=== PATIENT | female | born 1985 | race Two or more races ===

== ENCOUNTER 2020-09-11 11:50 | Emergency (ER) | payer OTHER, SELFPAY ==
[2020-09-11 12:16] VITALS: BP 99/69; PULSE 100; RESP 18; TEMP 36; O2SAT 100; BMI 33.6
[2020-09-11 13:15] VITALS: BP 114/71; PULSE 72; RESP 16; TEMP 36.9; O2SAT 99
--- NOTE | 2020-09-11 13:32 | ED.BACK ---
HPI - Back Pain/Injury General Chief Complaint: Back Pain/Injury Stated Complaint: back pain Time Seen by Provider: 09/11/20 13:27 Source: patient Mode of arrival: ambulatory Limitations: no limitations History of Present Illness HPI Narrative: 35 y/o female with history of sciatica presents with bilateral lower back pain that started 1 week ago after lifting a heavy mop bucket filled with water. She has been taking Tylenol and Aleve with only brief and minor improvements. It was getting better until yesterday when she got up too quickly and re-injured the area. She describes the pain as tight and clenched up. She denies urinary symptoms, incontinence, numbness or tingling. MD elicited complaint: back pain and back injury Pertinent past history: prior back pain Onset (ago): day(s) (7) Timing: constant Severity: moderate Similar Symptoms Previously: Yes Quality: sharp, aching and spasming Location: right lower back and left lower back Radiation: none Exacerbating factors: movement, walking, coughing/sneezing and lifting Relieving factors: immobilization and medication Context: while lifting Associated symptoms: denies other symptoms Treatments prior to arrival: heat therapy Work related injury: No Related Data Previous Rx's Medication Instructions Recorded cyclobenzaprine 10 mg PO TID PRN #15 tab 09/11/20 hydrocodone-acetaminophen [[place]] 1 tab PO Q6H PRN #10 tab 09/11/20 ibuprofen 600 mg PO Q8H PRN #20 tab 09/11/20 lidocaine [Lidoderm] 1 patch TOPICAL DAILY #15 ea 09/11/20 Allergies Allergy/AdvReac Type Severity Reaction Status Date / Time No Known Allergies Allergy Verified 09/11/20 12:15 Review of Systems Review of Systems: Constitutional: No Fever, No Chills Respiratory: No Cough, No Sputum, No Wheezing, No dyspnea Gastrointestinal No abdominal Pain Genitourinary: No Dysuria, No Urinary Frequency, No Hematuria Musculoskeletal: + joint pain, + Myalgias Skin: No Skin Lesions, No rash Neuro: No Weakness, No Numbness PMFSH Past Medical History Attestation statement: The following information was validated with the patient. Medical History Appendicitis Cholecystectomy planned Surgical History (Updated 09/11/20 @ 12:20 by Madelyn Chong) S/P panniculectomy Tubal ligation status Social History Social History Alcohol intake: never Smoking Status: Never smoker Use of substances other than those prescribed or required for medical reasons: No Advance Directives: No Advance Directives Information Provided: Yes Physical Exam Vital Signs: Vital Signs: Last Vital Signs Temp 98.5 F 09/11/20 13:15 Pulse 72 09/11/20 13:15 Resp 16 09/11/20 13:15 BP 114/71 09/11/20 13:15 Pulse Ox 99 09/11/20 13:15 Body Mass Index 33.6 Appearance: Alert. Oriented X3. No acute distress. HEENT: normal inspection Respiratory: No respiratory distress. Skin: Skin warm and dry. Normal skin color. Normal skin turgor. No rashes. Extremities: normal inspection, full ROM. normal patellar DTR. Back: low lumbar area tender on the left and right sides, no spinal tenderness, no CVA tenderness. Neuro: Oriented X 3. No motor deficit. No sensory deficit. Course Course Course Narrative: 35 y/o female presenting with low back pain after heavy lifting. Exam and mechanism consistent with muscular injury, doubt radiulopathy or herniation given lack of radiation. No red flag symptoms, no hx IVDA. Will give Rx for NSAID, muscle relaxer and short course of [place]. Patient counseled, agrees with plan. MDM - Back Pain/Injury Differential Diagnosis Differential diagnosis: Likely lumbar radiculopathy, sciatica, strain of lumbar region and renal colic Critical Care Time Critical Care Time Critical Care Time: No Discharge Plan Discharge Clinical Impression: Strain of lumbar region Qualifiers: Encounter type: initial encounter Qualified Code(s): S39.012A - Strain of muscle, fascia and tendon of lower back, initial encounter Patient Disposition: Home, Self-Care Instructions: Acute Low Back Pain (ED), Lower Back Exercises (ED) Additional Instructions: Use ice and/or heat several times per day as needed for pain. Take prescribed medications as needed for pain. Limit bending, lifting >5 lbs, or twisting motion. Follow up with your doctor next week. Prescriptions: New cyclobenzaprine 10 mg tablet 10 mg PO TID PRN (Reason: muscle spasm) Qty: 15 RF: 0 ibuprofen 600 mg tablet 600 mg PO Q8H PRN (Reason: pain) Qty: 20 RF: 0 lidocaine [Lidoderm] 5 % adhesive patch,medicated 1 patch topical DAILY Qty: 15 RF: 0 hydrocodone-acetaminophen [[place]] 5-325 mg tablet 1 tab PO Q6H PRN (Reason: pain) Qty: 10 RF: 0
[2020-09-11] MEDS: Ketorolac Tromethamine 30 MG/ML VIAL IM (13:40)
[2020-09-11] MEDS: HYDROcodone Bit/Acetam 5/325 TABLET 1 TAB PO (13:40)
[2020-09-11 14:05] VITALS: BP 119/65; PULSE 79; RESP 16; O2SAT 98
== END 2020-09-11 14:08 | disposition home or self-care (01) ==
PROVIDERS: Emergency Provider Emergency Medicine Emergency Medical Services; PCP Internal Medicine
DX: S39.012A Strain of muscle, fascia and tendon of lower back, initial encounter (principal); X50.0XXA Overexertion from strenuous movement or load, initial encounter; Y93.E5 Activity, floor mopping and cleaning; Y92.009 Unspecified place in unspecified non-institutional (private) residence as the place of occurrence of the external cause; Y99.9 Unspecified external cause status; Z79.899 Other long term (current) drug therapy
CPT/HCPCS: 96372; 99284; J1885

== ENCOUNTER 2020-09-14 21:39 | Emergency (ER) | payer OTHER, SELFPAY ==
[2020-09-14 21:54] VITALS: BP 119/45; PULSE 86; RESP 16; TEMP 37.3; O2SAT 99; BMI 75.2
--- NOTE | 2020-09-14 22:21 | ED.BACK ---
HPI - Back Pain/Injury General Chief Complaint: Back Pain/Injury Stated Complaint: back pain Time Seen by Provider: 09/14/20 22:20 Source: patient Mode of arrival: ambulatory Limitations: no limitations History of Present Illness HPI Narrative: This is a 35-year-old female who re-presented after being seen on 09/11 for back pain after lifting a heavy mop up that 1 week prior to her initial presentation. She currently continues to deny any urinary incontinence or retention as well as no difficulties with bowel movements. She denies any radiation of the pain into either lower extremity at this time and simply states that she continues to feel very stiff . She denies any fevers, chills, shortness of breath, abdominal pain, urinary pain/ burning / frequency. Related Data Previous Rx's Medication Instructions Recorded cyclobenzaprine 10 mg PO TID PRN #15 tab 09/11/20 hydrocodone-acetaminophen [[place]] 1 tab PO Q6H PRN #10 tab 09/11/20 ibuprofen 600 mg PO Q8H PRN #20 tab 09/11/20 lidocaine [Lidoderm] 1 patch TOPICAL DAILY #15 ea 09/11/20 ciprofloxacin HCl [Cipro] 500 mg PO Q12H #14 tab 09/14/20 ketorolac 10 mg PO Q6H PRN 5 Days #20 tab 09/14/20 Allergies Allergy/AdvReac Type Severity Reaction Status Date / Time No Known Allergies Allergy Verified 09/11/20 12:15 Review of Systems Review of Systems: Pertinent positives and negatives as stated in HPI 10 point review of systems otherwise negative. [facility] Past Medical History Source: nursing notes reviewed Medical History Appendicitis Cholecystectomy planned Surgical History S/P panniculectomy Tubal ligation status Social History Social History Alcohol intake: never Smoking Status: Never smoker Advance Directives: No Advance Directives Information Provided: Yes Physical Exam Vital Signs: Vital Signs: Last Vital Signs Temp 99.1 F 09/14/20 21:54 Pulse 86 09/14/20 21:54 Resp 16 09/14/20 21:54 BP 119/45 L 09/14/20 21:54 Pulse Ox 99 11/30/20 21:54 Body Mass Index 75.2 VITAL SIGNS: Reviewed. GENERAL: Well developed, well nourished, in no acute distress. HEAD: Normocephalic/atraumatic, EYES: PERRLA, EOMI intact without pain, no nystagmus/pallor/icterus noted EARS: Ext canals without abnormality, TMs non-bulging and non-erythematous NOSE: Nares patent bilateral OROPHARYNX: no oral lesions noted, posterior pharynx clear and non-erythematous without noted tonsillar enlargement/erythema/exudates NECK: Supple, no adenopathy LUNGS: Normal breath sounds. No adventitious sounds or accessory muscle use. SpO2<99> CARDIOVASCULAR: Regular rate and rhythm without noted murmurs, no JVD or lower extremity edema. ABDOMEN: Soft, non-tender, non-distended with bowel sounds. No rigidity. No guarding. No palpable masses or hernias noted MUSCULOSKELETAL: No tenderness, deformities, or effusions noted on gross inspection. BACK: Spasm noted, straight leg test negative, bilateral neurovascular evaluation is without acute findings EXTREMITIES: No cyanosis, clubbing or edema. SKIN: Inspection of the skin reveals no rashes, ulcerations, jaundice, pallor, or petechiae. NEUROLOGIC: Alert and oriented x 4. Strength and sensation to light touch were grossly intact x 4. Course Course Course Narrative: This is a 35-year-old female with history and clinical presentation most consistent with back strain resulting in spasm. Will treat with combination analgesics and muscle relaxants and re-evaluate. Patient is noted to have gallbladder disease and will debate obtaining an ultrasound as she states that the pain has been noted in the right upper back as well Although she denies any other gallbladder like symptoms. On re-evaluation patient has had some mild improvement of her symptoms and we discussed the fact that this was going to take time and would require multiple modalities which would include daily stretching as well as continued use of the medications. MDM - Back Pain/Injury Lab Data Labs: Lab Results 09/14/20 Range/Units 22:36 Urine Color YELLOW Urine Appearance CLEAR Urine pH 6.5 (5.0-8.0) Ur Specific [place] 1.020 (1.005-1.025) Urine Protein NEG (NEG-TRACE) MG/DL Urine Glucose (UA) NEG (NEG) MG/DL Urine Ketones NEG (NEG) MG/DL Urine Blood NEG (NEG) Urine Nitrite NEG (NEG) Ur Leukocyte Esterase 1+ H (NEG) Discharge Plan Discharge Clinical Impression: Pyelonephritis Strain of lumbar region Qualifiers: Encounter type: subsequent encounter Qualified Code(s): S39.012D - Strain of muscle, fascia and tendon of lower back, subsequent encounter Patient Disposition: Home, Self-Care Instructions: Urinary Tract Infection in Women (ED), Back Pain (ED), Lower Back Exercises (ED) Additional Instructions: 1. stop taking the ibuprofen, you will be prescribed a different anti-inflammatory for your back. 2. increase fluid hydration especially with water. The patient and/or family acknowledge understanding of results (as applicable), diagnosis, treatment plan, need for follow up, and symptoms that should prompt a return to the emergency room. Prescriptions: New ketorolac 10 mg tablet 10 mg PO Q6H PRN (Reason: pain) 5 Days Qty: 20 RF: 0 ciprofloxacin HCl [Cipro] 500 mg tablet 500 mg PO Q12H Qty: 14 RF: 0 No Action cyclobenzaprine 10 mg tablet 10 mg PO TID PRN (Reason: muscle spasm) Qty: 15 RF: 0 ibuprofen 600 mg tablet 600 mg PO Q8H PRN (Reason: pain) Qty: 20 RF: 0 lidocaine [Lidoderm] 5 % adhesive patch,medicated 1 patch topical DAILY Qty: 15 RF: 0 hydrocodone-acetaminophen [[place]] 5-325 mg tablet 1 tab PO Q6H PRN (Reason: pain) Qty: 10 RF: 0
[2020-09-14 22:45] LABS: Glucose Urine UA NEG (NEG); Leukocyte Esterase Urine 1+ (NEG); Nitrite Urine NEG (NEG); PH 6.5 (5.0-8.0); Urine Blood NEG (NEG); Urine Ketones NEG (NEG); Urine Protein NEG (NEG-TRACE)
[2020-09-14] MEDS: Acetaminophen 325 MG TABLET 975 MG PO (22:57)
[2020-09-14] MEDS: Lidocaine 4 % Patch ADH..PATCH 1 PATCH TRANSDERMA (22:58)
[2020-09-14] MEDS: Cyclobenzaprine HCl 10 MG TABLET PO (22:58)
[2020-09-14] MEDS: Ketorolac Tromethamine 15 MG/ML VIAL IM (22:59)
[2020-09-14 23:06] LABS: Appearance Urine CLEAR; Color Urine YELLOW
[2020-09-14 23:30] VITALS: BP 117/76; PULSE 82; RESP 16; TEMP 36.5; O2SAT 99
[2020-09-15 01:16] LABS: Bacteria Urine TRACE /LPF; RBC Urine 0-2 /HPF (0); Squamous Epithelial Cell Urine 2+ /LPF; UPreg QC Valid YES; Urine Pregnancy NEGATIVE (NEGATIVE)
== END 2020-09-14 23:30 | disposition home or self-care (01) ==
PROVIDERS: Emergency Provider Student in an Organized Health Care Education/Training Program; PCP Internal Medicine
DX: S39.012A Strain of muscle, fascia and tendon of lower back, initial encounter (principal); N12 Tubulo-interstitial nephritis, not specified as acute or chronic; X58.XXXA Exposure to other specified factors, initial encounter; Y93.9 Activity, unspecified; Y92.9 Unspecified place or not applicable; Y99.9 Unspecified external cause status; Z79.899 Other long term (current) drug therapy
CPT/HCPCS: 81001; 81003; 81025; 87086; 96372; 99283; 99284; J1885

== ENCOUNTER → 2020-11-05 13:37 | Outpatient (BNVA) | payer OTHER, SELFPAY | PROVIDERS: Visit Provider Urology | DX: N39.3 Stress incontinence (female) (male) (principal) | CPT/HCPCS: 51798; 81002; 99202 ==

== ENCOUNTER 2021-04-08 08:25 | Emergency (ER) | payer OTHER, SELFPAY ==
--- NOTE | ~2021-04-08 | XR_ITS ---
EXAMINATION: XR CHEST CLINICAL INFORMATION: Cough and fever COMPARISON: None TECHNIQUE: 2 views of the chest were obtained. FINDINGS: No significant abnormality is noted involving the heart, lungs, mediastinum, bony thorax or soft tissues. XR/XR chest 2V IMPRESSION: Unremarkable chest examination.
[2021-04-08 08:53] VITALS: BP 116/64; PULSE 108; RESP 16; TEMP 39.1; O2SAT 99; BMI 36.0
[2021-04-08] MEDS: Acetaminophen 325 MG TABLET 975 MG PO (09:17)
--- NOTE | 2021-04-08 09:22 | ED.FEVER ---
HPI - Fever General Chief Complaint: Upper Respiratory Symptoms Stated Complaint: covid like symptoms Time Seen by Provider: 04/08/21 08:59 Source: patient Mode of arrival: ambulatory Limitations: no limitations History of Present Illness HPI Narrative: 35 y/o female with history of mild intermittent asthma, s/p gastric sleeve who presents to the ER with 3 days of feeling unwell. She reports about 3 days ago she started having a mild dry cough along with some chills. Her symptoms evolved yesterday to include body aches, subjective fevers, sore throat, headache and some mild nausea. She was up all night with hot flashes and chills. She denies abdominal pain, vomiting or urinary symptoms. She has some acute on chronic low back soreness and body aches all over. She has no known sick contacts. No one else in the home is sick. MD elicited complaint: fever Onset (ago): day(s) (3) Exacerbating factors: nothing Relieving factors: rest Associated symptoms: chills, myalgias, headache, sore throat, cough and nausea Treatments prior to arrival fever: none Related Data Previous Rx's Medication Instructions Recorded cyclobenzaprine 10 mg PO TID PRN #15 tab 09/11/20 hydrocodone-acetaminophen [[place]] 1 tab PO Q6H PRN #10 tab 09/11/20 ibuprofen 600 mg PO Q8H PRN #20 tab 09/11/20 lidocaine [Lidoderm] 1 patch TOPICAL DAILY #15 ea 09/11/20 ciprofloxacin HCl [Cipro] 500 mg PO Q12H #14 tab 09/14/20 ketorolac 10 mg PO Q6H PRN 5 Days #20 tab 09/14/20 amoxicillin 500 mg PO Q12H #20 tab 04/08/21 Allergies Allergy/AdvReac Type Severity Reaction Status Date / Time No Known Allergies Allergy Verified 09/11/20 12:15 Review of Systems Review of Systems: Constitutional: + Fever, + Chills ENT/Mouth: + sore throat, No Rhinorrhea, No Swallowing Difficulty Cardiovascular: No Chest Pain, No SOB, No Orthopnea, No Edema Respiratory: + Cough, No Sputum, No Wheezing, No dyspnea Gastrointestinal: + Nausea, No Vomiting, No Diarrhea, No abdominal Pain Genitourinary: No Dysuria, No Urinary Frequency, No Hematuria Musculoskeletal: No joint pain, + Myalgias Skin: No Skin Lesions, No rash Neuro: + Weakness, No Numbness, No Dizziness, + Headache Psych: No Anxiety/Panic, No Depression Heme/Lymph: No Bruising, No Lymphadenopathy Endocrine: No Polyuria, No Polydipsia PMFSH Past Medical History Attestation statement: The following information was validated with the patient. Medical History (Updated 04/08/21 @ 10:22 by TREVOR Lopez) Appendicitis Cholecystectomy planned HESHAM (stress urinary incontinence, female) Surgical History (Updated 04/08/21 @ 09:29 by TREVOR Lopez) Gastric bypass status for obesity Tubal ligation status Social History Social History Alcohol intake: never Advance Directives: Yes Advance Directives Information Provided: Yes Advance Directives on File: No Patient : No Physical Exam Vital Signs: Vital Signs: Last Vital Signs Temp 100.8 F H 04/08/21 10:32 Pulse 97 04/08/21 10:32 Resp 16 04/08/21 10:32 BP 116/64 04/08/21 08:53 Pulse Ox 100 04/08/21 10:32 Body Mass Index 36.0 Course Course Course Narrative: 35 y/o female presenting with fever, chills, sore throat, body aches, headache and mild nausea x2-3 days. She is febrile on arrival with mild tachycardia which is most likely related to the fever & pain. She has not taken any antipyretics. She appears well with clear lungs. Pharynx reveals tonsillar erythema and edema concerning for Strep pharyngitis. No appreciated peritonsillar mass, handling secretions normally and normal voice. Will give Tylenol, check CXR, Viral PCR, Strep swab and UA. Reevaluation(s) Reevaluation #1: Strep + - will give 1st dose of Amoxicillin here. Reevaluation #2: Fever improved with tylenol. Other workup is unremarkable. She is stable for discharge home with PO and and supportive care. Patient agreeable with plan. MDM - Fever Lab Data Labs: Lab Results 04/08/21 04/08/21 04/08/21 Range/Units 09:08 09:13 09:21 Urine Color YELLOW Urine Appearance HAZY Urine pH 7.0 (5.0-8.0) Ur Specific [place] 1.010 (1.005-1.025) Urine Protein NEG (NEG-TRACE) MG/DL Urine Glucose (UA) NEG (NEG) MG/DL Urine Ketones NEG (NEG) MG/DL Urine Blood NEG (NEG) Urine Nitrite NEG (NEG) Ur Leukocyte Esterase TRACE H (NEG) Urine RBC 0-2 (0) /HPF Urine WBC 0-2 (0-4) /HPF Ur Squamous Epith Cells 1+ /LPF Urine Bacteria NONE /LPF Coronavirus (PCR) NEGATIVE (Negative) Influenza Type A (PCR) NEGATIVE (Negative) Influenza Type B (PCR) NEGATIVE (Negative) RSV RNA Qual (PCR) NEGATIVE (Negative) S. pyogenes GrpA JUAN JOSÉ Positive A (Negative) Critical Care Time Critical Care Time Critical Care Time: No Discharge Plan Discharge Clinical Impression: Pharyngitis Qualifiers: Pharyngitis/tonsillitis etiology: streptococcus Qualified Code(s): J02.0 - Streptococcal pharyngitis Patient Disposition: Home, Self-Care Instructions: Strep Throat (ED) Additional Instructions: You were found to be positive for Strep throat today. Your COVID, Flu and RSV test was negative. Your chest x-ray was clear. Take the prescribed antibiotic as directed, take 1st dose tonight, you were given 1st dose in the ER today. Use warm salt water gargles several times per day. Take Tylenol 975 mg every 6 hours as needed for pain, fever, and sore throat. Use Chloraseptic [place] or Cepacol lozenges as needed for sore throat. If you develop difficulty swallowing or significant worsening of pain come back to the ER for further evaluation. Prescriptions: New amoxicillin 500 mg tablet 500 mg PO Q12H Qty: 20 RF: 0 No Action cyclobenzaprine 10 mg tablet 10 mg PO TID PRN (Reason: muscle spasm) Qty: 15 RF: 0 ibuprofen 600 mg tablet 600 mg PO Q8H PRN (Reason: pain) Qty: 20 RF: 0 lidocaine [Lidoderm] 5 % adhesive patch,medicated 1 patch topical DAILY Qty: 15 RF: 0 hydrocodone-acetaminophen [[place]] 5-325 mg tablet 1 tab PO Q6H PRN (Reason: pain) Qty: 10 RF: 0 ketorolac 10 mg tablet 10 mg PO Q6H PRN (Reason: pain) 5 Days Qty: 20 RF: 0 ciprofloxacin HCl [Cipro] 500 mg tablet 500 mg PO Q12H Qty: 14 RF: 0 Interventions: ED Discharge Assessment Last Done: 04/08/21 10:32 Discharge Date/Time: 04/08/21 10:33
[2021-04-08 09:24] LABS: IDNOW Serial# 08D9AD1C; Strep A Nucleic Acid Positive (Negative)
[2021-04-08 09:33] LABS: Glucose Urine UA NEG (NEG); Leukocyte Esterase Urine TRACE (NEG); Nitrite Urine NEG (NEG); UACC Culture Trigger YES; Urine Blood NEG (NEG); Urine Ketones NEG (NEG); Urine Protein NEG (NEG-TRACE)
[2021-04-08 09:34] LABS: Appearance Urine HAZY; Color Urine YELLOW
[2021-04-08] MEDS: Amoxicillin 500 MG CAPSULE PO (09:37)
[2021-04-08 09:49] LABS: RBC Urine 0-2 /HPF (0); Squamous Epithelial Cell Urine 1+ /LPF; WBC Urine 0-2 /HPF (0-4)
[2021-04-08 10:01] LABS: Influenza A PCR NEGATIVE (Negative); Influenza B PCR NEGATIVE (Negative); Resp Syncy Virus RNA Qual PCR NEGATIVE (Negative); SARS COV2 PCR INHOUSE NEGATIVE (Negative)
[2021-04-08 10:24] VITALS: TEMP 38.2
[2021-04-08 10:32] VITALS: PULSE 97; RESP 16; TEMP 38.2; O2SAT 100
== END 2021-04-08 10:33 | disposition home or self-care (01) ==
PROVIDERS: Physician Assistant; Emergency Provider Emergency Medicine; PCP Internal Medicine
DX: J02.0 Streptococcal pharyngitis (principal); J45.20 Mild intermittent asthma, uncomplicated; Z20.822 Contact with and (suspected) exposure to COVID-19
CPT/HCPCS: 0241U; 36415; 71046; 81001; 81003; 87086; 87651; 99283; 99284

== ENCOUNTER 2021-07-01 17:10 | Outpatient (REF) | payer OTHER, SELFPAY | END 2021-07-01 17:11 | disposition home or self-care (01) | LOC: HO.LNP 17:10 | PROVIDERS: Visit Provider Internal Medicine | DX: Z13.89 Encounter for screening for other disorder (principal) ==

== ENCOUNTER 2021-07-14 18:04 | Emergency (ER) | payer OTHER, SELFPAY ==
[2021-07-14 18:53] VITALS: BP 133/96; PULSE 73; RESP 18; TEMP 36.9; O2SAT 100; BMI 33.4
--- NOTE | 2021-07-14 19:33 | ED_ITS ---
HPI - Neck Pain/Injury General Chief Complaint: Neck Pain/Injury Stated Complaint: Neck pain Time Seen by Provider: 07/14/21 19:13 Source: patient Mode of arrival: ambulatory Limitations: no limitations History of Present Illness MD complaint: neck pain Onset (ago): week(s) (TWO WEEKS) Place: home Radiation: left lateral and upper back Severity: severe and constant Severity scale (1-10): >10 Quality: aching and spasming Duration: constant and progressively worsening Relieving factors: none Exacerbating factors: movement of neck Context: unknown Associated symptoms: none Treatments prior to arrival: acetaminophen, ibuprofen, cold therapy and heat therapy Related Data Previous Rx's Medication Instructions Recorded cyclobenzaprine 10 mg tablet 10 mg PO TID PRN #15 tab 09/11/20 hydrocodone 5 mg-acetaminophen 325 1 tab PO Q6H PRN #10 tab 09/11/20 mg tablet ([place]) ibuprofen 600 mg tablet 600 mg PO Q8H PRN #20 tab 09/11/20 lidocaine 5 % topical patch 1 patch TOPICAL DAILY #15 ea 09/11/20 (Lidoderm) ciprofloxacin HCl 500 mg tablet 500 mg PO Q12H #14 tab 09/14/20 (Cipro) ketorolac 10 mg tablet 10 mg PO Q6H PRN 5 Days #20 tab 09/14/20 amoxicillin 500 mg tablet 500 mg PO Q12H #20 tab 04/08/21 diazepam 5 mg tablet (Valium) 5 mg PO TID PRN #14 tab 07/14/21 lidocaine HCl 4 % topical cream 1 appl TOPICAL BID PRN #120 g 07/14/21 (Aspercre[place] (lidocaine HCl)) naproxen 500 mg tablet 500 mg PO BID PRN #10 tab 07/14/21 oxycodone 5 mg tablet 5 mg PO Q6H PRN #14 tab 07/14/21 Allergies Allergy/AdvReac Type Severity Reaction Status Date / Time No Known Allergies Allergy Verified 07/14/21 19:22 Review of Systems Review of Systems: Constitutional : No trauma, No Weight loss, No Fever, No Chills, ENT/Mouth : No Hearing loss, No Ear Pain, No Nasal Congestion, No Sinus Pain, No Hoarseness, No sore throat, No Rhinorrhea, No Swallowing Difficulty Cardiovascular : No Chest Pain, No SOB Respiratory : No Cough, No Dyspnea Gastrointestinal : No Nausea, No Vomiting, No Diarrhea, No abdominal Pain, No Hematochezia, No Melena Genitourinary : No Dysuria, No Urinary Frequency, No Hematuria, No Urinary or Bowel Incontinence/retention Musculoskeletal : + Neck pain, No Back pain, No joint stiffness, No joint swelling Skin : No Skin Lesions, No rash or signs of infection Neuro : nO Tingling to b/l arms/legs, No Weakness, No radiation, No Numbness, No headache, no loss of bowel or bladder incontinence, no saddle anesthesia Denies history of IV drug usage. Yes all other systems are reviewed and are negative [facility] Past Medical History Attestation statement: The following information was validated with the patient. Medical History Appendicitis Cholecystectomy planned HESHAM (stress urinary incontinence, female) Surgical History Gastric bypass status for obesity Tubal ligation status Social History Social History Alcohol intake: never Advance Directives: No Advance Directives Information Provided: No Patient : No Physical Exam Vital Signs: Vital Signs: Last Vital Signs Temp 98.4 F 07/14/21 18:53 Pulse 73 07/14/21 18:53 Resp 18 07/14/21 18:53 BP 133/96 H 07/14/21 18:53 Pulse Ox 100 07/14/21 18:53 Body Mass Index 33.4 vital signs have been reviewed as normal and appeared to be correct. Blood pressure normal. Heart rate normal. Respiration rate normal. Temperature normal. Oxygen saturation normal. Appearance: Alert. Oriented X3. No acute distress. Head: Normal external exam. Normocephalic. Atraumatic. Eyes: PERRLA. EOMI. Conjunctiva and sclera normal. Eyelids normal. ENT: Pharynx normal. Uvula midline. Moist mucous membranes. No trismus noted. No drooling noted. No muffled voice noted. Neck: Normal inspection. Neck supple. No adenopathy. Thyroid Normal. Trachea midline. No meningeal signs. No neck mass noted. Tender to palpation of bilateral paracervical musculature and mid cervical tenderness. No step-offs or deformities noted. Patient neuro intact bilaterally and distally on all 4 extr emities. Reflexes intact bilaterally and distally in all 4 extremities. No rashes/lesion/induration/fluctuance or signs of infection noted. No edema noted. Patient is noted to have obvious spasms to bilateral paraspinous musculature therefore limited range of motion due to pain. CVS: Normal heart rate and rhythm. Heart sound normal. No murmurs noted. Pulses normal throughout. Respiratory: No respiratory distress. Painless inspiration. Breath sounds normal. No wheezes/rales/rhonchi noted. Chest nontender. No accessory muscle usage noted or decreased air movement noted. Back: Full range of motion noted. No obvious deformities, or edema. Full ROM in back and lower extremities. Skin: Skin warm and dry. Normal skin color. Normal skin turgor. No rashes/lesions/lacerations noted. Extremities: Extremities exhibit normal range of motion. Extremities nontender. Neuro: Oriented X 3. No motor deficit. No sensory deficit. Reflexes normal. Normal steady gait. Course Course Course Narrative: Pt c likely muscular pain, but could be herniated disc. Neuro exam shows no deficits. Not c/w vascular etiology, perivertebral / other soft tissue neck / airway infection, or spinal fx / process. Imaging not currently indicated. DC c meds and f/u patient understands agrees with this plan. MDM - Neck Pain/Injury Medical Records Attestation: I reviewed the patient's medical records. Discharge Plan Discharge Clinical Impression: Torticollis, Strain of neck muscle Patient Disposition: Home, Self-Care Instructions: Muscle Strain (ED), Neck Pain (ED) Prescriptions: New diazepam [Valium] 5 mg tablet 5 mg PO TID PRN (Reason: muscle spasm) Qty: 14 RF: 0 lidocaine HCl [[place]percre[place] (lidocaine HCl)] 4 % cream 1 appl topical BID PRN (Reason: pain) Qty: 120 RF: 0 naproxen 500 mg tablet 500 mg PO BID PRN (Reason: pain) Qty: 10 RF: 0 oxycodone 5 mg tablet 5 mg PO Q6H PRN (Reason: pain) Qty: 14 RF: 0 No Action cyclobenzaprine 10 mg tablet 10 mg PO TID PRN (Reason: muscle spasm) Qty: 15 RF: 0 ibuprofen 600 mg tablet 600 mg PO Q8H PRN (Reason: pain) Qty: 20 RF: 0 lidocaine [Lidoderm] 5 % adhesive patch,medicated 1 patch topical DAILY Qty: 15 RF: 0 hydrocodone-acetaminophen [[place]] 5-325 mg tablet 1 tab PO Q6H PRN (Reason: pain) Qty: 10 RF: 0 ketorolac 10 mg tablet 10 mg PO Q6H PRN (Reason: pain) 5 Days Qty: 20 RF: 0 ciprofloxacin HCl [Cipro] 500 mg tablet 500 mg PO Q12H Qty: 14 RF: 0 amoxicillin 500 mg tablet 500 mg PO Q12H Qty: 20 RF: 0 Referrals: Kerry Medina MD [Primary Care Provider] - 2 days Print Language: Indonesian
[2021-07-14] MEDS: diazePAM 5 MG TABLET PO (19:52)
[2021-07-14] MEDS: oxyCODONE HCl Immed Release 5 MG TABLET PO (19:53)
== END 2021-07-14 20:13 | disposition home or self-care (01) ==
PROVIDERS: Emergency Provider Internal Medicine; PCP Internal Medicine
DX: M43.6 Torticollis (principal); M54.5 Low back pain; M54.2 Cervicalgia; Z79.899 Other long term (current) drug therapy
CPT/HCPCS: 99283; 99284

== ENCOUNTER 2021-07-20 19:10 | Emergency (ER) | payer OTHER, SELFPAY ==
--- NOTE | ~2021-07-20 | CT_ITS ---
EXAMINATION: CT CERVICAL SPINE WITHOUT CONTRAST CLINICAL INFORMATION: Neck pain. Evaluate for fracture or arthritis. COMPARISON: No similar priors. TECHNIQUE: Axial, coronal and sagittal images of the cervical spine were obtained. No intravenous contrast. This CT examination was performed using dose optimization techniques as appropriate, variously including the following: *Automated exposure control *Adjustment of mA and/or kV according to patient size (this includes techniques or standardized protocols for targeted exams where dose is matched to indication/reason for exam; i.e. extremities or head) *Use of iterative reconstruction technique DLP: 516 mGy-cm FINDINGS: Straightening of the cervical lordosis with otherwise anatomic alignment of the anterior and posterior elements. The atlantoaxial and atlantooccipital articulations are preserved. No evidence of acute compression deformities. There is a well-corticated bony fragment off the anteroinferior aspect of C5. There is mild cervical spondylosis with subtle disc space narrowing. Prominent anterior osteophytes at T1 and T2. No significant uncovertebral hypertrophy, neural foraminal narrowing or central canal stenosis. Soft tissues of the neck are within normal limits. Visualized upper lungs are clear. The thyroid gland is unremarkable. Right mastoid effusion. Partially visualized mucous secretions in the right sphenoidal sinus. CT/CT cervical spine wo con IMPRESSION: No acute cervical abnormalities. Mild cervical spondylosis.
[2021-07-20 20:20] VITALS: BP 157/88; PULSE 70; RESP 18; TEMP 36.4; O2SAT 100; BMI 36.0
--- NOTE | 2021-07-20 21:34 | ED_ITS ---
HPI - General Adult General Chief complaint: Neck Pain/Injury Stated complaint: neck pain/head pain Time Seen by Provider: 07/20/21 20:49 Source: patient Mode of arrival: ambulatory Limitations: no limitations History of Present Illness HPI narrative: 35-year-old female presents to ED for posterior neck pain/upper b ack pain radiating down left and right shoulder with tingling sensation. Patient states difficulty to turn neck to either side due to posterior neck pain/upper back pain. Patient states this been going on for 3 weeks. Patient denies any recent head trauma, nausea, vomiting, photophobia, blurry vision, fever, or chills. Patient taking muscle relaxer and pain meds without much relief. patient denies any pmh of HIV or IV drug use. Radiation: back and neck Related Data Previous Rx's Medication Instructions Recorded cyclobenzaprine 10 mg tablet 10 mg PO TID PRN #15 tab 09/11/20 hydrocodone 5 mg-acetaminophen 325 1 tab PO Q6H PRN #10 tab 09/11/20 mg tablet ([place]) ibuprofen 600 mg tablet 600 mg PO Q8H PRN #20 tab 09/11/20 lidocaine 5 % topical patch 1 patch TOPICAL DAILY #15 ea 09/11/20 (Lidoderm) ciprofloxacin HCl 500 mg tablet 500 mg PO Q12H #14 tab 09/14/20 (Cipro) ketorolac 10 mg tablet 10 mg PO Q6H PRN 5 Days #20 tab 09/14/20 amoxicillin 500 mg tablet 500 mg PO Q12H #20 tab 04/08/21 diazepam 5 mg tablet (Valium) 5 mg PO TID PRN #14 tab 07/14/21 lidocaine HCl 4 % topical cream 1 appl TOPICAL BID PRN #120 g 07/14/21 (Aspercreme (lidocaine HCl)) naproxen 500 mg tablet 500 mg PO BID PRN #10 tab 07/14/21 oxycodone 5 mg tablet 5 mg PO Q6H PRN #14 tab 07/14/21 prednisone 20 mg tablet 60 mg PO DAILY 5 Days #15 tab 07/20/21 Allergies Allergy/AdvReac Type Severity Reaction Status Date / Time No Known Allergies Allergy Verified 07/14/21 19:22 Review of Systems Review of Systems: Yes all other systems are reviewed and are negative Constitutional: Constitutional: Reports as per HPI and Reports no additional constitutional complaints Eyes: Eyes: Reports as per HPI and Reports no additional eye complaints ENT: Reports system reviewed and no additional complaints, except as documented, Reports as per HPI and Reports neck pain (Posterior neck pain radiating down shoulder) Cardiovascular: Cardiovascular: Reports as per HPI and Reports no additional cardiovascular complaints Respiratory: Respiratory: Reports as per HPI and Reports no additional respiratory complaints Gastrointestinal: Gastrointestinal: Reports as per HPI and Reports no addit ional gastrointestinal complaints Genitourinary: Genitourinary: Reports no additional female genitourinary complaints and Reports as per HPI Musculoskeletal: Musculoskeletal: Reports no additional musculoskeletal complaints, Reports as per HPI and Reports neck pain (Posterior neck pain radia ting down shoulder) Neurologic: Reports system reviewed and no additional complaints, except as documented and Reports as per HPI Psychiatric: Psychiatric: Reports no additional psychiatric complaints and Reports as per HPI [facility] Past Medical History Medical History (Updated 07/20/21 @ 22:26 by TREVOR Sharp) Appendicitis Asthma Cholecystectomy planned Migraines HESHAM (stress urinary incontinence, female) Surgical History Gastric bypass status for obesity Tubal ligation status Social History Social History Alcohol intake: never Advance Directives: No Advance Directives Information Provided: No Patient : No Physical Exam Vital Signs: Vital Signs: Last Vital Signs Temp 97.6 F 07/20/21 20:20 Pulse 70 07/20/21 20:20 Resp 18 07/20/21 20:20 BP 157/88 H 07/20/21 20:20 Pulse Ox 100 07/20/21 20:20 Body Mass Index 36.0 Const: General: cooperative, healthy appearing, comfortable, no acute distress and well developed Orientation/consciousness: patient oriented x3 HENMT: Head: Yes normal to inspection, Yes No palpable skull fracture present, Yes normocephalic, Yes atraumatic and No abrasion Head images: 1. Tenderness on palpation. Pain on range of motion when turning to both sides of the head. Eyes: General: appearance normal, both eyes and all related structures Neck: Neck: Yes normal visual inspection, Yes full ROM, Yes no lymphad enopathy, Yes no meningeal signs, Yes trachea midline, Yes supple and Yes tender (Posterior) Chest: Chest palpation & inspection: normal inspection of the chest and normal palpation of entire chest wall Resp: Effort & Inspection: normal respiratory effort and able to speak in complete sentences Auscultation: clear to auscultation bilaterally Cardio: Jugular venous distension: no JVD Heart sounds: S1 normal heart sound present and S2 normal heart sound present GI: Inspection: Yes normal to inspection and No abdominal wall ecchymosis Palpation (GI): Soft to palpation, not firm, nontender, no guarding and not rigid : General: No CVA tenderness and Yes no CVA tenderness Back/Spine/Pelvis: Back: no CVA tenderness, No CVA tenderness and back tenderness (upper thoracic tenderness) Skin: General skin exam: no rashes or lesions noted and elasticity normal Neuro: General: patient oriented x3, gait normal, no meningeal signs and CN's II-XI intact bilaterally Cranial nerves: Yes CN's II-XII intact bilaterally Extrem: General: Yes normal to inspection and Yes full ROM Psych: Appearance: grossly normal, well kempt and not disheveled Course Course Course Narrative: Will send patient for cervical spine CT scan to rule out any fracture or arthritis. Not suspect epidural abscess patient denies any history of HIV or IV drug use. Patient does not have any headache patient states having posterior neck pain for 3 weeks. Do not suspect meningitis. Do not suspect brain bleed/mass/stroke. Reevaluation(s) Reevaluation #1: CT scan shows spondylosis of C5 and osteophytes of T1-T2. Once again patient states having posterior neck pain and upper back pain as worse on movement. Patient for infomred to follow-up with her primary care for MRI to see if there is worsening nerve impingement. Patient already prescribed naproxen, Valium, and narcotics. Patient will be discharged with prednisone. Time: 22:23 Medical Decision Making [facility] Narrative Medical decision making narrative: Cervical spondylosis. Thoracic osteophytes. Discharge Plan Discharge Clinical Impression: Cervical spondylosis with radiculopathy, Thoracic arthritis Patient Disposition: Home, Self-Care Instructions: Cervical Radiculopathy (ED), Degenerative Disc Disease (ED) Additional Instructions: This CT scan shows arthritis of the cervical spine and thoracic spine. Please follow-up with the primary care provider for possible MRI for to evaluate for nerve impingement. You will be discharged with steroid and continue taking with meds you were prescribed by prior ER provider. Return to the ED immediately for fever, chills, headache, nausea, vomiting, photophobia, worsening neck pain, paralysis of upper extremity, tingling upper extremities, weakness, or any other concerning symptoms. Prescriptions: New prednisone 20 mg tablet 60 mg PO DAILY 5 Days Qty: 15 RF: 0 No Action cyclobenzaprine 10 mg tablet 10 mg PO TID PRN (Reason: muscle spasm) Qty: 15 RF: 0 ibuprofen 600 mg tablet 600 mg PO Q8H PRN (Reason: pain) Qty: 20 RF: 0 lidocaine [Lidoderm] 5 % adhesive patch,medicated 1 patch topical DAILY Qty: 15 RF: 0 hydrocodone-acetaminophen [[place]] 5-325 mg tablet 1 tab PO Q6H PRN (Reason: pain) Qty: 10 RF: 0 ketorolac 10 mg tablet 10 mg PO Q6H PRN (Reason: pain) 5 Days Qty: 20 RF: 0 ciprofloxacin HCl [Cipro] 500 mg tablet 500 mg PO Q12H Qty: 14 RF: 0 amoxicillin 500 mg tablet 500 mg PO Q12H Qty: 20 RF: 0 diazepam [Valium] 5 mg tablet 5 mg PO TID PRN (Reason: muscle spasm) Qty: 14 RF: 0 lidocaine HCl [Aspercreme (lidocaine HCl)] 4 % cream 1 appl topical BID PRN (Reason: pain) Qty: 120 RF: 0 naproxen 500 mg tablet 500 mg PO BID PRN (Reason: pain) Qty: 10 RF: 0 oxycodone 5 mg tablet 5 mg PO Q6H PRN (Reason: pain) Qty: 14 RF: 0 Referrals: Kerry Medina MD [Primary Care Provider] - 2 days (Cervical radiculopathy and thoracic osteoarthritis. May need MRI for nerve impingement evaluation) Stand Alone Forms: Work/School Release Print Language: Albanian
[2021-07-20] MEDS: predniSONE 20 MG TABLET 60 MG PO (22:21)
[2021-07-20] MEDS: Ketorolac Tromethamine 15 MG/ML VIAL 30 MG IM (22:22)
== END 2021-07-20 22:58 | disposition home or self-care (01) ==
PROVIDERS: Emergency Provider Internal Medicine; PCP Internal Medicine
DX: M47.22 Other spondylosis with radiculopathy, cervical region (principal); M47.814 Spondylosis without myelopathy or radiculopathy, thoracic region; Z98.84 Bariatric surgery status; Z79.899 Other long term (current) drug therapy
CPT/HCPCS: 72125; 96372; 99284; J1885

== ENCOUNTER 2021-07-22 10:15 | Outpatient (REF) | payer OTHER, SELFPAY ==
[2021-07-22 10:38] LABS: MANUAL DIFF FLAG NO
[2021-07-22 12:17] LABS: Basophils Percent Auto 0.4 % (0-2); Eosinophils Absolute Auto 0.1 X10*3/uL (0.0-0.4); Eosinophils Percent Auto 1.2 % (0-4); Ferritin 6 ng/mL (10-122); Hematocrit 31.2 % (37-47); Hemoglobin 9.4 g/dl (12.0-16.0); Imm Gran Abs Auto 0.02 X10*3/uL (0.00-0.03); Imm Gran Pct Auto 0.4 % (0.0-0.4); Lymphocytes Absolute Auto 1.5 X10*3/uL (1.2-4.9); Lymphocytes Percent Auto 28.8 % (20-40); Mean Corpuscular HGB Conc 30.1 g/dl (31.0-35.0); Mean Corpuscular Hemoglobin 23.4 pg (27.0-33.0); Mean Corpuscular Volume 77.8 fL (80-98); Mean Platelet Volume 10.8 fL (9.4-12.3); Monocytes Absolute Auto 0.6 X10*3/uL (0.1-1.2); Monocytes Percent Auto 10.6 % (2-11); Neutrophils Percent Auto 58.6 % (45-73); Platelet Count 342 X10*3/uL (160-400); Red Blood Count 4.01 X10*6/uL (4.20-5.50); Red Cell Distribution Width 18.4 % (11.0-16.0); White Blood Count 5.2 X10*3/uL (4.8-10.8)
[2021-07-22 12:22] LABS: Alanine Aminotransferase 16 U/L (0-31); Albumin Level 4.2 g/dL (3.5-5.0); Alkaline Phosphatase 58 U/L (39-117); Anion Gap 10 (12-20); Aspartate Amino Transferase 14 U/L (5-31); Bilirubin Total 0.4 mg/dL (0.0-1.0); Blood Urea Nitrogen 17 mg/dL (9-16); Calcium 9.3 mg/dL (8.4-10.2); Carbon Dioxide 26 mmol/L (22-29); Chloride 108 mmol/L (96-108); Cholesterol 160 mg/dL; Estimated Glomerular Filt Rate > 60; Glucose Random 86 mg/dL (60-115); HDL Cholesterol 65 mg/dL; LDL Cholesterol Calculated 87 mg/dl; Potassium 4.3 mmol/L (3.3-5.1); Sodium 140 mmol/L (135-145); Total Protein 7.1 g/dL (6.5-8.0); Triglycerides 44 mg/dL
== END 2021-07-22 10:16 | disposition home or self-care (01) ==
LOC: HO.LAB 10:15
PROVIDERS: PCP Internal Medicine; Visit Provider Internal Medicine
DX: B37.3 Candidiasis of vulva and vagina (principal); D50.8 Other iron deficiency anemias; F31.9 Bipolar disorder, unspecified
CPT/HCPCS: 36415; 80053; 80061; 82728; 85025

== ENCOUNTER 2021-08-12 08:00 | Outpatient (RCR) | payer OTHER, SELFPAY ==
--- NOTE | 2021-08-05 11:13 | MHC.PT.EP ---
[facility] [place] Office [place] Office [place] Office [address] Yanet Moses [address] [phone] F: [phone] F: [phone] F: [phone] F: [phone] Physical Therapy Plan of Care Date of Evaluation: Date of Surgery: Diagnosis: cervical radiculopathy and muscle spasm Assessment: 35 y/o RHD female referred to PT with cervical radiculopathy and muscle spasm. 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 Examination shows significantly decreased cervical AROM, decreased L shoulder AROM, decreased L shoulder strength (appears limited due to pain), normal DTR's, normal sensation, increased pain, and impaired postural awareness. Recommend PT 2x/week for 5 weeks to address impairments, implement HEP, and optimize functional mobility. Frequency and Duration: The patient will be seen 2x/week for 5 weeks Short Term Goals: 3 weeks 1. I with HEP 2. Pt will improve cervical AROM by 10* each direction to facilitate driving 3. Improve L shoulder strength by one MMT grade to faciltate lifting Assisted Goals: 5 weeks 1. I with HEP and self management of sx 2. Pt will iprove cervical AROM by another 10 degrees in order to drive safely and pain < 3/10 3. Pt will be able to reach into overhead cabinets with B UE and pain < 3/10 Treatment Plan: Modalities to reduce pain, spasms and effusion. Manual therapy to restore motion and function. Therapeutic exercise to improve strength and flexibility. Neuromuscular re-education for posture and balance. Therapeutic activities to return to functional activities of daily living. Electronically signed by: Jennifer Sellers PT Please sign and return to therapist. Thank you for your referral.
--- NOTE | 2021-08-19 11:05 | MHC.PT.DC ---
[facility] [place] Office [place] Office [place] Office [address] Yanet Moses 140 [facility] [phone] F: [phone] F: [phone] F: [phone] F: [phone] Physical Therapy Discharge Report Diagnosis: cervical radiculopathy and muscle spasm Date of Surgery: Date of Evaluation: 08/05/21 Date of Discharge: 08/19/21 Treatments to Date: 2 Cancellations to Date: 0 No Shows to Date: 3 Discharge Status: Visit Non-compliance Discharge Summary: Pt d/c secondary to noncompliance with scheduling policy Electronically signed by: Jennifer Sellers PT Please sign and return to therapist. Thank you for your referral.
== END 2021-08-19 11:06 | disposition home or self-care (01) ==
LOC: HO.PT 08:00
PROVIDERS: PCP Internal Medicine; Visit Provider Internal Medicine
DX: M54.12 Radiculopathy, cervical region (principal); M62.838 Other muscle spasm
CPT/HCPCS: 97014; 97110; 97112; 97162

== ENCOUNTER 2021-09-10 10:10 | Emergency (ER) | payer OTHER, SELFPAY ==
--- NOTE | ~2021-09-10 | XR_ITS ---
EXAMINATION: XR LUMBOSACRAL SPINE CLINICAL INFORMATION: Back pain COMPARISON: Radiographs lumbar spine 07/16/2019 TECHNIQUE: Three views of the lumbosacral spine. 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 There is normal lumbar lordosis. No interval lumbar vertebral compression, spondylolisthesis, disc narrowing, or destructive process. The SI joints and remainder of the sacrum are unremarkable. There are surgical clips again seen upper and lower right abdomen. Bowel gas unremarkable. XR/XR lumbar spine 2-3V IMPRESSION: Unremarkable examination, similar to prior study 07/16/2019.
[2021-09-10 10:25] VITALS: BP 126/57; PULSE 97; RESP 15; TEMP 36.6; O2SAT 99; BMI 34.2
--- NOTE | 2021-09-10 10:45 | ED.BACK ---
HPI - Back Pain/Injury General Chief Complaint: Back Pain/Injury Stated Complaint: leg/hip pain Time Seen by Provider: 09/10/21 10:37 Source: patient Mode of arrival: ambulatory Limitations: no limitations History of Present Illness HPI Narrative: 36 yo female with history of herniated discs ( L3-L5) here with acute on chronic low back pain x 3 days with radiation down the entire left leg including the left groin. NO saddle anesthesia, no bowel or bladder incontinence, no fevers, chills. Patient is ambulatory. Related Data Previous Rx's Medication Instructions Recorded cyclobenzaprine 10 mg tablet 10 mg PO TID PRN #15 tab 09/11/20 hydrocodone 5 mg-acetaminophen 325 1 tab PO Q6H PRN #10 tab 09/11/20 mg tablet ([place]) ibuprofen 600 mg tablet 600 mg PO Q8H PRN #20 tab 09/11/20 lidocaine 5 % topical patch 1 patch TOPICAL DAILY #15 ea 09/11/20 (Lidoderm) ciprofloxacin HCl 500 mg tablet 500 mg PO Q12H #14 tab 09/14/20 (Cipro) ketorolac 10 mg tablet 10 mg PO Q6H PRN 5 Days #20 tab 09/14/20 amoxicillin 500 mg tablet 500 mg PO Q12H #20 tab 04/08/21 diazepam 5 mg tablet (Valium) 5 mg PO TID PRN #14 tab 07/14/21 lidocaine HCl 4 % topical cream 1 appl TOPICAL BID PRN #120 g 07/14/21 (Aspercreme (lidocaine HCl)) naproxen 500 mg tablet 500 mg PO BID PRN #10 tab 07/14/21 oxycodone 5 mg tablet 5 mg PO Q6H PRN #14 tab 07/14/21 prednisone 20 mg tablet 60 mg PO DAILY 5 Days #15 tab 07/20/21 cyclobenzaprine 10 mg tablet 10 mg PO TID PRN #15 tab 09/10/21 ketorolac 10 mg tablet 10 mg PO Q8H PRN #15 tab 09/10/21 lidocaine 5 % topical patch 1 patch TOPICAL DAILY #15 ea 09/10/21 (Lidoderm) Allergies Allergy/AdvReac Type Severity Reaction Status Date / Time No Known Allergies Allergy Verified 07/14/21 19:22 Review of Systems Review of Systems: Yes all other systems are reviewed and are negative Constitutional: Constitutional: Reports no additional constitutional complaints, Denies body ache(s), Denies chills, Denies fever(s), Denies headache(s) and Denies weakness Eyes: Eyes: Reports no additional eye complaints and Denies change in vision ENT: Reports system reviewed and no additional complaints, except as documented, Denies dizziness, Denies headache(s), Denies nasal congestion, Denies nasal discharge and Denies neck pain Cardiovascular: Cardiovascular: Reports no additional cardiovascular complaints, Denies chest pain, Denies leg edema and Denies dyspnea Respiratory: Respiratory: Reports no additional respiratory complaints, Denies cough and Denies dyspnea Gastrointestinal: Gastrointestinal: Reports no additional gastrointestinal complaints, Denies abdominal pain, Denies diarrhea, Denies nausea and Denies vomiting Genitourinary: Genitourinary: Reports no additional female genitourinary complaints and Denies urinary incontinence Musculoskeletal: Musculoskeletal: Reports no additional musculoskeletal complaints, Reports back pain, Denies arthralgias, Denies joint swelling, Denies neck pain, Denies numbness and Denies tingling Integumentary/Breasts: Skin/Breast: Reports system reviewed and no additional complaints, except as docu and Denies rash Neurologic: Reports system reviewed and no additional complaints, except as documented, Denies Abnormal speech present, Denies dizziness, Denies headache(s), Denies numbness, Denies tingling and Denies weakness PMFSH Past Medical History Attestation statement: The following information was validated with the patient. Source: old records reviewed and nursing notes reviewed Medical History Appendicitis Asthma Cholecystectomy planned Migraines HESHAM (stress urinary incontinence, female) Surgical History Gastric bypass status for obesity Tubal ligation status Social History Social History Alcohol intake: never Advance Directives: No Patient : No Physical Exam Vital Signs: Vital Signs: Last Vital Signs Temp 98 F 09/10/21 10:25 Pulse 97 09/10/21 10:25 Resp 15 09/10/21 10:25 BP 126/57 L 09/10/21 10:25 Pulse Ox 99 09/10/21 10:25 Body Mass Index 34.2 Const: General: cooperative, healthy appearing, comfortable and no acute distress Orientation/consciousness: patient oriented x3 Limitations: no limitations HENMT: Head: Yes normal to inspection Ears: hearing grossly normal bilaterally and TM's normal bilaterally General nose exam: Normal external nose present Face and sinus: Yes normal facial exam Mouth: Normal oral and palatal mucosa present Throat: Yes posterior oropharynx normal Eyes: General: appearance normal, both eyes and all related structures Pupils: Equal, round and reactive pupils present Neck: Neck: Yes normal visual inspection Chest: Chest palpation & inspection: normal inspection of the chest Resp: Effort & Inspection: normal respiratory effort Auscultation: clear to auscultation bilaterally Cardio: Rate: regular rate Rhythm: regular rhythm Peripheral pulses: Peripheral pulses 2+ throughout GI: Inspection: Yes normal to inspection Palpation (GI): Soft to palpation and nontender Auscultation: normal bowel sounds Back/Spine/Pelvis: Other: lumbar midline tenderness with no step-offs or deformities. Tenderness to the left buttocks and to the left anterior groin with no abdominal pain or pelvic tenderness on exam. Tenderness over the entire left leg with no abnormality. Pain is worsened with left straight leg raise. Also has pain with contralateral right leg straight leg raise Thoracic/Lumbar Spine: thoracic and lumbar spine normal to inspection Skin: General skin exam: no rashes or lesions noted Neuro: General: patient oriented x3, no focal motor deficits and normal sensation to monofilament Cranial nerves: Yes CN's II-XII intact bilaterally, Yes Equal, round and reactive pupils present, Yes Bilaterally intact EOM present, Yes Nystagmus not present, Yes Normal facial strength present and Yes Midline tongue present Cognition (Neuro): normal cognition Speech: No Abnormal speech present Gait exam (Neuro): Normal gait present Motor exam (neuro): 5/5 motor strength present throughout Sensory Exam: Normal double simultaneous stimulation for sensation Deep tendon reflexes (DTR's): Right patellar reflex intensity grade: 2+ and Left patellar reflex intensity grade: 2+ Extrem: General: Yes normal to inspection, Yes no pedal edema and Yes no calf tenderness Course Course Course Narrative: 36-year-old female here with complaints of acute on chronic low back pain with radiation down the left leg with pain in the leg and in the groin. On exam has midline tenderness. No neurological deficits or red flag symptoms. Will check lumbar film, give IM Toradol and reassessed 1300- x-ray shows no acute finding. Based on patient's physical exam this is likely lumbar radiculopathy. Patient has known herniated discs and L3-L5. Recommend she follow up outpatient with her providers. She will likely need outpatient MRI but does not needed emergent MRI today. Reviewed worrisome signs and symptoms of when to return to the emergency department. Comfortable discharge home. MDM - Back Pain/Injury MDM Narrative Medical decision making narrative: less likely epidural abscess as patient is not immunocompromised, has no fever, no h/o ivda less likely cauda equina with no saddle anesthesia or incontinence. Differential Diagnosis Differential diagnosis: Likely lumbar radiculopathy, sciatica and strain of lumbar region Medical Records Attestation: I reviewed the patient's medical records. Lab Data Attestation: I reviewed the patient's lab results. Discharge Plan Discharge Clinical Impression: Lumbar radiculopathy Patient Disposition: Home, Self-Care Instructions: Lumbar Radiculopathy (ED), Lower Back Exercises (ED) Additional Instructions: heat or ice gentle stretching no heavy lifting or bending follow-up with primary care doctor as you may need outpatient MRI return for incontinence or numbness in the groin Prescriptions: New cyclobenzaprine 10 mg tablet 10 mg PO TID PRN (Reason: muscle spasm) Qty: 15 RF: 0 lidocaine [Lidoderm] 5 % adhesive patch,medicated 1 patch topical DAILY Qty: 15 RF: 0 ketorolac 10 mg tablet 10 mg PO Q8H PRN (Reason: pain) Qty: 15 RF: 0 No Action cyclobenzaprine 10 mg tablet 10 mg PO TID PRN (Reason: muscle spasm) Qty: 15 RF: 0 ibuprofen 600 mg tablet 600 mg PO Q8H PRN (Reason: pain) Qty: 20 RF: 0 lidocaine [Lidoderm] 5 % adhesive patch,medicated 1 patch topical DAILY Qty: 15 RF: 0 hydrocodone-acetaminophen [[place]] 5-325 mg tablet 1 tab PO Q6H PRN (Reason: pain) Qty: 10 RF: 0 ketorolac 10 mg tablet 10 mg PO Q6H PRN (Reason: pain) 5 Days Qty: 20 RF: 0 ciprofloxacin HCl [Cipro] 500 mg tablet 500 mg PO Q12H Qty: 14 RF: 0 amoxicillin 500 mg tablet 500 mg PO Q12H Qty: 20 RF: 0 diazepam [Valium] 5 mg tablet 5 mg PO TID PRN (Reason: muscle spasm) Qty: 14 RF: 0 lidocaine HCl [Aspercreme (lidocaine HCl)] 4 % cream 1 appl topical BID PRN (Reason: pain) Qty: 120 RF: 0 naproxen 500 mg tablet 500 mg PO BID PRN (Reason: pain) Qty: 10 RF: 0 oxycodone 5 mg tablet 5 mg PO Q6H PRN (Reason: pain) Qty: 14 RF: 0 prednisone 20 mg tablet 60 mg PO DAILY 5 Days Qty: 15 RF: 0 Referrals: Kerry Medina MD [Primary Care Provider] - 2 days Interventions: ED Discharge Assessment Last Done: 09/10/21 12:56 Discharge Date/Time: 09/10/21 12:57
[2021-09-10] MEDS: Ketorolac Tromethamine 60 MG/2 ML VIAL IM (10:50)
== END 2021-09-10 12:57 | disposition home or self-care (01) ==
PROVIDERS: Emergency Provider Emergency Medicine; PCP Internal Medicine
DX: M54.16 Radiculopathy, lumbar region (principal); M54.42 Lumbago with sciatica, left side
CPT/HCPCS: 72100; 96372; 99284; J1885

== ENCOUNTER 2021-11-22 12:21 | Outpatient (REF) | payer OTHER, SELFPAY ==
[2021-11-22 12:47] LABS: MANUAL DIFF FLAG NO
[2021-11-22 12:59] LABS: Basophils Percent Auto 0.3 % (0-2); Eosinophils Absolute Auto 0.2 X10*3/uL (0.0-0.4); Eosinophils Percent Auto 2.4 % (0-4); Hematocrit 31.2 % (37.0-47.0); Hemoglobin 9.5 g/dl (12.0-16.0); Imm Gran Abs Auto 0.03 X10*3/uL (0.00-0.03); Imm Gran Pct Auto 0.4 % (0.0-0.4); Lymphocytes Absolute Auto 1.7 X10*3/uL (1.2-4.9); Lymphocytes Percent Auto 21.9 % (20-40); Mean Corpuscular HGB Conc 30.4 g/dl (31.0-35.0); Mean Corpuscular Volume 75.5 fL (80.0-98.0); Mean Platelet Volume 10.4 fL (9.4-12.3); Monocytes Absolute Auto 0.7 X10*3/uL (0.1-1.2); Monocytes Percent Auto 8.3 % (2-11); Neutrophils Absolute Auto 5.3 x10*3/uL (2.0-8.3); Neutrophils Percent Auto 66.7 % (45-73); Platelet Count 356 X10*3/uL (160-400); Red Blood Count 4.13 X10*6/uL (4.20-5.50); White Blood Count 7.9 X10*3/uL (4.8-10.8)
[2021-11-22 13:43] LABS: Ferritin 4 ng/mL (10-122)
[2021-11-22 14:00] LABS: Vitamin B12 310 pg/mL (200-900)
[2021-11-23 09:11] LABS: HIV AB/AG Nonreactive (Nonreactive); HIV Num 1 0.06 S/CO (0.00-0.99)
[2021-11-27 16:32] LABS: Treponema pallidum Ab FTA ABS Reactive (Nonreactive)
== END 2021-11-22 12:22 | disposition home or self-care (01) ==
LOC: HO.LAB 12:21
PROVIDERS: PCP Internal Medicine; Visit Provider Internal Medicine
DX: Z00.00 Encounter for general adult medical examination without abnormal findings (principal); Z11.4 Encounter for screening for human immunodeficiency virus [HIV]; D50.8 Other iron deficiency anemias; F31.9 Bipolar disorder, unspecified
CPT/HCPCS: 36415; 82607; 82728; 85025; 86780; 87389

== ENCOUNTER 2021-12-11 09:12 | Outpatient (REF) | payer OTHER, SELFPAY ==
[2021-12-11 09:40] LABS: MANUAL DIFF FLAG NO
[2021-12-11 10:40] LABS: Basophils Percent Auto 0.5 % (0-2); Eosinophils Absolute Auto 0.2 X10*3/uL (0.0-0.4); Eosinophils Percent Auto 2.4 % (0-4); Hematocrit 31.2 % (37.0-47.0); Hemoglobin 9.4 g/dl (12.0-16.0); Imm Gran Abs Auto 0.02 X10*3/uL (0.00-0.03); Imm Gran Pct Auto 0.3 % (0.0-0.4); Lymphocytes Absolute Auto 1.8 X10*3/uL (1.2-4.9); Lymphocytes Percent Auto 28.6 % (20-40); Mean Corpuscular HGB Conc 30.1 g/dl (31.0-35.0); Mean Corpuscular Hemoglobin 22.8 pg (27.0-33.0); Mean Corpuscular Volume 75.7 fL (80.0-98.0); Mean Platelet Volume 10.9 fL (9.4-12.3); Monocytes Absolute Auto 0.7 X10*3/uL (0.1-1.2); Monocytes Percent Auto 11.7 % (2-11); Neutrophils Absolute Auto 3.6 x10*3/uL (2.0-8.3); Neutrophils Percent Auto 56.5 % (45-73); Platelet Count 390 X10*3/uL (160-400); Red Blood Count 4.12 X10*6/uL (4.20-5.50); Red Cell Distribution Width 18.1 % (11.0-16.0); White Blood Count 6.3 X10*3/uL (4.8-10.8)
[2021-12-13 03:48] LABS: Syphilis Screen Nonreactive (Nonreactive)
== END 2021-12-11 09:13 | disposition home or self-care (01) ==
LOC: HO.LAB 09:12
PROVIDERS: PCP Internal Medicine; Visit Provider Internal Medicine
DX: A51.5 Early syphilis, latent (principal); A60.00 Herpesviral infection of urogenital system, unspecified; D50.8 Other iron deficiency anemias; M51.16 Intervertebral disc disorders with radiculopathy, lumbar region; D64.9 Anemia, unspecified
CPT/HCPCS: 36415; 85025; 86780

== ENCOUNTER 2022-02-26 17:12 | Emergency (ER) | payer OTHER, SELFPAY ==
--- NOTE | ~2022-02-26 | XR_ITS ---
EXAMINATION: XR CHEST CLINICAL INFORMATION: Asthma COMPARISON: 04/08/2021 TECHNIQUE: 2 views of the chest were obtained. FINDINGS: No significant abnormality is noted involving the heart, lungs, mediastinum, bony thorax or soft tissues. XR/XR chest 2V IMPRESSION: Unremarkable examination.
[2022-02-26 17:50] VITALS: BP 147/96; PULSE 120; RESP 19; TEMP 39.5; O2SAT 98; BMI 33.3
[2022-02-26] MEDS: Ibuprofen 600 MG TABLET PO (18:00)
[2022-02-26 18:02] LABS: COVID-19 Test Negative (Negative); IDNOW Serial# 16C4AD1C
[2022-02-26 18:14] LABS: IDNOW Serial# 55D5AD1C; Influenza A Positive (Negative); Influenza B2 Negative (Negative)
== END 2022-02-26 21:22 | disposition left against medical advice (07) ==
PROVIDERS: Emergency Provider Emergency Medicine; PCP Internal Medicine
DX: R50.9 Fever, unspecified (principal); R05.9 Cough, unspecified; Z20.822 Contact with and (suspected) exposure to COVID-19
CPT/HCPCS: 71046; 87502; 87635; 99281; 99283

== ENCOUNTER 2022-02-27 11:29 | Emergency (ER) | payer OTHER, SELFPAY ==
[2022-02-27 12:23] VITALS: BP 119/77; PULSE 100; RESP 18; TEMP 36.6; O2SAT 99; BMI 33.4
--- NOTE | 2022-02-27 15:51 | ED.URI ---
HPI - URI/Sore Throat General Chief Complaint: Upper Respiratory Symptoms Stated Complaint: BODY ACHES FEVER Time Seen by Provider: 02/27/22 15:44 Source: patient Mode of arrival: ambulatory Limitations: no limitations History of Present Illness HPI Narrative: 36-year-old female with history of asthma presents to the ER for evaluation of body aches, fever, cough, sore throat, generally not feeling well for the last 3 days. She was here yesterday but ended up leaving about treatment. Her flu swab from yesterday was positive for influenza A. She reports her 17 yo son also started feeling sick today. She is unsure if she is vaccinated for Flu or not. MD elicited complaint: fever, cough, nasal congestion and other (Body aches) Pertinent past history: asthma Onset (ago): day(s) (4) Consistency: progressively worsening Severity: moderate Description of mucous: clear Able to tolerate fluids by mouth: Yes Exacerbating factors: nothing Relieving factors: nothing Context: sick contacts Associated symptoms: fever, chills, myalgias, headache, rhinorrhea, nasal congestion, sore throat, cough and shortness of breath Treatments prior to arrival: none Related Data Previous Rx's Medication Instructions Recorded cyclobenzaprine 10 mg tablet 10 mg PO TID PRN #15 tab 09/11/20 hydrocodone 5 mg-acetaminophen 325 1 tab PO Q6H PRN #10 tab 09/11/20 mg tablet ([place]) ibuprofen 600 mg tablet 600 mg PO Q8H PRN #20 tab 09/11/20 lidocaine 5 % topical patch 1 patch TOPICAL DAILY #15 ea 09/11/20 (Lidoderm) ciprofloxacin HCl 500 mg tablet 500 mg PO Q12H #14 tab 09/14/20 (Cipro) ketorolac 10 mg tablet 10 mg PO Q6H PRN 5 Days #20 tab 09/14/20 amoxicillin 500 mg tablet 500 mg PO Q12H #20 tab 04/08/21 diazepam 5 mg tablet (Valium) 5 mg PO TID PRN #14 tab 07/14/21 lidocaine HCl 4 % topical cream 1 appl TOPICAL BID PRN #120 g 07/14/21 (Aspercreme (lidocaine HCl)) naproxen 500 mg tablet 500 mg PO BID PRN #10 tab 07/14/21 oxycodone 5 mg tablet 5 mg PO Q6H PRN #14 tab 07/14/21 prednisone 20 mg tablet 60 mg PO DAILY 5 Days #15 tab 07/20/21 cyclobenzaprine 10 mg tablet 10 mg PO TID PRN #15 tab 09/10/21 ketorolac 10 mg tablet 10 mg PO Q8H PRN #15 tab 09/10/21 lidocaine 5 % topical patch 1 patch TOPICAL DAILY #15 ea 09/10/21 (Lidoderm) Allergies Allergy/AdvReac Type Severity Reaction Status Date / Time No Known Allergies Allergy Verified 02/26/22 17:51 Review of Systems Review of Systems: Constitutional: +Fever, + Chills ENT/Mouth: No sore throat, No Rhinorrhea, No Swallowing Difficulty Cardiovascular: No Chest Pain, + SOB, No Orthopnea, No Edema Respiratory: + Cough, No Sputum, + Wheezing, No dyspnea Gastrointestinal: No Nausea, No Vomiting, No Diarrhea, No abdominal Pain Genitourinary: No Dysuria, No Urinary Frequency, No Hematuria Musculoskeletal: No joint pain, + Myalgias Skin: No Skin Lesions, No rash Neuro: + Weakness, No Numbness, No Dizziness, + Headache Heme/Lymph: No Bruising, No Lymphadenopathy PMFSH Past Medical History Medical History Appendicitis Asthma Cholecystectomy planned Migraines HESHAM (stress urinary incontinence, female) Surgical History Gastric bypass status for obesity Tubal ligation status Social History Social History Alcohol intake: never Advance Directives: No Advance Directives Information Provided: No Physical Exam Vital Signs: Vital Signs: Last Vital Signs Temp 100 F 02/27/22 17:03 Pulse 100 02/27/22 12:23 Resp 18 02/27/22 12:23 BP 119/77 02/27/22 12:23 Pulse Ox 99 02/27/22 12:23 BMI result Body Mass Index 33.4 Appearance: Alert. Oriented X3. No acute distress. Eyes: Pupils equal, round and reactive to light. ENT: Pharynx normal. Neck: Normal inspection. Neck supple. CVS: Tachycardic, regular rhythm. Pulses normal. Respiratory: No respiratory distress. Breath sounds normal. Dry cough noted. Abdomen: Soft and nontender. +BS x4 Skin: Skin very warm to touch but dry. Normal skin color. Normal skin turgor. No rashes. Extremities: No lower extremity edema. Neuro: Oriented X 3. Grossly normal, nonfocal. Course Course Course Narrative: 28-year-old female presents to the ER for evaluation of body aches and fevers. She was in the emergency room yesterday with left without treatment because she had to go home to her kids. Her test from yesterday was positive for influenza A. She reports ongoing symptoms at home. She reports little improvement with Tylenol. On arrival to the ER she is afebrile, unremarkable examination. Repeat vital signs 4 hours later revealed fever 103. She previously took Tylenol earlier this morning. Will give a dose of Motrin. She was advised of her influenza A positive status and management. She does not qualify for Tamiflu. She does not appear to be in acute asthma exacerbation. Her lungs are clear with no evidence of pneumonia. Reevaluation(s) Reevaluation #1: Fever improved to 100. She is stable for discharge home with supportive care. Encouraged to alternate Motrin and Tylenol throughout the day for fever control and body aches. Critical Care Time Critical Care Time Critical Care Time: No Discharge Plan Discharge Clinical Impression: Influenza Patient Disposition: Home, Self-Care Instructions: Influenza (DC) Additional Instructions: You were found to be Influenza A POSITIVE today. Your exam and oxygen levels were normal. Treatment is supportive care. You get better with time. Rest. Drink plenty of fluids. Do not go out in public while you are feeling unwell. Take over the counter cold/flu medications as needed for your symptoms. Take Tylenol and/or Motrin as needed for fevers and body aches. Follow up with your doctor as needed. If you develop new or worsening symptoms call 911 or come back to the ER for further evaluation. Prescriptions: No Action cyclobenzaprine 10 mg tablet 10 mg PO TID PRN (Reason: muscle spasm) Qty: 15 0RF ibuprofen 600 mg tablet 600 mg PO Q8H PRN (Reason: pain) Qty: 20 0RF lidocaine [Lidoderm] 5 % adhesive patch,medicated 1 patch topical DAILY Qty: 15 0RF Rx Instructions: leave on most painful area for up to 12 hrs hydrocodone-acetaminophen [[place]] 5-325 mg tablet 1 tab PO Q6H PRN (Reason: pain) Qty: 10 0RF Rx Instructions: for 3 days ketorolac 10 mg tablet 10 mg PO Q6H PRN (Reason: pain) 5 Days Qty: 20 0RF Rx Instructions: Patient to stop ibuprofen. Patient received IM Toradol in the emergency room. ciprofloxacin HCl [Cipro] 500 mg tablet 500 mg PO Q12H Qty: 14 0RF amoxicillin 500 mg tablet 500 mg PO Q12H Qty: 20 0RF cyclobenzaprine 10 mg tablet 10 mg PO TID PRN (Reason: muscle spasm) Qty: 15 0RF lidocaine [Lidoderm] 5 % adhesive patch,medicated 1 patch topical DAILY Qty: 15 0RF Rx Instructions: leave on most painful area for up to 12 hrs ketorolac 10 mg tablet 10 mg PO Q8H PRN (Reason: pain) Qty: 15 0RF diazepam [Valium] 5 mg tablet 5 mg PO TID PRN (Reason: muscle spasm) Qty: 14 0RF lidocaine HCl [Aspercreme (lidocaine HCl)] 4 % cream 1 appl topical BID PRN (Reason: pain) Qty: 120 0RF naproxen 500 mg tablet 500 mg PO BID PRN (Reason: pain) Qty: 10 0RF oxycodone 5 mg tablet 5 mg PO Q6H PRN (Reason: pain) Qty: 14 0RF prednisone 20 mg tablet 60 mg PO DAILY 5 Days Qty: 15 0RF Interventions: ED Discharge Assessment Last Done: 02/27/22 17:06 Discharge Date/Time: 02/27/22 17:08
[2022-02-27] MEDS: Ibuprofen 600 MG TABLET PO (16:14)
[2022-02-27 16:17] VITALS: TEMP 39.4
[2022-02-27 17:03] VITALS: TEMP 37.7
== END 2022-02-27 17:08 | disposition home or self-care (01) ==
LOC: HO.ED 15:53
PROVIDERS: Emergency Provider Emergency Medicine; PCP Internal Medicine
DX: J10.1 Influenza due to other identified influenza virus with other respiratory manifestations (principal); J45.909 Unspecified asthma, uncomplicated
CPT/HCPCS: 99283

== ENCOUNTER 2022-03-01 08:19 | Emergency (ER) | payer OTHER, SELFPAY ==
[2022-03-01 09:35] VITALS: BP 128/76; PULSE 98; RESP 16; TEMP 37.7; O2SAT 100; BMI 32.6
--- NOTE | 2022-03-01 09:51 | ED.URI ---
HPI - URI/Sore Throat General Chief Complaint: Upper Respiratory Symptoms Stated Complaint: sob chills headache Time Seen by Provider: 03/01/22 09:10 Source: patient Mode of arrival: ambulatory Limitations: no limitations History of Present Illness HPI Narrative: 36-year-old female with a past medical history of asthma, migraines, stress urinary incontinence, presents for worsening symptoms after testing flu positive 3 days ago. Patient not vaccinated for Covid Patient's symptoms started 5 days ago, patient has had cough, body aches, chills, fever. Endorses sore throat, ear pain. Patient's cough is dry, she has been using her inhaler, and used a nebulizer twice yesterday but nothing today. Patient states she is anxious, her fingers and lips are tingly, patient is hyperventilating Related Data Previous Rx's Medication Instructions Recorded cyclobenzaprine 10 mg tablet 10 mg PO TID PRN #15 tab 09/11/20 hydrocodone 5 mg-acetaminophen 325 1 tab PO Q6H PRN #10 tab 09/11/20 mg tablet ([place]) ibuprofen 600 mg tablet 600 mg PO Q8H PRN #20 tab 09/11/20 lidocaine 5 % topical patch 1 patch TOPICAL DAILY #15 ea 09/11/20 (Lidoderm) ciprofloxacin HCl 500 mg tablet 500 mg PO Q12H #14 tab 09/14/20 (Cipro) ketorolac 10 mg tablet 10 mg PO Q6H PRN 5 Days #20 tab 09/14/20 amoxicillin 500 mg tablet 500 mg PO Q12H #20 tab 04/08/21 diazepam 5 mg tablet (Valium) 5 mg PO TID PRN #14 tab 07/14/21 lidocaine HCl 4 % topical cream 1 appl TOPICAL BID PRN #120 g 07/14/21 (Aspercreme (lidocaine HCl)) naproxen 500 mg tablet 500 mg PO BID PRN #10 tab 07/14/21 oxycodone 5 mg tablet 5 mg PO Q6H PRN #14 tab 07/14/21 prednisone 20 mg tablet 60 mg PO DAILY 5 Days #15 tab 07/20/21 cyclobenzaprine 10 mg tablet 10 mg PO TID PRN #15 tab 09/10/21 ketorolac 10 mg tablet 10 mg PO Q8H PRN #15 tab 09/10/21 lidocaine 5 % topical patch 1 patch TOPICAL DAILY #15 ea 09/10/21 (Lidoderm) albuterol sulfate 1.25 mg/3 mL 1.25 mg (3 mL) INHALATION Q4-6H 03/01/22 solution for nebulization PRN #90 ml benzonatate 200 mg capsule 200 mg PO TID 5 Days #15 cap 03/01/22 codeine 10 mg-guaifenesin 100 mg/5 5 ml PO Q6H PRN #120 ml 03/01/22 mL oral liquid hydroxyzine HCl 25 mg tablet 25 mg PO TID PRN #9 tab 03/01/22 Allergies Allergy/AdvReac Type Severity Reaction Status Date / Time No Known Allergies Allergy Verified 02/26/22 17:51 Review of Systems Constitutional: Constitutional: Reports body ache(s), Reports chills, Reports fatigue, Reports fever(s), Reports headache(s), Reports malaise and Denies weakness Eyes: Eyes: Denies diplopia ENT: Denies vertigo, Denies dizziness, Denies otalgia, Reports headache(s), Denies mouth pain, Reports nasal congestion, Reports post nasal drip, Denies sinus pain, Denies sinus pressure, Reports sore throat and Denies throat swelling Cardiovascular: Cardiovascular: Denies chest pain, Denies syncope, Denies leg edema, Denies lightheadedness, Denies Loss of Consciousness, Denies palpitations and Denies dyspnea Respiratory: Respiratory: Denies chest congestion, Reports cough and Denies dyspnea Gastrointestinal: Gastrointestinal: Denies abdominal pain, Denies hematochezia, Denies constipation, Denies diarrhea, Denies nausea and Denies vomiting Genitourinary: Genitourinary: Reports urinary incontinence (Stress urinary incontinence with coughing) Musculoskeletal: Musculoskeletal: Reports myalgias Integumentary/Breasts: Skin/Breast: Denies rash Neurologic: Denies confusion, Denies vertigo, Denies dizziness, Denies syncope, Reports headache(s) and Denies weakness Psychiatric: Psychiatric: Reports anxiety, Denies confusion and Denies depression Endocrine: Endocrine: Reports fatigue and Denies palpitations Allergic/Immunologic: Allergic/Immunologic: Denies throat swelling PMFSH Past Medical History Medical History Appendicitis Asthma Cholecystectomy planned Migraines HESHAM (stress urinary incontinence, female) Surgical History Gastric bypass status for obesity Tubal ligation status Social History Social History Alcohol intake: never Advance Directives: No Advance Directives Information Provided: No Physical Exam Vital Signs: Vital Signs: Last Vital Signs Temp 99.8 F 03/01/22 09:35 Pulse 88 03/01/22 10:00 Resp 16 03/01/22 09:35 BP 128/76 03/01/22 09:35 Pulse Ox 100 03/01/22 09:35 BMI result Body Mass Index 32.6 Const: General: no acute distress, alert and awake; No confusion Nutritional Appearance: well nourished Orientation/consciousness: patient oriented x3 and No confusion Limitations: no limitations HEENT: Head: Yes normal to inspection, Yes normocephalic and Yes atraumatic Ears: hearing grossly normal bilaterally, external ears normal, TM's normal bilaterally and EAC's normal General nose exam: Normal external nose present Face and sinus: Yes normal facial exam and Yes sinuses nontender Mouth: Normal oral and palatal mucosa present Throat: Yes postnasal drainage Eyes: Conjunctivae: conjunctivae normal Pupils: Equal, round and reactive pupils present EOM: EOMs intact bilaterally Neck: Neck: Yes full ROM, Yes no lymphadenopathy and Yes supple Resp: Effort & Inspection: normal respiratory effort and able to speak in complete sentences Auscultation: clear to auscultation bilaterally, no crackles, no rales, no rhonchi, no wheezes and diminished lung sounds Cardio: Rate: regular rate Rhythm: regular rhythm Heart sounds: S1 normal heart sound present and S2 normal heart sound present GI: Inspection: Yes normal to inspection Palpation (GI): Soft to palpation, nontender, no guarding and not rigid Percussion: Yes normal to percussion Auscultation: normal bowel sounds Skin: General skin exam: no rashes or lesions noted Neuro: General: patient oriented x3 and No confusion Cranial nerves: Yes Equal, round and reactive pupils present Extrem: General: Yes normal to inspection and Yes full ROM Psych: Appearance: grossly normal Affect: normal affect Attitude: cooperative Thought process: Normal thought process present Course Course Course Narrative: 36-year-old female with a history of asthma presents for 5 days of flu-like symptoms. Patient has the temperature of 99.8 degrees F, is satting 100% on room air. Patient's heart rate was initially 98, is now 88. Patient in endorses anxiety, and is hyperventilating. States her fingers and lips are tingly. I counseled her to slow down and take deep breaths. On exam, patient is anxious appearing, mildly ill appearing, lungs are mildly diminished. Will give patient nebulizer, patient most likely is at the peak of her flu symptoms, will give Motrin and Tylenol. Patient out of the window for Tamiflu Patient is anxious, states that when her asthma kicks up, she has panic attacks. States she has had 4 panic attacks in the last 2 days Gave hydroxyzine here, will prescribe a short course, have patient follow-up with PCP for anxiety Patient is flu positive. Ordered more bullets for nebulizer machine, hydroxyzine for anxiety, will physis and with codeine, Tessalon Perles. Gave return precautions, counseled to follow-up with PCP, patient is stable for discharge home with supportive care MDM - URI/Sore Throat Lab Data Labs: Lab Results 03/01/22 03/01/22 Range/Units 09:58 09:58 COVID-19 ([facility]) Negative (Negative) COVID-19 Clin Com See Note Influenza Type A ([facility]) Positive A (Negative) Influenza Type B ([facility]) Negative (Negative) Influenza A & B Note See Note Discharge Plan Discharge Clinical Impression: Anxiety, Influenza A Patient Disposition: Home, Self-Care Instructions: Influenza (ED), Anxiety (ED) Additional Instructions: Please call your primary care provider for follow-up appointment from today's emergency room visit. I have prescribed hydroxyzine for anxiety, but your primary care will want to discuss this with you further. You tested influenza positive again today. Please use the nebulizer, 1 nebulizer treatment every 4 hours for the next 3-4 days. I have also prescribed cough syrup and Tessalon Perles for your cough. If you have chest pain, shortness of breath, or worsening symptoms, please return to the emergency room Prescriptions: New hydroxyzine HCl 25 mg tablet 25 mg PO TID PRN (Reason: nausea and vomiting) Qty: 9 0RF albuterol sulfate 1.25 mg/3 mL solution for nebulization 1.25 mg inhalation Q4-6H PRN (Reason: shortness of breath or wheezing) Qty: 90 0RF codeine-guaifenesin 10-100 mg/5 mL liquid 5 ml PO Q6H PRN (Reason: cold symptoms) Qty: 120 0RF benzonatate 200 mg capsule 200 mg PO TID 5 Days Qty: 15 0RF No Action cyclobenzaprine 10 mg tablet 10 mg PO TID PRN (Reason: muscle spasm) Qty: 15 0RF ibuprofen 600 mg tablet 600 mg PO Q8H PRN (Reason: pain) Qty: 20 0RF lidocaine [Lidoderm] 5 % adhesive patch,medicated 1 patch topical DAILY Qty: 15 0RF Rx Instructions: leave on most painful area for up to 12 hrs hydrocodone-acetaminophen [[place]] 5-325 mg tablet 1 tab PO Q6H PRN (Reason: pain) Qty: 10 0RF Rx Instructions: for 3 days ketorolac 10 mg tablet 10 mg PO Q6H PRN (Reason: pain) 5 Days Qty: 20 0RF Rx Instructions: Patient to stop ibuprofen. Patient received IM Toradol in the emergency room. ciprofloxacin HCl [Cipro] 500 mg tablet 500 mg PO Q12H Qty: 14 0RF amoxicillin 500 mg tablet 500 mg PO Q12H Qty: 20 0RF cyclobenzaprine 10 mg tablet 10 mg PO TID PRN (Reason: muscle spasm) Qty: 15 0RF lidocaine [Lidoderm] 5 % adhesive patch,medicated 1 patch topical DAILY Qty: 15 0RF Rx Instructions: leave on most painful area for up to 12 hrs ketorolac 10 mg tablet 10 mg PO Q8H PRN (Reason: pain) Qty: 15 0RF diazepam [Valium] 5 mg tablet 5 mg PO TID PRN (Reason: muscle spasm) Qty: 14 0RF lidocaine HCl [Aspercreme (lidocaine HCl)] 4 % cream 1 appl topical BID PRN (Reason: pain) Qty: 120 0RF naproxen 500 mg tablet 500 mg PO BID PRN (Reason: pain) Qty: 10 0RF oxycodone 5 mg tablet 5 mg PO Q6H PRN (Reason: pain) Qty: 14 0RF prednisone 20 mg tablet 60 mg PO DAILY 5 Days Qty: 15 0RF
[2022-03-01 10:00] VITALS: PULSE 88; O2SAT 100
[2022-03-01] MEDS: Albuterol/Iprat 2.5/0.5MG 3 ML AMPUL.NEB INHALE (10:00)
[2022-03-01] MEDS: Ibuprofen 800 MG TABLET PO (10:03)
[2022-03-01] MEDS: Acetaminophen 325 MG TABLET 975 MG PO (10:05)
[2022-03-01 10:36] LABS: COVID-19 Test Negative (Negative)
[2022-03-01 10:37] LABS: IDNOW Serial# 9DB6401D; Influenza A Positive (Negative); Influenza B2 Negative (Negative)
[2022-03-01] MEDS: guaiFENesin DM 100/10/5 ML 5 ML SYRUP PO (11:32)
== END 2022-03-01 11:36 | disposition home or self-care (01) ==
PROVIDERS: Physician Assistant; Emergency Provider Emergency Medicine; PCP Internal Medicine
DX: J10.1 Influenza due to other identified influenza virus with other respiratory manifestations (principal); R06.02 Shortness of breath; R51.9 Headache, unspecified; F41.1 Generalized anxiety disorder; F43.0 Acute stress reaction; Z20.822 Contact with and (suspected) exposure to COVID-19; Z79.899 Other long term (current) drug therapy
CPT/HCPCS: 87502; 87635; 94640; 99283; 99284

== ENCOUNTER 2022-03-04 01:04 | Emergency (ER) | payer OTHER, SELFPAY ==
--- NOTE | ~2022-03-04 | CT_ITS ---
EXAMINATION: CT ABDOMEN AND PELVIS WITHOUT CONTRAST CLINICAL INFORMATION: Abdominal pain. Rule out left incarcerated hernia. COMPARISON: None TECHNIQUE: Multidetector volumetric imaging was performed from the superior aspect of the liver through the pubic symphysis. Sagittal and coronal reformatted images were obtained on the technologist's workstation. This CT examination was performed using dose optimization techniques as appropriate, variously including the following: *Automated exposure control *Adjustment of mA and/or kV according to patient size (this includes techniques or standardized protocols for targeted exams where dose is matched to indication/reason for exam; i.e. extremities or head) *Use of iterative reconstruction technique DLP: 751 mGy-cm FINDINGS: LUNG BASES: The visualized lung bases are unremarkable. LIVER, GALLBLADDER, AND BILIARY TREE: The liver is normal in size, shape, and attenuation. No focal hepatic lesion or biliary ductal dilatation is present. Cholecystectomy. PANCREAS: Unremarkable. SPLEEN: Unremarkable. ADRENAL GLANDS: Unremarkable. KIDNEYS AND URETERS: The kidneys are normal in size, shape, and attenuation. No hydronephrosis, hydroureter, or calculi seen. No perinephric stranding. BLADDER: Unremarkable. GASTROINTESTINAL TRACT: Gastric sleeve. Normal caliber small bowel. No obstruction. The appendix is likely absent. No colonic wall thickening or inflammatory change. Mild colonic stool burden. No free air or free fluid. ABDOMINAL WALL: No significant hernia is appreciated. LYMPH NODES: Normal. VASCULAR: Unremarkable. PELVIC VISCERA: The uterus and adnexa are unremarkable. OSSEOUS STRUCTURES: Unremarkable. CT/CT abdomen pelvis wo con IMPRESSION: No acute findings in the abdomen or pelvis. No inflammatory change. No abdominal wall hernia. Fleischner guidelines were followed.
[2022-03-04 01:46] VITALS: BP 142/86; PULSE 83; RESP 18; TEMP 36.9; O2SAT 99; BMI 32.6
[2022-03-04 01:59] LABS: Basophils Percent Auto 0.4 % (0-2); Eosinophils Absolute Auto 0.3 X10*3/uL (0.0-0.4); Eosinophils Percent Auto 5.3 % (0-4); Hematocrit 29.2 % (37.0-47.0); Imm Gran Abs Auto 0.01 X10*3/uL (0.00-0.03); Imm Gran Pct Auto 0.2 % (0.0-0.4); Lymphocytes Absolute Auto 2.1 X10*3/uL (1.2-4.9); Lymphocytes Percent Auto 38.8 % (20-40); Mean Corpuscular HGB Conc 30.8 g/dl (31.0-35.0); Mean Corpuscular Hemoglobin 22.6 pg (27.0-33.0); Mean Corpuscular Volume 73.2 fL (80.0-98.0); Mean Platelet Volume 10.2 fL (9.4-12.3); Monocytes Absolute Auto 0.5 X10*3/uL (0.1-1.2); Monocytes Percent Auto 9.6 % (2-11); Neutrophils Absolute Auto 2.5 x10*3/uL (2.0-8.3); Neutrophils Percent Auto 45.7 % (45-73); Platelet Count 268 X10*3/uL (160-400); Red Blood Count 3.99 X10*6/uL (4.20-5.50); Red Cell Distribution Width 18.6 % (11.0-16.0); White Blood Count 5.5 X10*3/uL (4.8-10.8)
[2022-03-04 02:00] LABS: MANUAL DIFF FLAG NO
[2022-03-04 02:23] LABS: Alanine Aminotransferase 41 U/L (0-31); Albumin Level 3.9 g/dL (3.5-5.0); Alkaline Phosphatase 62 U/L (39-117); Anion Gap 10 (12-20); Aspartate Amino Transferase 27 U/L (5-31); Bilirubin Total < 0.2 mg/dL (0.0-1.0); Blood Urea Nitrogen 12 mg/dL (9-16); Calcium 8.7 mg/dL (8.4-10.2); Carbon Dioxide 27 mmol/L (22-29); Chloride 105 mmol/L (96-108); Creatinine Clr Calc Pharmacy 136.9; Estimated Glomerular Filt Rate > 60; Glucose Random 99 mg/dL (60-115); Sodium 138 mmol/L (135-145); Total Protein 6.8 g/dL (6.5-8.0)
[2022-03-04 04:13] VITALS: BP 134/85; PULSE 74; RESP 16; TEMP 36.8; O2SAT 98
--- NOTE | 2022-03-04 04:35 | ED.ABDPAIN ---
HPI - Abdominal Pain General Chief Complaint: Abdominal Pain Stated Complaint: sharp lower L side pain Time Seen by Provider: 03/04/22 04:33 Source: patient Mode of arrival: ambulatory Limitations: no limitations History of Present Illness HPI narrative: 36-year-old female came in for evaluation of left lower abdominal pain. Patient has been sick for the last week due to influenza disease and patient has been coughing, now she is feeling strain in her left lower abdomen which is painful with movement, described the pain as severe 10/10 with no radiation, pain is dull aching, worsening with movement and walking, no relieving factors. No associated nausea or vomiting or frequency urination or dysuria also declined fever and chills. Abdominal surgeries significant for appendectomy and cholecystectomy and sleeve gastrectomy. Related Data Previous Rx's Medication Instructions Recorded cyclobenzaprine 10 mg tablet 10 mg PO TID PRN #15 tab 09/11/20 hydrocodone 5 mg-acetaminophen 325 1 tab PO Q6H PRN #10 tab 09/11/20 mg tablet ([place]) ibuprofen 600 mg tablet 600 mg PO Q8H PRN #20 tab 09/11/20 lidocaine 5 % topical patch 1 patch TOPICAL DAILY #15 ea 09/11/20 (Lidoderm) ciprofloxacin HCl 500 mg tablet 500 mg PO Q12H #14 tab 09/14/20 (Cipro) ketorolac 10 mg tablet 10 mg PO Q6H PRN 5 Days #20 tab 09/14/20 amoxicillin 500 mg tablet 500 mg PO Q12H #20 tab 04/08/21 diazepam 5 mg tablet (Valium) 5 mg PO TID PRN #14 tab 07/14/21 lidocaine HCl 4 % topical cream 1 appl TOPICAL BID PRN #120 g 07/14/21 (Aspercreme (lidocaine HCl)) naproxen 500 mg tablet 500 mg PO BID PRN #10 tab 07/14/21 oxycodone 5 mg tablet 5 mg PO Q6H PRN #14 tab 07/14/21 prednisone 20 mg tablet 60 mg PO DAILY 5 Days #15 tab 07/20/21 cyclobenzaprine 10 mg tablet 10 mg PO TID PRN #15 tab 09/10/21 ketorolac 10 mg tablet 10 mg PO Q8H PRN #15 tab 09/10/21 lidocaine 5 % topical patch 1 patch TOPICAL DAILY #15 ea 09/10/21 (Lidoderm) albuterol sulfate 1.25 mg/3 mL 1.25 mg (3 mL) INHALATION Q4-6H 03/01/22 solution for nebulization PRN #90 ml benzonatate 200 mg capsule 200 mg PO TID 5 Days #15 cap 03/01/22 codeine 10 mg-guaifenesin 100 mg/5 5 ml PO Q6H PRN #120 ml 03/01/22 mL oral liquid hydroxyzine HCl 25 mg tablet 25 mg PO TID PRN #9 tab 03/01/22 Allergies Allergy/AdvReac Type Severity Reaction Status Date / Time No Known Allergies Allergy Verified 02/26/22 17:51 Review of Systems Review of Systems All other systems are reviewed and are negative Constitutional: Reports as per HPI and Reports no additional constitutional complaints Eyes: Reports as per HPI and Reports no additional eye complaints Reports system reviewed and no additional complaints, except as documented Cardiovascular: Reports as per HPI and Reports no additional cardiovascular complaints Respiratory: Reports as per HPI and Reports no additional respiratory complaints Gastrointestinal: Reports as per HPI and Reports no additional gastrointestinal complaints Genitourinary: Reports no additional female genitourinary complaints Musculoskeletal: Reports no additional musculoskeletal complaints Skin/Breast: Reports system reviewed and no additional complaints, except as docu Psychiatric: Reports no additional psychiatric complaints Endocrine: Reports no additional endocrine complaints Hematologic/Lymphatic: Reports no additional hematologic/lymphatic complaints Allergic/Immunologic: Reports no additional allergic/immunologic complaints Reports system reviewed and no additional complaints, except as documented and Reports Abnormal speech present PMFSH Past Medical History Medical History Appendicitis Asthma Cholecystectomy planned Migraines HESHAM (stress urinary incontinence, female) Surgical History Gastric bypass status for obesity Tubal ligation status Social History Social History Alcohol intake: never Advance Directives: No Advance Directives Information Provided: No Physical Exam ED Vital Signs: Vital Signs - 24 hr 03/04/22 01:46 03/04/22 04:13 Temperature 98.5 F 98.2 F Pulse Rate 83 74 Respiratory Rate 18 16 Blood Pressure 142/86 H 134/85 Pulse Oximetry 99 98 BMI result Body Mass Index 32.6 Vital signs have been reviewed as appeared to be correct. Blood pressure normal. Heart rate normal. Respiration rate normal. Temperature normal. Oxygen saturation normal. Appearance: Alert. Oriented X3. No acute distress. Head: Normal external exam. Normocephalic. Atraumatic. No Contreras signs noted. No raccoon eyes noted Eyes: PERRLA. EOMI. Conjunctiva and sclera normal. Eyelids normal. ENT: TM's Normal. Pharynx normal. Uvula midline. Moist mucous membranes. No trismus noted. No drooling noted. No muffled voice noted. Neck: Normal inspection. Neck supple. FROM. No adenopathy. Thyroid Normal. No meningeal signs. No neck mass noted. CVS: Normal heart rate and rhythm. Heart sound normal. No murmurs noted. Pulses normal throughout. Respiratory: No respiratory distress. Painless inspiration. Breath sounds normal. No wheezes/rales/rhonchi noted. Chest nontender. No accessory muscle usage noted or decreased air movement noted. Abdomen: Soft, obese, left lower abdominal tenderness, no guarding, no rebound tenderness. Bowel sounds normal in all 4 quadrants. No distention noted. No organomegaly noted. No visible injury noted. Back: No CVA tenderness. Full range of motion noted. Skin: Skin warm and dry. Normal skin color. Normal skin turgor. No rashes/lesions/lacerations noted. Extremities: No lower extremity edema. Extremities exhibit normal range of motion. Extremities nontender. Neuro: Oriented X 3. Cranial nerve exam: II-XII are grossly intact No motor deficit. No sensory deficit. Reflexes normal. MDM - Abdominal Pain Lab Data Attestation: I reviewed the patient's lab results. Result diagrams: 03/04/22 01:53 03/04/22 01:53 Labs: Lab Results 03/04/22 03/04/22 03/04/22 Range/Units 01:53 01:53 04:38 WBC 5.5 (4.8-10.8) X10*3/uL RBC 3.99 L (4.20-5.50) X10*6/uL Hgb 9.0 L (12.0-16.0) g/dl Hct 29.2 L (37.0-47.0) % MCV 73.2 L (80.0-98.0) fL MCH 22.6 L (27.0-33.0) pg MCHC 30.8 L (31.0-35.0) g/dl RDW 18.6 H (11.0-16.0) % Plt Count 268 D (160-400) X10*3/uL MPV 10.2 (9.4-12.3) fL Immature Gran % (Auto) 0.2 (0.0-0.4) % Neut % (Auto) 45.7 (45-73) % Lymph % (Auto) 38.8 (20-40) % [place] % (Auto) 9.6 (2-11) % Eos % (Auto) 5.3 H (0-4) % Baso % (Auto) 0.4 (0-2) % Lymph # (Auto) 2.1 (1.2-4.9) X10*3/uL [place] # (Auto) 0.5 (0.1-1.2) X10*3/uL Eos # (Auto) 0.3 (0.0-0.4) X10*3/uL Baso # (Auto) 0.0 (0.0-0.2) X10*3/uL Abs Immat Gran (auto) 0.01 (0.00-0.03) X10*3/uL Absolute Neuts (auto) 2.5 (2.0-8.3) x10*3/uL Absolute Nucleated RBC 0.000 (0.0-0.012) X10*3/uL Nucleated RBC % (auto) 0.0 (0.0-0.2) /100WBC Sodium 138 (135-145) mmol/L Potassium 4.0 (3.3-5.1) mmol/L Chloride 105 (96-108) mmol/L Carbon Dioxide 27 (22-29) mmol/L Anion Gap 10 L (12-20) BUN 12 (9-16) mg/dL Creatinine 0.68 (0.5-1.4) mg/dL Estim Creat Clear Calc 136.9 Estimated GFR > 60 Random Glucose 99 (60-115) mg/dL Calcium 8.7 D (8.4-10.2) mg/dL Total Bilirubin < 0.2 (0.0-1.0) mg/dL AST 27 D (5-31) U/L ALT 41 H (0-31) U/L Alkaline Phosphatase 62 (39-117) U/L Total Protein 6.8 (6.5-8.0) g/dL Albumin 3.9 (3.5-5.0) g/dL Beta HCG, Quant < 2 mIU/mL Urine Color YELLOW Urine Appearance CLEAR Urine pH 6.0 (5.0-8.0) Ur Specific [place] 1.015 (1.005-1.025) Urine Protein NEG (NEG-TRACE) MG/DL Urine Glucose (UA) NEG (NEG) MG/DL Urine Ketones NEG (NEG) MG/DL Urine Blood NEG (NEG) Urine Nitrite NEG (NEG) Ur Leukocyte Esterase NEG (NEG) Urine Test 03/04/22 Range/Units 04:38 WBC (4.8-10.8) X10*3/uL RBC (4.20-5.50) X10*6/uL Hgb (12.0-16.0) g/dl Hct (37.0-47.0) % MCV (80.0-98.0) fL MCH (27.0-33.0) pg MCHC (31.0-35.0) g/dl RDW (11.0-16.0) % Plt Count (160-400) X10*3/uL MPV (9.4-12.3) fL Immature Gran % (Auto) (0.0-0.4) % Neut % (Auto) (45-73) % Lymph % (Auto) (20-40) % [place] % (Auto) (2-11) % Eos % (Auto) (0-4) % Baso % (Auto) (0-2) % Lymph # (Auto) (1.2-4.9) X10*3/uL [place] # (Auto) (0.1-1.2) X10*3/uL Eos # (Auto) (0.0-0.4) X10*3/uL Baso # (Auto) (0.0-0.2) X10*3/uL Abs Immat Gran (auto) (0.00-0.03) X10*3/uL Absolute Neuts (auto) (2.0-8.3) x10*3/uL Absolute Nucleated RBC (0.0-0.012) X10*3/uL Nucleated RBC % (auto) (0.0-0.2) /100WBC Sodium (135-145) mmol/L Potassium (3.3-5.1) mmol/L Chloride (96-108) mmol/L Carbon Dioxide (22-29) mmol/L Anion Gap (12-20) BUN (9-16) mg/dL Creatinine (0.5-1.4) mg/dL Estim Creat Clear Calc Estimated GFR Random Glucose (60-115) mg/dL Calcium (8.4-10.2) mg/dL Total Bilirubin (0.0-1.0) mg/dL AST (5-31) U/L ALT (0-31) U/L Alkaline Phosphatase (39-117) U/L Total Protein (6.5-8.0) g/dL Albumin (3.5-5.0) g/dL Beta HCG, Quant mIU/mL Urine Color Urine Appearance Urine pH (5.0-8.0) Ur Specific [place] (1.005-1.025) Urine Protein (NEG-TRACE) MG/DL Urine Glucose (UA) (NEG) MG/DL Urine Ketones (NEG) MG/DL Urine Blood (NEG) Urine Nitrite (NEG) Ur Leukocyte Esterase (NEG) Urine Test Cancelled Imaging Data CT scan - abdomen: Attestation: I personally reviewed and interpreted this imaging study as follows: Radiologist's impression: No acute findings in the abdomen or pelvis. No inflammatory change. No abdominal wall hernia.? ? Discharge Plan Discharge Clinical Impression: Muscle strain Patient Disposition: Home, Self-Care Instructions: Muscle Strain (ED) Prescriptions: No Action cyclobenzaprine 10 mg tablet 10 mg PO TID PRN (Reason: muscle spasm) Qty: 15 0RF ibuprofen 600 mg tablet 600 mg PO Q8H PRN (Reason: pain) Qty: 20 0RF lidocaine [Lidoderm] 5 % adhesive patch,medicated 1 patch topical DAILY Qty: 15 0RF Rx Instructions: leave on most painful area for up to 12 hrs hydrocodone-acetaminophen [[place]] 5-325 mg tablet 1 tab PO Q6H PRN (Reason: pain) Qty: 10 0RF Rx Instructions: for 3 days ketorolac 10 mg tablet 10 mg PO Q6H PRN (Reason: pain) 5 Days Qty: 20 0RF Rx Instructions: Patient to stop ibuprofen. Patient received IM Toradol in the emergency room. ciprofloxacin HCl [Cipro] 500 mg tablet 500 mg PO Q12H Qty: 14 0RF amoxicillin 500 mg tablet 500 mg PO Q12H Qty: 20 0RF cyclobenzaprine 10 mg tablet 10 mg PO TID PRN (Reason: muscle spasm) Qty: 15 0RF lidocaine [Lidoderm] 5 % adhesive patch,medicated 1 patch topical DAILY Qty: 15 0RF Rx Instructions: leave on most painful area for up to 12 hrs ketorolac 10 mg tablet 10 mg PO Q8H PRN (Reason: pain) Qty: 15 0RF diazepam [Valium] 5 mg tablet 5 mg PO TID PRN (Reason: muscle spasm) Qty: 14 0RF lidocaine HCl [Aspercreme (lidocaine HCl)] 4 % cream 1 appl topical BID PRN (Reason: pain) Qty: 120 0RF naproxen 500 mg tablet 500 mg PO BID PRN (Reason: pain) Qty: 10 0RF oxycodone 5 mg tablet 5 mg PO Q6H PRN (Reason: pain) Qty: 14 0RF prednisone 20 mg tablet 60 mg PO DAILY 5 Days Qty: 15 0RF hydroxyzine HCl 25 mg tablet 25 mg PO TID PRN (Reason: nausea and vomiting) Qty: 9 0RF albuterol sulfate 1.25 mg/3 mL solution for nebulization 1.25 mg inhalation Q4-6H PRN (Reason: shortness of breath or wheezing) Qty: 90 0RF codeine-guaifenesin 10-100 mg/5 mL liquid 5 ml PO Q6H PRN (Reason: cold symptoms) Qty: 120 0RF benzonatate 200 mg capsule 200 mg PO TID 5 Days Qty: 15 0RF Referrals: Kerry Medina MD [Primary Care Provider] -
[2022-03-04] MEDS: Morphine Sulfate 2 MG/ML CARTRIDGE 1 MG IVPUSH (04:47)
[2022-03-04 04:54] LABS: HCG Quantitative < 2 mIU/mL
[2022-03-04 05:02] LABS: Appearance Urine CLEAR; Color Urine YELLOW; Glucose Urine UA NEG (NEG); Leukocyte Esterase Urine NEG (NEG); Nitrite Urine NEG (NEG); Specific Gravity - Urine 1.015 (1.005-1.025); Urine Blood NEG (NEG); Urine Ketones NEG (NEG); Urine Protein NEG (NEG-TRACE)
== END 2022-03-04 06:59 | disposition home or self-care (01) ==
PROVIDERS: Emergency Provider Emergency Medicine; PCP Internal Medicine
DX: S39.011A Strain of muscle, fascia and tendon of abdomen, initial encounter (principal); J45.909 Unspecified asthma, uncomplicated; Z90.49 Acquired absence of other specified parts of digestive tract; Z98.84 Bariatric surgery status; X58.XXXA Exposure to other specified factors, initial encounter; Y93.9 Activity, unspecified; Y92.9 Unspecified place or not applicable; Y99.9 Unspecified external cause status
CPT/HCPCS: 36415; 74176; 80053; 81003; 84702; 85025; 96374; 99283; 99284; J2270

== ENCOUNTER 2022-04-08 11:41 | Emergency (ER) | payer OTHER, SELFPAY ==
[2022-04-08 11:46] VITALS: BP 128/59; PULSE 92; RESP 16; TEMP 37; O2SAT 98; BMI 32.3
--- NOTE | 2022-04-08 11:50 | ED_ITS ---
HPI - General Adult General Chief complaint: Upper Respiratory Symptoms Stated complaint: flu like symptoms Time Seen by Provider: 04/08/22 11:45 Source: patient Mode of arrival: ambulatory Limitations: no limitations History of Present Illness HPI narrative: Patient is a 36 year old female presenting to the emergency department today with congestion and a headache. Patient states that for the last few days she has felt generally unwell with nasal congestion and a headache. Patient denies any dizziness, lightheadedness, abdominal pain, nausea, vomiting, fever, blurry vision, double vision, loss of vision, chest pain, difficulty breathing, shortness of breath, back pain, night sweats, pain with urination, increased urinary frequency, increased urinary urgency, blood in her urine or stool, synco pe or a near syncopal episode, recent trauma or falls, bowel incontinence, bladder incontinence, bowel retention, bladder retention, or any other complaints at this time. Onset (ago): day(s) Severity: mild Severity scale (1-10): 1 Relieving factors: none Exacerbating factors: none Associated symptoms: denies other symptoms Treatments prior to arrival: none Related Data Previous Rx's Medication Instructions Recorded cyclobenzaprine 10 mg tablet 10 mg PO TID PRN muscle spasm #15 09/11/20 tabs ibuprofen 600 mg tablet 600 mg PO Q8H PRN pain #20 tabs 09/11/20 albuterol sulfate 1.25 mg/3 mL 1.25 mg (3 mL) inhalation Q4-6H 03/01/22 solution for nebulization PRN shortness of breath or wheezing #90 mL benzonatate 200 mg capsule 200 mg PO TID 5 days #15 caps 03/01/22 codeine 10 mg-guaifenesin 100 mg/5 5 ml PO Q6H PRN cold symptoms #120 03/01/22 mL oral liquid mL hydroxyzine HCl 25 mg tablet 25 mg PO TID PRN nausea and 03/01/22 vomiting #9 tabs amoxicillin 875 mg-potassium 1 tab PO BID 7 days #14 tabs 04/08/22 clavulanate 125 mg tablet Allergies Allergy/AdvReac Type Severity Reaction Status Date / Time No Known Allergies Allergy Verified 02/26/22 17:51 Review of Systems Constitutional: Constitutional: Reports no additional constitutional complaints, Denies chills, Denies fever(s), Reports headache(s) and Denies night sweats Eyes: Eyes: Reports no additional eye complaints, Denies blurry vision, Denies change in vision, Denies diplopia, Denies eye discharge, Denies loss of vision and Denies eye pain ENT: Denies dizziness, Reports headache(s) and Reports nasal congestion Cardiovascular: Cardiovascular: Reports no additional cardiovascular complain ts, Denies chest pain, Denies lightheadedness, Denies Loss of Consciousness and Denies dyspnea Respiratory: Respiratory: Reports no additional respiratory complaints and Denies dyspnea Gastrointestinal: Gastrointestinal: Reports no additional gastrointestinal complaints, Denies abdominal pain, Denies melena, Denies hematochezia, Denies change in bowel habits and Denies change in stool character Genitourinary: Genitourinary: Denies hematuria, Denies urinary frequency, Denies dysuria, Denies urinary incontinence, Denies urinary hesitancy and Denies urinary urgency Musculoskeletal: Musculoskeletal: Reports no additional musculoskeletal complaints, Denies numbness and Denies tingling Neurologic: Denies dizziness, Reports headache(s), Denies loss of vision, Denies numbness and Denies tingling Psychiatric: Psychiatric: Reports no additional psychiatric complaints Endocrine: Endocrine: Reports no additional endocrine complaints Hematologic/Lymphatic: Hematologic/Lymphatic: Reports no additional hematologic/lymphatic complaints Allergic/Immunologic: Allergic/Immunologic: Reports no additional allergic/immunologic complaints PMFSH Past Medical History Attestation statement: The following information was validated with the patient. Source: old records reviewed Medical History Appendicitis Asthma Cholecystectomy planned Migraines Surgical History Gastric bypass status for obesity Tubal ligation status Social History Social History Alcohol intake: never Advance Directives: No Advance Directives Information Provided: No Physical Exam ED Vital Signs: Vital Signs - 24 hr 04/08/22 11:46 Temperature 98.6 F Pulse Rate 92 Respiratory Rate 16 Blood Pressure 128/59 L Pulse Oximetry 98 Oxygen Delivery Method Room Air BMI result Body Mass Index 32.3 Const General: cooperative, no acute distress, alert and awake Nutritional Appearance: well nourished Orientation/consciousness: patient oriented x3 Limitations: no limitations HENMT Head: Yes normal to inspection and Yes atraumatic Ears: hearing grossly normal bilaterally and external ears normal General nose exam: Normal external nose present, no nasal discharge noted and no epistaxis Face and sinus: Yes normal facial exam, No abrasion and No laceration Mouth: Normal oral and palatal mucosa present, no drooling and no muffled voice Eyes General: appearance normal, both eyes and all related structures Periorbital: periorbital findings normal Eyelids: Yes eyelids normal Conjunctivae: conjunctivae normal Pupils: Equal, round and reactive pupils present EOM: EOMs intact bilaterally Neck Neck: Yes normal visual inspection, Yes full ROM and Yes no lymphadenopathy Chest Chest palpation & inspection: normal inspection of the chest Resp Effort & Inspection: normal respiratory effort and able to speak in complete sentences Auscultation: clear to auscultation bilaterally Cardio Rate: regular rate Rhythm: regular rhythm GI Inspection: Yes normal to inspection Neuro General: patient oriented x3 and moves all extremities Cranial nerves: Yes Equal, round and reactive pupils present Cognition (Neuro): normal cognition Motor exam (neuro): 5/5 motor strength present throughout Sensory Exam: Normal double simultaneous stimulation for sensation Coordination: [id number] test normal Extrem General: Yes normal to inspection, Yes full ROM and Yes capillary refill normal Psych Appearance: grossly normal Mental Status: mental status grossly normal Affect: normal affect Attitude: cooperative Thought process: Normal thought process present Thought content: Normal thought content present Insight: Good insight present (Psych) Medical Decision Making MDM Narrative Medical decision making narrative: Patient is a 36 year old female presenting to the emergency department today with nasal congestion and a headache. Patient's physical exam was unremarkable. Patient's rapid COVID-19 and influenza tests were negative. I explained my physical exam findings as well as all test results to the patient. I answered all questions asked by the patient. I stressed the importance of the patient taking her medication as prescribed. I stressed the importance of the patient following up with her primary care provider. I stressed the importance of the patient returning to the emergency department immediately if her symptoms were to worsen or if she were to develop any dizziness, shortness of breath, difficulty breathing, chest pain, blurry vision, loss of vision, nausea, vomiting, abdominal pain, fever, chills, back pain, or any other complaints. Patient verbalized agreement and understanding with this treatment plan and discharge. Differential Diagnosis Differential Diagnosis: sinusitis, nasal congestion Medical Records Medical records reviewed: Yes I reviewed the patient's medical records. Lab Data Lab results reviewed: Yes I reviewed the patient's lab results. Labs: Lab Results 04/08/22 04/08/22 Range/Units 11:25 11:25 COVID-19 (BERNIE) Negative (Negative) COVID-19 Clin Com See Note Influenza Type A (JUAN JOSÉ) Negative (Negative) Influenza Type B (JUAN JOSÉ) Negative (Negative) Influenza A & B Note See Note Discharge Plan Discharge Clinical Impression: Sinusitis Patient Disposition: Home, Self-Care Instructions: Sinusitis (ED) Additional Instructions: Follow up with your primary care provider. Return to the emergency department immediately if your symptoms worsen or if you develop any dizziness, shortness of breath, difficulty breathing, chest pain, blurry vision, loss of vision, nausea, vomiting, abdominal pain, fever, chills, back pain, or any other complaints. Prescriptions: New amoxicillin-pot clavulanate 875-125 mg tablet 1 tab PO BID 7 Days Qty: 14 0RF Continued cyclobenzaprine 10 mg tablet 10 mg PO TID PRN (Reason: muscle spasm) Qty: 15 0RF ibuprofen 600 mg tablet 600 mg PO Q8H PRN (Reason: pain) Qty: 20 0RF hydroxyzine HCl 25 mg tablet 25 mg PO TID PRN (Reason: nausea and vomiting) Qty: 9 0RF albuterol sulfate 1.25 mg/3 mL solution for nebulization 1.25 mg inhalation Q4-6H PRN (Reason: shortness of breath or wheezing) Qty: 90 0RF codeine-guaifenesin 10-100 mg/5 mL liquid 5 ml PO Q6H PRN (Reason: cold symptoms) Qty: 120 0RF benzonatate 200 mg capsule 200 mg PO TID 5 Days Qty: 15 0RF Discontinued lidocaine [Lidoderm] 5 % adhesive patch,medicated 1 patch topical DAILY Qty: 15 0RF Rx Instructions: leave on most painful area for up to 12 hrs hydrocodone-acetaminophen [[place]] 5-325 mg tablet 1 tab PO Q6H PRN (Reason: pain) Qty: 10 0RF Rx Instructions: for 3 days ketorolac 10 mg tablet 10 mg PO Q6H PRN (Reason: pain) 5 Days Qty: 20 0RF Rx Instructions: Patient to stop ibuprofen. Patient received IM Toradol in the emergency room. ciprofloxacin HCl [Cipro] 500 mg tablet 500 mg PO Q12H Qty: 14 0RF amoxicillin 500 mg tablet 500 mg PO Q12H Qty: 20 0RF cyclobenzaprine 10 mg tablet 10 mg PO TID PRN (Reason: muscle spasm) Qty: 15 0RF lidocaine [Lidoderm] 5 % adhesive patch,medicated 1 patch topical DAILY Qty: 15 0RF Rx Instructions: leave on most painful area for up to 12 hrs ketorolac 10 mg tablet 10 mg PO Q8H PRN (Reason: pain) Qty: 15 0RF diazepam [Valium] 5 mg tablet 5 mg PO TID PRN (Reason: muscle spasm) Qty: 14 0RF lidocaine HCl [Aspercreme (lidocaine HCl)] 4 % cream 1 appl topical BID PRN (Reason: pain) Qty: 120 0RF naproxen 500 mg tablet 500 mg PO BID PRN (Reason: pain) Qty: 10 0RF oxycodone 5 mg tablet 5 mg PO Q6H PRN (Reason: pain) Qty: 14 0RF prednisone 20 mg tablet 60 mg PO DAILY 5 Days Qty: 15 0RF Referrals: Kerry Medina MD [Primary Care Provider] - Interventions: ED Discharge Assessment Last Done: 04/08/22 12:54 Discharge Date/Time: 04/08/22 12:55 Print Language: Telugu
[2022-04-08 12:21] LABS: COVID-19 Test Negative (Negative); IDNOW Serial# 55D5AD1C; IDNOW Serial# 9DB6401D; Influenza A Negative (Negative); Influenza B2 Negative (Negative)
== END 2022-04-08 12:55 | disposition home or self-care (01) ==
PROVIDERS: Physician Assistant Medical; Emergency Provider Emergency Medicine Emergency Medical Services; PCP Internal Medicine
DX: J32.9 Chronic sinusitis, unspecified (principal); R05.9 Cough, unspecified; R51.9 Headache, unspecified; Z20.822 Contact with and (suspected) exposure to COVID-19
CPT/HCPCS: 87502; 87635; 99282; 99283; 99284

== ENCOUNTER 2022-05-23 10:24 | Emergency (ER) | payer OTHER, SELFPAY | END 2022-05-23 13:17 | disposition left against medical advice (07) | PROVIDERS: Emergency Provider Emergency Medicine; PCP Internal Medicine | DX: M54.40 Lumbago with sciatica, unspecified side (principal) ==

== ENCOUNTER 2022-07-16 08:12 | Emergency (ER) | payer OTHER, SELFPAY ==
--- NOTE | ~2022-07-16 | XR_ITS ---
EXAMINATION: XR CHEST CLINICAL INFORMATION: Previous chest x-ray most recent February 2022 COMPARISON: None TECHNIQUE: 2 views of the chest were obtained. FINDINGS: No significant abnormality is noted involving the heart, lungs, mediastinum, bony thorax or soft tissues. XR/XR chest 2V IMPRESSION: Unremarkable examination.
[2022-07-16 08:29] VITALS: BP 131/70; PULSE 96; RESP 18; TEMP 38; O2SAT 100; BMI 36.0
[2022-07-16 08:48] LABS: Strep A Nucleic Acid Positive (Negative)
[2022-07-16 09:01] LABS: IDNOW Serial# 55D5AD1C
[2022-07-16 09:03] LABS: COVID-19 Test Negative (Negative)
--- OUTSIDE RECORDS SUMMARY | 2022-07-16 09:12 | XMS_ITS | Continuity of Care Document ---
:1985 Author Organization [facility] Address [address] [facility], 4th Floor [address] [place] [id number]- Care Team Providers Name Role Phone Kerry Medina MD Primary Care Physician [place] [facility] [place] 01/05/21 - 03/21/21 [facility] [address] [facility], 4th Floor [address] [place] [id number] Attending Physician: Coby Orozco MD Referring Physician: Not on Staff, Referring MD Allergies, Adverse Reactions, Alerts Substance Reaction Severity Status NKA Active Immunizations Given and Recorded Vaccine Date Status Refusal Reason influ virus vac, H1N1, inactive(oldterm)1 01/05/10 Given Influenza Inactive (IM) (oldterm)2 01/05/10 Given 1Admin Note: 07/17/09 VIS Given. Given in upper right deltoid.2Admin Note: 05/26/09 VIS Given. Given in lower right deltoid. Medications Adipex-P 37.5 mg oral tablet 1 tablet, By Mouth, Daily, 0 Refills, Maintenance, Tablet Start Date: 03/15/11 Status: Orderedgabapentin 300 mg oral capsule See Instructions, 1 capsule By Mouth 3 times a day and titrate up as per schedule to goal of 3 tablets po TID, # 270 tablet, 0 Refills, Maintenance Start Date: 05/10/11 Status: OrderedProAir HFA 2, puffs, Inhalation, Daily, 1, each, 0, 0, 12/16/08 15:43:38, Print ANIBAL Number, [id number], Constant Indicator Start Date: 12/16/08 Status: OrderedValtrex 500 mg oral tablet See Instructions, 30, 1, 1, 12/11/08 9:33:03, 1 tablet By Mouth Daily, Print ANIBAL Number, Constant Indicator Start Date: 12/11/08 Status: Ordered
--- OUTSIDE RECORDS SUMMARY | 2022-07-16 09:12 | XMS_ITS | Continuity of Care Document ---
:1985 Author Organization [facility] Address [address] [place] [address], 4th Floor [address] [place] [id number]- Care Team Providers Name Role Phone Kerry Medina MD Primary Care Physician Encounter [facility] [place] Date(s): 01/05/21 - 02/25/21 [facility] [address] [facility], 4th Floor [address] [place] [id number] Attending Physician: Stacie Dumont MD Referring Physician: Not on Staff, Referring [...] 0, 0, 12/16/08 15:43:38, Print ANIBAL Number, [id number], Constant Indicator Start Date: 12/16/08 Status: OrderedValtrex 500 mg oral tablet See Instructions, 30, 1, 1, 12/11/08 9:33:03, 1 tablet By Mouth Daily, Print ANIBAL Number, Constant Indicator Start Date: 12/11/08 Status: Ordered
--- OUTSIDE RECORDS SUMMARY | 2022-07-16 09:12 | XMS_ITS | Continuity of Care Document ---
:1985 Author Organization [facility] Address [address] [facility], 4th Floor [address] [place] [id number]- Care Team Providers Name Role Phone Kerry Medina MD Primary Care Physician [place] [facility] [place] 02/25/21 [facility] [address] [facility], 4th Floor [address] [place] [id number] Attending Physician: Bruce Rodríguez Admitting Physician: AdmBruce emery Referring Physician: AdmtrBruce Allergies, Adverse Reactions, Alerts Substance Reaction Severity [...] 0, 0, 12/16/08 15:43:38, Print ANIBAL Number, [id number], Constant Indicator Start Date: 12/16/08 Status: OrderedValtrex 500 mg oral tablet See Instructions, 30, 1, 1, 12/11/08 9:33:03, 1 tablet By Mouth Daily, Print ANIBAL Number, Constant Indicator Start Date: 12/11/08 Status: Ordered
--- NOTE | 2022-07-16 10:42 | ED_ITS ---
HPI - General Adult General Chief complaint: General Medical Stated complaint: ear pain and sore throat fever Time Seen by Provider: 07/16/22 09:45 History of Present Illness HPI narrative: Patient complains of sore throat, which is the worst complaint, right ear pain, as well as a cough and right upper back pain which has been going on for 2 years No chest pain no shortness of breath no numbness weakness or tingling no changes to bowel or bladder, throat is painful but patient is able to swallow no difficulty swallowing Related Data Previous Rx's Medication Instructions Recorded cyclobenzaprine 10 mg tablet 10 mg PO TID PRN muscle spasm #15 09/11/20 tabs ibuprofen 600 mg tablet 600 mg PO Q8H PRN pain #20 tabs 09/11/20 albuterol sulfate 1.25 mg/3 mL 1.25 mg (3 mL) inhalation Q4-6H 03/01/22 solution for nebulization PRN shortness of breath or wheezing #90 mL benzonatate 200 mg capsule 200 mg PO TID 5 days #15 caps 03/01/22 codeine 10 mg-guaifenesin 100 mg/5 5 ml PO Q6H PRN cold symptoms #120 03/01/22 mL oral liquid mL hydroxyzine HCl 25 mg tablet 25 mg PO TID PRN nausea and 03/01/22 vomiting #9 tabs amoxicillin 875 mg-potassium 1 tab PO BID 7 days #14 tabs 04/08/22 clavulanate 125 mg tablet acetaminophen 500 mg tablet 1,000 mg PO QID PRN pain #30 tabs 07/16/22 ibuprofen 600 mg tablet 600 mg PO Q6H PRN pain #20 tabs 07/16/22 penicillin V potassium 500 mg 500 mg PO BID 10 days #20 tabs 07/16/22 tablet prednisone 20 mg tablet 60 mg PO DAILY 2 days #6 tabs 07/16/22 Allergies Allergy/AdvReac Type Severity Reaction Status Date / Time No Known Allergies Allergy Verified 07/11/22 15:35 Review of Systems Review of Systems: Positive for sore throat cough and right-sided back pain and bilateral ear pain Negatives are no fever no chills no dizziness no weakness no fainting no feeling faint no headache no stiff neck no chest pain no shortness of breath no abdominal pain no nausea vomiting or diarrhea no leg swelling or calf pain, no rash, no numbness weakness or tingling Yes all other systems are reviewed and are negative [facility] Past Medical History Source: nursing notes reviewed Medical History Appendicitis Asthma Cholecystectomy planned Migraines HESHAM (stress urinary incontinence, female) Surgical History Gastric bypass status for obesity Tubal ligation status Social History Social History Alcohol intake: never Advance Directives: No Advance Directives Information Provided: No Physical Exam ED Vital Signs: Vital Signs - 24 hr 07/16/22 08:29 Temperature 100.4 F Pulse Rate 96 Respiratory Rate 18 Blood Pressure 131/70 Pulse Oximetry 100 Oxygen Delivery Method Room Air BMI result Body Mass Index 36.0 General appearance no acute distress Eyes no redness or discharge The ears normal tympanic membranes, normal canals The pharynx had some mild erythema and swollen tonsils symmetrically, voice was normal no drooling no trismus, uvula was midline Neck was supple Chest clear to auscultation bilateral full symmetric equal breath sounds Abdomen soft nontender The back there was some subscapular tenderness and easily reproducible pain with movement, skin was normal in color, pain was not affected by breathing Extremities full range of motion x4 without calf swelling or edema, no calf tenderness Skin no rash Neuro no focal motor sensory deficits Course Course Course Narrative: COVID test was negative Strep test was positive Chest x-ray was normal Right upper back pain was easily reproduced with movement and palpation, there was no pleuritic pain or shortness of breath Well-appearing patient was discharged Medical Decision Making Lab Data Labs: Lab Results 07/16/22 07/16/22 Range/Units 08:34 08:34 COVID-19 (BERNIE) Negative (Negative) COVID-19 Clin Com See Note S. pyogenes GrpA JUAN JOSÉ Positive A (Negative) Discharge Plan Discharge Clinical Impression: Acute streptococcal pharyngitis Patient Disposition: Home, Self-Care Additional Instructions: Strep test was positive, COVID test was negative Chest x-ray did not reveal any abnormalities and was normal Pain in her right upper back is likely from strained muscles or cartilage Return any time for difficulty breathing, any worse condition any concerns Follow with primary doctor Prescriptions: New penicillin V potassium 500 mg tablet 500 mg PO BID 10 Days Qty: 20 0RF acetaminophen 500 mg tablet 1,000 mg PO QID PRN (Reason: pain) Qty: 30 0RF prednisone 20 mg tablet 60 mg PO DAILY 2 Days Qty: 6 0RF ibuprofen 600 mg tablet 600 mg PO Q6H PRN (Reason: pain) Qty: 20 0RF No Action cyclobenzaprine 10 mg tablet 10 mg PO TID PRN (Reason: muscle spasm) Qty: 15 0RF ibuprofen 600 mg tablet 600 mg PO Q8H PRN (Reason: pain) Qty: 20 0RF amoxicillin-pot clavulanate 875-125 mg tablet 1 tab PO BID 7 Days Qty: 14 0RF hydroxyzine HCl 25 mg tablet 25 mg PO TID PRN (Reason: nausea and vomiting) Qty: 9 0RF albuterol sulfate 1.25 mg/3 mL solution for nebulization 1.25 mg inhalation Q4-6H PRN (Reason: shortness of breath or wheezing) Qty: 90 0RF codeine-guaifenesin 10-100 mg/5 mL liquid 5 ml PO Q6H PRN (Reason: cold symptoms) Qty: 120 0RF benzonatate 200 mg capsule 200 mg PO TID 5 Days Qty: 15 0RF Interventions: ED Discharge Assessment Last Done: 07/16/22 11:10 Discharge Date/Time: 07/16/22 11:10
[2022-07-16 10:58] VITALS: BP 138/75; PULSE 97; RESP 16; TEMP 37.3; O2SAT 100
[2022-07-16] MEDS: predniSONE 20 MG TABLET 60 MG PO (11:01)
[2022-07-16] MEDS: Penicillin V Potassium 250 MG TABLET 500 MG PO (11:01)
[2022-07-16] MEDS: Ketorolac Tromethamine 30 MG/ML VIAL IM (11:01)
== END 2022-07-16 11:10 | disposition home or self-care (01) ==
PROVIDERS: Emergency Provider Emergency Medicine; PCP Internal Medicine
DX: J02.0 Streptococcal pharyngitis (principal); R50.9 Fever, unspecified; Z20.822 Contact with and (suspected) exposure to COVID-19
CPT/HCPCS: 36415; 71046; 87635; 87651; 96372; 99283; 99284; J1885

== ENCOUNTER → 2022-07-22 14:58 | Outpatient (BNVA) | payer OTHER, SELFPAY | PROVIDERS: PCP Internal Medicine; Visit Provider Urology | DX: R39.15 Urgency of urination (principal); R15.2 Fecal urgency; R10.9 Unspecified abdominal pain; R31.29 Other microscopic hematuria | CPT/HCPCS: 51700; 99212 ==

== ENCOUNTER 2022-08-25 19:14 | Emergency (ER) | payer OTHER, SELFPAY ==
--- NOTE | ~2022-08-25 | CT_ITS ---
EXAMINATION: CT LUMBAR SPINE WITHOUT CONTRAST CLINICAL INFORMATION: Low back pain COMPARISON: Lumbar spine CT 04/20/2019 TECHNIQUE: Multidetector helical imaging of the lumbar spine was obtained without intravenous contrast. Multiple axial reformats and coronal/sagittal reconstructions were created the technologist workstation for review. This CT examination was performed using dose optimization techniques as appropriate, variously including the following: *Automated exposure control *Adjustment of mA and/or kV according to patient size (this includes techniques or standardized protocols for targeted exams where dose is matched to indication/reason for exam; i.e. extremities or head) *Use of iterative reconstruction technique DLP: 602 mGy-cm FINDINGS: Normal anatomic alignment. No evidence of acute fracture or traumatic subluxation. The vertebral body heights are maintained. The intervertebral disc spaces are maintained. No suspicious lytic or sclerotic osseous lesions. Mild broad-based disc bulge at L4-L5 and L5-S1 which results in mild canal stenosis. Mild multilevel facet arthropathy. No significant neural foraminal narrowing. Transitional lumbosacral anatomy with a broad-based left L5 transverse process pseudoarticulating with the sacrum which can be a source of pain. Mild degenerative changes of the bilateral sacroiliac joints. No significant abnormalities of the paraspinal musculature. Limited evaluation of the intra-abdominal structures without significant abnormalities. The abdominal aorta is of normal contour and caliber. CT/CT lumbar spine wo IV con IMPRESSION: 1. No acute fracture or traumatic subluxation. 2. Mild broad-based disc bulge at L4-L5 and L5-S1 which results in mild canal stenosis. No significant neural foraminal narrowing. 3. Transitional lumbosacral anatomy with a broad-based left L5 transverse process pseudoarticulating with the sacrum which can be a source of pain.
[2022-08-25 20:06] VITALS: BP 129/102; PULSE 84; RESP 18; TEMP 36.2; O2SAT 96; BMI 34.2
--- NOTE | 2022-08-25 20:06 | ED.BACK ---
HPI - Back Pain/Injury General Chief Complaint: Back Pain/Injury Stated Complaint: lower back and claudette leg pain Time Seen by Provider: 08/25/22 23:50 Related Data Previous Rx's Medication Instructions Recorded cyclobenzaprine 10 mg tablet 10 mg PO TID PRN muscle spasm #15 09/11/20 tabs ibuprofen 600 mg tablet 600 mg PO Q8H PRN pain #20 tabs 09/11/20 albuterol sulfate 1.25 mg/3 mL 1.25 mg (3 mL) inhalation Q4-6H 03/01/22 solution for nebulization PRN shortness of breath or wheezing #90 mL benzonatate 200 mg capsule 200 mg PO TID 5 days #15 caps 03/01/22 codeine 10 mg-guaifenesin 100 mg/5 5 ml PO Q6H PRN cold symptoms #120 03/01/22 mL oral liquid mL hydroxyzine HCl 25 mg tablet 25 mg PO TID PRN nausea and 03/01/22 vomiting #9 tabs amoxicillin 875 mg-potassium 1 tab PO BID 7 days #14 tabs 04/08/22 clavulanate 125 mg tablet acetaminophen 500 mg tablet 1,000 mg PO QID PRN pain #30 tabs 07/16/22 ibuprofen 600 mg tablet 600 mg PO Q6H PRN pain #20 tabs 07/16/22 penicillin V potassium 500 mg 500 mg PO BID 10 days #20 tabs 07/16/22 tablet prednisone 20 mg tablet 60 mg PO DAILY 2 days #6 tabs 07/16/22 phenazopyridine 200 mg tablet 200 mg PO TID PRN pain #10 tabs 07/22/22 (Pyridium) tolterodine 4 mg capsule,extended 4 mg PO DAILY 90 days #90 caps 07/28/22 release 24 hr cyclobenzaprine 10 mg tablet 10 mg PO TID PRN muscle spasm #10 08/26/22 tabs ketorolac 10 mg tablet 10 mg PO Q8H PRN pain #10 tabs 08/26/22 oxycodone 5 mg tablet 5 mg PO Q8H PRN severe pain (scale 08/26/22 score 7-10) #6 tabs prednisone 50 mg tablet 50 mg PO DAILY #5 tabs 08/26/22 Allergies Allergy/AdvReac Type Severity Reaction Status Date / Time No Known Allergies Allergy Verified 08/25/22 20:05 PMFSH Past Medical History Medical History Appendicitis Asthma Cholecystectomy planned Migraines HESHAM (stress urinary incontinence, female) Surgical History Gastric bypass status for obesity Tubal ligation status Social History Social History Alcohol intake: never Advance Directives: No Advance Directives Information Provided: No Physical Exam Vital Signs: Vital Signs: Last Vital Signs Temp 97.1 F 08/25/22 20:06 Pulse 84 08/25/22 20:06 Resp 18 08/25/22 20:06 BP 129/102 H 08/25/22 20:06 Pulse Ox 96 08/25/22 20:06 O2 Del Method 08/25/22 20:06 BMI result Body Mass Index 34.2 Course Course Course Narrative: RME--37yo F pnhx herniated disc presenting to the ED c/o low back pain radiating down b/l LE x4 days. Admits to similar sx in past. No known trauma. Denies red flag sx. +Midline ttp noted on exam and lumbar swelling Plan: Lumbar CT, PO Flexeril, IM Toradol ordered in triage Discharge Plan Discharge Clinical Impression: Low back pain Patient Disposition: Elopement Prescriptions: No Action tolterodine 4 mg capsule,extended release 24hr 4 mg PO DAILY 90 Days Qty: 90 0RF cyclobenzaprine 10 mg tablet 10 mg PO TID PRN (Reason: muscle spasm) Qty: 15 0RF ibuprofen 600 mg tablet 600 mg PO Q8H PRN (Reason: pain) Qty: 20 0RF amoxicillin-pot clavulanate 875-125 mg tablet 1 tab PO BID 7 Days Qty: 14 0RF hydroxyzine HCl 25 mg tablet 25 mg PO TID PRN (Reason: nausea and vomiting) Qty: 9 0RF albuterol sulfate 1.25 mg/3 mL solution for nebulization 1.25 mg inhalation Q4-6H PRN (Reason: shortness of breath or wheezing) Qty: 90 0RF codeine-guaifenesin 10-100 mg/5 mL liquid 5 ml PO Q6H PRN (Reason: cold symptoms) Qty: 120 0RF benzonatate 200 mg capsule 200 mg PO TID 5 Days Qty: 15 0RF penicillin V potassium 500 mg tablet 500 mg PO BID 10 Days Qty: 20 0RF acetaminophen 500 mg tablet 1,000 mg PO QID PRN (Reason: pain) Qty: 30 0RF prednisone 20 mg tablet 60 mg PO DAILY 2 Days Qty: 6 0RF ibuprofen 600 mg tablet 600 mg PO Q6H PRN (Reason: pain) Qty: 20 0RF prednisone 50 mg tablet 50 mg PO DAILY Qty: 5 0RF cyclobenzaprine 10 mg tablet 10 mg PO TID PRN (Reason: muscle spasm) Qty: 10 0RF ketorolac 10 mg tablet 10 mg PO Q8H PRN (Reason: pain) Qty: 10 0RF oxycodone 5 mg tablet 5 mg PO Q8H PRN (Reason: severe pain (scale score 7-10)) Qty: 6 0RF Rx Instructions: Partial Fill upon patient request. phenazopyridine [Pyridium] 200 mg tablet 200 mg PO TID PRN (Reason: pain) Qty: 10 0RF Rx Instructions: Take for urinary discomfort, take with food Interventions: ED Discharge Assessment Last Done: 08/26/22 00:08 Discharge Date/Time: 08/26/22 00:09
== END 2022-08-26 00:09 | disposition left against medical advice (07) ==
PROVIDERS: Emergency Provider Emergency Medicine; PCP Internal Medicine
DX: M54.50 Low back pain, unspecified (principal)
CPT/HCPCS: 72131; 99282; 99284

== ENCOUNTER 2022-08-26 07:16 | Emergency (ER) | payer OTHER, SELFPAY ==
[2022-08-26 07:24] VITALS: BP 117/86; PULSE 77; RESP 16; TEMP 36.1; O2SAT 99; BMI 34.2
--- NOTE | 2022-08-26 08:32 | ED.BACK ---
HPI - Back Pain/Injury General Chief Complaint: Back Pain/Injury Stated Complaint: Back pain/leg pain Time Seen by Provider: 08/26/22 08:31 Source: patient Mode of arrival: ambulatory Limitations: no limitations History of Present Illness HPI Narrative: 37 yo female with history of chronic low back pain who presents to the ER for evaluation of 4 days of worsening low back pain. She was here for the same yesterday but ended up leaving without being seen. She did have a CT scan of her lumbar spine however. She saw the results and came in today for evaluation. Results showed disc bulge at L4-L5 & L5-S1 wtih mild canal stenosis. There is also broad based left L5 transverse process pseudoarticulating with the sacrum which can be a source of pain. She reports the pain is across her entire lower back and radiates down both legs to just below the knee. The pain is also in her bilateral hips. It hurts worse to lay flat and walk. No urinary or bowel incontinence. No weakness in her legs, just pain. She has been struggling with LBP since the age of 16. Went through PT without improvements. She saw her PCP several months ago who brushed her off. No recent fall or trauma. MD elicited complaint: back pain Pertinent past history: prior back pain Onset (ago): day(s) (4) Timing: constant Severity: severe Pain scale (0-10): 10 Similar Symptoms Previously: Yes Quality: sharp, stabbing, aching and spasming Location: right lower back and left lower back Radiation: buttocks, left leg below the knee and right leg below the knee Exacerbating factors: supine positioning and walking Relieving factors: none Context: unknown Work related injury: No Related Data Previous Rx's Medication Instructions Recorded cyclobenzaprine 10 mg tablet 10 mg PO TID PRN muscle spasm #15 09/11/20 tabs ibuprofen 600 mg tablet 600 mg PO Q8H PRN pain #20 tabs 09/11/20 albuterol sulfate 1.25 mg/3 mL 1.25 mg (3 mL) inhalation Q4-6H 03/01/22 solution for nebulization PRN shortness of breath or wheezing #90 mL benzonatate 200 mg capsule 200 mg PO TID 5 days #15 caps 03/01/22 codeine 10 mg-guaifenesin 100 mg/5 5 ml PO Q6H PRN cold symptoms #120 03/01/22 mL oral liquid mL hydroxyzine HCl 25 mg tablet 25 mg PO TID PRN nausea and 03/01/22 vomiting #9 tabs amoxicillin 875 mg-potassium 1 tab PO BID 7 days #14 tabs 04/08/22 clavulanate 125 mg tablet acetaminophen 500 mg tablet 1,000 mg PO QID PRN pain #30 tabs 07/16/22 ibuprofen 600 mg tablet 600 mg PO Q6H PRN pain #20 tabs 07/16/22 penicillin V potassium 500 mg 500 mg PO BID 10 days #20 tabs 07/16/22 tablet prednisone 20 mg tablet 60 mg PO DAILY 2 days #6 tabs 07/16/22 phenazopyridine 200 mg tablet 200 mg PO TID PRN pain #10 tabs 07/22/22 (Pyridium) tolterodine 4 mg capsule,extended 4 mg PO DAILY 90 days #90 caps 07/28/22 release 24 hr cyclobenzaprine 10 mg tablet 10 mg PO TID PRN muscle spasm #10 08/26/22 tabs ketorolac 10 mg tablet 10 mg PO Q8H PRN pain #10 tabs 08/26/22 oxycodone 5 mg tablet 5 mg PO Q8H PRN severe pain (scale 08/26/22 score 7-10) #6 tabs prednisone 50 mg tablet 50 mg PO DAILY #5 tabs 08/26/22 Allergies Allergy/AdvReac Type Severity Reaction Status Date / Time No Known Allergies Allergy Verified 08/25/22 20:05 Review of Systems Review of Systems: Constitutional: No Fever, No Chills ENT/Mouth: No sore throat, No Rhinorrhea Cardiovascular: No Chest Pain, No SOB Respiratory: No Cough, No Sputum Gastrointestinal: No Nausea, No Vomiting, No Diarrhea, No abdominal Pain Genitourinary: No Dysuria, No Urinary Frequency, No Hematuria, No urinary incontinence Musculoskeletal: + joint pain, + Myalgias Skin: No Skin Lesions, No rash Neuro: No Weakness, No Numbness, No Dizziness, No Headache Psych: + Anxiety/Panic, + Depression PMF Past Medical History Medical History Appendicitis Asthma Cholecystectomy planned Migraines HESHAM (stress urinary incontinence, female) Surgical History Gastric bypass status for obesity Tubal ligation status Social History Social History Alcohol intake: never Advance Directives: No Advance Directives Information Provided: No Physical Exam Vital Signs: Vital Signs: Last Vital Signs Temp 97 F 08/26/22 07:24 Pulse 77 08/26/22 07:24 Resp 16 08/26/22 07:24 BP 117/86 08/26/22 07:24 Pulse Ox 99 08/26/22 07:24 O2 Del Method 08/26/22 07:24 BMI result Body Mass Index 34.2 Appearance: Alert. Oriented X3. No acute distress. HEENT: normal inspection CVS: Normal heart rate and rhythm. Pulses normal. Respiratory: No respiratory distress. Skin: Skin warm and dry. Normal skin color. Normal skin turgor. No rashes. Back: Tenderness of the low back diffusely including the low lumbar spine and associated soft tissues. Positive SI tenderness bilaterally. Positive straight leg raise test on the left. Extremities: normal inspection x4, normal ROM Neuro: Oriented X 3. No motor deficit. No sensory deficit. Steady gait. Course Course Course Narrative: 37-year-old female presents to the ER for evaluation of acute on chronic low back pain without any recent trauma. She has no red flag symptoms of low back pain. She had CT scan of her low back yesterday that showed some disc bulging. She has responded well to steroids and Toradol in the past. Will give her course of steroids, Toradol, muscle relaxer and very short course of narcotic given her reports of being unable to sleep. She will follow-up with her PCP. She would like to explore surgical options. At this time she is stable for discharge home with plan to follow-up with PCP for ongoing outpatient workup. Medications Administered Discontinued Medications Generic Name Dose Route Start Last Admin Trade Name Duke PRN Reason Stop Dose Admin Acetaminophen 975 mg 08/26/22 08:48 08/26/22 08:59 Acetaminophen 325 Mg Tablet PO 08/26/22 08:49 975 mg ONCE ONE Administration Ketorolac Tromethamine 30 mg 08/26/22 08:48 08/26/22 08:59 Ketorolac Tromethamine 30 Mg/Ml Vial IM 08/26/22 08:49 30 mg ONCE ONE Administration Oxycodone HCl 5 mg 08/26/22 08:48 08/26/22 08:58 Oxycodone Hcl Immed Release 5 Mg Tablet PO 08/26/22 08:49 5 mg ONCE ONE Administration Discharge Plan Discharge Clinical Impression: Sciatica Patient Disposition: Home, Self-Care Instructions: Sciatica (ED), Lower Back Exercises (ED) Additional Instructions: Your CT scan today showed 1.? No acute fracture or traumatic subluxation. 2.? Mild broad-based disc bulge at L4-L5 and L5-S1 which results in mild canal stenosis. No significant neural foraminal narrowing. 3..? Transitional lumbosacral anatomy with a broad-based left L5 transverse process pseudoarticulating with the sacrum which can be a source of pain. No bending, lifting or twisting. Use ice several times per day for 20 minutes at a time for the next 48 hours and then change to heat. Take medications as prescribed to help with pain and discomfort. Follow up with your Primary Care Doctor this week. If your pain worsens, if you develop new numbness, tingling, weakness, loss of function or incontinence call 911 or come back to the ER right away for evaluation. ? Prescriptions: New prednisone 50 mg tablet 50 mg PO DAILY Qty: 5 0RF cyclobenzaprine 10 mg tablet 10 mg PO TID PRN (Reason: muscle spasm) Qty: 10 0RF ketorolac 10 mg tablet 10 mg PO Q8H PRN (Reason: pain) Qty: 10 0RF oxycodone 5 mg tablet 5 mg PO Q8H PRN (Reason: severe pain (scale score 7-10)) Qty: 6 0RF Rx Instructions: Partial Fill upon patient request. No Action tolterodine 4 mg capsule,extended release 24hr 4 mg PO DAILY 90 Days Qty: 90 0RF cyclobenzaprine 10 mg tablet 10 mg PO TID PRN (Reason: muscle spasm) Qty: 15 0RF ibuprofen 600 mg tablet 600 mg PO Q8H PRN (Reason: pain) Qty: 20 0RF amoxicillin-pot clavulanate 875-125 mg tablet 1 tab PO BID 7 Days Qty: 14 0RF hydroxyzine HCl 25 mg tablet 25 mg PO TID PRN (Reason: nausea and vomiting) Qty: 9 0RF albuterol sulfate 1.25 mg/3 mL solution for nebulization 1.25 mg inhalation Q4-6H PRN (Reason: shortness of breath or wheezing) Qty: 90 0RF codeine-guaifenesin 10-100 mg/5 mL liquid 5 ml PO Q6H PRN (Reason: cold symptoms) Qty: 120 0RF benzonatate 200 mg capsule 200 mg PO TID 5 Days Qty: 15 0RF penicillin V potassium 500 mg tablet 500 mg PO BID 10 Days Qty: 20 0RF acetaminophen 500 mg tablet 1,000 mg PO QID PRN (Reason: pain) Qty: 30 0RF prednisone 20 mg tablet 60 mg PO DAILY 2 Days Qty: 6 0RF ibuprofen 600 mg tablet 600 mg PO Q6H PRN (Reason: pain) Qty: 20 0RF phenazopyridine [Pyridium] 200 mg tablet 200 mg PO TID PRN (Reason: pain) Qty: 10 0RF Rx Instructions: Take for urinary discomfort, take with food Referrals: Kerry Medina MD [Primary Care Provider] - (acute on chronic LBP) Interventions: ED Discharge Assessment Last Done: 08/26/22 09:19 Discharge Date/Time: 08/26/22 09:20
[2022-08-26] MEDS: oxyCODONE HCl Immed Release 5 MG TABLET PO (08:58)
[2022-08-26] MEDS: Acetaminophen 325 MG TABLET 975 MG PO (08:59)
[2022-08-26] MEDS: Ketorolac Tromethamine 30 MG/ML VIAL IM (08:59)
== END 2022-08-26 09:20 | disposition home or self-care (01) ==
PROVIDERS: Emergency Provider Emergency Medicine; PCP Internal Medicine
DX: M54.42 Lumbago with sciatica, left side (principal); M79.605 Pain in left leg; Z79.899 Other long term (current) drug therapy
CPT/HCPCS: 96372; 99283; 99284; J1885

== ENCOUNTER 2022-09-18 10:36 | Emergency (ER) | payer OTHER, SELFPAY ==
--- NOTE | ~2022-09-18 | XR_ITS ---
EXAMINATION: XR shoulder RT min 2V CLINICAL INFORMATION: Pain COMPARISON: None TECHNIQUE: 3 views of the shoulder XR/XR shoulder RT min 2V FINDINGS/IMPRESSION: No acute fracture or dislocation. Joint spaces are maintained. Soft tissues are unremarkable. IMPRESSION: * No acute osseous abnormality.
--- NOTE | ~2022-09-18 | XR_ITS ---
EXAMINATION: XR elbow RT 2V CLINICAL INFORMATION: Pain COMPARISON: None TECHNIQUE: 3 views of the elbow XR/XR elbow RT 2V FINDINGS/IMPRESSION: Minimally displaced small avulsion fracture of the sublime tubercle of the coronoid process. Joint spaces are maintained. No joint effusion. Soft tissues are unremarkable.
[2022-09-18 10:53] VITALS: BP 134/90; PULSE 90; RESP 16; TEMP 36.6; O2SAT 98; BMI 34.5
--- NOTE | 2022-09-18 11:54 | ED.EXTPRO ---
HPI - Extremity Problem General Chief complaint: Extremity Injury, Upper Stated complaint: Elbow pain Time Seen by Provider: 09/18/22 11:40 Source: patient Mode of arrival: ambulatory Limitations: no limitations History of Present Illness HPI Narrative: 37-year-old female presents to ED with right elbow or right shoulder pain past 3 weeks. Patient states history of arthritis of lower spine and cervical radiculopathy. Patient has a strong family history of rheumatoid arthritis was also woman had them. Patient denies any swelling right upper extremity, recent trauma, bluish black discoloration, numbness,/tingling, fever, red streaks, or chills. Patient states elbow pain and shoulder pain on range of motion. Related Data Previous Rx's Medication Instructions Recorded cyclobenzaprine 10 mg tablet 10 mg PO TID PRN muscle spasm #15 09/11/20 tabs ibuprofen 600 mg tablet 600 mg PO Q8H PRN pain #20 tabs 09/11/20 albuterol sulfate 1.25 mg/3 mL 1.25 mg (3 mL) inhalation Q4-6H 03/01/22 solution for nebulization PRN shortness of breath or wheezing #90 mL benzonatate 200 mg capsule 200 mg PO TID 5 days #15 caps 03/01/22 codeine 10 mg-guaifenesin 100 mg/5 5 ml PO Q6H PRN cold symptoms #120 03/01/22 mL oral liquid mL hydroxyzine HCl 25 mg tablet 25 mg PO TID PRN nausea and 03/01/22 vomiting #9 tabs amoxicillin 875 mg-potassium 1 tab PO BID 7 days #14 tabs 04/08/22 clavulanate 125 mg tablet acetaminophen 500 mg tablet 1,000 mg PO QID PRN pain #30 tabs 07/16/22 ibuprofen 600 mg tablet 600 mg PO Q6H PRN pain #20 tabs 07/16/22 penicillin V potassium 500 mg 500 mg PO BID 10 days #20 tabs 07/16/22 tablet prednisone 20 mg tablet 60 mg PO DAILY 2 days #6 tabs 07/16/22 phenazopyridine 200 mg tablet 200 mg PO TID PRN pain #10 tabs 07/22/22 (Pyridium) tolterodine 4 mg capsule,extended 4 mg PO DAILY 90 days #90 caps 07/28/22 release 24 hr cyclobenzaprine 10 mg tablet 10 mg PO TID PRN muscle spasm #10 08/26/22 tabs ketorolac 10 mg tablet 10 mg PO Q8H PRN pain #10 tabs 08/26/22 oxycodone 5 mg tablet 5 mg PO Q8H PRN severe pain (scale 08/26/22 score 7-10) #6 tabs prednisone 50 mg tablet 50 mg PO DAILY #5 tabs 08/26/22 ketorolac 10 mg tablet 10 mg PO Q6H 5 days #20 tabs 09/18/22 Allergies Allergy/AdvReac Type Severity Reaction Status Date / Time No Known Allergies Allergy Verified 08/25/22 20:05 Review of Systems Review of Systems: Right elbow/shoulder pain Yes all other systems are reviewed and are negative FOR[facility]LY [facility] Past Medical History Medical History Appendicitis Asthma Cholecystectomy planned Migraines HESHAM (stress urinary incontinence, female) Surgical History Gastric bypass status for obesity Tubal ligation status Social History Social History Alcohol intake: never Advance Directives: No Advance Directives Information Provided: No Physical Exam Vital Signs: Vital Signs: Last Vital Signs Temp 98 F 09/18/22 10:53 Pulse 90 09/18/22 10:53 Resp 16 09/18/22 10:53 BP 134/90 H 09/18/22 10:53 Pulse Ox 98 09/18/22 10:53 O2 Del Method 09/18/22 10:53 BMI result Body Mass Index 34.5 Const: General: cooperative, healthy appearing, comfortable, no acute distress and well developed Orientation/consciousness: oriented to person, oriented to place, oriented to time and patient oriented x3 HEENT: Head: Yes normal to inspection, Yes No palpable skull fracture present, Yes normocephalic, Yes atraumatic and No abrasion Eyes: General: appearance normal, both eyes and all related structures Pupils: Equal, round and reactive pupils present Neck: Neck: Yes normal visual inspection, Yes full ROM, Yes no lymphadenopathy, Yes no meningeal signs, Yes trachea midline, Yes supple, No anterior neck swelling and No tender Chest: Chest palpation & inspection: normal inspection of the chest and normal palpation of entire chest wall Resp: Effort & Inspection: normal respiratory effort and able to speak in complete sentences Auscultation: clear to auscultation bilaterally Cardio: Jugular venous distension: no JVD Heart sounds: S1 normal heart sound present and S2 normal heart sound present GI: Inspection: Yes normal to inspection and No abdominal wall ecchymosis Palpation (GI): not soft, not firm, nontender, no guarding and not rigid : General: No CVA tenderness and Yes no CVA tenderness Back/Spine/Pelvis: Back: no CVA tenderness, No CVA tenderness and No sacral edema Skin: General skin exam: no rashes or lesions noted and elasticity normal Neuro: Other: Negative neuro deficits General: oriented to person, oriented to place, oriented to time, patient oriented x3, gait normal, tone normal, moves all extremities, Normal light touch and pain sensation, no meningeal signs, no focal motor deficits and CN's II-XI intact bilaterally Cranial nerves: Yes CN's II-XII intact bilaterally and Yes Equal, round and reactive pupils present Cognition (Neuro): normal cognition Gait exam (Neuro): Normal gait present Motor exam (neuro): 5/5 motor strength present throughout Sensory Exam: Normal double simultaneous stimulation for sensation Extrem: General: Yes normal to inspection and Yes full ROM Shoulder/upper arm images: 1. Tenderness on palpation and range of motion. Negative for swelling, erythema, bluish black discoloration, crepitus. Motor intact but with pain. Neuro/vascular exam of extremity intact 2. Motor/neuro/vascular exam intact. Positive for tenderness and pain on range of motion with negative for any crepitus, erythema, ecchymosis, deformity, mobile bed discoloration Psych: Appearance: grossly normal, well kempt and not disheveled Course Course Course Narrative: Shoulder and elbow x-ray ordered. Reevaluation(s) Reevaluation #1: Elbow x-ray showed minimally coronoid process fracture. Patient states having pain in the area for the past 3 weeks. As per up-to-date fracture more than 48 hours not acute to be placed in a sling. Patient placed in sling will follow-up with orthopedic. Patient given Toradol prescription. Time: 12:48 Medications Administered Discontinued Medications Generic Name Dose Route Start Last Admin Trade Name Freq PRN Reason Stop Dose Admin Ketorolac Tromethamine 30 mg 09/18/22 12:14 09/18/22 12:21 Ketorolac Tromethamine 30 Mg/Ml Vial IM 09/18/22 12:15 30 mg ONCE ONE Administration MDM - Extremity (Nontraumatic) MDM Narrative Medical decision making narrative: Coronary process fracture. Patient placed in sling. Told to follow up Orthopedic Discharge Plan Discharge Clinical Impression: Fracture of coronoid process of right ulna Patient Disposition: Home, Self-Care Instructions: Elbow Fracture (ED) Additional Instructions: Your x-ray shows a small coronoid process fracture in the elbow about 3-week-old. You were placed in a sling. You need to follow-up with orthopedic surgeon. Return to the ED for any swelling, redness, blue black discoloration, numbness/tingling, or any other concerning symptoms. Prescriptions: New ketorolac 10 mg tablet 10 mg PO Q6H 5 Days Qty: 20 0RF Rx Instructions: patient received 30mg IM in the ED No Action tolterodine 4 mg capsule,extended release 24hr 4 mg PO DAILY 90 Days Qty: 90 0RF cyclobenzaprine 10 mg tablet 10 mg PO TID PRN (Reason: muscle spasm) Qty: 15 0RF ibuprofen 600 mg tablet 600 mg PO Q8H PRN (Reason: pain) Qty: 20 0RF amoxicillin-pot clavulanate 875-125 mg tablet 1 tab PO BID 7 Days Qty: 14 0RF hydroxyzine HCl 25 mg tablet 25 mg PO TID PRN (Reason: nausea and vomiting) Qty: 9 0RF albuterol sulfate 1.25 mg/3 mL solution for nebulization 1.25 mg inhalation Q4-6H PRN (Reason: shortness of breath or wheezing) Qty: 90 0RF codeine-guaifenesin 10-100 mg/5 mL liquid 5 ml PO Q6H PRN (Reason: cold symptoms) Qty: 120 0RF benzonatate 200 mg capsule 200 mg PO TID 5 Days Qty: 15 0RF penicillin V potassium 500 mg tablet 500 mg PO BID 10 Days Qty: 20 0RF acetaminophen 500 mg tablet 1,000 mg PO QID PRN (Reason: pain) Qty: 30 0RF prednisone 20 mg tablet 60 mg PO DAILY 2 Days Qty: 6 0RF ibuprofen 600 mg tablet 600 mg PO Q6H PRN (Reason: pain) Qty: 20 0RF prednisone 50 mg tablet 50 mg PO DAILY Qty: 5 0RF cyclobenzaprine 10 mg tablet 10 mg PO TID PRN (Reason: muscle spasm) Qty: 10 0RF ketorolac 10 mg tablet 10 mg PO Q8H PRN (Reason: pain) Qty: 10 0RF oxycodone 5 mg tablet 5 mg PO Q8H PRN (Reason: severe pain (scale score 7-10)) Qty: 6 0RF Rx Instructions: Partial Fill upon patient request. phenazopyridine [Pyridium] 200 mg tablet 200 mg PO TID PRN (Reason: pain) Qty: 10 0RF Rx Instructions: Take for urinary discomfort, take with food Referrals: [facility] [Provider Group] (3 week old cornooid elbow fracture) Stand Alone Forms: Work/School Release Interventions: ED Discharge Assessment Last Done: 09/18/22 13:09 Discharge Date/Time: 09/18/22 13:10 Print Language: Tunisian
[2022-09-18] MEDS: Ketorolac Tromethamine 30 MG/ML VIAL IM (12:21)
== END 2022-09-18 13:10 | disposition home or self-care (01) ==
PROVIDERS: Emergency Provider Emergency Medicine; PCP Internal Medicine
DX: S52.201A Unspecified fracture of shaft of right ulna, initial encounter for closed fracture (principal); M79.601 Pain in right arm; X58.XXXA Exposure to other specified factors, initial encounter; Y93.9 Activity, unspecified; Y92.9 Unspecified place or not applicable; Y99.9 Unspecified external cause status; Z79.899 Other long term (current) drug therapy
CPT/HCPCS: 73030; 73070; 96372; 99284; J1885

== ENCOUNTER 2022-10-03 06:27 | Outpatient (REF) | payer OTHER, SELFPAY ==
--- NOTE | ~2022-10-03 | XR_ITS ---
EXAMINATION: XR ELBOW, RIGHT XR HUMERUS, RIGHT CLINICAL INFORMATION: Pain. COMPARISON: 09/18/2022. TECHNIQUE: 2 views of the right humerus and 4 views of the right elbow. FINDINGS: There is no evidence of acute fracture or dislocation of the right humerus. No bony abnormalities appreciated. There is evidence of a chronic nondisplaced fracture without definite complete bony union involving the coronoid process of the proximal ulnar. No effusion is present. No definite acute fracture is evident. XR/XR elbow RT min 3V IMPRESSION: No significant bony abnormality of the right humerus identified. Probably old coronoid process fracture which is not displaced.
--- NOTE | ~2022-10-03 | XR_ITS ---
EXAMINATION: XR ELBOW, RIGHT XR HUMERUS, RIGHT CLINICAL INFORMATION: Pain. COMPARISON: 09/18/2022. TECHNIQUE: 2 views of the right humerus and 4 views of the right elbow. FINDINGS: There is no evidence of acute fracture or dislocation of the right humerus. No bony abnormalities appreciated. There is evidence of a chronic nondisplaced fracture without definite complete bony union involving the coronoid process of the proximal ulnar. No effusion is present. No definite acute fracture is evident. XR/XR humerus RT IMPRESSION: No significant bony abnormality of the right humerus identified. Probably old coronoid process fracture which is not displaced.
== END 2022-10-03 06:28 | disposition home or self-care (01) ==
LOC: HO.HOSX 06:27
PROVIDERS: Visit Provider Physician Assistant
DX: S52.041A Displaced fracture of coronoid process of right ulna, initial encounter for closed fracture (principal); M89.8X2 Other specified disorders of bone, upper arm
CPT/HCPCS: 73060; 73080; 99202

== ENCOUNTER 2022-10-06 16:35 | Outpatient (REF) | payer OTHER, SELFPAY ==
--- NOTE | ~2022-10-06 | MR_ITS ---
EXAMINATION: MR HUMERUS WITHOUT AND WITH CONTRAST, RIGHT CLINICAL INFORMATION: Pain. Disorder of bone. COMPARISON: Right humerus radiograph dated 10/03/2022. Right shoulder radiograph dated 09/18/2022. TECHNIQUE: Multisequence MR images of the right humerus were obtained before and after the IV administration of 10 mL Gadavist contrast in a high field strength scanner. FINDINGS: BONE: No acute fracture or dislocation. No marrow edema. No evidence of acute osseous injury. No postcontrast marrow enhancement. No concerning lytic or blastic osseous lesion. MUSCLES/TENDONS: The visualized muscles and tendons are intact. Specifically, in the region of the overlying skin marker there is no evidence of acute muscle or tendon injury. No postcontrast enhancement. No edema or measurable defect. SOFT TISSUES: No abnormal soft tissue mass, fluid collection, or enhancement. MR/MR humerus RT wo/w con IMPRESSION: Unremarkable examination.
== END 2022-10-06 16:36 | disposition home or self-care (01) ==
LOC: HO.MRI 16:35
PROVIDERS: Visit Provider Physician Assistant
DX: M89.8X2 Other specified disorders of bone, upper arm (principal)
CPT/HCPCS: 73220

== ENCOUNTER 2022-10-26 06:17 | Outpatient (REF) | payer OTHER, SELFPAY ==
--- NOTE | ~2022-10-26 | XR_ITS ---
EXAMINATION: XR ELBOW, RIGHT CLINICAL INFORMATION: Pain COMPARISON: Elbow radiographs 10/03/2022 TECHNIQUE: 3 views of the elbow XR/XR elbow RT min 3V FINDINGS/IMPRESSION: No acute fracture or dislocation. Redemonstration of a remote coronoid process fracture of the elbow. Joint spaces are maintained. No joint effusion. Soft tissues are unremarkable. IMPRESSION: * No acute osseous abnormality. Redemonstration of a remote coronoid process fracture of the elbow.
== END 2022-10-26 06:18 | disposition home or self-care (01) ==
LOC: HO.HOSX 06:17
PROVIDERS: Visit Provider Physician Assistant
DX: S52.041D Displaced fracture of coronoid process of right ulna, subsequent encounter for closed fracture with routine healing (principal); M25.50 Pain in unspecified joint
CPT/HCPCS: 73080

== ENCOUNTER → 2022-11-10 07:53 | Outpatient (BNVA) | payer OTHER, SELFPAY | PROVIDERS: PCP Internal Medicine; Visit Provider Internal Medicine Rheumatology | DX: M47.816 Spondylosis without myelopathy or radiculopathy, lumbar region (principal); M79.7 Fibromyalgia; M25.511 Pain in right shoulder; M25.512 Pain in left shoulder; R53.83 Other fatigue; D64.9 Anemia, unspecified; F41.9 Anxiety disorder, unspecified; Z86.69 Personal history of other diseases of the nervous system and sense organs | CPT/HCPCS: 99202 ==

== ENCOUNTER 2022-11-10 09:07 | Outpatient (REF) | payer OTHER, SELFPAY ==
[2022-11-10 10:48] LABS: MANUAL DIFF FLAG NO
[2022-11-10 11:00] LABS: Basophils Absolute Auto 0.1 X10*3/uL (0.0-0.2); Basophils Percent Auto 0.8 % (0-2); Eosinophils Absolute Auto 0.1 X10*3/uL (0.0-0.4); Eosinophils Percent Auto 1.9 % (0-4); Hematocrit 32.4 % (37.0-47.0); Hemoglobin 9.7 g/dl (12.0-16.0); Imm Gran Abs Auto 0.01 X10*3/uL (0.00-0.03); Imm Gran Pct Auto 0.2 % (0.0-0.4); Lymphocytes Absolute Auto 1.6 X10*3/uL (1.2-4.9); Lymphocytes Percent Auto 25.1 % (20-40); Mean Corpuscular HGB Conc 29.9 g/dl (31.0-35.0); Mean Corpuscular Hemoglobin 21.9 pg (27.0-33.0); Mean Corpuscular Volume 73.1 fL (80.0-98.0); Mean Platelet Volume 10.6 fL (9.4-12.3); Monocytes Absolute Auto 0.5 X10*3/uL (0.1-1.2); Monocytes Percent Auto 8.8 % (2-11); Neutrophils Absolute Auto 3.9 x10*3/uL (2.0-8.3); Neutrophils Percent Auto 63.2 % (45-73); Platelet Count 351 X10*3/uL (160-400); Red Blood Count 4.43 X10*6/uL (4.20-5.50); Red Cell Distribution Width 18.2 % (11.0-16.0); White Blood Count 6.2 X10*3/uL (4.8-10.8)
[2022-11-10 11:37] LABS: Erythrocyte Sedimentation Rate 12 MM/HR (0-20)
[2022-11-10 11:41] LABS: Alanine Aminotransferase 15 U/L (0-31); Albumin Level 4.2 g/dL (3.5-5.0); Alkaline Phosphatase 64 U/L (39-117); Anion Gap 11 (12-20); Aspartate Amino Transferase 13 U/L (5-31); Bilirubin Total 0.5 mg/dL (0.0-1.0); Blood Urea Nitrogen 12 mg/dL (9-16); Calcium 9.2 mg/dL (8.4-10.2); Carbon Dioxide 25 mmol/L (22-29); Chloride 107 mmol/L (96-108); Estimated Glomerular Filt Rate > 60; Glucose Random 92 mg/dL (60-115); Iron 30 mcg/dL (30-160); Percent Iron Saturation 7 % (15-50); Potassium 4.1 mmol/L (3.3-5.1); Rheumatoid Factor < 13.0 IU/mL (<15.0); Sodium 139 mmol/L (135-145); Total Iron Binding Capacity 450 mcg/dL (228-428); Total Protein 7.2 g/dL (6.5-8.0); Unsaturated Iron Binding 420 ug/dL
[2022-11-10 11:46] LABS: Vitamin B12 385 pg/mL (200-900)
[2022-11-13 14:14] LABS: Anti Nuclear Antibody Screen NEGATIVE (NEGATIVE)
[2022-11-14 13:13] LABS: Cyclic Citrullinated Peptide <16 UNITS
== END 2022-11-10 09:08 | disposition home or self-care (01) ==
LOC: HO.10HDL 09:07
PROVIDERS: Visit Provider Internal Medicine Rheumatology
DX: M47.816 Spondylosis without myelopathy or radiculopathy, lumbar region (principal); M25.511 Pain in right shoulder; M25.512 Pain in left shoulder; D64.9 Anemia, unspecified; R53.83 Other fatigue; F41.9 Anxiety disorder, unspecified; Z86.69 Personal history of other diseases of the nervous system and sense organs
CPT/HCPCS: 36415; 80053; 82607; 83540; 84443; 85025; 85652; 86038; 86039; 86200; 86431

== ENCOUNTER 2022-12-09 17:48 | Emergency (ER) | payer OTHER, SELFPAY ==
--- NOTE | ~2022-12-09 | XR_ITS ---
EXAMINATION: XR ELBOW, RIGHT CLINICAL INFORMATION: Pain, previous injury COMPARISON: Right elbow radiographs 10/26/2022 TECHNIQUE: AP, lateral, and oblique views of the right elbow. FINDINGS: No acute fracture or dislocation. No elbow joint effusion. Joint spaces are maintained. Mild spurring of the coronoid process of the ulna. Mild chronic proliferative bone of the ulna at the level of the sublime tubercle, unchanged. XR/XR elbow RT min 3V IMPRESSION: 1. No acute fracture or dislocation. 2. No joint effusion.
[2022-12-09 17:51] VITALS: BP 128/83; PULSE 93; RESP 16; TEMP 36.8; O2SAT 100; BMI 24.3
--- NOTE | 2022-12-09 17:51 | ED.GENADULT ---
HPI - General Adult General Chief complaint: Extremity Injury, Upper <TREVOR Bliss - Last Filed: 12/09/22 17:54> Stated complaint: Elbow pain, prev. fracture <TREVOR Bliss - Last Filed: 12/09/22 17:54> Time Seen by Provider: 12/09/22 20:53 <TREVOR Bliss - Last Filed: 12/09/22 17:54> Source: patient <TREVOR Sanabria - Last Filed: 12/09/22 22:04> Mode of arrival: ambulatory <TREVOR Sanabria - Last Filed: 12/09/22 22:04> Limitations: no limitations <TREVOR Sanabria - Last Filed: 12/09/22 22:04> History of Present Illness HPI narrative: 37-year-old female with a history of fibromyalgia presenting for right elbow pain. Patient tells me that it has been 9/10 pain with a gradual onset for the past 3 days. Patient states pain is worse with lifting and movement, better at rest. Patient tells me she fractured her right ulna in July and wore a sling for 6 weeks, states after that saw rheumatology for continuing pain, they told her at that time that she had fibromyalgia. Patient tells me that the pain feels different to her fibromyalgia pain she is afraid she may have fractured her elbow again however denies inciting trauma. Patient states the pain has been on & off since then but severe over the past 3 days. Patient denies trauma, inciting incident. Patient denies numbness, tingling, shortness of breath, chest pain, abdominal pain, fever, chills. <TREVOR Sanabria - Last Filed: 12/09/22 22:04> Related Data Home medications: Home Medications Medication Instructions Recorded Confirmed albuterol sulfate 90 mcg/actuation 2 puff inhalation QID 10/03/22 11/10/22 aerosol inhaler (ProAir HFA) ferrous sulfate 325 mg (65 mg 325 mg PO DAILY 11/14/22 iron) tablet Previous Rx's Medication Instructions Recorded albuterol sulfate 1.25 mg/3 mL 1.25 mg (3 mL) inhalation Q4-6H 03/01/22 solution for nebulization PRN shortness of breath or wheezing #90 mL acetaminophen 500 mg tablet 1,000 mg PO QID PRN pain #30 tabs 07/16/22 gabapentin 100 mg capsule 100 - 300 mg PO BEDTIME #90 caps 11/10/22 ketorolac 10 mg tablet 10 mg PO TID PRN pain 5 days #15 12/09/22 tabs <TREVOR Bliss - Last Filed: 12/09/22 17:54> Allergies/adverse reactions: Allergies Allergy/AdvReac Type Severity Reaction Status Date / Time No Known Allergies Allergy Verified 12/09/22 17:51 <TREVOR Bliss - Last Filed: 12/09/22 17:54> Review of Systems Review of Systems: Constitutional : No Weight loss, No Fever, No Chills, No Fatigue, No Malaise ENT/Mouth : No sore throat, No Rhinorrhea Eyes: No Eye Pain, No Swelling, No Redness Cardiovascular : No Chest Pain, No SOB, No Dyspnea on Exertion, No Orthopnea, No Edema, No Palpitations Respiratory : No Cough, No Sputum, No Wheezing Gastrointestinal : No Nausea, No Vomiting, No Diarrhea, No Constipation, No abdominal Pain, No Hematochezia, No Melena Genitourinary : No Dysuria, No Urinary Frequency, No Hematuria, Musculoskeletal : + joint pain, No Myalgias, No Joint Swelling Skin : No Skin Lesions, No rash Neuro : No Weakness, No Numbness, No Dizziness, No Headache Psych : No Anxiety/Panic, No Depression All other systems reviewed and are negative <TREVOR Sanabria - Last Filed: 12/09/22 22:04> Yes all other systems are reviewed and are negative <TREVOR Sanabria - Last Filed: 12/09/22 22:04> [facility] Past Medical History Attestation statement: The following information was validated with the patient. <TREVOR Sanabria - Last Filed: 12/09/22 22:04> Source: old records reviewed and nursing notes reviewed <TREVOR Sanabria - Last Filed: 12/09/22 22:04> Medical History: Medical History Appendicitis Asthma Cholecystectomy planned Migraines HESHAM (stress urinary incontinence, female) <TREVOR Bliss - Last Filed: 12/09/22 17:54> Surgical History: Surgical History Gastric bypass status for obesity Hx of appendectomy Hx of cholecystectomy S/P panniculectomy Tubal ligation status <TREVOR Bliss - Last Filed: 12/09/22 17:54> Family History Family History: Family History Mother Prediabetes Rheumatoid arthritis Hypertension Father Medical history unknown Other Family history of multiple sclerosis Family history of rheumatoid arthritis Family history of systemic lupus erythematosus <TREVOR Bliss - Last Filed: 12/09/22 17:54> Social History Social History: Social History Alcohol intake: current Alcohol intake frequency: holidays/special occasions only Patient Tobacco Use Status: Current someday Tobacco user Advance Directives: No Advance Directives Information Provided: No Current occupational status: unemployed 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 Oriented X3.? No acute distress.? Head: Normocephalic, atraumatic, no step-offs or deformities Eyes: Pupils equal, round and reactive to light.? Neck: Normal inspection.? Neck supple.? CVS: Normal heart rate and rhythm.? Pulses normal.? Respiratory: No respiratory distress.? Breath sounds normal.? Abdomen: Soft and nontender.? Skin: Skin warm and dry.? Normal skin color.? Normal skin turgor.? Extremities: Full ROM to b/l elbows and wrist and shoulders, slight discomfort w/ ROM of R. Elbow. 2+ radial pulses equal and b/l. No wrist drop. Normal cap refil < 2 sseconds to b/l upper extrmeities. No lower extremity edema.? Pulses present b/l. No calf ttp. 5/5 strength to bilateral upper and lower extremities Neuro: Oriented X 3.? No motor deficit.? No sensory deficit. CN 2-12 intact <TREVOR Sanabria Last Filed: 12/09/22 22:04> Course Course Course Narrative: RME performed by Sonam Chester PA-C. Patient is a 37 year old female presenting to the emergency department with right elbow pain. Patient states that she previously fractured her right elbow and it is hurting a lot again. XR placed. Patient placed back in the waiting room pending room availability and results. <TREVOR Bliss - Last Filed: 12/09/22 17:54> Reevaluation(s) Reevaluation #1: X-ray unremarkable. Patient will be given Toradol for pain and sent home with Toradol p.o.. She has taken this medication in the past and has tolerated it well. No need for splinting or slings. Advised her to follow-up with the orthopedic team. Educated patient on diagnosis and treatment plan, answered all question, patient verbalizes understanding. At this time patient will be discharged home, advised to return with new or worsening symptoms. Educated on worrisome signs and symptoms and when to return. At this time I feel comfortable discharge home. <TREVOR Sanabria Last Filed: 12/09/22 22:04> Time: 22:03 <TREVOR Sanabria Last Filed: 12/09/22 22:04> Medical Decision Making Medical Decision Making MDM Narrative: 37-year-old female presents for right elbow pain. Physical exam:Full ROM to b/l elbows and wrist and shoulders, slight discomfort w/ ROM of R. Elbow. 2+ radial pulses equal and b/l. No wrist drop. Normal cap refil < 2 sseconds to b/l upper extrmeities. No lower extremity edema.? Pulses present b/l. No calf ttp. 5/5 strength to bilateral upper and lower extremities Likely Tendinitis versus arthritis vs fibromyalgia. Less likely bursitis, elbow dislocation, tendon rupture, elbow fracture. No signs of threatned limb, NV compromise. arterial or venous occlusion Plan: Labs, imaging, pain management <TREVOR Sanabria - Last Filed: 12/09/22 22:04> Differential Diagnosis Differential Diagnoses: The differential diagnosis associated with the presentation includes <TREVOR Sanabria - Last Filed: 12/09/22 22:04> Tendinitis versus arthritis vs fibromyalgia. Less likely bursitis, elbow dislocation, tendon rupture, elbow fracture. No signs of threatned limb, NV compromise. arterial or venous occlusion <TREVOR Sanabria - Last Filed: 12/09/22 22:04> Admission/Observation Consideration of admission/observation: Escalation of care including admission/observation considered <TREVOR Sanabria - Last Filed: 12/09/22 22:04> Will likely not be admitted <TREVOR Sanabria - Last Filed: 12/09/22 22:04> Lab Data MDM Lab Attestation statement: I reviewed the patient's lab results. <TREVOR Sanabria - Last Filed: 12/09/22 22:04> Independent Interpretation I performed an independent interpretation of an: Plain X-Ray (XR/XR elbow RT min 3V IMPRESSION: 1. No acute fracture or dislocation. 2. No joint effusion.) <TREVOR Sanabria - Last Filed: 12/09/22 22:04> Radiology Impression Discussion of test interpretation with radiology: I have reviewed the radiologist's reading. <TREVOR Sanabria - Last Filed: 12/09/22 22:04> External Record Review External record reviewed: Inpatient record, Office record, Outpatient record, Prior outpatient labs, Prior outpatient radiology, Primary care record and Outside ED record <TREVOR Sanabria - Last Filed: 12/09/22 22:04> Prescription Management I considered prescription management with: Pain Medication <TREVOR Sanabria - Last Filed: 12/09/22 22:04> Core Measures AMI core measures followed: Yes <TREVOR Sanabria - Last Filed: 12/09/22 22:04> Measure exclusions: not indicated <TREVOR Sanabria - Last Filed: 12/09/22 22:04> Critical Care Time Critical Care Time Critical Care Time: No <TREVOR Sanabria - Last Filed: 12/09/22 22:04> Discharge Plan Discharge Clinical Impression: Elbow pain, right <TREVOR Bliss - Last Filed: 12/09/22 17:54> Patient Disposition: Home, Self-Care <TREVOR Bliss - Last Filed: 12/09/22 17:54> Instructions: Arthralgia (ED) <TREVOR Bliss - Last Filed: 12/09/22 17:54> Additional Instructions: Take your medications as prescribed. If you were prescribed antibiotics today, it is important that you take your medication to their entirety, do not skip any doses, do not finish them early. Follow-up with your primary care provider this week. Return to the emergency department with new or worsening symptoms. Such as fevers, chills, chest pain, shortness of breath, nausea, vomiting, dizziness, headache, vision changes, lethargy In case of emergency call 911 Toradol has been sent to your pharmacy, you tolerated this well in the department. Please take this as prescribed do not take this with ibuprofen, or other NSAIDs, do not mix this with alcohol. Side effects of this medication including increased risk for bleeding and possible kidney injury. XR/XR elbow RT min 3V IMPRESSION: 1.? No acute fracture or dislocation. 2.? No joint effusion. ? <TREVOR Bliss - Last Filed: 12/09/22 17:54> Prescriptions: New ketorolac 10 mg tablet 10 mg PO TID PRN (Reason: pain) 5 Days Qty: 15 0RF Rx Instructions: Tolerated IM in the department No Action ferrous sulfate 325 mg (65 mg iron) tablet 325 mg PO DAILY albuterol sulfate 1.25 mg/3 mL solution for nebulization 1.25 mg inhalation Q4-6H PRN (Reason: shortness of breath or wheezing) Qty: 90 0RF acetaminophen 500 mg tablet 1,000 mg PO QID PRN (Reason: pain) Qty: 30 0RF gabapentin 100 mg capsule 100 - 300 mg PO BEDTIME Qty: 90 2RF albuterol sulfate [ProAir HFA] 90 mcg/actuation HFA aerosol inhaler 2 puff inhalation QID <TREVOR Bliss - Last Filed: 12/09/22 17:54> Referrals: [facility] [Provider Group] - 1 week Kerry Medina MD [Primary Care Provider] - 2 days <TREVOR Bliss - Last Filed: 12/09/22 17:54>
[2022-12-09] MEDS: Ketorolac Tromethamine 30 MG/ML VIAL IM (21:54)
--- NOTE | 2022-12-09 21:58 | PC.NURSE ---
medicated per provider order in left deltoid, pt tolerated well.
== END 2022-12-09 21:59 | disposition home or self-care (01) ==
PROVIDERS: Emergency Provider Emergency Medicine; PCP Internal Medicine
DX: M25.521 Pain in right elbow (principal); Z79.899 Other long term (current) drug therapy
CPT/HCPCS: 73080; 96372; 99283; 99284; J1885

== ENCOUNTER 2023-01-08 12:06 | Emergency (ER) | payer OTHER, SELFPAY ==
[2023-01-08 12:29] VITALS: BP 138/78; PULSE 84; RESP 18; TEMP 37.1; O2SAT 98; BMI 33.6
--- NOTE | 2023-01-08 12:34 | ED_ITS ---
HPI - General Adult General Chief complaint: Upper Respiratory Symptoms <TREVOR Sharp Last Filed: 01/09/23 11:47> Stated complaint: R ear pain/Sore throat/R eye swelling <TREVOR Sharp Last Filed: 01/09/23 11:47> Time Seen by Provider: 01/08/23 13:49 <TREVOR Sharp - Last Filed: 01/09/23 11:47> Source: patient <TREVOR Choe Last Filed: 01/08/23 14:03> Mode of arrival: ambulatory <TREVOR Choe Last Filed: 01/08/23 14:03> Limitations: no limitations <TREVOR Choe Last Filed: 01/08/23 14:03> History of Present Illness HPI narrative: 37-year-old female presenting to the ER with complaints of 3-4 days of headaches, sinus pressure pain, facial pain, nasal congestion, ear pain, sore throat, chills. Worse today. Reports that it feels like when she had a sinus infection the past. Denies recent travel or sick contacts that she is aware of. Denies any fevers, dizziness, neck stiffness, trouble swallowing breathing, cough, sputum production, rashes, nausea/vomiting/diarrhea, lower extremity edema or calf tenderness or any other symptoms complaints or concerns at this time. <TREVOR Choe - Last Filed: 01/08/23 14:03> MD complaint: URI symptoms <TREVOR Choe Last Filed: 01/08/23 14:03> Onset (ago): day(s) (3-4 days worse today) <TREVOR Choe Last Filed: 01/08/23 14:03> Related Data Home medications: Home Medications Medication Instructions Recorded Confirmed albuterol sulfate 90 mcg/actuation 2 puff inhalation QID 10/03/22 11/10/22 aerosol inhaler (ProAir HFA) ferrous sulfate 325 mg (65 mg 325 mg PO DAILY 11/14/22 iron) tablet Previous Rx's Medication Instructions Recorded albuterol sulfate 1.25 mg/3 mL 1.25 mg (3 mL) inhalation Q4-6H 03/01/22 solution for nebulization PRN shortness of breath or wheezing #90 mL acetaminophen 500 mg tablet 1,000 mg PO QID PRN pain #30 tabs 07/16/22 gabapentin 100 mg capsule 100 - 300 mg PO BEDTIME #90 caps 11/10/22 ketorolac 10 mg tablet 10 mg PO TID PRN pain 5 days #15 12/09/22 tabs amoxicillin 875 mg-potassium 1 tab PO BID 7 days #14 tabs 01/08/23 clavulanate 125 mg tablet <TREVOR Sharp Last Filed: 01/09/23 11:47> Allergies/adverse reactions: Allergies Allergy/AdvReac Type Severity Reaction Status Date / Time No Known Allergies Allergy Verified 12/09/22 17:51 <TREVOR Sharp Last Filed: 01/09/23 11:47> Review of Systems Review of Systems: Constitutional : + chills/fatigue/malaise, No Weight loss, No Fever, No Night Sweats ENT/Mouth : No Hearing loss, + Ear Pain, + Nasal Congestion, + Sinus Pain, No Hoarseness, + sore throat, + Rhinorrhea, No Swallowing Difficulty Eyes: No Eye Pain, No Swelling, No Redness, No Foreign Body, No Discharge, No Vision Changes Cardiovascular : No Chest Pain, No SOB, No Dyspnea on Exertion, No Orthopnea, No Edema, No Palpitations Respiratory : No Cough, No Sputum, No Wheezing, No Smoke Exposure, No Dyspnea Gastrointestinal : No Nausea, No Vomiting, No Diarrhea, No Constipation, No abdominal Pain, No Hematochezia, No Melena Genitourinary : no irregular bleeding, No Dysuria, No Urinary Frequency, No Hematuria, No Urinary Incontinence, No Urgency, No Flank Pain, No Urinary Flow Changes, No Hesitancy Musculoskeletal : No joint pain, + Myalgias, No Joint Swelling Skin : No Skin Lesions, No rash Neuro : No Weakness, No Numbness, No Paresthesias, No Loss of Consciousness, No Dizziness, + Headache Psych : No Anxiety/Panic, No Depression, No SI/HI/AH/VH, No Social Issues, Heme/Lymph: No Bruising, No Bleeding,No Lymphadenopathy Endocrine : No Polyuria, No Polydipsia, No Temperature Intolerance <TREVOR Choe Last Filed: 01/08/23 14:03> Yes all other systems are reviewed and are negative <TREVOR Choe Last Filed: 01/08/23 14:03> [facility] Past Medical History Attestation statement: The following information was validated with the patient. <TREVOR Choe - Last Filed: 01/08/23 14:03> Source: old records reviewed and nursing notes reviewed <TREVOR Choe - Last Filed: 01/08/23 14:03> Medical History: Medical History Appendicitis Asthma Cholecystectomy planned Migraines HESHAM (stress urinary incontinence, female) <TREVOR Sharp - Last Filed: 01/09/23 11:47> Surgical History: Surgical History Gastric bypass status for obesity Hx of appendectomy Hx of cholecystectomy S/P panniculectomy Tubal ligation status <TREVOR Sharp - Last Filed: 01/09/23 11:47> Family History Family History: Family History Mother Prediabetes Rheumatoid arthritis Hypertension Father Medical history unknown Other Family history of multiple sclerosis Family history of rheumatoid arthritis Family history of systemic lupus erythematosus <TREVOR Sharp - Last Filed: 01/09/23 11:47> Social History Social History: Social History Alcohol intake: current Alcohol intake frequency: holidays/special occasions only Patient Tobacco Use Status: Current someday Tobacco user Advance Directives: No Advance Directives Information Provided: Yes Current occupational status: unemployed 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 Blood pressure normal. Heart rate normal. Respiration rate normal. Temperature normal. Oxygen saturation normal. <TREVOR Choe - Last Filed: 01/08/23 14:0 3> Appearance: Alert. Oriented X3. No acute distress. Head: Normal external exam. Normocephalic. Atraumatic. Eyes: PERRLA. EOMI. Conjunctiva and sclera normal. Eyelids normal. ENT: EAC normal. TM's Normal. Pharynx normal. Uvula midline. Moist mucous membranes. No lesions/ulcerations or masses noted on the tongue. Nasal turbinates inflamed and edematous and patient noted to have sinus pressure pain consistent with sinusitis. Normal voice. No trismus noted. No drooling noted. No muffled voice noted. Neck: Normal inspection. Neck supple. FROM. No adenopathy. Thyroid Normal. No tracheal deviation noted. No crepitus is noted. No meningeal signs. No neck mass noted. No signs of trauma noted. CVS: Normal heart rate and rhythm. Heart sound normal. Pulses normal throughout. No murmurs/rales/gallops. Respiratory: No respiratory distress. Painless inspiration. Breath sounds normal. No wheezes/rales/rhonchi noted. Chest nontender. No crepitus is noted. No signs of trauma noted. No accessory muscle usage noted or decreased air movement noted. No signs of trauma. Abdomen: Soft and nontender. Bowel sounds normal in all 4 quadrants. No distention noted. No organomegaly noted. No visible injury noted. Back: No CVA tenderness. Full range of motion noted. Nontender. No signs of trauma. Patient neuro intact bilaterally and distally on all 4 extremities. Patient's reflexes intact bilaterally and distally on all 4 extremities. No rashes/lesion/induration/fluctuance or signs of infection noted. Skin: Skin warm and dry. Normal skin color. Normal skin turgor. No rashes/lesions/lacerations noted. Extremities: No lower extremity edema. No calf tenderness is noted. Extremities exhibit normal range of motion and nontender. Neuro: Oriented X 3. No motor deficit. No sensory deficit. Reflexes normal. Normal steady gait. No focal neuro deficits noted. CN's II-XII intact bilaterally? Vascular: + radial pulses/+ 2 distal pedal pulses/+2 dorsalis pedis b/l. Normal cap refill. No cyanosis noted to upper extremity nails and lower extremity toes nails. <TREVOR Choe - Last Filed: 01/08/23 14:03> Course Course Course Narrative: RME: 37 yold female presents to the ED for right ear pain, sore throat, chilss, and headache with sinus pain. thinks right swollen. Physical exam positive for slight right ear TM redness. Right eye normal appearing. lungs clear. no sinus tenderness. SARS and strep ordered <TREVOR Sharp Last Filed: 01/09/23 11:47> Reevaluation(s) Reevaluation #1: This patient presents with upper respiratory symptoms most likely sinusitis. Presentation not consistent with acute bacterial pneumonia, influenza, asthma, transient airway hyperresponsiveness. Presentation not consistent with chronic causes of cough (including GERD, asthma, postnasal discharge, medication side effect, CHF, lung cancer or mass). Patient negative for COVID/RSV/flu and strep. She is noted to have nasal congestion headaches and sinus pressure pain therefore will DC home antibiotics for sinusitis and instructions return if any new or worsening symptoms follow up with primary care provider. Patient understands agrees with this plan. <TREVOR Choe - Last Filed: 01/08/23 14:03> Medical Decision Making Lab Data MDM Lab Attestation statement: I reviewed the patient's lab results. <TREVOR Choe - Last Filed: 01/08/23 14:03> Labs: Lab Results 01/08/23 01/08/23 Range/Units 12:35 12:35 Influenza Type A (PCR) NEGATIVE (Negative) Influenza Type B (PCR) NEGATIVE (Negative) RSV RNA Qual (PCR) NEGATIVE (Negative) SARS-CoV-2 RNA (RT-PCR) NEGATIVE (Negative) S. pyogenes GrpA JUAN JOSÉ Negative (Negative) <TREVOR Sharp - Last Filed: 01/09/23 11:47> Lab Results 01/08/23 01/08/23 Range/Units 12:35 12:35 Influenza Type A (PCR) NEGATIVE (Negative) Influenza Type B (PCR) NEGATIVE (Negative) RSV RNA Qual (PCR) NEGATIVE (Negative) SARS-CoV-2 RNA (RT-PCR) NEGATIVE (Negative) S. pyogenes GrpA JUAN JOSÉ Negative (Negative) <TREVOR Choe - Last Filed: 01/08/23 14:03> Discharge Plan Discharge Clinical Impression: Sinusitis <TREVOR Sharp - Last Filed: 01/09/23 11:47> Patient Disposition: Home, Self-Care <TREVOR Sharp - Last Filed: 01/09/23 11:47> Instructions: Sinusitis (ED) <TREVOR Sharp - Last Filed: 01/09/23 11:47> Prescriptions: New amoxicillin-pot clavulanate 875-125 mg tablet 1 tab PO BID 7 Days Qty: 14 0RF No Action ferrous sulfate 325 mg (65 mg iron) tablet 325 mg PO DAILY albuterol sulfate 1.25 mg/3 mL solution for nebulization 1.25 mg inhalation Q4-6H PRN (Reason: shortness of breath or wheezing) Qty: 90 0RF acetaminophen 500 mg tablet 1,000 mg PO QID PRN (Reason: pain) Qty: 30 0RF ketorolac 10 mg tablet 10 mg PO TID PRN (Reason: pain) 5 Days Qty: 15 0RF Rx Instructions: Tolerated IM in the department gabapentin 100 mg capsule 100 - 300 mg PO BEDTIME Qty: 90 2RF albuterol sulfate [ProAir HFA] 90 mcg/actuation HFA aerosol inhaler 2 puff inhalation QID <TREVOR Sharp - Last Filed: 01/09/23 11:47> Referrals: Kerry Medina MD [Primary Care Provider] - 2 days <TREVOR Sharp - Last Filed: 01/09/23 11:47> Interventions: ED Discharge Assessment Last Done: 01/08/23 14:12 <TREVOR Sharp - Last Filed: 01/09/23 11:47> Discharge Date/Time: 01/08/23 14:13 <TREVOR Sharp - Last Filed: 01/09/23 11:47>
[2023-01-08 12:47] LABS: IDNOW Serial# 08D9AD1C; Strep A Nucleic Acid Negative (Negative)
[2023-01-08 13:22] LABS: Influenza A PCR NEGATIVE (Negative); Influenza B PCR NEGATIVE (Negative); Resp Syncy Virus RNA Qual PCR NEGATIVE (Negative); SARS COV2 PCR INHOUSE NEGATIVE (Negative)
== END 2023-01-08 14:13 | disposition home or self-care (01) ==
PROVIDERS: Physician Assistant; Emergency Provider Emergency Medicine; PCP Internal Medicine
DX: J32.9 Chronic sinusitis, unspecified (principal); J02.8 Acute pharyngitis due to other specified organisms; H92.01 Otalgia, right ear; F17.200 Nicotine dependence, unspecified, uncomplicated; R51.9 Headache, unspecified; Z20.822 Contact with and (suspected) exposure to COVID-19; Z20.828 Contact with and (suspected) exposure to other viral communicable diseases; Z71.6 Tobacco abuse counseling; Z79.899 Other long term (current) drug therapy
CPT/HCPCS: 0241U; 87651; 99282

== ENCOUNTER → 2023-02-08 09:46 | Outpatient (BNVA) | payer OTHER, SELFPAY | PROVIDERS: PCP Internal Medicine; Visit Provider Internal Medicine Rheumatology | DX: M47.816 Spondylosis without myelopathy or radiculopathy, lumbar region (principal); M79.7 Fibromyalgia; K91.89 Other postprocedural complications and disorders of digestive system; D50.8 Other iron deficiency anemias | CPT/HCPCS: 99212 ==

== ENCOUNTER 2023-09-10 10:27 | Emergency (ER) | payer OTHER, SELFPAY ==
--- NOTE | ~2023-09-10 | XR_ITS ---
EXAMINATION: XR FOREARM, RIGHT CLINICAL INFORMATION: Pain COMPARISON: None available. TECHNIQUE: AP and lateral views of the right forearm were obtained. FINDINGS: The bones and soft tissues are normal. No fracture. Imaged portions of the elbow and wrist are unremarkable. XR/XR forearm RT 2V IMPRESSION: Normal right forearm.
[2023-09-10 10:59] VITALS: BP 127/75; PULSE 75; RESP 16; TEMP 36.6; O2SAT 97; BMI 33.3
[2023-09-10 12:19] VITALS: BP 125/65; PULSE 76; RESP 16; TEMP 37.2; O2SAT 100
--- NOTE | 2023-09-10 13:11 | ED_ITS ---
HPI - Extremity Problem General Chief complaint: Extremity Injury, Upper Stated complaint: Arm pain Time Seen by Provider: 09/10/23 12:44 Source: patient Mode of arrival: ambulatory Limitations: no limitations History of Present Illness HPI Narrative: 38-year-old female with pmhx significant for fibromyalgia, osteoarthritis, iron deficiency anemia, anxiety, asthma, migraine presents to the ED today for complaint of atraumatic right elbow pain x3 days. Pain radiates into her right forearm. She endorses right ulnar fracture last year. Has not had any issues with her right forearm since. Denies new injury/trauma to the right forearm. Denies fever, chills, right wrist or finger pain, numbness/tingling/weakness of the right upper extremity. Related Data Home Medications Medication Instructions Recorded Confirmed albuterol sulfate 90 mcg/actuation 2 puff inhalation QID 10/03/22 02/08/23 aerosol inhaler (ProAir HFA) Previous Rx's Medication Instructions Recorded albuterol sulfate 1.25 mg/3 mL 1.25 mg (3 mL) inhalation Q4-6H 03/01/22 solution for nebulization PRN shortness of breath or wheezing #90 mL gabapentin 100 mg capsule 100 - 300 mg (1 - 3 x 100 mg) PO 05/02/23 BEDTIME #90 caps ferrous sulfate 324 mg (65 mg 324 mg PO DAILY #90 tabs 05/09/23 iron) tablet,delayed release naproxen 500 mg tablet 500 mg PO Q8-12H PRN pain (scale 09/10/23 score 4-6) #14 tabs prednisone 50 mg tablet 50 mg PO DAILY 5 days #5 tabs 09/10/23 Allergies Allergy/AdvReac Type Severity Reaction Status Date / Time No Known Allergies Allergy Verified 09/10/23 11:03 Review of Systems Review of Systems: Constitutional: No fever, chills, fatigue, night sweats, weight changes ENT/Mouth: No ear pain, hearing loss, nasal congestion, sinus pain, rhinorrhea, sore throat Eyes: No eye pain, swelling, redness, vision changes, discharge Cardio: No chest pain, palpitations, ACOSTA, orthopnea, peripheral edema Pulm: No SOB, cough, sputum, wheezing, dyspnea, hemoptysis GI: No nausea, vomiting, hematemesis, abdominal pain, diarrhea, constipation, hematochezia, melena : No irregular bleeding, dysuria, frequency, urgency, hesitancy, hematuria, flank pain, urinary flow changes, urinary incontinence or retention MSK: No back pain, neck pain, joint pain, myalgias, +right elbow pain Skin: No lesions, rashes Neuro: No weakness, numbness, paresthesias, LOC, dizziness, headache All other systems reviewed and are negative. REPLACED BY [facility] Past Medical History Attestation statement: The following information was validated with the patient. Source: old records reviewed and nursing notes reviewed Medical History Migraines Asthma HESHAM (stress urinary incontinence, female) Cholecystectomy planned Appendicitis Surgical History Hx of cholecystectomy Hx of appendectomy S/P panniculectomy Gastric bypass status for obesity Tubal ligation status Family History Family History Mother Prediabetes Rheumatoid arthritis Hypertension Father Medical history unknown Other Family history of multiple sclerosis Family history of rheumatoid arthritis Family history of systemic lupus erythematosus Social History Social History Alcohol intake: current Alcohol intake frequency: holidays/special occasions only Patient Tobacco Use Status: Current someday Tobacco user Smoked in Last 30 Days: No Use of substances other than those prescribed or required for medical reasons: No Advance Directives: No Advance Directives Information Provided: No Patient : No Current occupational status: unemployed 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 Const: General: cooperative, healthy appearing, comfortable, no acute distress, alert and awake Orientation/consciousness: patient oriented x3 Limitations: no limitations HEENT: Head: Yes normal to inspection Ears: hearing grossly normal bilaterally General nose exam: Normal external nose present Eyes: General: appearance normal, both eyes and all related structures Conjunctivae: conjunctivae normal Sclerae: sclerae normal Pupils: Equal, round and reactive pupils present Resp: Effort & Inspection: normal respiratory effort Auscultation: clear to auscultation bilaterally Cardio: Other: + 2+ radial, ulnar, and brachial pulses b/l Rate: regular rate Rhythm: regular rhythm Skin: General skin exam: no rashes or lesions noted Neuro: General: patient oriented x3, gait normal and moves all extremities Cranial nerves: Yes Equal, round and reactive pupils present Extrem: Other: + Right shoulder/elbow/wrist without jessica nt edema or overlying skin changes. Full ROM of UE intact. Extension of right elbow slightly limited d/t discomfort. TTP over the right olecranon without palpable deformity/step off. No palpable edema/fluctuance/warmth. Negative tinels. 2+ radial, ulnar, and brachial pulses b/l. General: Yes normal to inspection, Yes full ROM, Yes capillary refill normal, Yes normal exam except as noted and No edema Course Course Course Narrative: XR right forearm does not demonstrate acute on chronic ulnar fracture or olecranon pathology. Likely fibromyalgia vs arthritis vs bursitis. Will send patient home with willie wrap for compression, naproxen for pain, and prednisone. Advised her to follow up with PCP regarding visit. Patient has remained stable throughout ED visit today. Discussed strict return precautions. All questions answered at this time. Patient is agreeable with disposition and stable for discharge. Medications Administered Discontinued Medications Generic Name Dose Route Start Last Admin Trade Name Freq PRN Reason Stop Dose Admin Ketorolac Tromethamine 30 mg 09/10/23 13:13 09/10/23 13:29 Ketorolac Tromethamine 30 Mg/Ml Vial IM 09/10/23 13:14 30 mg ONCE ONE Administration Medical Decision Making Medical Decision Making MDM Narrative: 38-year-old female with pmhx significant for fibromyalgia, osteoarthritis, iron deficiency anemia, anxiety, asthma, migraine presents to the ED today for complaint of atraumatic right elbow pain x3 days. VSS. Nontoxic appearing and in NAD. Right shoulder/elbow/wrist without joint edema or overlying skin changes. Full ROM of UE intact. Extension of right elbow slightly limited d/t discomfort. TTP over the right olecranon without palpable deformity/step off. No palpable edema/fluctuance/warmth. Negative tinels. 2+ radial, ulnar, and brachial pulses b/l. Clinical concern for olencranon bursitis, osteoarthritis, fibromyalgia, fracture vs msk sprain/ strain. Unlikely dislocation, gout, lateral or medial epicondylitis, cubital tunel syndrome, lyme or tick bourne pathology, septic joint, NV compromise, or threat to limb. Differential Diagnosis Differential Diagnoses: The differential diagnosis associated with the presentation includes As above. Admission/Observation Not indicated. Independent Interpretation I performed an independent interpretation of an: Plain X-Ray Interpretation: XR right radius/unla without acute fracture, agree with radiologist's interpretation. Radiology Impression Discussion of test interpretation with radiology: I have reviewed the radiologist's reading. Radiologist Impression: XR forearm RT 2V IMPRESSION: Normal right forearm. External Record Review External record reviewed: Inpatient record Prescription Management I considered prescription management with: Pain Medication and Other (steroid) Procedures Orthopedic Splinting/Casting Injury #1: Side: right Upper Extremity Injury Location: elbow Upper Extremity Immobilizer: Willie wrap Critical Care Time Critical Care Time Critical Care Time: No Discharge Plan Discharge Clinical Impression: Olecranon bursitis Patient Disposition: Home, Self-Care Instructions: Elbow Bursitis (ED) Additional Instructions: The x-ray of your arm/elbow did not demonstrate acute fracture. You likely have bursitis of the elbow. This is inflammation and irritation of the fluid sac. Your provided with an Willie wrap today. Keep this applied as it helps with compression. Naproxen as an anti-inflammatory that has been sent to your pharmacy. Do not take this with other NSAIDs such as ibuprofen. You have also been sent a 5 day course of prednisone. Take this over the next 5 days to help with inflammation/pain. You have been provided with a referral to Orthopedics. You may call them to make an appointment. They will not call you. If symptoms persist or worsen please return to the emergency department. In the case of an emergency call 911. Prescriptions: New naproxen 500 mg tablet 500 mg PO Q8-12H PRN (Reason: pain (scale score 4-6)) Qty: 14 0RF prednisone 50 mg tablet 50 mg PO DAILY 5 Days Qty: 5 0RF No Action gabapentin 100 mg capsule 100 - 300 mg PO BEDTIME Qty: 90 4RF ferrous sulfate 324 mg (65 mg iron) tablet,delayed release (DR/EC) 324 mg PO DAILY Qty: 90 0RF albuterol sulfate 1.25 mg/3 mL solution for nebulization 1.25 mg inhalation Q4-6H PRN (Reason: shortness of breath or wheezing) Qty: 90 0RF albuterol sulfate [ProAir HFA] 90 mcg/actuation HFA aerosol inhaler 2 puff inhalation QID Referrals: [facility] [place] [facility] [Provider Group] Interventions: ED Discharge Assessment Last Done: 09/10/23 13:31 Discharge Date/Time: 09/10/23 13:31
[2023-09-10] MEDS: Ketorolac Tromethamine 30 MG/ML VIAL IM (13:29)
== END 2023-09-10 13:31 | disposition home or self-care (01) ==
PROVIDERS: Emergency Provider Emergency Medicine; PCP Internal Medicine
DX: M70.21 Olecranon bursitis, right elbow (principal); M25.521 Pain in right elbow; M79.601 Pain in right arm; Z79.899 Other long term (current) drug therapy
CPT/HCPCS: 29105; 73090; 96372; 99284; J1885

== ENCOUNTER 2023-09-16 20:54 | Emergency (ER) | payer OTHER, SELFPAY ==
[2023-09-16 21:05] VITALS: BP 132/78; PULSE 112; RESP 18; TEMP 39.2; O2SAT 99; BMI 33.1
[2023-09-16] MEDS: Ondansetron ODT 4 MG TAB.RAPDIS TRANSLINGU (21:12)
[2023-09-16] MEDS: Acetaminophen 325 MG TABLET 975 MG PO (21:14)
[2023-09-16 21:53] LABS: IDNOW Serial# 08D9AD1C; Strep A Nucleic Acid Negative (Negative)
[2023-09-16 22:13] LABS: Influenza A PCR NEGATIVE (Negative); Influenza B PCR NEGATIVE (Negative); Resp Syncy Virus RNA Qual PCR NEGATIVE (Negative); SARS COV2 PCR INHOUSE POSITIVE (Negative)
--- NOTE | 2023-09-16 22:22 | ED_ITS ---
HPI - General Adult General Chief complaint: Upper Respiratory Symptoms Stated complaint: flu like symptoms Time Seen by Provider: 09/16/23 22:15 Source: patient, RN notes reviewed and old records reviewed Mode of arrival: ambulatory Limitations: no limitations History of Present Illness HPI narrative: 38-year-old female presents for evaluation of fever, body aches, cough. Her symptoms started early this morning. She states that her 14-year-old daughter had similar symptoms starting last night. Patient reports nausea without vomiting. Denies any shortness of breath or chest pain No other complaints or concerns at this time Related Data Home Medications Medication Instructions Recorded Confirmed albuterol sulfate 90 mcg/actuation 2 puff inhalation QID 10/03/22 02/08/23 aerosol inhaler (ProAir HFA) Previous Rx's Medication Instructions Recorded albuterol sulfate 1.25 mg/3 mL 1.25 mg (3 mL) inhalation Q4-6H 03/01/22 solution for nebulization PRN shortness of breath or wheezing #90 mL gabapentin 100 mg capsule 100 - 300 mg (1 - 3 x 100 mg) PO 05/02/23 BEDTIME #90 caps ferrous sulfate 324 mg (65 mg 324 mg PO DAILY #90 tabs 05/09/23 iron) tablet,delayed release naproxen 500 mg tablet 500 mg PO Q8-12H PRN pain (scale 09/10/23 score 4-6) #14 tabs prednisone 50 mg tablet 50 mg PO DAILY 5 days #5 tabs 09/10/23 nirmatrelvir 300 mg (150 mg See Rx Instructions PO .COMPLEX 09/16/23 x2)-ritonavir 100 mg tablet,dose #30 ea pack (Paxlovid) Allergies Allergy/AdvReac Type Severity Reaction Status Date / Time No Known Allergies Allergy Verified 09/16/23 21:05 Review of Systems Constitutional: Constitutional: Reports body ache(s), Reports chills, Reports fever(s) and Reports headache(s) Eyes: Eyes: Denies blurry vision ENT: Reports headache(s) and Denies sore throat Cardiovascular: Cardiovascular: Denies dyspnea Respiratory: Respiratory: Reports cough and Denies dyspnea Gastrointestinal: Gastrointestinal: Denies abdominal pain, Reports nausea and Denies vomiting Musculoskeletal: Musculoskeletal: Denies back pain Integumentary/Breasts: Skin/Breast: Denies rash Neurologic: Reports headache(s) PMFSH Past Medical History Medical History Migraines Asthma HESHAM (stress urinary incontinence, female) Cholecystectomy planned Appendicitis Surgical History Hx of cholecystectomy Hx of appendectomy S/P panniculectomy Gastric bypass status for obesity Tubal ligation status Family History Family History Mother Prediabetes Rheumatoid arthritis Hypertension Father Medical history unknown Other Family history of multiple sclerosis Family history of rheumatoid arthritis Family history of systemic lupus erythematosus Social History Social History Alcohol intake: current Alcohol intake frequency: holidays/special occasions only Patient Tobacco Use Status: Current someday Tobacco user Advance Directives: No Advance Directives Information Provided: No Current occupational status: unemployed 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 Physical Exam ED Vital Signs: Vital Signs - 24 hr 09/16/23 21:05 09/16/23 22:28 Temperature 102.5 F H 100.8 F H Pulse Rate 112 H Respiratory Rate 18 Blood Pressure 132/78 Pulse Oximetry 99 Oxygen Delivery Method Room Air BMI result Body Mass Index 33.1 Const General: healthy appearing, comfortable, no acute distress, alert and awake Nutritional Appearance: well nourished Orientation/consciousness: patient oriented x3 HENMT Head: Yes normocephalic and Yes atraumatic Eyes Eyelids: Yes eyelids normal Conjunctivae: conjunctivae normal Sclerae: sclerae normal Corneas: corneas normal Pupils: Equal, round and reactive pupils present EOM: EOMs intact bilaterally Neck Neck: Yes full ROM Resp Effort & Inspection: normal respiratory effort, able to speak in complete s entences, no audible wheezes and not labored Auscultation: clear to auscultation bilaterally GI Inspection: No distended Palpation (GI): Soft to palpation, not firm, nontender, no guarding and not rigid Skin General skin exam: elasticity normal Neuro General: patient oriented x3 Cranial nerves: Yes Equal, round and reactive pupils present and Yes Bilaterally intact EOM present Cognition (Neuro): normal cognition Extrem Other: Moving all extremities well without any obvious deformities Medications Administered Discontinued Medications Generic Name Dose Route Start Last Admin Trade Name Freq PRN Reason Stop Dose Admin Acetaminophen 975 mg 09/16/23 21:09 09/16/23 21:14 Acetaminophen 325 Mg Tablet PO 09/16/23 21:10 975 mg ONCE ONE Administration Ondansetron HCl 4 mg 09/16/23 21:10 09/16/23 21:12 Ondansetron Odt 4 Mg Tab.Jose Angel ANAYAU 09/16/23 21:11 4 mg ONCE ONE Administration Medical Decision Making Medical Decision Making MDM Narrative: 2-year-old female presents for evaluation of flu-like symptoms and fever. She tested positive for COVID-19. She reports being vaccinated. She has a history of asthma and fibromyalgia. Her vital signs are significant for temperature as high as 102.3?. CMP 228 with antipyretics. She reports nausea but no actual vomiting. Patient be discharged his chronic care and will be. Differential Diagnosis Differential Diagnoses: The differential diagnosis associated with the present ation includes COVID-19 Viral syndrome Influenza Bronchitis Pneumonia Bronchiolitis RSV Admission/Observation Consideration of admission/observation: Escalation of care including admission/observation considered Patient would have required admission has she had any signs of respiratory distress or hypoxia with a COVID-19 diagnosis Lab Data Labs: Lab Results 09/16/23 Range/Units 21:17 Influenza Type A (PCR) NEGATIVE (Negative) Influenza Type B (PCR) NEGATIVE (Negative) RSV RNA Qual (PCR) NEGATIVE (Negative) SARS-CoV-2 RNA (RT-PCR) POSITIVE A (Negative) S. pyogenes GrpA JUAN JOSÉ Negative (Negative) Discharge Plan Discharge Clinical Impression: COVID-19 Patient Disposition: Home, Self-Care Instructions: COVID-19 (Coronavirus Disease 2019) (ED) Additional Instructions: You tested positive for COVID-19. Use ibuprofen/Tylenol as needed for fevers, body ache, headache. Take Paxlovid as directed Follow-up with your primary doctor Prescriptions: New Paxlovid 300 mg (150 mg x 2)-100 mg tablets,dose pack See Rx Instructions .ROUTE .COMPLEX Qty: 30 0RF Rx Instructions: take TWO 150 mg tablets of nirmatrelvir with ONE 100 mg tablet of ritonavir twice daily for 5 days No Action gabapentin 100 mg capsule 100 - 300 mg PO BEDTIME Qty: 90 4RF ferrous sulfate 324 mg (65 mg iron) tablet,delayed release (DR/EC) 324 mg PO DAILY Qty: 90 0RF albuterol sulfate 1.25 mg/3 mL solution for nebulization 1.25 mg inhalation Q4-6H PRN (Reason: shortness of breath or wheezing) Qty: 90 0RF naproxen 500 mg tablet 500 mg PO Q8-12H PRN (Reason: pain (scale score 4-6)) Qty: 14 0RF prednisone 50 mg tablet 50 mg PO DAILY 5 Days Qty: 5 0RF albuterol sulfate [ProAir HFA] 90 mcg/actuation HFA aerosol inhaler 2 puff inhalation QID
[2023-09-16 22:28] VITALS: TEMP 38.2
== END 2023-09-16 23:52 | disposition home or self-care (01) ==
PROVIDERS: Emergency Provider Internal Medicine; PCP Internal Medicine
DX: U07.1 COVID-19 (principal)
CPT/HCPCS: 0241U; 87651; 99283; 99284

== ENCOUNTER 2023-09-17 14:01 | Emergency (ER) | payer OTHER, SELFPAY ==
[2023-09-17 15:09] VITALS: BP 132/78; PULSE 104; RESP 22; TEMP 39.3; O2SAT 100; BMI 73.1
--- NOTE | 2023-09-17 15:12 | ED_ITS ---
HPI - General Adult General Chief complaint: Upper Respiratory Symptoms Stated complaint: Covid +/Body aches Time Seen by Provider: 09/17/23 15:18 Source: patient Mode of arrival: ambulatory Limitations: no limitations History of Present Illness HPI narrative: 38 yold female with pmh of sciatica, fibromyalgia, anemia, here for continuous bodyaches and sciatica pain.. Patient tested for Covid yesterday and discharged with paxlovid presents to the ED for continuous bodyaches. Patient denies any chest pain or shortness of breath. Patient states only taking tyenol once. Patient denies any rash, leg swelling, calf pain, or pleurisy. patient states no abdominal pain, symptoms, urinary/bowel incontinence, nuasea, or vomitting. Patient states no IV drug use. Related Data Home Medications Medication Instructions Recorded Confirmed albuterol sulfate 90 mcg/actuation 2 puff inhalation QID 10/03/22 02/08/23 aerosol inhaler (ProAir HFA) Previous Rx's Medication Instructions Recorded albuterol sulfate 1.25 mg/3 mL 1.25 mg (3 mL) inhalation Q4-6H 03/01/22 solution for nebulization PRN shortness of breath or wheezing #90 mL gabapentin 100 mg capsule 100 - 300 mg (1 - 3 x 100 mg) PO 05/02/23 BEDTIME #90 caps ferrous sulfate 324 mg (65 mg 324 mg PO DAILY #90 tabs 05/09/23 iron) tablet,delayed release naproxen 500 mg tablet 500 mg PO Q8-12H PRN pain (scale 09/10/23 score 4-6) #14 tabs prednisone 50 mg tablet 50 mg PO DAILY 5 days #5 tabs 09/10/23 nirmatrelvir 300 mg (150 mg See Rx Instructions PO .COMPLEX 09/16/23 x2)-ritonavir 100 mg tablet,dose #30 ea pack (Paxlovid) ibuprofen 400 mg tablet 400 mg PO Q6H PRN pain 7 days #28 09/17/23 tabs Allergies Allergy/AdvReac Type Severity Reaction Status Date / Time No Known Allergies Allergy Verified 09/16/23 21:05 Review of Systems Review of Systems: bodyaches. known covid, sciatica Yes all other systems are reviewed and are negative PMFSH Past Medical History Medical History Migraines Asthma HESHAM (stress urinary incontinence, female) Cholecystectomy planned Appendicitis Surgical History Hx of cholecystectomy Hx of appendectomy S/P panniculectomy Gastric bypass status for obesity Tubal ligation status Family History Family History Mother Prediabetes Rheumatoid arthritis Hypertension Father Medical history unknown Other Family history of multiple sclerosis Family history of rheumatoid arthritis Family history of systemic lupus erythematosus Social History Social History Alcohol intake: current Alcohol intake frequency: holidays/special occasions only Patient Tobacco Use Status: Current someday Tobacco user Advance Directives: No Advance Directives Information Provided: No Current occupational status: unemployed 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 Physical Exam ED Vital Signs: Vital Signs - 24 hr 09/17/23 15:09 Temperature 102.7 F H Pulse Rate 104 H Respiratory Rate 22 H Blood Pressure 132/78 Pulse Oximetry 100 Oxygen Delivery Method Room Air BMI result Body Mass Index 73.1 Const General: cooperative, healthy appearing, comfortable, no acute distress, well developed and alert Orientation/consciousness: oriented to person, oriented to place, oriented to time and patient oriented x3 HENMT Head: Yes normal to inspection, Yes No palpable skull fracture present, Yes normocephalic and Yes atraumatic Ears: hearing grossly normal bilaterally, external ears normal, TM's normal bilaterally, TM normal on the right, TM normal on the left, EAC's normal, mastoids normal and no periauricular adenopathy Throat: Yes posterior oropharynx normal, Yes tonsils normal and Yes uvula midline Eyes General: appearance normal, both eyes and all related structures Neck Neck: Yes normal visual inspection, Yes full ROM, Yes no lymphadenopathy, Yes no meningeal signs, Yes trachea midline, Yes supple, No anterior neck swelling and No tender Chest Chest palpation & inspection: normal inspection of the chest and normal palpation of entire chest wall Resp Effort & Inspection: normal respiratory effort and able to speak in complete sentences Auscultation: clear to auscultation bilaterally Cardio Jugular venous distension: no JVD Heart sounds: S1 normal heart sound present and S2 normal heart sound present GI Inspection: Yes normal to inspection and No abdominal wall ecchymosis Palpation (GI): Soft to palpation, not firm, nontender, no guarding and not rigid General: Yes no CVA tenderness Back/Spine/Pelvis Back: no CVA tenderness and No back tenderness Skin General skin exam: no rashes or lesions noted, elasticity normal and turgor normal Neuro General: oriented to person, oriented to place, oriented to time, patient oriented x3, gait normal, tone normal, moves all extremities, Normal light touch and pain sensation, no meningeal signs and no focal motor deficits Extrem General: Yes normal to inspection, Yes full ROM and Yes capillary refill normal Psych Appearance: grossly normal and well kempt Course Course Course Narrative: RME: 38 yold female with known CoVId presents to the ED For bodyaches Medications Administered Discontinued Medications Generic Name Dose Route Start Last Admin Trade Name Freq PRN Reason Stop Dose Admin Acetaminophen 325 mg 09/17/23 15:13 09/17/23 15:19 Acetaminophen 325 Mg Tablet PO 09/17/23 15:14 325 mg ONCE ONE Administration Ibuprofen 800 mg 09/17/23 15:13 09/17/23 15:19 Ibuprofen 800 Mg Tablet PO 09/17/23 15:14 800 mg ONCE ONE Administration Medical Decision Making Medical Decision Making MDM Narrative: 38 yold female with known fibromyaglia and scaitaca presents to the ED for bodyaches. Patient diagnosed with Covid yesterday. patient took tylenol only once. Patient febrile due to COVID. Slight tachy. Patient given Motrin and Tylenol told to rest and drink fluids. Not suspecting sepsis. Patient instructed on motrin and tylenol for pain and fever ccontrol. NOt suspecting any life threatnegning etiologies. patient safe for discharge. Differential Diagnosis Differential Diagnoses: The differential diagnosis associated with the presentation includes (COvid, fibromaylgia, scaiatica) Admission/Observation Consideration of admission/observation: Escalation of care including admission/observation considered External Record Review External record reviewed: Other (Primary visits) Prescription Management I considered prescription management with: Pain Medication Discharge Plan Discharge Clinical Impression: COVID-19 Patient Disposition: Home, Self-Care Instructions: COVID-19 (Coronavirus Disease 2019) (ED) Additional Instructions: Return to the ED immediately for any chest pain, shortness of breath, leg swelling, calf pain, coughing up blood, or any other concerning symptoms. Recommend self-isolation for at least 5 days. Please follow-up with primary care provider Prescriptions: New ibuprofen 400 mg tablet 400 mg PO Q6H PRN (Reason: pain) 7 Days Qty: 28 0RF No Action gabapentin 100 mg capsule 100 - 300 mg PO BEDTIME Qty: 90 4RF ferrous sulfate 324 mg (65 mg iron) tablet,delayed release (DR/EC) 324 mg PO DAILY Qty: 90 0RF albuterol sulfate 1.25 mg/3 mL solution for nebulization 1.25 mg inhalation Q4-6H PRN (Reason: shortness of breath or wheezing) Qty: 90 0RF naproxen 500 mg tablet 500 mg PO Q8-12H PRN (Reason: pain (scale score 4-6)) Qty: 14 0RF prednisone 50 mg tablet 50 mg PO DAILY 5 Days Qty: 5 0RF Paxlovid 300 mg (150 mg x 2)-100 mg tablets,dose pack See Rx Instructions .ROUTE .COMPLEX Qty: 30 0RF Rx Instructions: take TWO 150 mg tablets of nirmatrelvir with ONE 100 mg tablet of ritonavir twice daily for 5 days albuterol sulfate [ProAir HFA] 90 mcg/actuation HFA aerosol inhaler 2 puff inhalation QID Stand Alone Forms: Work/School Release Interventions: ED Discharge Assessment Last Done: 09/17/23 15:29 Discharge Date/Time: 09/17/23 15:30 Print Language: Chinese
[2023-09-17] MEDS: Acetaminophen 325 MG TABLET PO (15:19)
[2023-09-17] MEDS: Ibuprofen 800 MG TABLET PO (15:19)
--- NOTE | 2023-09-17 15:21 | PC.NURSE ---
pt medicated per MAR.
--- NOTE | 2023-09-17 15:26 | PC.NURSE ---
pt medicated per MAR.
== END 2023-09-17 15:30 | disposition home or self-care (01) ==
PROVIDERS: Emergency Provider Emergency Medicine; PCP Internal Medicine
DX: U07.1 COVID-19 (principal); M54.30 Sciatica, unspecified side
CPT/HCPCS: 99283

== ENCOUNTER 2023-09-27 09:57 | Outpatient (AMB) | payer OTHER, SELFPAY ==
--- NOTE | 2023-09-27 10:03 | MHC.OFFVIS ---
Intake Vital Signs 09/27/23 10:17 Height 5 ft 8 in Weight 218 lb BMI 33.1 BP 110/78 Blood Pressure Location Rt brachial Position Sitting Pulse 90 Pulse Source Pulse Oximeter Pulse Oximetry (%) 98 Oxygen Delivery Method Room Air Intake Visit Reasons: ENP: OCCIPIAL NEURALGIA/MIGRAINE-Confirmed Intake Note: Patient presents for neauralgia and migraines. I'm having alot of headaches and was diagnosed with cervical osteoarthritis Allergies No Known Allergies Allergy (Verified 09/16/23 21:05) Medication List - Last Reconciled 09/27/23 by Katerina Acevedo, JOYCE albuterol sulfate 1.25 mg (3 mL) inhalation Q4-6H PRN albuterol sulfate 90 mcg/actuation (ProAir HFA) 2 puffs inhalation QID ferrous sulfate 324 mg PO DAILY gabapentin 100 - 300 mg (1 - 3 x 100 mg) PO BEDTIME ibuprofen 400 mg PO Q6H PRN 7 days naproxen 500 mg PO Q8-12H PRN nirmatrelvir-ritonavir 300 mg (150 mg x 2)-100 mg (Paxlovid) take TWO 150 mg tablets of nirmatrelvir with ONE 100 mg tablet of ritonavir twice daily for 5 days prednisone 50 mg PO DAILY 5 days HPI HPI Comments History of Present Illness Details Right-handed 38-yr-old female presents for new pt evaluation of headache disorder. She reports she has had occasional headaches. These started to worsen in severity and frequency approx 5 yrs ago w/o known cause, which have worsened even more in the last year. She does note that she has been having base of head/neck pain, which she feels is triggering the headaches. Headache questionnaire: Preceding causes? Unknown Previous work-up: C-spine CT- mild spondylosis. No h/o head imaging. Typical headache characteristics: Prodrome symptoms? Unsure Aura? Rarely- can see colorful spots/splotches- unsure if before or during the headache. Location, quality, characteristics? Starts as throbbing and pressure bifrontal, bitemporal, and retroorbital, which moves into bilateral occipital regions as a tight/pressure pain. Pain intensity? Severe Associated symptoms? Photophobia, phonophobia, sometimes osmophobia, nausea, brain fog, fatigue, wants to lay down- but can make headache worse- has difficulty finding a comfortable position. Sometimes needs to pace or restless in bed. Focal weakness, Parethesias, Autonomic s/s? forehead feels warm, feels nasal/maxillary and frontal sinus pressure/congestion. Her carpal tunnel symptoms are worse. Postdrome? Lingers Triggers? Possibly neck/base of skull pain. Any positional, valsalva, exertional, sexual activity triggers? None Menstrual triggers? None Time of day? No specific time of day- maybe better when resting at night. Duration? Days Frequency? Almost daily How does headache impact your life? Prevents her from doing her day to day activities- such as managing her home. Current acute medication use/interventions: Excedrin- no longer working. Previous acute medication use: Aleve, Ibuprofen- ineffective. Current preventative medication use: None Previous preventative medication use: Depakote- made her have more headaches. Trileptal- for mood- made her headaches. Non-pharmacological interventions: Rest, warm, cold, massaging chair. Other patient concerns include: Having some vertical diplopia- does wear glasses for distance/near site. Right eye blurry. Has h/o astigmatism. Had an eye exam last week- was told she may need different reading glasses. Eyes were not dilated. History of musculoskeletal disorders or injury? Back, neck, joint pain History of concussion/head injury? None History of mood disorder? Anxiety, Depression, Bipolar 2 (has h/o manic episodes when younger), recently dx'd w/ ADHD. Recently tried on Vyvanse 10mg- did not like how it made her feel. History of sleep disorder? Difficulty falling and staying asleep, snores, daytime sleepiness, unrefreshing sleep, nocturnal hot flashes (in the last few months). Endorses RLS- legs feel uneasy, tired- especially when laying down- kicking in her sleep. Does have a h/o anemia. Has never had a sleep study. History of respiratory disease? asthma History of CV disease? Denies HTN/HLD. More recently easily fatigued, having SOB and heart racing on limited exertion- wonders if a long-term Covid-19 complication (had Covid-19 in 2019 and 10 days ago). History of coagulopathy? Denies History of endocrine or metabolic disease? Denies History of seizure? Denies History of disorder? Can have some constipation. Can have some stress urinary incontinence. Family planning? None at this time Family history of migraine or other headache disorder? Her son has headaches. [facility] Medical History Migraines Asthma HESHAM (stress urinary incontinence, female) Cholecystectomy planned Appendicitis Surgical History Hx of cholecystectomy Hx of appendectomy S/P panniculectomy Gastric bypass status for obesity Tubal ligation status Family History Mother Prediabetes Rheumatoid arthritis Hypertension Father Medical history unknown Other Family history of multiple sclerosis Family history of rheumatoid arthritis Family history of systemic lupus erythematosus Social History Alcohol intake: current Alcohol intake frequency: holidays/special occasions only Patient Tobacco Use Status: Current someday Tobacco user Current occupational status: unemployed 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 Head: Yes normocephalic Resp Effort & Inspection: normal respiratory effort and able to speak in complete sentences Neuro General: patient oriented x3 Cranial nerves: Yes CN's II-XII intact bilaterally Cognition (Neuro): normal cognition Gait exam (Neuro): Normal gait present Motor exam (neuro): 5/5 motor strength present throughout Deep tendon reflexes (DTR's): Right triceps reflex intensity grade: 2+, Left triceps reflex intensity grade: 2+, Rt Biceps (C5, C6): 2+, Left biceps reflex intensity grade: 2+, Right brachioradialis reflex intensity grade: 2+, Left brachioradialis reflex intensity grade: 2+, Right patellar reflex intensity grade: 2+ and Left patellar reflex intensity grade: 2+ Coordination: [id number] test normal, tandem gait normal and Romberg test negative Pupils: Normal pupillary reactivity/response: bilateral Psych Appearance: grossly normal Mental Status: mental status grossly normal Speech and movement: Normal speech and movement present Affect: normal affect Attitude: cooperative Thought process: Normal thought process present Assessment & Plan Assessment & Plan (1) Worsening headaches: Code(s): R51.9 - Headache, unspecified (2) Diplopia: Code(s): H53.2 - Diplopia (3) Hot flashes: Code(s): R23.2 - Flushing (4) Cold intolerance: Code(s): R68.89 - Other general symptoms and signs (5) Excessive daytime sleepiness: Code(s): G47.19 - Other hypersomnia (6) Snoring: Code(s): R06.83 - Snoring (7) Sleep difficulties: Code(s): G47.9 - Sleep disorder, unspecified Plan Pt advised to undergo brain MRI w/wo- to assess for intracranial secondary etiologies of worsening headaches, diplopia, flushing Pt advised to undergo HST to assess for sleep apnea Will check labs for common etiologies of RLS, flushing, fatigue s/s. For overall headache management: Discussed importance of good self-care, including but not limited to maintaining a healthy diet, adequate fluid intake, adequate sleep, and engaging in regular physical activity. For headache triggers: Track headaches, especially after any treatment regimen changes. Migraine [employer] is one of many headache tracking apps. Light sensitivity tips: Patient may try blue light filtering glasses, green glasses, green light therapy.. For acute headache treatment: Discussed importance of taking acute medications at the first sign of headache, however stressed importance of avoiding acute medication overuse (especially with combined headache medications). Trial Sumatriptan 100mg tab, 1/2 - 1 tab (50-100mg) at onset of headache, may repeat in 2 hours. Max of 2 tabs (200mg) per 24 hours. May adjunct with Naproxen 440mg q 12 hrs prn. Start Cyclobenzaprine 10mg prn muscle spasm. Previous acute migraine medication trials: Excedrin, Ibuprofen- ineffective Acute migraine medication contraindications: None at this time For headache prevention medication: Discussed that preventative medications should be taken routinely as prescribed for best effect, it may take several weeks for full effect to take effect. Start Amitriotyline 10mg qhs Previous migraine prevention medication trials: Depakote- made her headaches. Trileptal- for mood- made her headaches. Migraine prevention medication contraindications: BBs d/t asthma dx Pt to follow-up in 1.5 months or sooner prn. Orders: Orders MR head/brain wo/w con 09/27/23 H53.2 - Diplopia, R23.2 - Flushing, R51.9 - Headache, unspecified, R68.89 - Other general symptoms and signs Hemoglobin A1c 09/27/23 D64.9 - Anemia, unspecified, R23.2 - Flushing, R68.89 - Other general symptoms and signs Ferritin 09/27/23 D64.9 - Anemia, unspecified, R23.2 - Flushing, R68.89 - Other general symptoms and signs TSH reflex Free T4 09/27/23 D64.9 - Anemia, unspecified, R23.2 - Flushing, R68.89 - Other general symptoms and signs RT home sleep study 09/27/23 G47.19 - Other hypersomnia, G47.9 - Sleep disorder, unspecified, R06.83 - Snoring Complete Blood Count Auto Diff 09/27/23 D64.9 - Anemia, unspecified, R23.2 - Flushing, R68.89 - Other general symptoms and signs Comprehensive Met. Panel 09/27/23 D64.9 - Anemia, unspecified, R23.2 - Flushing, R68.89 - Other general symptoms and signs IRON PROFILE 09/27/23 D64.9 - Anemia, unspecified, R23.2 - Flushing, R68.89 - Other general symptoms and signs Transferrin 09/27/23 D64.9 - Anemia, unspecified, R23.2 - Flushing, R68.89 - Other general symptoms and signs Prolactin 09/27/23 D64.9 - Anemia, unspecified, R23.2 - Flushing, R68.89 - Other general symptoms and signs Medications: New amitriptyline 10 - 20 mg (1 - 2 x 10 mg) PO BEDTIME 30 days 60 tabs 3RF sumatriptan succinate (0.5 - 1 x 100 mg) 50 - 100 mg orally at onset of headache, may repeat in 2 hrs PRN; max 2 tabs per day or 4 tabs/week (february take with Naproxen) 30 days 12 tabs 6RF migraine headache cyclobenzaprine 10 mg PO BID 30 days PRN 60 tabs 1RF muscle spasm Coding Level of Care Code New Pt Level 4 (51750) Diagnoses Worsening headaches R51.9 Diplopia H53.2 Hot flashes R23.2 Cold intolerance R68.89 Excessive daytime sleepiness G47.19 Snoring R06.83 Sleep difficulties G47.9
[2023-09-27 10:17] VITALS: BP 110/78; PULSE 90; O2SAT 98; BMI 33.1
== END 2023-09-27 11:47 | disposition home or self-care (01) ==
PROVIDERS: PCP Internal Medicine; Visit Provider Nurse Practitioner Family
DX: R51.9 Headache, unspecified (principal); H53.2 Diplopia; R23.2 Flushing; R68.89 Other general symptoms and signs; G47.19 Other hypersomnia; R06.83 Snoring; G47.9 Sleep disorder, unspecified
CPT/HCPCS: 99204

== ENCOUNTER → 2023-09-27 09:57 | Outpatient (BNVA) | payer OTHER, SELFPAY | PROVIDERS: PCP Internal Medicine; Visit Provider Nurse Practitioner Family | DX: R51.9 Headache, unspecified (principal); R68.89 Other general symptoms and signs; R06.83 Snoring; R23.2 Flushing; H53.2 Diplopia; G47.19 Other hypersomnia; G47.9 Sleep disorder, unspecified | CPT/HCPCS: 99202 ==

== ENCOUNTER 2023-10-19 07:40 | Outpatient (REF) | payer OTHER, SELFPAY ==
[2023-10-19 09:29] LABS: Alanine Aminotransferase 20 U/L (0-31); Albumin Level 4.4 g/dL (3.5-5.0); Alkaline Phosphatase 64 U/L (39-117); Anion Gap 14 (12-20); Aspartate Amino Transferase 22 U/L (5-31); Bilirubin Total 0.5 mg/dL (0.0-1.0); Blood Urea Nitrogen 12 mg/dL (9-16); Calcium 9.6 mg/dL (8.4-10.2); Carbon Dioxide 23 mmol/L (22-29); Chloride 104 mmol/L (96-108); Estimated Glomerular Filt Rate > 60; Glucose Random 107 mg/dL (60-115); Iron 34 mcg/dL (30-160); Percent Iron Saturation 7 % (15-50); Potassium 3.9 mmol/L (3.3-5.1); Sodium 137 mmol/L (135-145); Total Iron Binding Capacity 456 mcg/dL (228-428); Unsaturated Iron Binding 422 ug/dL
[2023-10-19 09:36] LABS: Ferritin 11 ng/mL (10-250); TSH reflex Free T4 1.02 uIU/mL (0.32-4.0)
[2023-10-21 08:44] LABS: Prolactin 14.3 ng/mL
[2023-10-25 21:13] LABS: Transferrin 411 mg/dL (188-341)
== END 2023-10-19 07:41 | disposition home or self-care (01) ==
LOC: HO.LAB 07:40
PROVIDERS: Visit Provider Nurse Practitioner Family
DX: R23.2 Flushing (principal); R68.89 Other general symptoms and signs; D64.9 Anemia, unspecified
CPT/HCPCS: 36415; 80053; 82728; 83036; 83540; 84146; 84443; 84466; 85025

== ENCOUNTER → 2023-11-14 11:15 | Outpatient (BNV) | payer OTHER, SELFPAY | PROVIDERS: Visit Provider Internal Medicine | DX: D50.0 Iron deficiency anemia secondary to blood loss (chronic) (principal) | CPT/HCPCS: 99204; 99213 ==

== ENCOUNTER → 2023-11-21 07:44 | Outpatient (REF) | payer OTHER, SELFPAY | LOC: HO.SL 07:44 | PROVIDERS: PCP Internal Medicine; Visit Provider Nurse Practitioner Family | DX: G47.19 Other hypersomnia (principal); G47.9 Sleep disorder, unspecified; R06.83 Snoring | CPT/HCPCS: 95806 ==

== ENCOUNTER → 2023-11-21 07:59 | Outpatient (BNV) | payer OTHER, SELFPAY | PROVIDERS: PCP Internal Medicine; Visit Provider Internal Medicine | DX: R06.83 Snoring (principal) | CPT/HCPCS: 95806 ==

== ENCOUNTER 2023-11-24 13:57 | Outpatient (REF) | payer OTHER, SELFPAY | END 2023-11-24 13:58 | disposition home or self-care (01) | LOC: HO.MDS 13:57 | PROVIDERS: Visit Provider Internal Medicine | DX: D50.9 Iron deficiency anemia, unspecified (principal) | CPT/HCPCS: 96365; J1756 ==

== ENCOUNTER 2023-11-28 08:05 | Outpatient (REF) | payer OTHER, SELFPAY ==
--- NOTE | ~2023-11-28 | MR_ITS ---
EXAMINATION: MR BRAIN WITHOUT AND WITH CONTRAST CLINICAL INFORMATION: 38-year-old female with headache and flushing. Evaluate for possible pituitary lesion/process. COMPARISON: None available. TECHNIQUE: Multiplanar, multisequence MRI of the brain/sella was obtained before and after the intravenous administration of 5 mL Gadavist. FINDINGS: Sella: There is somewhat heterogeneous enhancement of the pituitary gland diffusely. Additionally, there is a more focal, 2.2 x 5.4 mm ovoid focus of hypoenhancement on the right side of the anterior lobe, which could reflect a microadenoma. Additionally, on the left side of the anterior lobe, there is a 4.5 x 1.4 mm focus of a somewhat more well-defined hypoenhancement making it difficult to exclude a lesion at this location as well. The infundibulum is midline and enhances normally without any thickening. No suprasellar or juxtasellar masses are identified. The cavernous sinuses enhance normally with signal voids in the carotid siphons present. The optic apparatus is uncompromised. Brain Volume: Within normal limits within the limitations of qualitative assessment. Structural: No malformations. Brain and Meninges: DWI sequence demonstrates no restricted diffusion to suggest acute or subacute cerebral ischemia. The brain parenchyma is normal in morphology. There is a punctate FLAIR signal hyperintensity corresponding to what appears to be a probable vessel in a deep sulcus adjacent to the right sylvian fissure. Otherwise, no signal abnormalities are seen within the brain parenchyma. No extra-axial fluid collections, other intracranial mass lesions or pathologic intracranial enhancement are identified. Ventricles and Subarachnoid Spaces: The ventricular system and subarachnoid spaces are within normal range; there is no hydrocephalus. Orbital Structures: The visualized orbital structures are grossly unremarkable within the limitations of the study. Vascular: Signal voids are noted in the visualized major intracranial vessels. Osseous Structures, Sinuses/Mastoids, Extracranial Soft Tissues: Osseous marrow signal intensity is within normal limits. There is mild mucosal thickening in the ethmoid complex and there is a 2 cm retention cyst in the right maxillary sinus with minor mucosal thickening in the left maxillary sinus. MR/MR head/brain wo/w con IMPRESSION: 1. Somewhat heterogeneous enhancement of the pituitary gland is noted with a more focal, well-defined 5.4 x 2.2 mm focus of hypoenhancement on the right side of the anterior lobe of the pituitary gland and a similar-appearing 4.5 x 1.4 mm focus of hypoenhancement on the left side of the anterior lobe of the pituitary gland. These findings could reflect pituitary microadenomas. Recommend correlation with endocrine function tests and follow up clinically. 2. Otherwise normal MRI of the brain without and with contrast. 3. Paranasal sinus mucosal inflammatory changes as discussed above.
[2023-11-28] MEDS: gadobutroL 7.5 ML VIAL IVPUSH (09:00)
== END 2023-11-28 08:06 | disposition home or self-care (01) ==
LOC: HO.MRI 08:05
PROVIDERS: PCP Internal Medicine; Visit Provider Nurse Practitioner Family
DX: R51.9 Headache, unspecified (principal); R23.2 Flushing; H53.2 Diplopia; R68.89 Other general symptoms and signs
CPT/HCPCS: 70553; A9585

== ENCOUNTER 2023-12-01 12:05 | Outpatient (REF) | payer OTHER, SELFPAY | END 2023-12-01 12:06 | disposition home or self-care (01) | LOC: HO.MDS 12:05 | PROVIDERS: Visit Provider Internal Medicine | DX: D50.9 Iron deficiency anemia, unspecified (principal) | CPT/HCPCS: 96365; J1756 ==

== ENCOUNTER 2023-12-08 09:00 | Outpatient (REF) | payer OTHER, SELFPAY | END 2023-12-08 09:01 | disposition home or self-care (01) | LOC: HO.MDS 09:00 | PROVIDERS: Visit Provider Internal Medicine | DX: D50.9 Iron deficiency anemia, unspecified (principal) | CPT/HCPCS: 96365; J1756 ==

== ENCOUNTER 2023-12-15 09:05 | Outpatient (REF) | payer OTHER, SELFPAY ==
[2023-12-15 09:12] VITALS: BP 133/73; PULSE 83; RESP 18; TEMP 36.8; O2SAT 99; BMI 34.0
[2023-12-15] MEDS: Iron Sucrose Complex 200 MG in 0.9 % Sodium Chloride 100 ML 440 MG IV (09:33)
== END 2023-12-15 09:06 | disposition home or self-care (01) ==
LOC: HO.MDS 09:05
PROVIDERS: Visit Provider Internal Medicine
DX: D50.9 Iron deficiency anemia, unspecified (principal)
CPT/HCPCS: 96374; J1756

== ENCOUNTER 2023-12-21 08:53 | Outpatient (REF) | payer OTHER, SELFPAY ==
[2023-12-21 10:59] LABS: Cortisol Random 15.2 ug/dL; Free T4 (Free Thyroxine) 0.93 ng/dL (0.71-1.85)
[2023-12-21 11:34] LABS: Thyroid Stimulating Hormone 1.67 uIU/mL (0.32-4.0)
[2023-12-22 18:13] LABS: Follicle Stimulating Hormone 6.9 mIU/mL; Prolactin 13.1 ng/mL
[2023-12-27 00:23] LABS: IGF-1 (Somatomedin C) 97 ng/mL (52-328); IGF-1 Z Score (Female) -0.8 SD (-2.0 - +2.0)
[2024-01-05 22:18] LABS: Estradiol Free 0.74 pg/mL; Estradiol, Ultrasensitive 41 pg/mL
== END 2023-12-21 08:54 | disposition home or self-care (01) ==
LOC: HO.LAB 08:53
PROVIDERS: PCP Internal Medicine; Visit Provider Nurse Practitioner Family
DX: D35.2 Benign neoplasm of pituitary gland (principal)
CPT/HCPCS: 36415; 82533; 82670; 82681; 83001; 83002; 84146; 84305; 84439; 84443

== ENCOUNTER 2023-12-22 01:36 | Emergency (ER) | payer OTHER, SELFPAY ==
[2023-12-22 01:58] VITALS: BP 139/99; PULSE 94; RESP 16; TEMP 38; O2SAT 99; BMI 34.2
[2023-12-22 03:09] LABS: Influenza A PCR NEGATIVE (Negative); Influenza B PCR NEGATIVE (Negative); Resp Syncy Virus RNA Qual PCR NEGATIVE (Negative); SARS COV2 PCR INHOUSE NEGATIVE (Negative)
--- NOTE | 2023-12-22 03:18 | ED_ITS ---
HPI - URI/Sore Throat General Chief Complaint: General Medical Stated Complaint: Headache/Bodyaches/Chills Time Seen by Provider: 12/22/23 03:02 Source: patient Mode of arrival: ambulatory Limitations: no limitations History of Present Illness HPI Narrative: 38 yo female with PMH of asthma, migraines, fibromyalgia here with c/o developing abrupt onset fevers, chills, body aches and headaches tonight. Did not take any OTC medications, denies travel, sick contacts. Is not vaccinated against the flu or covid. MD elicited complaint: fever Pertinent past history: asthma Onset (ago): hour(s) (yesterday evening) Consistency: constant Severity: moderate Description of mucous: clear Able to tolerate fluids by mouth: Yes Exacerbating factors: exertion Relieving factors: nothing Associated symptoms: fever, chills, myalgias, headache and other (headache) Treatments prior to arrival: none Related Data Home Medications Medication Instructions Recorded Confirmed albuterol sulfate 90 mcg/actuation 2 puff inhalation QID 10/03/22 11/14/23 aerosol inhaler (ProAir HFA) Adderall 10 mg PO DAILY 11/14/23 11/28/23 multivitamin 1 tab PO DAILY 11/14/23 11/14/23 Previous Rx's Medication Instructions Recorded albuterol sulfate 1.25 mg/3 mL 1.25 mg (3 mL) inhalation Q4-6H 03/01/22 solution for nebulization PRN shortness of breath or wheezing #90 mL amitriptyline 10 mg tablet 10 - 20 mg (1 - 2 x 10 mg) PO 09/27/23 BEDTIME 30 days #60 tabs sumatriptan succinate 100 mg tablet 50 - 100 mg (0.5 - 1 x 100 mg) PO 09/27/23 .COMPLEX PRN migraine headache 30 days #12 tabs COVID-19 antigen test (BinaxNOW #2 ea 12/22/23 COVID-19 Ag Self Test kit) Allergies Allergy/AdvReac Type Severity Reaction Status Date / Time No Known Allergies Allergy Verified 11/28/23 14:41 Review of Systems Review of Systems: Constitutional : pos Fever, pos Chills, No Fatigue ENT/Mouth : No sore throat, No Rhinorrhea Eyes: No Eye Pain, No Swelling, No Redness Cardiovascular : No Chest Pain, No SOB, No Dyspnea on Exertion Respiratory : No Cough, No Sputum Gastrointestinal : No Nausea, No Vomiting, No Diarrhea, No abdominal Pain Genitourinary : No Dysuria, No Urinary Frequency, No Hematuria, Musculoskeletal : No joint pain, pos Myalgias, No Joint Swelling Skin : No Skin Lesions, No rash Neuro : No Weakness, No Numbness, No Dizziness, positive Headache All other systems reviewed and are negative [facility] Past Medical History Attestation statement: The following information was validated with the patient. Source: old records reviewed Medical History Migraines Asthma HESHAM (stress urinary incontinence, female) Cholecystectomy planned Appendicitis Surgical History Hx of cholecystectomy Hx of appendectomy S/P panniculectomy Gastric bypass status for obesity Tubal ligation status Family History Family History Mother Prediabetes Rheumatoid arthritis Hypertension Father Medical history unknown Other Family history of multiple sclerosis Family history of rheumatoid arthritis Family history of systemic lupus erythematosus Social History Social History Alcohol intake: current Alcohol intake frequency: holidays/special occasions only Patient Tobacco Use Status: Current someday Tobacco user Advance Directives: No Advance Directives Information Provided: No Current occupational status: unemployed 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 Oriented X3. No acute distress. Eyes: Pupils equal, round and reactive to light. ENT: Pharynx normal. Neck: Normal inspection. Neck supple. CVS: Normal heart rate and rhythm. Pulses normal. Respiratory: No respiratory distress. Breath sounds normal. Abdomen: Soft and nontender. Skin: Skin warm and dry. Normal skin color. Normal skin turgor. Extremities: No lower extremity edema. No calf ttp Neuro: Oriented X 3. No motor deficit. No sensory deficit. Medical Decision Making Medical Decision Making [facility] Narrative: 38 yo female with PMH of asthma, migraines, fibromyalgia here with abrupt onset diffuse body aches, fevers, chills, headaches and not feeling well has no localized symptoms no sore throat, no ear pain, has no meningeal signs, no abdominal pain, clear lungs, no dysuria at this time seems viral in nature - viral panel is negative will instruct her to repeat testing in 24 hours. Could just be early in process. Instructed her to follow up with PCP. She is not IVDA. Not toxic stable for DC Differential Diagnosis Differential Diagnoses: The differential diagnosis associated with the presentation includes flu, covid, viral panel Admission/Observation Consideration of admission/observation: Escalation of care including admission/observation considered not toxic, well appearing stable for DC Lab Data [facility] Lab Attestation statement: I reviewed the patient's lab results. Labs: Lab Results 12/22/23 Range/Units 02:21 Influenza Type A (PCR) NEGATIVE (Negative) Influenza Type B (PCR) NEGATIVE (Negative) RSV RNA Qual (PCR) NEGATIVE (Negative) SARS-CoV-2 RNA (RT-PCR) NEGATIVE (Negative) External Record Review External record reviewed: Office record Prescription Management I considered prescription management with: Antiviral Discharge Plan Discharge Clinical Impression: Acute viral syndrome Patient Disposition: Home, Self-Care Instructions: Viral Syndrome (ED) Additional Instructions: take tylenol and motrin as needed for fevers and pain, wear a mask protect others. return for worsening symptoms, chest pain, trouble breathing or any other concerns you were negative for flu, covid, rsv repeat testing in 24 hours for covid though you just had it in september Prescriptions: New (DME) BinaxNOW COVID-19 Ag Self Test Kit See Rx Instructions .Route Qty: 2 0RF Rx Instructions: As directed No Action albuterol sulfate 1.25 mg/3 mL solution for nebulization 1.25 mg inhalation Q4-6H PRN (Reason: shortness of breath or wheezing) Qty: 90 0RF Adderall 10 mg 10 mg PO DAILY multivitamin [Multi-Day] Tablet 1 tab PO DAILY albuterol sulfate [ProAir HFA] 90 mcg/actuation HFA aerosol inhaler 2 puff inhalation QID amitriptyline 10 mg tablet 10 - 20 mg PO BEDTIME 30 Days Qty: 60 3RF sumatriptan succinate 100 mg tablet 50 - 100 mg PO .COMPLEX PRN (Reason: migraine headache) 30 Days Qty: 12 6RF Rx Instructions: 50 - 100 mg orally at onset of headache, may repeat in 2 hrs PRN; max 2 tabs per day or 4 tabs/week (may take with Naproxen)
[2023-12-22] MEDS: Ibuprofen 600 MG TABLET PO (03:52)
[2023-12-22] MEDS: Acetaminophen 325 MG TABLET 975 MG PO (03:52)
== END 2023-12-22 03:59 | disposition home or self-care (01) ==
PROVIDERS: Emergency Provider Emergency Medicine; PCP Internal Medicine
DX: B34.9 Viral infection, unspecified (principal); J45.909 Unspecified asthma, uncomplicated; Z11.52 Encounter for screening for COVID-19; Z20.828 Contact with and (suspected) exposure to other viral communicable diseases
CPT/HCPCS: 0241U; 99283

== ENCOUNTER 2023-12-22 08:49 | Outpatient (REF) | payer OTHER, SELFPAY ==
[2023-12-22 08:51] VITALS: BP 130/79; PULSE 67; RESP 16; TEMP 36.4; O2SAT 99
[2023-12-22] MEDS: Iron Sucrose Complex 200 MG in 0.9 % Sodium Chloride 100 ML 440 MG IV (09:02)
== END 2023-12-22 08:50 | disposition home or self-care (01) ==
LOC: HO.MDS 08:49
PROVIDERS: Visit Provider Internal Medicine
DX: D50.9 Iron deficiency anemia, unspecified (principal)
CPT/HCPCS: 96365; J1756

== ENCOUNTER 2023-12-28 12:49 | Outpatient (AMB) | payer OTHER, SELFPAY ==
--- NOTE | 2023-12-28 12:57 | A.OFFVIS_ITS ---
Intake Vital Signs 12/28/23 13:01 Height 5 ft 7 in Weight 217 lb BMI 34.0 BP 118/76 Blood Pressure Location Rt brachial Position Sitting Intake Visit Reasons: Feeling extremely exacerbated, difficulty breathin Intake Note: Patient presents for follow up. patient feeling a little out of it and dizzy today. Allergies No Known Allergies Allergy (Verified 12/28/23 13:02) Medication List - Last Reconciled 12/28/23 by JOYCE Herring [Adderall 10 mg PO DAILY] albuterol sulfate 1.25 mg (3 mL) inhalation Q4-6H PRN albuterol sulfate 90 mcg/actuation (ProAir HFA) 2 puffs inhalation QID amitriptyline 10 - 20 mg (1 - 2 x 10 mg) PO BEDTIME 30 days COVID-19 antigen test ([employer] COVID-19 Ag Self Test kit) As directed diphenhydramine HCl (Benadryl) 25 - 50 mg (1 - 2 x 25 mg) PO TID PRN 30 days multivitamin 1 tab PO DAILY sumatriptan succinate 50 - 100 mg orally at onset of headache, may repeat in 2 hrs PRN; max 2 tabs per day or 4 tabs/week (may take with Naproxen) 30 days HPI HPI Comments History of Present Illness Details 38-yr-old female presents for f/u visit. Since the last visit, pt's lab results showed iron deficiency anemia. She has since been referred to hematology, and started iron infusions which has helped her fatigue and enrgy levels. Pt had called the office yesterday w/ reports increased severity of headache now a/w nasal and sinus pressure, but denies nasal discharge. Laying down is worse- hard to lay on her head. No vision changes. Had recent brain MRI. She had not started amitriptyline or sumatriptan- as she was on other meds and did not want to take too many at once. those others meds have since been stopped- I had advised to start amitriptyline 20mg qhs last night and try sumatriptan w/ OTC naproxen liquigels 220mg- 2 gel caps, and benadryl for rescue. She did take the Amitriptyline 20mg at bedtime last night, which has made her very drowsy, out of it, dizzy this am. She did not try the Sumatriptan. She is continuing to have the some headache a/w nasal and sinus pressure. Baseline headache characteristics: Aura: Rarely- can see colorful spots/splotches- unsure if before or during the headache. Severe, starts as throbbing and pressure bifrontal, bitemporal, and retroorbital, which moves into bilateral occipital regions as a tight/pressure pain a/w photophobia, phonophobia, sometimes osmophobia, nausea, brain fog, fatigue, wants to lay down- but can make headache worse- has difficulty finding a comfortable position. Sometimes needs to pace or restless in bed. Forehead feels warm, feels nasal/maxillary and frontal sinus pressure/congestion. Her carpal tunnel symptoms are worse. 11/28/13, MR/MR head/brain wo/w con IMPRESSION: 1. Somewhat heterogeneous enhancement of the pituitary gland is noted with a more focal, well-defined 5.4 x 2.2 mm focus of hypoenhancement on the right side of the anterior lobe of the pituitary gland and a similar-appearing 4.5 x 1.4 mm focus of hypoenhancement on the left side of the anterior lobe of the pituitary gland. These findings could reflect pituitary microadenomas. Recommend correlation with endocrine function tests and follow up clinically. 2. Otherwise normal MRI of the brain wit hout and with contrast. 3. Paranasal sinus mucosal inflammatory changes as discussed above. Laboratory Result Units Range Interpretation White Blood Count 5.9 X10*3/uL (4.8-10.8) Red Blood Count 4.63 X10*6/uL (4.20-5.50) Hemoglobin 9.5 g/dl (12.0-16.0) Low Hematocrit 31.7 % (37.0-47.0) Low Mean Corpuscular V olume 68.5 fL (80.0-98.0) Low Mean Corpuscular H emoglobin 20.5 pg (27.0-33.0) Low Mean Corpuscular H emoglobin Concent 30.0 g/dl (31.0-35.0) Low Red Cell Distribut ion Width 19.8 % (11.0-16.0) High Platelet Count 400 X10*3/uL (160-400) Mean Platelet Volu me 10.1 fL (9.4-12.3) Immature Granulocy te % (Auto) 0.2 % (0.0-0.4) Neutrophils (%) (A uto) 62.6 % (45-73) Lymphocytes (%) (A uto) 25.8 % (20-40) Monocytes (%) (Aut o) 9.4 % (2-11) Eosinophils (%) (A uto) 1.5 % (0-4) Basophils (%) (Aut o) 0.5 % (0-2) Lymphocytes # (Aut o) 1.5 X10*3/uL (1.2-4.9) Monocytes # (Auto) 0.6 X10*3/uL (0.1-1.2) Eosinophils # (Aut o) 0.1 X10*3/uL (0.0-0.4) Basophils # (Auto) 0.0 X10*3/uL (0.0-0.2) Absolute Immature Granulocyte (auto 0.01 X10*3/uL (0.00-0.03) Absolute Neutrophi ls (auto) 3.7 x10*3/uL (2.0-8.3) Nucleated RBC Abso lute Count (auto) 0.000 X10*3/uL (0.0-0.012) Nucleated Red Bloo d Cells % (auto) 0.0 /100WBC (0.0-0.2) Sodium Level 137 mmol/L (135-145) Potassium Level 3.9 mmol/L (3.3-5.1) Chloride Level 104 mmol/L (96-108) Carbon Dioxide Lev el 23 mmol/L (22-29) Anion Gap 14 (12-20) Blood Urea Nitroge n 12 mg/dL (9-16) Creatinine 0.82 mg/dL (0.5-1.4) Estimated Creatini ne Clearance Calc Not Reportable Estimat Glomerular Filtration Rate > 60 Random Glucose 107 mg/dL (60-115) Estimated Average Glucose 111 mg/dL Hemoglobin A1c Per cent 5.5 % (<6.0) Calcium Level 9.6 mg/dL (8.4-10.2) Iron Level 34 mcg/dL (30-160) Total Iron Binding Capacity 456 mcg/dL (228-428) High Percent Iron Satur ation 7 % (15-50) Low Unsaturated Iron B inding 422 ug/dL Ferritin 11 ng/mL (10-250) Total Bilirubin 0.5 mg/dL (0.0-1.0) Aspartate Amino Tr ansf (AST/SGOT) 22 U/L (5-31) Alanine Aminotrans ferase (ALT/SGPT) 20 U/L (0-31) Alkaline Phosphata se 64 U/L (39-117) Total Protein 8.0 g/dL (6.5-8.0) Albumin 4.4 g/dL (3.5-5.0) Thyroid Stimulatin g Hormone (TSH) 1.02 uIU/mL (0.32-4.0) PFSH Medical History Migraines Asthma HESHAM (stress urinary incontinence, female) Cholecystectomy planned Appendicitis Surgical History Hx of cholecystectomy Hx of appendectomy S/P panniculectomy Gastric bypass status for obesity Tubal ligation status Family History Mother Prediabetes Rheumatoid arthritis Hypertension Father Medical history unknown Other Family history of multiple sclerosis Family history of rheumatoid arthritis Family history of systemic lupus erythematosus Social History Alcohol intake: current Alcohol intake frequency: holidays/special occasions only Patient Tobacco Use Status: Current someday Tobacco user Current occupational status: unemployed 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 Physical Exam Vital Signs: Last Vital Signs BP 118/76 12/28/23 13:01 BMI result Body Mass Index 34.0 Const General: cooperative and no acute distress Orientation/consciousness: patient oriented x3 Resp Effort & Inspection: normal respiratory effort and able to speak in complete sentences Neuro General: patient oriented x3 Cranial nerves: Yes CN's II-XII intact bilaterally Cognition (Neuro): normal cognition Psych Appearance: grossly normal Mental Status: mental status grossly normal Speech and movement: Normal speech and movement present Affect: normal affect Attitude: cooperative Assessment & Plan Assessment & Plan (1) Migraine without aura: Code(s): G43.009 - Migraine without aura, not intractable, without status migrainosus (2) Migraine with aura: Code(s): G43.109 - Migraine with aura, not intractable, without status migrainosus (3) Pituitary microadenoma: Code(s): D35.2 - Benign neoplasm of pituitary gland (4) Restless leg syndrome: Code(s): G25.81 - Restless legs syndrome Plan ? Reviewed brain MRI w/wo- right anterior pituitary lobe 5.4 x 2.2 mm focus of hypoenhancement and a left anterior pituitary lobe 4.5 x 1.4 mm focus of hypoenhancement.. Will refer to endocrinology. Reviewed HST- AHI 2.8/hr w/ O2 slim 88%. Reviewed labs- chronic FRANCESCA. F/u w/ hematology. Monitor RLS and fatigue s/s- these may improve as her ferritin levels improve.. ? For overall headache management: Optimize good self-care, including but not limited to maintaining a healthy diet, adequate fluid intake, adequate sleep, and engaging in regular physical activity. Track headaches. ? For acute headache treatment: Discussed importance of taking acute medications at the first sign of headache, however stressed importance of avoiding acute medication overuse (especially with combined headache medications). Trial Sumatriptan 100mg tab, 1/2 - 1 tab (50-100mg) at onset of headache, may repeat in 2 hours. Max of 2 tabs (200mg) per 24 hours. May adjunct with Naproxen 440mg q 12 hrs prn. May use Benadryl 25-50mg as rescue prn. Hold Cyclobenzaprine 10mg prn muscle spasm. Previous acute migraine medication trials: Excedrin, Ibuprofen- ineffective Acute migraine medication contraindications: None at this time ? For headache prevention medication: Start Aimovig 140mg sc q month. Stop Amitriotyline 10mg qhs- not tolerated. Previous migraine prevention medication trials: Depakote- made her headaches worse. Trileptal- for mood- made her headaches worse. Amitriotyline 10mg qhs- not tolerated. Migraine prevention medication contraindications: BBs d/t asthma dx ? Pt to follow-up in 2-3 months or sooner prn. Medications: New erenumab-aooe (Aimovig Autoinjector) 140 mg subcut ONCE 1 mL 6RF 30 days Discontinued amitriptyline Discontinued Reason: Doctor's Order 10 - 20 mg (1 - 2 x 10 mg) PO BEDTIME 30 days 60 tabs 3RF Coding Level of Care Code Est Pt Level 4 (14974) Diagnoses Migraine without aura G43.009 Migraine with aura G43.109 Pituitary microadenoma D35.2 Restless leg syndrome G25.81
[2023-12-28 13:01] VITALS: BP 118/76; BMI 34.0
== END 2023-12-28 13:51 | disposition home or self-care (01) ==
PROVIDERS: PCP Internal Medicine; Visit Provider Nurse Practitioner Family
DX: G43.009 Migraine without aura, not intractable, without status migrainosus (principal); G43.109 Migraine with aura, not intractable, without status migrainosus; D35.2 Benign neoplasm of pituitary gland; G25.81 Restless legs syndrome
CPT/HCPCS: 99214

== ENCOUNTER → 2023-12-28 12:49 | Outpatient (BNVA) | payer OTHER, SELFPAY | PROVIDERS: PCP Internal Medicine; Visit Provider Nurse Practitioner Family | DX: G43.009 Migraine without aura, not intractable, without status migrainosus (principal); D35.2 Benign neoplasm of pituitary gland; G25.81 Restless legs syndrome | CPT/HCPCS: 99212 ==

== ENCOUNTER 2024-04-02 08:24 | Emergency (ER) | payer OTHER, SELFPAY ==
[2024-04-02 08:42] VITALS: BP 130/82; PULSE 88; RESP 18; TEMP 37.3; O2SAT 99; BMI 34.4
[2024-04-02 09:05] LABS: IDNOW Serial# 08D9AD1C; Strep A Nucleic Acid Negative (Negative)
[2024-04-02 09:50] LABS: Influenza A PCR NEGATIVE (Negative); Influenza B PCR NEGATIVE (Negative); Resp Syncy Virus RNA Qual PCR NEGATIVE (Negative); SARS COV2 PCR INHOUSE NEGATIVE (Negative)
--- NOTE | 2024-04-02 10:19 | ED.URI ---
HPI - URI/Sore Throat General Chief Complaint: Upper Respiratory Symptoms Stated Complaint: Fever, sore throat, congestion Time Seen by Provider: 04/02/24 09:31 Source: patient Mode of arrival: ambulatory Limitations: no limitations History of Present Illness ED Provider: Marty Soriano PA-C HPI Narrative: 38-year-old female with history of fibromyalgia, anxiety, anemia, osteoarthritis of the lumbar spine, obesity with history of gastric sleeve, history of pituitary microadenoma, restless leg syndrome, migraines who presents to the ER for evaluation of 1 week of cough, congestion, fever, chills, sore throat, eye discharge with crusting. She states her symptoms have been worsening. She has a history of asthma but denies any wheezing or difficulty breathing. She reports her cough is significantly worse at night and did not allow her to sleep last night. She is bringing up whitish yellow phlegm. She reports sinus pressure and pain on the right side of her face. No fevers or chills. No vision changes. No known sick contacts. MD elicited complaint: cough, nasal congestion and sinus pain Pertinent past history: asthma Onset (ago): week(s) (1) Consistency: progressively worsening Severity: moderate Description of mucous: clear and yellow Able to tolerate fluids by mouth: Yes Exacerbating factors: supine positioning Relieving factors: nothing Associated symptoms: myalgias, headache, rhinorrhea, nasal congestion and cough Treatments prior to arrival: none Related Data Home Medications ?Medication ?Instructions ?Recorded ?Confirmed albuterol sulfate 90 mcg/actuation 2 puff inhalation QID 10/03/22 12/28/23 aerosol inhaler (ProAir HFA) Adderall 10 mg PO DAILY 11/14/23 12/28/23 multivitamin 1 tab PO DAILY 11/14/23 12/28/23 Previous Rx's ?Medication ?Instructions ?Recorded albuterol sulfate 1.25 mg/3 mL 1.25 mg (3 mL) inhalation Q4-6H 03/01/22 solution for nebulization PRN shortness of breath or wheezing #90 mL COVID-19 antigen test (BinaxNOW #2 ea 12/22/23 COVID-19 Ag Self Test kit) diphenhydramine HCl 25 mg capsule 25 - 50 mg (1 - 2 x 25 mg) PO TID 12/27/23 (Benadryl) PRN allergy symptoms or migraine 30 days #30 caps sumatriptan succinate 100 mg tablet 50 - 100 mg (0.5 - 1 x 100 mg) PO 12/27/23 .COMPLEX PRN migraine headache 30 days #12 tabs erenumab-aooe 140 mg/mL 140 mg subcut ONCE 30 days #1 mL 12/28/23 subcutaneous auto-injector (Aimovig Autoinjector) azithromycin 250 mg tablet See Rx Instructions PO .COMPLEX #6 04/02/24 (Zithromax Z-Kit) tabs guaifenesin 100 mg/5 mL oral 200 mg (10 mL) PO Q6H PRN cough 04/02/24 liquid (Cough Syrup) #120 mL prednisone 20 mg tablet 40 mg (2 x 20 mg) PO DAILY #10 tabs 04/02/24 Allergies Allergy/AdvReac Type Severity Reaction Status Date / Time No Known Allergies Allergy Verified 04/02/24 08:46 Review of Systems Review of Systems: Yes all other systems are reviewed and are negative [facility] Past Medical History Medical History Migraines Asthma HESHAM (stress urinary incontinence, female) Cholecystectomy planned Appendicitis Surgical History Hx of cholecystectomy Hx of appendectomy S/P panniculectomy Gastric bypass status for obesity Tubal ligation status Family History Family History Mother Prediabetes Rheumatoid arthritis Hypertension Father Medical history unknown Other Family history of multiple sclerosis Family history of rheumatoid arthritis Family history of systemic lupus erythematosus Social History Social History Alcohol intake: current Alcohol intake frequency: holidays/special occasions only Patient Tobacco Use Status: Current someday Tobacco user Advance Directives: No Advance Directives Information Provided: No Current occupational status: unemployed 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 Oriented X3. No acute distress. Head/face: normocephalic, atraumatic. right frontal sinus and right maxillary sinus tenderness Eyes: Pupils equal, round and reactive to light. sclera and conjunctiva are normal in appearance without injection. No discharge ENT: Pharynx normal. No tonsillar swelling or exudate. Erythematous nasal turbinates Neck: Normal inspection. Neck supple. no lymphadenopathy CVS: Normal heart rate and rhythm. Pulses normal. Respiratory: No respiratory distress. Breath sounds normal. Skin: Skin warm and dry. Normal skin color. Normal skin turgor. No rashes. Extremities: No lower extremity edema. No joint swelling. Neuro/psych: Oriented X 3. grossly normal, nonfocal Medical Decision Making Medical Decision Making [facility] Narrative: 38-year-old female with history of fibromyalgia, anxiety, anemia, osteoarthritis of the lumbar spine, obesity with history of gastric sleeve, history of pituitary microadenoma, restless leg syndrome, migraines who presents to the ER for evaluation of 1 week of cough, congestion, fever, chills, sore throat, eye discharge with crusting. on arrival to the ER patient is hemodynamically stable, afebrile. She is saturating well on room air. Her lung sounds are clear. She has a congested cough. She does have sinus tenderness on examination. No evidence of bacterial conjunctivitis on eye exam. Her ear exam is also normal. Viral swabs were done today and are negative. Strep swab is also negative. Her symptoms most likely due to acute bronchitis and sinusitis. Will prescribe antibiotics, prednisone and antitussive. Encouraged follow-up with her primary care doctor. Return precautions were discussed. Stable for discharge home. Differential Diagnosis Differential Diagnoses: The differential diagnosis associated with the presentation includes strep, covid, flu, rsv, other viral syndrome, bronchitis, pneumonia, viral conjunctivitis versus bacterial conjunctivitis, seasonal allergies Lab Data [facility] Lab Attestation statement: I reviewed the patient's lab results. Labs: Lab Results 04/02/24 Range/Units 08:51 Influenza Type A (PCR) NEGATIVE (Negative) Influenza Type B (PCR) NEGATIVE (Negative) RSV RNA Qual (PCR) NEGATIVE (Negative) SARS-CoV-2 RNA (RT-PCR) NEGATIVE (Negative) S. pyogenes GrpA JUAN JOSÉ Negative (Negative) External Record Review External record reviewed: Outpatient record and Prior outpatient labs Tests considered The following testing was considered but not selected: Consider chest x-ray however lungs are clear to auscultation with normal oxygenation, low clinical suspicion for pneumonia Prescription Management I considered prescription management with: Pain Medication and Antibiotic Chronic Conditions Patient?s care impacted by: Other ( asthma) Critical Care Time Critical Care Time Critical Care Time: No Discharge Plan Discharge Clinical Impression: Sinusitis, Bronchitis Patient Disposition: Home, Self-Care Instructions: Sinusitis (ED), Acute Bronchitis (ED) Additional Instructions: You tested negative for COVID, influenza, RSV and strep throat. Your symptoms are consistent with acute bronchitis and sinusitis. Take the prescribed antibiotics as directed, complete the entire course and do not miss any doses Take the cough medication and steroid medication as directed. Rest and drink plenty of fluids. Take Motrin and Tylenol as needed for headaches and body aches. Follow-up with your doctor. If you develop new or worsening symptoms call 911 or come back to the ER for further evaluation. Prescriptions: New azithromycin [Zithromax Z-Kit] 250 mg tablet See Rx Instructions .ROUTE .COMPLEX Qty: 6 0RF Rx Instructions: take 500 mg today (day 1), then 250 mg for 4 days (days 2-5) prednisone 20 mg tablet 40 mg PO DAILY Qty: 10 0RF guaifenesin [Cough Syrup] 100 mg/5 mL liquid 200 mg PO Q6H PRN (Reason: cough) Qty: 120 0RF No Action sumatriptan succinate 100 mg tablet 50 - 100 mg PO .COMPLEX PRN (Reason: migraine headache) 30 Days Qty: 12 6RF Rx Instructions: 50 - 100 mg orally at onset of headache, may repeat in 2 hrs PRN; max 2 tabs per day or 4 tabs/week (may take with Naproxen) diphenhydramine HCl [Benadryl] 25 mg capsule 25 - 50 mg PO TID PRN (Reason: allergy symptoms or migraine) 30 Days Qty: 30 1RF albuterol sulfate 1.25 mg/3 mL solution for nebulization 1.25 mg inhalation Q4-6H PRN (Reason: shortness of breath or wheezing) Qty: 90 0RF (DME) BinaxNOW COVID-19 Ag Self Test Kit See Rx Instructions .Route Qty: 2 0RF Rx Instructions: As directed Adderall 10 mg 10 mg PO DAILY multivitamin [Multi-Day] Tablet 1 tab PO DAILY albuterol sulfate [ProAir HFA] 90 mcg/actuation HFA aerosol inhaler 2 puff inhalation QID Aimovig Autoinjector 140 mg/mL auto-injector 140 mg subcut ONCE 30 Days Qty: 1 6RF Print Language: Singaporean
[2024-04-02 10:36] VITALS: BP 130/82; PULSE 88; RESP 18; TEMP 37.3; O2SAT 99
== END 2024-04-02 10:39 | disposition home or self-care (01) ==
PROVIDERS: Emergency Provider Emergency Medicine; PCP Internal Medicine
DX: J32.9 Chronic sinusitis, unspecified (principal); J40 Bronchitis, not specified as acute or chronic; R05.9 Cough, unspecified; F17.200 Nicotine dependence, unspecified, uncomplicated; Z03.818 Encounter for observation for suspected exposure to other biological agents ruled out; Z90.3 Acquired absence of stomach [part of]
CPT/HCPCS: 0241U; 87651; 99282; 99283

== ENCOUNTER 2024-04-17 12:27 | Emergency (ER) | payer OTHER, SELFPAY ==
[2024-04-17 12:37] VITALS: BP 148/87; PULSE 108; RESP 22; TEMP 36.2; O2SAT 100; BMI 33.9
--- NOTE | 2024-04-17 13:06 | ED.NAVMDI ---
HPI - Nausea/Vomiting/Diarrhea General Chief complaint: Nausea/Vomiting/Diarrhea Stated complaint: Vomiting Time Seen by Provider: 04/17/24 15:56 History of Present Illness ED Provider: Julissa HUSSEIN Narrative: 38-year-old female past medical history of migraines, pituitary microadenoma, chronic anemia, fibromyalgia, gastric sleeve presenting for nausea and vomiting. Patient states that she took but will go away shot yesterday evening after not having used it for a few months and shortly after she began experiencing nausea and nonbloody nonbilious emesis. Her symptoms persisted throughout the night and into the day today and she has not been able to tolerate p.o. intake. She endorses mild abdominal pain that she believes it is likely from vomiting so much. She denies fevers, chills, diarrhea, urinary symptoms Related Data Home Medications ?Medication ?Instructions ?Recorded ?Confirmed albuterol sulfate 90 mcg/actuation 2 puff inhalation QID 10/03/22 12/28/23 aerosol inhaler (ProAir HFA) Adderall 10 mg PO DAILY 11/14/23 12/28/23 multivitamin 1 tab PO DAILY 11/14/23 12/28/23 Previous Rx's ?Medication ?Instructions ?Recorded albuterol sulfate 1.25 mg/3 mL 1.25 mg (3 mL) inhalation Q4-6H 03/01/22 solution for nebulization PRN shortness of breath or wheezing #90 mL COVID-19 antigen test (BinaxNOW #2 ea 12/22/23 COVID-19 Ag Self Test kit) diphenhydramine HCl 25 mg capsule 25 - 50 mg (1 - 2 x 25 mg) PO TID 12/27/23 (Benadryl) PRN allergy symptoms or migraine 30 days #30 caps sumatriptan succinate 100 mg tablet 50 - 100 mg (0.5 - 1 x 100 mg) PO 12/27/23 .COMPLEX PRN migraine headache 30 days #12 tabs erenumab-aooe 140 mg/mL 140 mg subcut ONCE 30 days #1 mL 12/28/23 subcutaneous auto-injector (Aimovig Autoinjector) azithromycin 250 mg tablet See Rx Instructions PO .COMPLEX #6 04/02/24 (Zithromax Z-Kit) tabs guaifenesin 100 mg/5 mL oral 200 mg (10 mL) PO Q6H PRN cough 04/02/24 liquid (Cough Syrup) #120 mL prednisone 20 mg tablet 40 mg (2 x 20 mg) PO DAILY #10 tabs 04/02/24 ondansetron 4 mg disintegrating 4 mg PO Q8H PRN nausea and 04/17/24 tablet vomiting 4 days #10 tabs Allergies Allergy/AdvReac Type Severity Reaction Status Date / Time No Known Allergies Allergy Verified 04/17/24 12:40 Review of Systems Review of Systems: Constitutional : No Weight loss, No Fever, No Chills ENT/Mouth : No sore throat, No Rhinorrhea Eyes: No Swelling, No Redness Cardiovascular : No Chest Pain, No SOB, NoEdema Respiratory : No Cough, No Sputum, No Wheezing Gastrointestinal : Positive Nausea, Positive Vomiting, positive abdominal pain, negative diarrhea, No Hematochezia, No Melena Genitourinary : No Dysuria, No Urinary Frequency, No Hematuria, No Urgency Musculoskeletal : No joint pain, No Myalgias, No Joint Swelling Skin : No Skin Lesions, No rash Neuro : No Weakness, No Numbness, No Dizziness, No Headache Psych : No Anxiety/Panic, No Depression PMFSH Past Medical History Medical History Migraines Asthma HESHAM (stress urinary incontinence, female) Cholecystectomy planned Appendicitis Surgical History Hx of cholecystectomy Hx of appendectomy S/P panniculectomy Gastric bypass status for obesity Tubal ligation status Family History Family History Mother Prediabetes Rheumatoid arthritis Hypertension Father Medical history unknown Other Family history of multiple sclerosis Family history of rheumatoid arthritis Family history of systemic lupus erythematosus Social History Social History Alcohol intake: current Alcohol intake frequency: holidays/special occasions only Patient Tobacco Use Status: Current someday Tobacco user Advance Directives: No Do you have a plan to hurt others: No Plan Current occupational status: unemployed 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 Oriented X3. No acute distress. Eyes: Pupils equal, round and reactive to light. ENT: Pharynx normal. Neck: Normal inspection. Neck supple. CVS: Normal heart rate and rhythm. Pulses normal. Respiratory: No respiratory distress. Breath sounds normal. Abdomen: Soft, nondistended and nontender. Skin: Skin warm and dry. Normal skin color. Normal skin turgor. Extremities: No lower extremity edema. No calf ttp Neuro: Oriented X 3. No motor deficit. No sensory deficit. Course Course Course Narrative: This is an RME done by TREVOR Uriarte: Additional HPI, ROS, PE not included below will be deferred to primary provider. 38 yo f presents w/ severe abd pain, nausea and vomiting s/p dose increase of wedelorisvgracie paizt used to be on 0.5 mg but insurance stoped covering that so put her on 1.7 / week. Patient states she feels terible. No diarrhea, cp, sob, fevers, chills Appearance: Alert.? Oriented X3.? No acute cardiopulmonary distress distress.? Uncomfortable appearing Head: Normocephalic, atraumatic, no step-offs or deformities CVS: Pulses normal.? Respiratory: No respiratory distress.? Abdomen: Soft and diffuse tenderness.? Skin: ? Normal skin color. Extremities: 5/5 strength to bilateral upper and lower extremities Neuro: Oriented X 3.? No motor deficit.? No sensory deficit. Reevaluation(s) Reevaluation #1: Labs and Zofran ordered in triage I ordered an EKG, fluids and lactic acid Time: 17:06 Medications Administered Discontinued Medications Generic Name Dose Route Start Last Admin Trade Name Freq PRN Reason Stop Dose Admin Droperidol 1.25 mg 04/17/24 19:55 04/17/24 20:12 Droperidol 5 Mg/2 Ml Vial IVPUSH 04/17/24 19:56 1.25 mg ONCE ONE Administration Sodium Chloride 1,000 mls @ 999 mls/hr 04/17/24 16:15 04/17/24 20:12 Ns IV 04/17/24 17:15 Infused .Q1H1M KENYA Infusion Ondansetron HCl 4 mg 04/17/24 14:30 04/17/24 14:33 Ondansetron Odt 4 Mg Tab.Jose Angel ANAYAU 04/17/24 14:31 4 mg ONCE ONE Administration Medical Decision Making Medical Decision Making [facility] Narrative: Patient's symptoms are likely secondary to will go via injection. She denies suspicious food intake so I do not think that this is a food-borne illness. Her last bowel movement was yesterday and normal. I do not think that this is bowel obstruction given patient's benign physical exam and HPI. I will rule out ectopic , UTI, nephrolithiasis with urinalysis. I will obtain LFTs to rule out biliary disease Mild leukocytosis, lactate of 1, negative beta HCG No signs of ischemia seen on EKG Lipase and LFTs normal --> less likely pancreatitis, biliary disease Patient still feel nauseous on reassessment so I ordered droperidol UA reviewed with no concern for UTI On reassessment patient is tolerating p.o. intake and reports improvement in symptoms. I instructed her to follow up with her PCP and to discontinue wegovy. I also gave him return precautions Differential Diagnosis Medication side effect, gastroenteritis, UTI, ectopic , nephrolithiasis, biliary disease, pancreatitis Lab Data 04/17/24 13:06 04/17/24 13:06 Labs: Lab Results 04/17/24 04/17/24 04/17/24 Range/Units 13:06 17:23 19:25 WBC 12.9 H (4.8-10.8) X10*3/uL RBC 4.31 (4.20-5.50) X10*6/uL Hgb 12.9 (12.0-16.0) g/dl Hct 38.4 (37.0-47.0) % MCV 89.1 (80.0-98.0) fL MCH 29.9 (27.0-33.0) pg MCHC 33.6 (31.0-35.0) g/dl RDW 14.2 (11.0-16.0) % Plt Count 336 (160-400) X10*3/uL MPV 10.0 (9.4-12.3) fL Immature Gran % (Auto) 0.5 H (0.0-0.4) % Neut % (Auto) 80.9 H (45-73) % Lymph % (Auto) 12.5 L (20-40) % Bledsoe % (Auto) 5.7 (2-11) % Eos % (Auto) 0.2 (0-4) % Baso % (Auto) 0.2 (0-2) % Lymph # (Auto) 1.6 (1.2-4.9) X10*3/uL Bledsoe # (Auto) 0.7 (0.1-1.2) X10*3/uL Eos # (Auto) 0.0 (0.0-0.4) X10*3/uL Baso # (Auto) 0.0 (0.0-0.2) X10*3/uL Abs Immat Gran (auto) 0.06 H (0.00-0.03) X10*3/uL Absolute Neuts (auto) 10.4 H (2.0-8.3) x10*3/uL Absolute Nucleated RBC 0.000 (0.0-0.012) X10*3/uL Nucleated RBC % (auto) 0.0 (0.0-0.2) /100WBC Sodium 137 (135-145) mmol/L Potassium 4.0 (3.3-5.1) mmol/L Chloride 108 (96-108) mmol/L Carbon Dioxide 17 L (22-29) mmol/L Anion Gap 16 (12-20) BUN 13 (9-16) mg/dL Creatinine 0.75 (0.5-1.4) mg/dL Estim Creat Clear Calc 120.0 Estimated GFR > 60 Random Glucose 104 (60-115) mg/dL Lactic Acid 1.0 (0.5-2.0) mmol/L Calcium 10.2 D (8.4-10.2) mg/dL Total Bilirubin 0.6 (0.0-1.0) mg/dL AST 18 (5-31) U/L ALT 25 (0-31) U/L Alkaline Phosphatase 66 (39-117) U/L Total Protein 8.1 H (6.5-8.0) g/dL Albumin 4.6 (3.5-5.0) g/dL Lipase 40 (8-78) U/L Beta HCG, Quant < 2 mIU/mL Urine Color Yellow Urine Appearance Cloudy Urine pH 6.5 (5.0-9.0) Ur Specific [place] 1.025 (1.005-1.025) Urine Protein Trace (Neg-Trace) mg/dL Urine Glucose (UA) Negative (Negative) mg/dL Urine Ketones 15 (Negative) mg/dL Urine Blood Negative (Negative) Urine Nitrite Negative (Negative) Ur Leukocyte Esterase Moderate (2+) H (Negative) Urine RBC 0-2 (0-2) /HPF Urine WBC 6-10 (0-5) /HPF Ur Squamous Epith Cells 11-20 (0-2) /HPF Urine Bacteria 2+ (None Seen) Hyaline Casts 0-2 (0-2) /LPF Discharge Plan Discharge Clinical Impression: Nausea & vomiting Patient Disposition: Home, Self-Care Instructions: Acute Nausea and Vomiting (ED) Additional Instructions: Please schedule an appointment with your primary care provider to be seen in the next 2 days If you develop any new or worsening symptoms please seek immediate medical attention Please refrain from any additional wegovy injections Prescriptions: New ondansetron 4 mg tablet,disintegrating 4 mg PO Q8H PRN (Reason: nausea and vomiting) 4 Days Qty: 10 0RF No Action sumatriptan succinate 100 mg tablet 50 - 100 mg PO .COMPLEX PRN (Reason: migraine headache) 30 Days Qty: 12 6RF Rx Instructions: 50 - 100 mg orally at onset of headache, may repeat in 2 hrs PRN; max 2 tabs per day or 4 tabs/week (may take with Naproxen) diphenhydramine HCl [Benadryl] 25 mg capsule 25 - 50 mg PO TID PRN (Reason: allergy symptoms or migraine) 30 Days Qty: 30 1RF albuterol sulfate 1.25 mg/3 mL solution for nebulization 1.25 mg inhalation Q4-6H PRN (Reason: shortness of breath or wheezing) Qty: 90 0RF (DME) BinaxNOW COVID-19 Ag Self Test Kit See Rx Instructions .Route Qty: 2 0RF Rx Instructions: As directed Adderall 10 mg 10 mg PO DAILY multivitamin [Multi-Day] Tablet 1 tab PO DAILY azithromycin [Zithromax Z-Kit] 250 mg tablet See Rx Instructions .ROUTE .COMPLEX Qty: 6 0RF Rx Instructions: take 500 mg today (day 1), then 250 mg for 4 days (days 2-5) prednisone 20 mg tablet 40 mg PO DAILY Qty: 10 0RF guaifenesin [Cough Syrup] 100 mg/5 mL liquid 200 mg PO Q6H PRN (Reason: cough) Qty: 120 0RF albuterol sulfate [ProAir HFA] 90 mcg/actuation HFA aerosol inhaler 2 puff inhalation QID Aimovig Autoinjector 140 mg/mL auto-injector 140 mg subcut ONCE 30 Days Qty: 1 6RF Print Language: Dutch
[2024-04-17 13:10] LABS: MANUAL DIFF FLAG NO
[2024-04-17 13:16] LABS: Basophils Percent Auto 0.2 % (0-2); Eosinophils Percent Auto 0.2 % (0-4); Hematocrit 38.4 % (37.0-47.0); Hemoglobin 12.9 g/dl (12.0-16.0); Imm Gran Abs Auto 0.06 X10*3/uL (0.00-0.03); Imm Gran Pct Auto 0.5 % (0.0-0.4); Lymphocytes Absolute Auto 1.6 X10*3/uL (1.2-4.9); Lymphocytes Percent Auto 12.5 % (20-40); Mean Corpuscular HGB Conc 33.6 g/dl (31.0-35.0); Mean Corpuscular Hemoglobin 29.9 pg (27.0-33.0); Mean Corpuscular Volume 89.1 fL (80.0-98.0); Monocytes Absolute Auto 0.7 X10*3/uL (0.1-1.2); Monocytes Percent Auto 5.7 % (2-11); Neutrophils Absolute Auto 10.4 x10*3/uL (2.0-8.3); Neutrophils Percent Auto 80.9 % (45-73); Platelet Count 336 X10*3/uL (160-400); Red Blood Count 4.31 X10*6/uL (4.20-5.50); Red Cell Distribution Width 14.2 % (11.0-16.0); White Blood Count 12.9 X10*3/uL (4.8-10.8)
[2024-04-17 13:25] LABS: Alanine Aminotransferase 25 U/L (0-31); Albumin Level 4.6 g/dL (3.5-5.0); Alkaline Phosphatase 66 U/L (39-117); Anion Gap 16 (12-20); Aspartate Amino Transferase 18 U/L (5-31); Bilirubin Total 0.6 mg/dL (0.0-1.0); Blood Urea Nitrogen 13 mg/dL (9-16); Calcium 10.2 mg/dL (8.4-10.2); Carbon Dioxide 17 mmol/L (22-29); Chloride 108 mmol/L (96-108); Estimated Glomerular Filt Rate > 60; Glucose Random 104 mg/dL (60-115); Lipase 40 U/L (8-78); Sodium 137 mmol/L (135-145); Total Protein 8.1 g/dL (6.5-8.0)
[2024-04-17 14:28] VITALS: BP 124/84; PULSE 97; RESP 20; TEMP 35.9; O2SAT 100
[2024-04-17] MEDS: Ondansetron ODT 4 MG TAB.RAPDIS TRANSLINGU (14:33)
--- NOTE | 2024-04-17 16:04 | ECG_ITS ---
Test Reason : NAUSEA/VOMITING Blood Pressure : / mmHG Vent. Rate : 076 BPM Atrial Rate : 076 BPM P-R Int : 122 ms QRS Dur : 074 ms QT Int : 386 ms P-R-T Axes : 016 009 020 degrees QTc Int : 434 ms Normal sinus rhythm Normal ECG When compared with ECG of 29-JAN-2020 22:14, No significant change was found Referred By: Tony Costa Electronically Signed By:DAVID REY
--- NOTE | 2024-04-17 16:12 | ED.GENADULT ---
HPI - General Adult General Chief complaint: Nausea/Vomiting/Diarrhea Stated complaint: Vomiting Time Seen by Provider: 04/17/24 15:56 Source: patient Mode of arrival: ambulatory Limitations: no limitations History of Present Illness ED Provider: Julissa HUSSEIN narrative: 38-year-old female past medical history of migraines, pituitary microadenoma, chronic anemia, fibromyalgia, gastric sleeve presenting for nausea and vomiting. Patient states that she took but will go away shot yesterday evening after not having used it for a few months and shortly after she began experiencing nausea and nonbloody nonbilious emesis. Her symptoms persisted throughout the night and into the day today and she has not been able to tolerate p.o. intake. She endorses mild abdominal pain that she believes it is likely from vomiting so much. She denies fevers, chills, diarrhea, urinary symptoms Onset (ago): day(s) Location: abdomen Quality: aching Related Data Home Medications ?Medication ?Instructions ?Recorded ?Confirmed albuterol sulfate 90 mcg/actuation 2 puff inhalation QID 10/03/22 12/28/23 aerosol inhaler (ProAir HFA) Adderall 10 mg PO DAILY 11/14/23 12/28/23 multivitamin 1 tab PO DAILY 11/14/23 12/28/23 Previous Rx's ?Medication ?Instructions ?Recorded albuterol sulfate 1.25 mg/3 mL 1.25 mg (3 mL) inhalation Q4-6H 03/01/22 solution for nebulization PRN shortness of breath or wheezing #90 mL COVID-19 antigen test (BinaxNOW #2 ea 12/22/23 COVID-19 Ag Self Test kit) diphenhydramine HCl 25 mg capsule 25 - 50 mg (1 - 2 x 25 mg) PO TID 12/27/23 (Benadryl) PRN allergy symptoms or migraine 30 days #30 caps sumatriptan succinate 100 mg tablet 50 - 100 mg (0.5 - 1 x 100 mg) PO 12/27/23 .COMPLEX PRN migraine headache 30 days #12 tabs erenumab-aooe 140 mg/mL 140 mg subcut ONCE 30 days #1 mL 12/28/23 subcutaneous auto-injector (Aimovig Autoinjector) azithromycin 250 mg tablet See Rx Instructions PO .COMPLEX #6 04/02/24 (Zithromax Z-Kit) tabs guaifenesin 100 mg/5 mL oral 200 mg (10 mL) PO Q6H PRN cough 04/02/24 liquid (Cough Syrup) #120 mL prednisone 20 mg tablet 40 mg (2 x 20 mg) PO DAILY #10 tabs 04/02/24 Allergies Allergy/AdvReac Type Severity Reaction Status Date / Time No Known Allergies Allergy Verified 04/17/24 12:40 Review of Systems Review of Systems: Constitutional : No Weight loss, No Fever, No Chills ENT/Mouth : No sore throat, No Rhinorrhea Eyes: No Swelling, No Redness Cardiovascular : No Chest Pain, No SOB, NoEdema Respiratory : No Cough, No Sputum, No Wheezing Gastrointestinal : Positive Nausea, Positive Vomiting, positive abdominal pain, negative diarrhea, No Hematochezia, No Melena Genitourinary : No Dysuria, No Urinary Frequency, No Hematuria, No Urgency Musculoskeletal : No joint pain, No Myalgias, No Joint Swelling Skin : No Skin Lesions, No rash Neuro : No Weakness, No Numbness, No Dizziness, No Headache Psych : No Anxiety/Panic, No Depression All other systems reviewed and are negative. COUNTS INCLUDE 234 BEDS AT THE [facility] Past Medical History Attestation statement: The following information was validated with the patient. COUNTS INCLUDE 234 BEDS AT THE [facility] Narrative: Migraine, gastric sleeve, pituitary microadenoma, fibromyalgia, anxiety Source: old records reviewed Medical History Migraines Asthma HESHAM (stress urinary incontinence, female) Cholecystectomy planned Appendicitis Surgical History Hx of cholecystectomy Hx of appendectomy S/P panniculectomy Gastric bypass status for obesity Tubal ligation status Family History Family History Mother Prediabetes Rheumatoid arthritis Hypertension Father Medical history unknown Other Family history of multiple sclerosis Family history of rheumatoid arthritis Family history of systemic lupus erythematosus Social History Social History Alcohol intake: current Alcohol intake frequency: holidays/special occasions only Patient Tobacco Use Status: Current someday Tobacco user Advance Directives: No Do you have a plan to hurt others: No Plan Current occupational status: unemployed 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 Oriented X3. No acute distress. Eyes: Pupils equal, round and reactive to light. ENT: Pharynx normal. Neck: Normal inspection. Neck supple. CVS: Normal heart rate and rhythm. Pulses normal. Respiratory: No respiratory distress. Breath sounds normal. Abdomen: Soft, nondistended and nontender. Skin: Skin warm and dry. Normal skin color. Normal skin turgor. Extremities: No lower extremity edema. No calf ttp Neuro: Oriented X 3. No motor deficit. No sensory deficit. Course Course Course Narrative: Labs and Zofran ordered in triage I ordered an EKG, fluids and lactic acid Medications Administered Discontinued Medications Generic Name Dose Route Start Last Admin Trade Name Edgarq PRN Reason Stop Dose Admin Ondansetron HCl 4 mg 04/17/24 14:30 04/17/24 14:33 Ondansetron Odt 4 Mg Tab.Rapdis TRANSLINGU 04/17/24 14:31 4 mg ONCE ONE Administration Medical Decision Making Medical Decision Making [facility] Narrative: Patient's symptoms are likely secondary to will go via injection. She denies suspicious food intake so I do not think that this is a food-borne illness. Her last bowel movement was yesterday and normal. I do not think that this is bowel obstruction given patient's benign physical exam and HPI. I will rule out ectopic , UTI, nephrolithiasis with urinalysis. I will obtain LFTs to rule out biliary disease Differential Diagnosis Medication side effect, gastroenteritis, UTI, ectopic , nephrolithiasis, biliary disease Lab Data 04/17/24 13:06 04/17/24 13:06 Labs: Lab Results 04/17/24 Range/Units 13:06 WBC 12.9 H (4.8-10.8) X10*3/uL RBC 4.31 (4.20-5.50) X10*6/uL Hgb 12.9 (12.0-16.0) g/dl Hct 38.4 (37.0-47.0) % MCV 89.1 (80.0-98.0) fL MCH 29.9 (27.0-33.0) pg MCHC 33.6 (31.0-35.0) g/dl RDW 14.2 (11.0-16.0) % Plt Count 336 (160-400) X10*3/uL MPV 10.0 (9.4-12.3) fL Immature Gran % (Auto) 0.5 H (0.0-0.4) % Neut % (Auto) 80.9 H (45-73) % Lymph % (Auto) 12.5 L (20-40) % [place] % (Auto) 5.7 (2-11) % Eos % (Auto) 0.2 (0-4) % Baso % (Auto) 0.2 (0-2) % Lymph # (Auto) 1.6 (1.2-4.9) X10*3/uL [place] # (Auto) 0.7 (0.1-1.2) X10*3/uL Eos # (Auto) 0.0 (0.0-0.4) X10*3/uL Baso # (Auto) 0.0 (0.0-0.2) X10*3/uL Abs Immat Gran (auto) 0.06 H (0.00-0.03) X10*3/uL Absolute Neuts (auto) 10.4 H (2.0-8.3) x10*3/uL Absolute Nucleated RBC 0.000 (0.0-0.012) X10*3/uL Nucleated RBC % (auto) 0.0 (0.0-0.2) /100WBC Sodium 137 (135-145) mmol/L Potassium 4.0 (3.3-5.1) mmol/L Chloride 108 (96-108) mmol/L Carbon Dioxide 17 L (22-29) mmol/L Anion Gap 16 (12-20) BUN 13 (9-16) mg/dL Creatinine 0.75 (0.5-1.4) mg/dL Estim Creat Clear Calc 120.0 Estimated GFR > 60 Random Glucose 104 (60-115) mg/dL Calcium 10.2 D (8.4-10.2) mg/dL Total Bilirubin 0.6 (0.0-1.0) mg/dL AST 18 (5-31) U/L ALT 25 (0-31) U/L Alkaline Phosphatase 66 (39-117) U/L Total Protein 8.1 H (6.5-8.0) g/dL Albumin 4.6 (3.5-5.0) g/dL Lipase 40 (8-78) U/L Discharge Plan Discharge Prescriptions: No Action sumatriptan succinate 100 mg tablet 50 - 100 mg PO .COMPLEX PRN (Reason: migraine headache) 30 Days Qty: 12 6RF Rx Instructions: 50 - 100 mg orally at onset of headache, may repeat in 2 hrs PRN; max 2 tabs per day or 4 tabs/week (may take with Naproxen) diphenhydramine HCl [Benadryl] 25 mg capsule 25 - 50 mg PO TID PRN (Reason: allergy symptoms or migraine) 30 Days Qty: 30 1RF albuterol sulfate 1.25 mg/3 mL solution for nebulization 1.25 mg inhalation Q4-6H PRN (Reason: shortness of breath or wheezing) Qty: 90 0RF (DME) BinaxNOW COVID-19 Ag Self Test Kit See Rx Instructions .Route Qty: 2 0RF Rx Instructions: As directed Adderall 10 mg 10 mg PO DAILY multivitamin [Multi-Day] Tablet 1 tab PO DAILY azithromycin [Zithromax Z-Kit] 250 mg tablet See Rx Instructions .ROUTE .COMPLEX Qty: 6 0RF Rx Instructions: take 500 mg today (day 1), then 250 mg for 4 days (days 2-5) prednisone 20 mg tablet 40 mg PO DAILY Qty: 10 0RF guaifenesin [Cough Syrup] 100 mg/5 mL liquid 200 mg PO Q6H PRN (Reason: cough) Qty: 120 0RF albuterol sulfate [ProAir HFA] 90 mcg/actuation HFA aerosol inhaler 2 puff inhalation QID Aimovig Autoinjector 140 mg/mL auto-injector 140 mg subcut ONCE 30 Days Qty: 1 6RF Print Language: Cymraes
[2024-04-17 17:01] VITALS: BP 138/88; PULSE 82; RESP 16; TEMP 37.1; O2SAT 97
[2024-04-17] MEDS: 0.9 % Sodium Chloride 1,000 ML 999 ML IV (17:24)
--- NOTE | 2024-04-17 17:25 | MHC.EDTECH ---
PATIENT EKG TAKEN ,BLOOD DRAWN AND SENT TO LAB AND VITALS TAKEN .
[2024-04-17 17:56] LABS: HCG Quantitative < 2 mIU/mL
[2024-04-17 19:24] VITALS: BP 137/93; PULSE 84; RESP 16; TEMP 36.7; O2SAT 97
[2024-04-17 19:32] LABS: Appearance Urine Cloudy; Color Urine Yellow; Glucose Urine UA Negative (Negative); Leukocyte Esterase Urine Moderate (2+) (Negative); Nitrite Urine Negative (Negative); PH 6.5 (5.0-9.0); Specific Gravity - Urine 1.025 (1.005-1.025); UMIC TRIGGER UACC YES; Urine Blood Negative (Negative); Urine Ketones 15 mg/dL (Negative); Urine Protein Trace mg/dL (Neg-Trace)
[2024-04-17 19:56] LABS: Bacteria Urine 2+ (None Seen); Hyaline Casts Urine 0-2 /LPF (0-2); RBC Urine 0-2 /HPF (0-2); UACC Culture Trigger YES
[2024-04-17] MEDS: droPERidol 5 MG/2 ML VIAL 1.25 MG IVPUSH (20:12)
[2024-04-17 22:04] VITALS: BP 135/87; PULSE 87; RESP 16; TEMP 36.6; O2SAT 96
[2024-04-17 22:10] VITALS: BP 135/87; PULSE 87; RESP 16; TEMP 36.6; O2SAT 96
== END 2024-04-17 22:10 | disposition home or self-care (01) ==
PROVIDERS: Physician Assistant; Emergency Provider Student in an Organized Health Care Education/Training Program; PCP Internal Medicine
DX: R11.2 Nausea with vomiting, unspecified (principal); D72.829 Elevated white blood cell count, unspecified
CPT/HCPCS: 36415; 80053; 81001; 83605; 83690; 84702; 85025; 87086; 93005; 96361; 96374; 99284; J1790

== ENCOUNTER → 2024-04-17 16:04 | Outpatient (BNV) | payer OTHER, SELFPAY | PROVIDERS: Emergency Provider Student in an Organized Health Care Education/Training Program; PCP Internal Medicine; Visit Provider Internal Medicine | DX: R11.2 Nausea with vomiting, unspecified (principal) | CPT/HCPCS: 93010 ==

== ENCOUNTER 2024-04-19 08:42 | Outpatient (AMB) | payer OTHER, SELFPAY ==
--- NOTE | 2024-04-19 08:43 | MHC.OFFVIS ---
Intake Visit Reasons: Follow up-Unable to lvm Intake Note: Patient presents for f/u. Allergies No Known Allergies Allergy (Verified 04/19/24 08:43) Medication List - Last Reconciled 04/19/24 by JOYCE Herring [Adderall 10 mg PO DAILY] albuterol sulfate 1.25 mg (3 mL) inhalation Q4-6H PRN albuterol sulfate 90 mcg/actuation (ProAir HFA) 2 puffs inhalation QID azithromycin (Zithromax Z-Kit) take 500 mg today (day 1), then 250 mg for 4 days (days 2-5) COVID-19 antigen test (DEUS COVID-19 Ag Self Test kit) As directed diphenhydramine HCl (Benadryl) 25 - 50 mg (1 - 2 x 25 mg) PO TID PRN 30 days erenumab-aooe (Aimovig Autoinjector) 140 mg subcut ONCE 30 days guaifenesin (Cough Syrup) 200 mg (10 mL) PO Q6H PRN multivitamin 1 tab PO DAILY ondansetron 4 mg PO Q8H PRN 4 days prednisone 40 mg (2 x 20 mg) PO DAILY sumatriptan succinate 50 - 100 mg orally at onset of headache, may repeat in 2 hrs PRN; max 2 tabs per day or 4 tabs/week (may take with Naproxen) 30 days HPI Comments Details: 38-yr-old female presents for f/u televideo visit via [employer] Pt denies any significant interval medical changes. Pt reports her migraines have decreased and frequency and severity, but she is still having 2-3 migraine days per week. The migraines tend to come on in the evening. She notes her migraine attacks tend to cycle every couple of months- more severe/frequent (severe daily migraine) to current status (moderate 2-3 x's per week) She did not start Aimovig, as she was starting Wegovy and was concerned about starting 2 injectable meds at the same time. Sumatriptan was not overly effective. Now using Amitriptyline 10mg prn at bedtime - but this causes her to have am sleepiness. Baseline headache characteristics: Aura: Rarely- can see colorful spots/splotches- unsure if before or during the headache. Severe, starts as throbbing and pressure bifrontal, bitemporal, and retroorbital, which moves into bilateral occipital regions as a tight/pressure pain a/w photophobia, phonophobia, sometimes osmophobia, nausea, brain fog, fatigue, wants to lay down- but can make headache worse- has difficulty finding a comfortable position. Sometimes needs to pace or restless in bed. Forehead feels warm, feels nasal/maxillary and frontal sinus pressure/congestion. Her carpal tunnel symptoms are worse. [facility] Medical History Migraines Asthma HESHAM (stress urinary incontinence, female) Cholecystectomy planned Appendicitis Surgical History Hx of cholecystectomy Hx of appendectomy S/P panniculectomy Gastric bypass status for obesity Tubal ligation status Family History Mother Prediabetes Rheumatoid arthritis Hypertension Father Medical history unknown Other Family history of multiple sclerosis Family history of rheumatoid arthritis Family history of systemic lupus erythematosus Social History Alcohol intake: current Alcohol intake frequency: holidays/special occasions only Patient Tobacco Use Status: Current someday Tobacco user Current occupational status: unemployed 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 Physical Exam Const General: cooperative and no acute distress Orientation/consciousness: patient oriented x3 Resp Effort & Inspection: normal respiratory effort and able to speak in complete sentences Neuro General: patient oriented x3 Cognition (Neuro): normal cognition Psych Appearance: grossly normal Mental Status: mental status grossly normal Speech and movement: Normal speech and movement present Affect: normal affect Attitude: cooperative Telehealth Telehealth Telehealth Platform: Telephone Location of provider rendering services: practice address Location of patient: address on file Patient Identification confirmed using: Name, : Yes Telehealth method: video Patient verbally consented to treatment: Yes Patient verbally consented to billing insurance company: Yes Patient informed of any privacy concerns related to visit: Yes Minutes spent on Phone/Video with Pt.: 14 Assessment & Plan Assessment & Plan (1) Migraine without aura: Code(s): G43.009 - Migraine without aura, not intractable, without status migrainosus Category: Medical (2) Migraine with aura: Code(s): G43.109 - Migraine with aura, not intractable, without status migrainosus Category: Medical (3) Pituitary microadenoma: Code(s): D35.2 - Benign neoplasm of pituitary gland Category: Medical (4) Restless leg syndrome: Code(s): G25.81 - Restless legs syndrome Category: Medical Plan For pituitary microadenoma- Brain MRI w/wo- right anterior pituitary lobe 5.4 x 2.2 mm focus of hypoenhancement and a left anterior pituitary lobe 4.5 x 1.4 mm focus of hypoenhancement. Pt had endocrinology consult- they plan to do f/u labs and brain MRI w/wo. HST- AHI 2.8/hr w/ O2 slim 88%. Chronic FRANCESCA. F/u w/ hematology. Monitor RLS and fatigue s/s- these may improve as her ferritin levels improve. ? For overall headache management: Optimize good self-care, including but not limited to maintaining a healthy diet, adequate fluid intake, adequate sleep, and engaging in regular physical activity. Track headaches. ? For acute headache treatment: Discussed importance of taking acute medications at the first sign of headache, however stressed importance of avoiding acute medication overuse (especially with combined headache medications). Hold Sumatriptan 100mg- not effective. Trial Rizatriptan instead. May use Benadryl 25-50mg or Amitriptyline 5-10mg as rescue prn. Hold Cyclobenzaprine 10mg prn muscle spasm. Previous acute migraine medication trials: Excedrin, Ibuprofen- ineffective Acute migraine medication contraindications: None at this time ? For headache prevention medication: Again start Aimovig 140mg sc q month. Discussed it has prior auth through 05/07/24- advised to start prior to this date- so we can at least begin to assess efficacy. Pt to go to [facility] to review the injection technique. Previous migraine prevention medication trials: Depakote- made her headaches worse. Trileptal- for mood- made her headaches worse. Amitriptyline 10mg qhs- not tolerated well-enough to day daily.. Migraine prevention medication contraindications: BBs d/t asthma dx ? Pt to follow-up in 4-6 months or sooner prn. Medications: New rizatriptan 5 - 10 mg (0.5 - 1 x 10 mg) PO Q2H 21 days PRN 12 tabs 0RF migraine headache Refilled erenumab-aooe (Aimovig Autoinjector) 140 mg subcut ONCE 30 days 1 mL 6RF Discontinued sumatriptan succinate Discontinued Reason: Doctor's Order (0.5 - 1 x 100 mg) 50 - 100 mg orally at onset of headache, may repeat in 2 hrs PRN; max 2 tabs per day or 4 tabs/week (may take with Naproxen) 30 days 12 tabs 6RF migraine headache Coding Level of Care Code Tele Est Pt Level 4 (27594) Diagnoses Migraine without aura G43.009 Migraine with aura G43.109 Pituitary microadenoma D35.2 Restless leg syndrome G25.81
== END 2024-04-19 11:46 | disposition home or self-care (01) ==
LOC: HO.HSMS 08:42
PROVIDERS: PCP Internal Medicine; Visit Provider Nurse Practitioner Family
DX: G43.009 Migraine without aura, not intractable, without status migrainosus (principal); G43.109 Migraine with aura, not intractable, without status migrainosus; D35.2 Benign neoplasm of pituitary gland; G25.81 Restless legs syndrome
CPT/HCPCS: 99214

== ENCOUNTER → 2024-04-19 08:42 | Outpatient (BNVA) | payer OTHER, SELFPAY | PROVIDERS: PCP Internal Medicine; Visit Provider Nurse Practitioner Family ==

== ENCOUNTER 2024-05-27 21:35 | Emergency (ER) | payer OTHER, SELFPAY ==
--- NOTE | 2024-05-27 | ECG_ITS ---
Test Reason : chest pain Blood Pressure : / mmHG Vent. Rate : 090 BPM Atrial Rate : 090 BPM P-R Int : 110 ms QRS Dur : 076 ms QT Int : 348 ms P-R-T Axes : 010 009 030 degrees QTc Int : 425 ms Sinus rhythm with short WI Otherwise normal ECG When compared with ECG of 17-APR-2024 17:10, No significant change was found Referred By: Generic ED Physician Electronically Signed By:DAVID REY
[2024-05-27 21:48] VITALS: BP 131/90; PULSE 93; RESP 18; TEMP 36.4; O2SAT 100; BMI 35.2
[2024-05-27 22:22] LABS: MANUAL DIFF FLAG NO
[2024-05-27 22:23] LABS: Basophils Percent Auto 0.2 % (0-2); Eosinophils Percent Auto 0.3 % (0-4); Hemoglobin 11.9 g/dl (12.0-16.0); Imm Gran Abs Auto 0.05 X10*3/uL (0.00-0.03); Imm Gran Pct Auto 0.4 % (0.0-0.4); Lymphocytes Absolute Auto 1.4 X10*3/uL (1.2-4.9); Lymphocytes Percent Auto 10.5 % (20-40); Mean Corpuscular HGB Conc 33.1 g/dl (31.0-35.0); Mean Corpuscular Hemoglobin 29.2 pg (27.0-33.0); Mean Corpuscular Volume 88.2 fL (80.0-98.0); Monocytes Percent Auto 7.3 % (2-11); Neutrophils Absolute Auto 10.7 x10*3/uL (2.0-8.3); Neutrophils Percent Auto 81.3 % (45-73); Platelet Count 264 X10*3/uL (160-400); Red Blood Count 4.08 X10*6/uL (4.20-5.50); Red Cell Distribution Width 12.8 % (11.0-16.0); White Blood Count 13.2 X10*3/uL (4.8-10.8)
[2024-05-27 22:45] LABS: Alanine Aminotransferase 27 U/L (0-31); Albumin Level 4.4 g/dL (3.5-5.0); Alkaline Phosphatase 71 U/L (39-117); Anion Gap 14 (12-20); Aspartate Amino Transferase 21 U/L (5-31); Bilirubin Direct 0.1 mg/dL (0.0-0.5); Bilirubin Total 0.3 mg/dL (0.0-1.0); Blood Urea Nitrogen 19 mg/dL (9-16); Calcium 9.7 mg/dL (8.4-10.2); Carbon Dioxide 23 mmol/L (22-29); Chloride 107 mmol/L (96-108); Creatinine Clr Calc Pharmacy 59.1; Estimated Glomerular Filt Rate 38; Glucose Random 144 mg/dL (60-115); Lipase 25 U/L (8-78); Potassium 3.7 mmol/L (3.3-5.1); Sodium 140 mmol/L (135-145); Total Protein 7.6 g/dL (6.5-8.0)
--- NOTE | 2024-05-28 01:04 | PC.NURSE ---
pt called multiple times in [place] with no answer
== END 2024-05-28 01:05 | disposition left against medical advice (07) ==
PROVIDERS: Emergency Provider Emergency Medicine; PCP Internal Medicine
DX: M54.9 Dorsalgia, unspecified (principal); R07.9 Chest pain, unspecified; R06.02 Shortness of breath
CPT/HCPCS: 36415; 80048; 80076; 83690; 85025; 93005; 99281; 99283

== ENCOUNTER → 2024-05-27 22:04 | Outpatient (BNV) | payer OTHER, SELFPAY | PROVIDERS: Emergency Provider Emergency Medicine; PCP Internal Medicine; Visit Provider Internal Medicine | DX: R07.9 Chest pain, unspecified (principal) | CPT/HCPCS: 93010 ==

== ENCOUNTER 2024-06-05 13:46 | Outpatient (REF) | payer OTHER, SELFPAY ==
--- NOTE | ~2024-06-05 | US_ITS ---
EXAMINATION: US PELVIS CLINICAL INFORMATION: Dysmenorrhea LMP 2 weeks ago COMPARISON: CT scan abdomen and pelvis 03/04/2022 TECHNIQUE: Ultrasound of the pelvis is performed using both transabdominal and transvaginal transducers along with Doppler. Transvaginal imaging is performed due to inadequate visualization transabdominally. FINDINGS: Uterus: The uterus is anteverted and measures 10.0 x 4.0 x 5.4 cm. No focal fibroid The endometrial thickness is 1.0 cm. Adnexa: Both ovaries are visualized. There is normal color flow to the adnexa. There is no ovarian torsion. There is no pelvic ascites or fluid collection. Right ovary measures 2.8 x 1.5 x 2.1 cm. Volume 4.5 mL. Left ovary measures 4.2 x 3.0 x 3.7 cm. Volume 24.2 mL. 2.8 cm follicle is seen, a normal finding, no imaging follow-up is recommended. US/US pelvic and transvaginal IMPRESSION: 1. Normal uterus and right ovary. 2. Enlarged left ovary. Electronically signed by: Patrizia Smith MD 06/13/2024 10:31 AM EDT
== END 2024-06-05 13:47 | disposition home or self-care (01) ==
LOC: HO.US 13:46
PROVIDERS: PCP Internal Medicine; Visit Provider Internal Medicine
DX: N94.6 Dysmenorrhea, unspecified (principal)
CPT/HCPCS: 76830; 76856

== ENCOUNTER 2024-06-05 20:54 | Emergency (ER) | payer OTHER, SELFPAY ==
[2024-06-05 20:55] VITALS: BP 151/93; PULSE 86; RESP 16; TEMP 36.8; O2SAT 98; BMI 34.1
--- NOTE | 2024-06-05 20:56 | ED.GENADULT ---
HPI - General Adult General Stated complaint: pain behind eyes, headache Related Data Home Medications ?Medication ?Instructions ?Recorded ?Confirmed albuterol sulfate 90 mcg/actuation 2 puff inhalation QID 10/03/22 04/19/24 aerosol inhaler (ProAir HFA) Adderall 10 mg PO DAILY 11/14/23 04/19/24 multivitamin 1 tab PO DAILY 11/14/23 04/19/24 Previous Rx's ?Medication ?Instructions ?Recorded albuterol sulfate 1.25 mg/3 mL 1.25 mg (3 mL) inhalation Q4-6H 03/01/22 solution for nebulization PRN shortness of breath or wheezing #90 mL COVID-19 antigen test (BinaxNOW #2 ea 12/22/23 COVID-19 Ag Self Test kit) diphenhydramine HCl 25 mg capsule 25 - 50 mg (1 - 2 x 25 mg) PO TID 12/27/23 (Benadryl) PRN allergy symptoms or migraine 30 days #30 caps azithromycin 250 mg tablet See Rx Instructions PO .COMPLEX #6 04/02/24 (Zithromax Z-Kit) tabs guaifenesin 100 mg/5 mL oral 200 mg (10 mL) PO Q6H PRN cough 04/02/24 liquid (Cough Syrup) #120 mL prednisone 20 mg tablet 40 mg (2 x 20 mg) PO DAILY #10 tabs 04/02/24 ondansetron 4 mg disintegrating 4 mg PO Q8H PRN nausea and 04/17/24 tablet vomiting 4 days #10 tabs rizatriptan 10 mg tablet 5 - 10 mg (0.5 - 1 x 10 mg) PO Q2H 04/19/24 PRN migraine headache 21 days #12 tabs atogepant 30 mg tablet (Qulipta) 30 mg PO DAILY 30 days #30 tabs 06/01/24 diclofenac potassium 50 mg tablet 50 mg PO BID PRN pain 30 days #60 06/01/24 tabs metoclopramide HCl 5 mg tablet 5 - 10 mg (1 - 2 x 5 mg) PO Q4-6H 06/01/24 PRN migraine headache 7 days #28 tabs rizatriptan 10 mg tablet 5 - 10 mg (0.5 - 1 x 10 mg) PO Q2H 06/01/24 PRN migraine headache 30 days #12 tabs Allergies Allergy/AdvReac Type Severity Reaction Status Date / Time No Known Allergies Allergy Verified 06/05/24 20:59 [facility] Past Medical History Medical History Migraines Asthma HESHAM (stress urinary incontinence, female) Cholecystectomy planned Appendicitis Surgical History Hx of cholecystectomy Hx of appendectomy S/P panniculectomy Gastric bypass status for obesity Tubal ligation status Family History Family History Mother Prediabetes Rheumatoid arthritis Hypertension Father Medical history unknown Other Family history of multiple sclerosis Family history of rheumatoid arthritis Family history of systemic lupus erythematosus Social History Social History Alcohol intake: current Alcohol intake frequency: holidays/special occasions only Patient Tobacco Use Status: Current someday Tobacco user Current occupational status: unemployed 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 She reports a history of migraines, but this feels similar. She has a history of 2 pituitary adenomas and had a brain MRI at [facility] on Monday. Her headache has been going on for over a week. Plan for labs including ESR and will attempt to get records from [facility] Discharge Plan Discharge Prescriptions: No Action diphenhydramine HCl [Benadryl] 25 mg capsule 25 - 50 mg PO TID PRN (Reason: allergy symptoms or migraine) 30 Days Qty: 30 1RF rizatriptan 10 mg tablet 5 - 10 mg PO Q2H PRN (Reason: migraine headache) 30 Days Qty: 12 3RF Rx Instructions: max 2 tabs per day or 4 tabs per week diclofenac potassium 50 mg tablet 50 mg PO BID PRN (Reason: pain) 30 Days Qty: 60 1RF metoclopramide HCl 5 mg tablet 5 - 10 mg PO Q4-6H PRN (Reason: migraine headache) 7 Days Qty: 28 0RF Qulipta 30 mg tablet 30 mg PO DAILY 30 Days Qty: 30 6RF albuterol sulfate 1.25 mg/3 mL solution for nebulization 1.25 mg inhalation Q4-6H PRN (Reason: shortness of breath or wheezing) Qty: 90 0RF (DME) BinaxNOW COVID-19 Ag Self Test Kit See Rx Instructions .Route Qty: 2 0RF Rx Instructions: As directed ondansetron 4 mg tablet,disintegrating 4 mg PO Q8H PRN (Reason: nausea and vomiting) 4 Days Qty: 10 0RF Adderall 10 mg 10 mg PO DAILY multivitamin [Multi-Day] Tablet 1 tab PO DAILY azithromycin [Zithromax Z-Kit] 250 mg tablet See Rx Instructions .ROUTE .COMPLEX Qty: 6 0RF Rx Instructions: take 500 mg today (day 1), then 250 mg for 4 days (days 2-5) prednisone 20 mg tablet 40 mg PO DAILY Qty: 10 0RF guaifenesin [Cough Syrup] 100 mg/5 mL liquid 200 mg PO Q6H PRN (Reason: cough) Qty: 120 0RF albuterol sulfate [ProAir HFA] 90 mcg/actuation HFA aerosol inhaler 2 puff inhalation QID rizatriptan 10 mg tablet 5 - 10 mg PO Q2H PRN (Reason: migraine headache) 21 Days Qty: 12 0RF Print Language: Turkmen
[2024-06-05 21:17] LABS: MANUAL DIFF FLAG NO
[2024-06-05 21:18] LABS: Basophils Percent Auto 0.5 % (0-2); Eosinophils Percent Auto 0.4 % (0-4); Hematocrit 36.1 % (37.0-47.0); Imm Gran Abs Auto 0.02 X10*3/uL (0.00-0.03); Imm Gran Pct Auto 0.3 % (0.0-0.4); Lymphocytes Absolute Auto 1.4 X10*3/uL (1.2-4.9); Mean Corpuscular HGB Conc 33.2 g/dl (31.0-35.0); Mean Corpuscular Hemoglobin 28.9 pg (27.0-33.0); Mean Platelet Volume 9.9 fL (9.4-12.3); Monocytes Absolute Auto 0.6 X10*3/uL (0.1-1.2); Monocytes Percent Auto 7.8 % (2-11); Neutrophils Absolute Auto 5.8 x10*3/uL (2.0-8.3); Platelet Count 321 X10*3/uL (160-400); Red Blood Count 4.15 X10*6/uL (4.20-5.50); Red Cell Distribution Width 13.1 % (11.0-16.0)
[2024-06-05 21:30] LABS: Anion Gap 15 (12-20); Blood Urea Nitrogen 11 mg/dL (9-16); Calcium 9.8 mg/dL (8.4-10.2); Carbon Dioxide 23 mmol/L (22-29); Chloride 106 mmol/L (96-108); Creatinine Clr Calc Pharmacy 115.8; Estimated Glomerular Filt Rate > 60; Glucose Random 116 mg/dL (60-115); Potassium 3.8 mmol/L (3.3-5.1); Sodium 140 mmol/L (135-145)
[2024-06-05 21:49] LABS: HCG Quantitative < 2 mIU/mL
[2024-06-05 22:12] LABS: Erythrocyte Sedimentation Rate 13 MM/HR (0-20)
--- NOTE | 2024-06-06 01:43 | PC.NURSE ---
pt did not notify any staff they were leaving facility. No answer when called for reassessment.
== END 2024-06-06 01:56 | disposition left against medical advice (07) ==
PROVIDERS: Physician Assistant; Emergency Provider Emergency Medicine; PCP Internal Medicine
DX: R51.9 Headache, unspecified (principal); Z53.21 Procedure and treatment not carried out due to patient leaving prior to being seen by health care provider
CPT/HCPCS: 36415; 80048; 84702; 85025; 85652; 99281

== ENCOUNTER 2024-07-09 08:47 | Emergency (ER) | payer OTHER, SELFPAY ==
--- NOTE | ~2024-07-09 | XR_ITS ---
EXAMINATION: XR LUMBOSACRAL SPINE CLINICAL INFORMATION: Low back pain COMPARISON: None available. TECHNIQUE: Three views of the lumbosacral spine. FINDINGS: There is mild facet degenerative change at the lumbosacral junction. No fracture or destructive process. Mild disc space narrowing L5-S1. Anterior spondylitic changes lower thoracic spine. SI joints symmetric. There are surgical clips seen in the right mid abdomen. XR/XR lumbar spine 2-3V IMPRESSION: Degenerative change in the lower lumbar spine. No acute findings. Electronically signed by: Will Schulz MD 07/09/2024 11:59 AM EDT
[2024-07-09 09:17] VITALS: BP 140/86; PULSE 97; RESP 18; TEMP 37.4; O2SAT 100; BMI 35.1
--- NOTE | 2024-07-09 10:00 | ED.BACK ---
HPI - Back Pain/Injury General Chief Complaint: Back Pain/Injury Stated Complaint: Sciatic pain Time Seen by Provider: 07/09/24 09:26 Source: patient, RN notes reviewed and old records reviewed Mode of arrival: ambulatory History of Present Illness ED Provider: Ana Hernández PA-C HPI Narrative: 38-year-old female with a past medical history of migraines, asthma, presenting to the ED complaining of low back pain radiating down bilateral lower extremities x3 days s/p sitting up for a libertarian. Reports history of herniated disc. Denies direct injury/trauma or fall, numbness/weakness, new or worsening incontinence, retention. Reports chronic incontinence x years, unchanged. Denies fever. Has been taking Flexeril, Percocet, gabapentin at home without relief MD elicited complaint: back pain Related Data Home Medications ?Medication ?Instructions ?Recorded ?Confirmed albuterol sulfate 90 mcg/actuation 2 puff inhalation QID 10/03/22 04/19/24 aerosol inhaler (ProAir HFA) Adderall 10 mg PO DAILY 11/14/23 04/19/24 multivitamin 1 tab PO DAILY 11/14/23 04/19/24 Previous Rx's ?Medication ?Instructions ?Recorded albuterol sulfate 1.25 mg/3 mL 1.25 mg (3 mL) inhalation Q4-6H 03/01/22 solution for nebulization PRN shortness of breath or wheezing #90 mL COVID-19 antigen test (BinaxNOW #2 ea 12/22/23 COVID-19 Ag Self Test kit) diphenhydramine HCl 25 mg capsule 25 - 50 mg (1 - 2 x 25 mg) PO TID 12/27/23 (Benadryl) PRN allergy symptoms or migraine 30 days #30 caps azithromycin 250 mg tablet See Rx Instructions PO .COMPLEX #6 04/02/24 (Zithromax Z-Kit) tabs guaifenesin 100 mg/5 mL oral 200 mg (10 mL) PO Q6H PRN cough 04/02/24 liquid (Cough Syrup) #120 mL prednisone 20 mg tablet 40 mg (2 x 20 mg) PO DAILY #10 tabs 04/02/24 ondansetron 4 mg disintegrating 4 mg PO Q8H PRN nausea and 04/17/24 tablet vomiting 4 days #10 tabs rizatriptan 10 mg tablet 5 - 10 mg (0.5 - 1 x 10 mg) PO Q2H 04/19/24 PRN migraine headache 21 days #12 tabs atogepant 30 mg tablet (Qulipta) 30 mg PO DAILY 30 days #30 tabs 06/01/24 diclofenac potassium 50 mg tablet 50 mg PO BID PRN pain 30 days #60 06/01/24 tabs metoclopramide HCl 5 mg tablet 5 - 10 mg (1 - 2 x 5 mg) PO Q4-6H 06/01/24 PRN migraine headache 7 days #28 tabs rizatriptan 10 mg tablet 5 - 10 mg (0.5 - 1 x 10 mg) PO Q2H 06/01/24 PRN migraine headache 30 days #12 tabs acetaminophen 500 mg tablet 500 mg PO Q6H PRN fever or pain 07/09/24 (Tylenol Extra Strength) #14 tabs cyclobenzaprine 5 mg tablet 5 mg PO Q8H PRN pain (scale score 07/09/24 7-10) 5 days #14 tabs lidocaine 5 % topical patch 1 patch topical DAILY PRN pain #30 07/09/24 (Lidoderm) ea naproxen 500 mg tablet 500 mg PO BID PRN pain 10 days #20 07/09/24 tabs nitrofurantoin 100 mg PO Q12H 7 days #14 caps 07/09/24 monohydrate/macrocrystals 100 mg capsule (Macrobid) Allergies Allergy/AdvReac Type Severity Reaction Status Date / Time No Known Allergies Allergy Verified 07/09/24 09:18 Review of Systems Review of Systems: Yes all other systems are reviewed and are negative Constitutional: Constitutional: Reports as per [facility] Past Medical History Attestation statement: The following information was validated with the patient. Source: old records reviewed Medical History Migraines Asthma HESHAM (stress urinary incontinence, female) Cholecystectomy planned Appendicitis Surgical History Hx of cholecystectomy Hx of appendectomy S/P panniculectomy Gastric bypass status for obesity Tubal ligation status Family History Family History Mother Prediabetes Rheumatoid arthritis Hypertension Father Medical history unknown Other Family history of multiple sclerosis Family history of rheumatoid arthritis Family history of systemic lupus erythematosus Social History Social History Alcohol intake: current Alcohol intake frequency: holidays/special occasions only Patient Tobacco Use Status: Current someday Tobacco user Advance Directives: No Current occupational status: unemployed 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 Physical Exam Vital Signs: Vital Signs: Last Vital Signs Temp 97.9 F 07/09/24 12:33 Pulse 88 07/09/24 12:33 Resp 16 07/09/24 12:33 BP 133/81 07/09/24 12:33 Pulse Ox 100 07/09/24 12:33 O2 Del Method Room Air 07/09/24 12:33 BMI result Body Mass Index 35.1 Const: General: cooperative, healthy appearing and no acute distress Orientation/consciousness: patient oriented x3 Limitations: no limitations HEENT: Head: Yes normal to inspection and Yes atraumatic Ears: hearing grossly normal bilaterally General nose exam: Normal external nose present Face and sinus: Yes normal facial exam Eyes: General: appearance normal, both eyes and all related structures EOM: EOMs intact bilaterally Neck: Neck: Yes normal visual inspection and Yes no meningeal signs Resp: Effort & Inspection: normal respiratory effort and no respiratory distress Cardio: Rate: regular rate GI: Inspection: Yes normal to inspection Palpation (GI): Soft to palpation, nontender, no guarding and not rigid : General: Yes no CVA tenderness Back/Spine/Pelvis: Other: No midline cervical/thoracic/lumbar spinous tenderness/step-off or deformity. + bilateral lumbar paraspinal/MSK reproducible tenderness. No rash/erythema or ecchymosis Back: no CVA tenderness Skin: Rashes: no rashes Wounds: no wounds Neuro: Other: Strength intact throughout. No saddle anesthesia. Sensation intact to light touch. Neurovascular intact distally General: patient oriented x3, tone normal and no meningeal signs Cranial nerves: Yes CN's II-XII intact bilaterally Gait exam (Neuro): Normal gait present Extrem: General: Yes normal to inspection Course Course Course Narrative: -UA infected will give p.o. Macrobid XR lumbar spine 2-3V IMPRESSION: Degenerative change in the lower lumbar spine. No acute findings. -patient reports mild symptomatic improvement after initial medications given ED. Will try p.o. morphine -1215--on re-evaluation patient reports symptomatic improvement. He feels comfortable for discharge home at this time. >1219- now patient reports chest pain. 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 Patient reports history of anxiety with similar presentation. Does not currently take medication -1332--labs reassuring, troponin negative. reports sx improvement at present Results discussed with patient including worrisome signs and symptoms and strict return precautions, and when to return to the emergency department. They verbalized understanding and feel safe for discharge at this time. Medications Administered Discontinued Medications Generic Name Dose Route Start Last Admin Trade Name Duke PRN Reason Stop Dose Admin Acetaminophen 975 mg 07/09/24 12:42 07/09/24 12:50 Acetaminophen 325 Mg Tablet PO 07/09/24 12:43 975 mg ONCE ONE Administration Cyclobenzaprine HCl 10 mg 07/09/24 09:53 07/09/24 10:20 Cyclobenzaprine Hcl 10 Mg Tablet PO 07/09/24 09:54 10 mg ONCE ONE Administration Hydroxyzine HCl 25 mg 07/09/24 12:54 07/09/24 12:58 Hydroxyzine Hcl 25 Mg Tablet PO 07/09/24 12:55 25 mg ONCE ONE Administration Ketorolac Tromethamine 30 mg 07/09/24 09:53 07/09/24 10:20 Ketorolac Tromethamine 30 Mg/Ml Vial IM 07/09/24 09:54 30 mg ONCE ONE Administration Lidocaine 1 patch 07/09/24 09:53 07/09/24 10:02 Lidocaine 4 % Patch Adh..Patch TRANSDERMA 07/09/24 09:54 1 patch ONCE ONE Administration Protocol Morphine Sulfate 15 mg 07/09/24 11:33 07/09/24 11:52 Morphine Sulfate Immed Release 15 Mg Tablet PO 07/09/24 11:34 15 mg ONCE ONE Administration Medical Decision Making Medical Decision Making MDM Narrative: 38-year-old female with a past medical history of migraines, asthma, presenting to the ED complaining of low back pain radiating down bilateral lower extremities x3 days s/p sitting up for a libertarian. On exam vital signs stable, NAD, nontoxic appearing, no midline spinous tenderness throughout or red flag symptoms, ambulating with steady gait, no saddle anesthesia. Concern for sciatica vs MSK pain/strain vs herniated disc. Low suspicion for cauda equina, cord compression, epidural abscess, renal stone/pyelo or fracture Plan: X-ray, UA, pain control Please refer to course for remaining clinical decision making, interpretation of labs/imaging results, and discussions with consultants and/or family members. Differential Diagnosis Differential Diagnoses: The differential diagnosis associated with the presentation includes As above Admission/Observation Consideration of admission/observation: Escalation of care including admission/observation considered Lab Data MDM Lab Attestation statement: I reviewed the patient's lab results. 07/09/24 12:49 07/09/24 12:49 Labs: Lab Results 07/09/24 07/09/24 Range/Units 10:02 12:49 WBC 8.5 (4.8-10.8) X10*3/uL RBC 4.19 L (4.20-5.50) X10*6/uL Hgb 11.6 L (12.0-16.0) g/dl Hct 35.3 L (37.0-47.0) % MCV 84.2 (80.0-98.0) fL MCH 27.7 (27.0-33.0) pg MCHC 32.9 (31.0-35.0) g/dl RDW 13.5 (11.0-16.0) % Plt Count 292 (160-400) X10*3/uL MPV 10.1 (9.4-12.3) fL Immature Gran % (Auto) 0.4 (0.0-0.4) % Neut % (Auto) 55.3 (45-73) % Lymph % (Auto) 34.3 (20-40) % [place] % (Auto) 8.5 (2-11) % Eos % (Auto) 1.1 (0-4) % Baso % (Auto) 0.4 (0-2) % Lymph # (Auto) 2.9 (1.2-4.9) X10*3/uL [place] # (Auto) 0.7 (0.1-1.2) X10*3/uL Eos # (Auto) 0.1 (0.0-0.4) X10*3/uL Baso # (Auto) 0.0 (0.0-0.2) X10*3/uL Abs Immat Gran (auto) 0.03 (0.00-0.03) X10*3/uL Absolute Neuts (auto) 4.7 (2.0-8.3) x10*3/uL Absolute Nucleated RBC 0.000 (0.0-0.012) X10*3/uL Nucleated RBC % (auto) 0.0 (0.0-0.2) /100WBC Sodium 139 (135-145) mmol/L Potassium 3.8 (3.3-5.1) mmol/L Chloride 108 (96-108) mmol/L Carbon Dioxide 24 (22-29) mmol/L Anion Gap 11 L (12-20) BUN 12 (9-16) mg/dL Creatinine 0.73 (0.5-1.4) mg/dL Estim Creat Clear Calc 125.5 Estimated GFR > 60 Random Glucose 99 (60-115) mg/dL Calcium 9.4 (8.4-10.2) mg/dL Troponin I High Sens < 2.7 (<3.5-17.0) ng/L Urine Color Yellow Urine Appearance Clear Urine pH 7.0 (5.0-9.0) Ur Specific [place] 1.020 (1.005-1.025) Urine Protein Negative (Neg-Trace) mg/dL Urine Glucose (UA) Negative (Negative) mg/dL Urine Ketones Negative (Negative) mg/dL Urine Blood Negative (Negative) Urine Nitrite Negative (Negative) Ur Leukocyte Esterase Small (1+) H (Negative) Urine RBC 0-2 (0-2) /HPF Urine WBC 11-20 H (0-5) /HPF Ur Squamous Epith Cells 3-5 (0-2) /HPF Urine Bacteria None Seen (None Seen) Hyaline Casts 0-2 (0-2) /LPF Urine Test NEGATIVE (NEGATIVE) Independent Interpretation I performed an independent interpretation of an: EKG (My interpretation EKG sinus rhythm with short CT rate of 78. Pr interval 110. QTC 417. No significant change when compared to prior) Radiology Impression Discussion of test interpretation with radiology: I have reviewed the radiologist's reading. External Record Review External record reviewed: Inpatient record, Office record, Outpatient record, Prior outpatient labs, Prior outpatient radiology, Primary care record and Outside ED record Tests considered The following testing was considered but not selected: As above Prescription Management I considered prescription management with: Pain Medication Discharge Plan Discharge Clinical Impression: Sciatica, UTI (urinary tract infection) Patient Disposition: Home, Self-Care Instructions: Urinary Tract Infection in Women (DC), Sciatica (ED) Additional Instructions: you have a UTI. Macrobid as an antibiotic please take as prescribed Your pain is likely musculoskeletal Flexeril is a muscle relaxer, take at night as it makes you drowsy, do not drive, drink alcohol, or operate machinery while taking it Naproxen as an anti-inflammatory / pain medication, take with food Lidoderm patches are numbing patches, apply to painful area In addition take Tylenol at home If symptoms persist or worsen, pain becomes unbearable, you developed urinary retention or incontinence, or weakness return to the ED Prescriptions: New acetaminophen [Tylenol Extra Strength] 500 mg tablet 500 mg PO Q6H PRN (Reason: fever or pain) Qty: 14 0RF lidocaine [Lidoderm] 5 % adhesive patch,medicated 1 patch topical DAILY MDD remove after 12 hours PRN (Reason: pain) Qty: 30 0RF Rx Instructions: leave on most painful area for up to 12 hrs naproxen 500 mg tablet 500 mg PO BID PRN (Reason: pain) 10 Days Qty: 20 0RF cyclobenzaprine 5 mg tablet 5 mg PO Q8H PRN (Reason: pain (scale score 7-10)) 5 Days Qty: 14 0RF nitrofurantoin monohyd/m-cryst [Macrobid] 100 mg capsule 100 mg PO Q12H 7 Days Qty: 14 0RF Rx Instructions: must administer with a meal/food No Action diphenhydramine HCl [Benadryl] 25 mg capsule 25 - 50 mg PO TID PRN (Reason: allergy symptoms or migraine) 30 Days Qty: 30 1RF rizatriptan 10 mg tablet 5 - 10 mg PO Q2H PRN (Reason: migraine headache) 30 Days Qty: 12 3RF Rx Instructions: max 2 tabs per day or 4 tabs per week diclofenac potassium 50 mg tablet 50 mg PO BID PRN (Reason: pain) 30 Days Qty: 60 1RF metoclopramide HCl 5 mg tablet 5 - 10 mg PO Q4-6H PRN (Reason: migraine headache) 7 Days Qty: 28 0RF Qulipta 30 mg tablet 30 mg PO DAILY 30 Days Qty: 30 6RF albuterol sulfate 1.25 mg/3 mL solution for nebulization 1.25 mg inhalation Q4-6H PRN (Reason: shortness of breath or wheezing) Qty: 90 0RF (DME) BinaxNOW COVID-19 Ag Self Test Kit See Rx Instructions .Route Qty: 2 0RF Rx Instructions: As directed ondansetron 4 mg tablet,disintegrating 4 mg PO Q8H PRN (Reason: nausea and vomiting) 4 Days Qty: 10 0RF Adderall 10 mg 10 mg PO DAILY multivitamin [Multi-Day] Tablet 1 tab PO DAILY azithromycin [Zithromax Z-Kit] 250 mg tablet See Rx Instructions .ROUTE .COMPLEX Qty: 6 0RF Rx Instructions: take 500 mg today (day 1), then 250 mg for 4 days (days 2-5) prednisone 20 mg tablet 40 mg PO DAILY Qty: 10 0RF guaifenesin [Cough Syrup] 100 mg/5 mL liquid 200 mg PO Q6H PRN (Reason: cough) Qty: 120 0RF albuterol sulfate [ProAir HFA] 90 mcg/actuation HFA aerosol inhaler 2 puff inhalation QID rizatriptan 10 mg tablet 5 - 10 mg PO Q2H PRN (Reason: migraine headache) 21 Days Qty: 12 0RF Referrals: [facility] [place] [facility] [Provider Group] [facility] [place] [facility] [Provider Group] Kerry Medina MD [Primary Care Provider] - Print Language: Chinese
[2024-07-09] MEDS: Lidocaine 4 % Patch ADH..PATCH 1 PATCH TRANSDERMA (10:02)
[2024-07-09] MEDS: Cyclobenzaprine HCl 10 MG TABLET PO (10:20)
[2024-07-09] MEDS: Ketorolac Tromethamine 30 MG/ML VIAL IM (10:20)
[2024-07-09 10:22] LABS: Appearance Urine Clear; Color Urine Yellow; Glucose Urine UA Negative (Negative); Leukocyte Esterase Urine Small (1+) (Negative); Nitrite Urine Negative (Negative); UMIC TRIGGER UACC YES; Urine Blood Negative (Negative); Urine Ketones Negative (Negative); Urine Protein Negative (Neg-Trace)
[2024-07-09 10:23] LABS: UPreg QC Valid YES; Urine Pregnancy NEGATIVE (NEGATIVE)
[2024-07-09 10:29] LABS: Bacteria Urine None Seen (None Seen); Hyaline Casts Urine 0-2 /LPF (0-2); RBC Urine 0-2 /HPF (0-2); UACC Culture Trigger YES
[2024-07-09] MEDS: Morphine Sulfate Immed Release 15 MG TABLET PO (11:52)
--- NOTE | 2024-07-09 12:17 | ECG_ITS ---
Test Reason : CHEST PAIN Blood Pressure : / mmHG Vent. Rate : 078 BPM Atrial Rate : 078 BPM P-R Int : 110 ms QRS Dur : 072 ms QT Int : 366 ms P-R-T Axes : 018 031 033 degrees QTc Int : 417 ms Sinus rhythm with short NE Otherwise normal ECG When compared with ECG of 27-MAY-2024 22:04, No significant change was found Referred By: Ana Hernández Electronically Signed By:ANDREW RODRIGUEZ
[2024-07-09 12:33] VITALS: BP 133/81; PULSE 88; RESP 16; TEMP 36.6; O2SAT 100
[2024-07-09] MEDS: Acetaminophen 325 MG TABLET 975 MG PO (12:50)
[2024-07-09 12:53] LABS: MANUAL DIFF FLAG NO
[2024-07-09 12:56] LABS: Basophils Percent Auto 0.4 % (0-2); Eosinophils Absolute Auto 0.1 X10*3/uL (0.0-0.4); Eosinophils Percent Auto 1.1 % (0-4); Hematocrit 35.3 % (37.0-47.0); Hemoglobin 11.6 g/dl (12.0-16.0); Imm Gran Abs Auto 0.03 X10*3/uL (0.00-0.03); Imm Gran Pct Auto 0.4 % (0.0-0.4); Lymphocytes Absolute Auto 2.9 X10*3/uL (1.2-4.9); Lymphocytes Percent Auto 34.3 % (20-40); Mean Corpuscular HGB Conc 32.9 g/dl (31.0-35.0); Mean Corpuscular Hemoglobin 27.7 pg (27.0-33.0); Mean Corpuscular Volume 84.2 fL (80.0-98.0); Mean Platelet Volume 10.1 fL (9.4-12.3); Monocytes Absolute Auto 0.7 X10*3/uL (0.1-1.2); Monocytes Percent Auto 8.5 % (2-11); Neutrophils Absolute Auto 4.7 x10*3/uL (2.0-8.3); Neutrophils Percent Auto 55.3 % (45-73); Platelet Count 292 X10*3/uL (160-400); Red Blood Count 4.19 X10*6/uL (4.20-5.50); Red Cell Distribution Width 13.5 % (11.0-16.0); White Blood Count 8.5 X10*3/uL (4.8-10.8)
[2024-07-09] MEDS: hydrOXYzine HCL 25 MG TABLET PO (12:58)
[2024-07-09 13:16] LABS: Anion Gap 11 (12-20); Blood Urea Nitrogen 12 mg/dL (9-16); Calcium 9.4 mg/dL (8.4-10.2); Carbon Dioxide 24 mmol/L (22-29); Chloride 108 mmol/L (96-108); Creatinine Clr Calc Pharmacy 125.5; Estimated Glomerular Filt Rate > 60; Glucose Random 99 mg/dL (60-115); Potassium 3.8 mmol/L (3.3-5.1); Sodium 139 mmol/L (135-145)
[2024-07-09 13:27] LABS: Troponin-I High Sensitivity < 2.7 ng/L (<3.5-17.0)
[2024-07-09 14:18] VITALS: BP 122/73; PULSE 76; RESP 16; TEMP 36.5; O2SAT 99
== END 2024-07-09 14:19 | disposition home or self-care (01) ==
PROVIDERS: Physician Assistant; Emergency Provider Emergency Medicine; PCP Internal Medicine
DX: M54.41 Lumbago with sciatica, right side (principal); M54.42 Lumbago with sciatica, left side; R07.89 Other chest pain; Z79.899 Other long term (current) drug therapy
CPT/HCPCS: 36415; 72100; 80048; 81001; 81025; 84484; 85025; 87086; 93005; 96372; 99284; J1885

== ENCOUNTER 2024-08-01 09:42 | Outpatient (AMB) | payer OTHER, SELFPAY ==
--- NOTE | 2024-08-01 09:46 | A.OFFVIS_ITS ---
Vital Signs 08/01/24 09:47 Height 5 ft 7 in Weight 222 lb BMI 34.8 BP 139/91 H Blood Pressure Location Rt brachial Position Sitting Pulse 84 Pulse Source Pulse Oximeter Pulse Oximetry (%) 100 Oxygen Delivery Method Room Air Intake Visit Reasons: [facility] PAIN/ED REFERRAL Allergies No Known Allergies Allergy (Verified 08/01/24 09:47) Medication List - Last Reconciled 08/01/24 by Madelyn Martini acetaminophen (Tylenol Extra Strength) 500 mg PO Q6H PRN [Adderall 10 mg PO DAILY] albuterol sulfate 1.25 mg (3 mL) inhalation Q4-6H PRN albuterol sulfate 90 mcg/actuation (ProAir HFA) 2 puffs inhalation QID atogepant (Qulipta) 30 mg PO DAILY 30 days azithromycin (Zithromax Z-Kit) take 500 mg today (day 1), then 250 mg for 4 days (days 2-5) COVID-19 antigen test ([employer] COVID-19 Ag Self Test kit) As directed cyclobenzaprine 5 mg PO Q8H PRN 5 days diclofenac potassium 50 mg PO BID PRN 30 days diphenhydramine HCl (Benadryl) 25 - 50 mg (1 - 2 x 25 mg) PO TID PRN 30 days guaifenesin (Cough Syrup) 200 mg (10 mL) PO Q6H PRN lidocaine 5% (Lidoderm) 1 patch topical DAILY PRN MDD remove after 12 hours metoclopramide HCl 5 - 10 mg (1 - 2 x 5 mg) PO Q4-6H PRN 7 days multivitamin 1 tab PO DAILY naproxen 500 mg PO BID PRN 10 days nitrofurantoin monohyd/m-cryst 100 mg (Macrobid) 100 mg PO Q12H 7 days ondansetron 4 mg PO Q8H PRN 4 days prednisone 40 mg (2 x 20 mg) PO DAILY rizatriptan 5 - 10 mg (0.5 - 1 x 10 mg) PO Q2H PRN 21 days rizatriptan 5 - 10 mg (0.5 - 1 x 10 mg) PO Q2H PRN 30 days HPI Comments Details: Katarina is a very pleasant 38-year-old female who presents to the office today for evaluation management of her chronic lower back pain. Past medical history: Hematuria, gastric sleeve surgery, fatigue, migraines, osteoarthritis, anxiety, anemia, fibromyalgia, migraines, restless leg syndrome, pituitary microadenoma, chronic back pain Patient was evaluated in the emergency room 3 weeks ago, referred here for E/M Recent x-ray reviewed, results as per below. She states she has been suffering with this pain for almost 20 years, though has been worse over the last 6 weeks. 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 At that time she was diagnosed with bulging discs . Denies history of neck or back surgery. Recently followed up with her primary care doctor, she has MRI ordered and is awaiting appointment. Referral has been placed her neuro spine but they are waiting to the MRIs completed before scheduling her appointment Patient endorses midline lower back pain with radiation down both legs to the feet. Denies bilateral lower extremity weakness. Denies red flag symptoms including new loss of bowel, bladder or saddle anesthesia Pain today is rated as an 8/10, constant throughout the day Worse with weather changes and movements. Improved with oral medications. Completed physical therapy more than 1 year ago but continues with home exercise program though reports does not help. She has undergone cortisone injections in the past, most recently nearly 10 years ago, with short-term improvement of her pain Currently taking nonsteroidal anti-inflammatory medications, muscle relaxers, gabapentin all without improvement of her symptoms In terms of muscle damage condition is described as stabbing, sharp, tugging, dull, spreading Pain is negatively impacting patient's enjoyment of life, general activity, sleep, work, walking, ability to care for self, ability to perform activities of daily living Denies implantable devices, pacemaker defibrillator Denies current use of anticoagulants Denies current use of nicotine, tobacco or illicit substances Endorses social EtOH use [facility] Medical History Migraines Asthma HESHAM (stress urinary incontinence, female) Cholecystectomy planned Appendicitis Surgical History Hx of cholecystectomy Hx of appendectomy S/P panniculectomy Gastric bypass status for obesity Tubal ligation status Family History Mother Prediabetes Rheumatoid arthritis Hypertension Father Medical history unknown Other Family history of multiple sclerosis Family history of rheumatoid arthritis Family history of systemic lupus erythematosus Social History Alcohol intake: current Alcohol intake frequency: holidays/special occasions only Patient Tobacco Use Status: Current someday Tobacco user Current occupational status: unemployed 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 Answers questions appropriately. Fully engaged in examination. Skin: warm, dry, intact HEENT: Normocephalic. Hearing intact. Cardiac: External chest normal in appearance. Respiratory: No cough, audible wheezing or stridor. Abdomen: without gross distension. MS: No obvious swelling or deformities. Able to stand on bilateral tiptoes and bilateral heels.? Able to transition from sit to stand unassisted. Ambulates with bilaterally normal heel strike and toe off SLR positive bilaterally. Right greater than left Spurling positive bilaterally Pain with forward flexion at 40 degrees, no pain with lumbar extension Bilateral lower extremity strength 5/5 Negative footdrop, negative clonus Nontender over bilateral PSIS Tenderness over midline lumbar vertebrae and lower paraspinal muscles Neurological: Oriented to person, place, time and situation. Thought process intact. No gait abnormalities appreciated. Psychiatric: Appropriate mood and affect. Good judgment and insight. Results Reviewed Results Reviewed: 07/09/24 LS FINDINGS: There is mild facet degenerative change at the lumbosacral junction. No fracture or destructive process. Mild disc space narrowing L5-S1. Anterior spondylitic changes lower thoracic spine. SI joints symmetric. There are surgical clips seen in the right mid abdomen. IMPRESSION: Degenerative change in the lower lumbar spine. No acute findings. 08/25/22 CT/CT lumbar spine wo IV con FINDINGS: Normal anatomic alignment. No evidence of acute fracture or traumatic subluxation. The vertebral body heights are maintained. The intervertebral disc spaces are maintained. No suspicious lytic or sclerotic osseous lesions. Mild broad-based disc bulge at L4-L5 and L5-S1 which results in mild canal stenosis. Mild multilevel facet arthropathy. No significant neural foraminal narrowing. Transitional lumbosacral anatomy with a broad-based left L5 transverse process pseudoarticulating with the sacrum which can be a source of pain. Mild degenerative changes of the bilateral sacroiliac joints. No significant abnormalities of the paraspinal musculature. Limited evaluation of the intra-abdominal structures without significant abnormalities. The abdominal aorta is of normal contour and caliber. IMPRESSION: 1. No acute fracture or traumatic subluxation. 2. Mild broad-based disc bulge at L4-L5 and L5-S1 which results in mild canal stenosis. No significant neural foraminal narrowing. 3. Transitional lumbosacral anatomy with a broad-based left L5 transverse process pseudoarticulating with the sacrum which can be a source of pain. Assessment & Plan Assessment & Plan (1) Lumbar radiculopathy: Code(s): M54.16 - Radiculopathy, lumbar region Category: Medical (2) Chronic back pain: Code(s): M54.9 - Dorsalgia, unspecified; G89.29 - Other chronic pain Category: Medical (3) Lumbar spondylosis: Code(s): M47.816 - Spondylosis without myelopathy or radiculopathy, lumbar region Category: Medical Plan Katarina is a very pleasant 38-year-old female who presented to the office today for evaluation management of her chronic lower back pain History, physical exam and provocative testing consistent with lumbar spondylosis and lumbar radiculopathy Awaiting MRI appointment, ordered by PCP. Plan to follow up with neuro spine after MRI completion. Refill cyclobenzaprine 5 mg p.o. 3 times daily as needed. Patient advised on cautions for use All questions and concerns were answered, patient agrees with the plan. Follow- up after neuro spine evaluation, sooner if needed Medications: Changed From cyclobenzaprine 5 mg PO Q8H 5 days PRN 14 tabs 0RF pain (scale score 7-10) To cyclobenzaprine 5 mg PO Q8H 30 days PRN 90 tabs 0RF muscle spasm Coding Level of Care Code New Pt Level 4 (92509) Complex EM visit Add On G2211 Diagnoses Lumbar radiculopathy M54.16 Chronic back pain M54.9; G89.29 Lumbar spondylosis M47.816
[2024-08-01 09:47] VITALS: BP 139/91; PULSE 84; O2SAT 100; BMI 34.8
== END 2024-08-01 10:07 | disposition home or self-care (01) ==
PROVIDERS: PCP Internal Medicine; Visit Provider Registered Nurse Emergency
DX: M54.16 Radiculopathy, lumbar region (principal); M54.9 Dorsalgia, unspecified; G89.29 Other chronic pain; M47.816 Spondylosis without myelopathy or radiculopathy, lumbar region
CPT/HCPCS: 99204; G2211

== ENCOUNTER → 2024-08-01 09:42 | Outpatient (BNVA) | payer OTHER, SELFPAY | PROVIDERS: PCP Internal Medicine; Visit Provider Registered Nurse Emergency | DX: M47.26 Other spondylosis with radiculopathy, lumbar region (principal); G89.29 Other chronic pain | CPT/HCPCS: 99202 ==

== ENCOUNTER 2024-10-07 07:32 | Outpatient (AMB) | payer OTHER, SELFPAY ==
--- NOTE | 2024-10-07 07:33 | MHC.OFFVIS ---
Intake Visit Reasons: Follow Up Intake Note: Patient presents for follow up Allergies No Known Allergies Allergy (Verified 08/01/24 09:47) Medication List - Last Reconciled 10/07/24 by JOYCE Herring acetaminophen (Tylenol Extra Strength) 500 mg PO Q6H PRN [Adderall 10 mg PO DAILY] albuterol sulfate 1.25 mg (3 mL) inhalation Q4-6H PRN albuterol sulfate 90 mcg/actuation (ProAir HFA) 2 puffs inhalation QID atogepant (Qulipta) 30 mg PO DAILY 30 days azithromycin (Zithromax Z-Kit) take 500 mg today (day 1), then 250 mg for 4 days (days 2-5) COVID-19 antigen test (Konnektid COVID-19 Ag Self Test kit) As directed cyclobenzaprine 5 mg PO Q8H PRN 30 days diclofenac potassium 50 mg PO BID PRN 30 days diphenhydramine HCl (Benadryl) 25 - 50 mg (1 - 2 x 25 mg) PO TID PRN 30 days guaifenesin (Cough Syrup) 200 mg (10 mL) PO Q6H PRN lidocaine 5% (Lidoderm) 1 patch topical DAILY PRN MDD remove after 12 hours losartan-hydrochlorothiazide 50-12.5 mg 1 tab PO DAILY metoclopramide HCl 5 - 10 mg (1 - 2 x 5 mg) PO Q4-6H PRN 7 days multivitamin 1 tab PO DAILY naproxen 500 mg PO BID PRN 10 days nitrofurantoin monohyd/m-cryst 100 mg (Macrobid) 100 mg PO Q12H 7 days ondansetron 4 mg PO Q8H PRN 4 days prednisone 40 mg (2 x 20 mg) PO DAILY quetiapine ER 50 mg PO BEDTIME rizatriptan 5 - 10 mg (0.5 - 1 x 10 mg) PO Q2H PRN 21 days rizatriptan 5 - 10 mg (0.5 - 1 x 10 mg) PO Q2H PRN 30 days tirzepatide (weight loss) (Zepbound) mg subcut HPI Comments Details: 38-yr-old female presents for f/u televideo visit for migraine and RLS via D[employer] Pt has been recently diagnosed with HTN, with blood pressures as high as 150s/100s. She was started on losartan HCTZ, which she is tolerating well. She also had an exacerbation of her bipolar symptoms, and has been started on quetiapine ER 50 mg q.h.s., with the quetiapine IR 50 mg p.r.n. order. So far, this has been helping, also helping with her sleep. She has not been noticing as much restless leg symptoms, she thinks this is because she is sleeping better on the quetiapine. Her last ferritin in 01/03/2024 was 150 normal limit, after undergoing IV iron infusion therapy. She also started Zepbound injection last night- for weight loss. She asks when she is due for her next pituitary/brain MRI. Reviewed [facility] endocr[facility], pituitary MRI and labs scheduled for 01/02/2025. Patient is not sure when her next endocrinology appointment is. Pt reports her migraines have decreased. Now has a daily headache with some light sound sensitivity, and 1-2 severe migraine attacks per month. The migraines tend to come on in the evening. She notes her migraine attacks tend to cycle every couple of months- more severe/frequent (severe daily migraine) to current status (moderate 2-3 x's per week) Uses rizatriptan p.r.n. during the day with the fact. However feels Amitriptyline 5-10mg prn at bedtime, is most effective as it puts her to sleep. She can not take amitriptyline daily, as it leads to daytime grogginess. Baseline headache characteristics: Aura: Rarely- can see colorful spots/splotches- unsure if before or during the headache. Severe, starts as throbbing and pressure bifrontal, bitemporal, and retroorbital, which moves into bilateral occipital regions as a tight/pressure pain a/w photophobia, phonophobia, sometimes osmophobia, nausea, brain fog, fatigue, wants to lay down- but can make headache worse- has difficulty finding a comfortable position. Sometimes needs to pace or restless in bed. Forehead feels warm, feels nasal/maxillary and frontal sinus pressure/congestion. Her carpal tunnel symptoms are worse. [facility] Medical History Migraines Asthma HESHAM (stress urinary incontinence, female) Cholecystectomy planned Appendicitis Surgical History Hx of cholecystectomy Hx of appendectomy S/P panniculectomy Gastric bypass status for obesity Tubal ligation status Family History Mother Prediabetes Rheumatoid arthritis Hypertension Father Medical history unknown Other Family history of multiple sclerosis Family history of rheumatoid arthritis Family history of systemic lupus erythematosus Social History Alcohol intake: current Alcohol intake frequency: holidays/special occasions only Patient Tobacco Use Status: Current someday Tobacco user Current occupational status: unemployed 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 Physical Exam Const General: cooperative and no acute distress Orientation/consciousness: patient oriented x3 Resp Effort & Inspection: normal respiratory effort and able to speak in complete sentences Neuro General: patient oriented x3 Cognition (Neuro): normal cognition Psych Appearance: grossly normal Mental Status: mental status grossly normal Speech and movement: Normal speech and movement present Affect: normal affect Attitude: cooperative Telehealth Telehealth Telehealth Platform: Telephone Location of provider rendering services: practice address Location of patient: address on file Patient Identification confirmed using: Name, : Yes Telehealth method: video Patient verbally consented to treatment: Yes Patient verbally consented to billing insurance company: Yes Patient informed of any privacy concerns related to visit: Yes Minutes spent on Phone/Video with Pt.: 24 Assessment & Plan Assessment & Plan (1) Migraine without aura: Code(s): G43.009 - Migraine without aura, not intractable, without status migrainosus Category: Medical (2) Migraine with aura: Code(s): G43.109 - Migraine with aura, not intractable, without status migrainosus Category: Medical (3) Pituitary microadenoma: Code(s): D35.2 - Benign neoplasm of pituitary gland Category: Medical (4) Restless leg syndrome: Code(s): G25.81 - Restless legs syndrome Category: Medical Plan For pituitary microadenoma- 11/28/23, Brain MRI w/wo- right anterior pituitary lobe 5.4 x 2.2 mm focus of hypoenhancement and a left anterior pituitary lobe 4.5 x 1.4 mm focus of hypoenhancement. 05/2024- Pituitary MRI- pituitary adenoma was measured to be 7 mm TI-RADS 4 mm with slight leftward deviation of the infundibulum, no suprasellar or cavernous sinus mass present and optic chiasm and nerve tract appeared to be normal in signal and contour. F/u Pituitary MRI in December 2024 F/u w/ [facility]- patient to call to confirm appointment time. For sleep and RLS: HST- AHI 2.8/hr w/ O2 slim 88%. December 2023- Ferritin 150 NL. Improved, continue to monitor. Continue quetiapine per Psychiatry. Recheck CBC, CMP, ferritin, iron studies. ? For overall headache management: Optimize good self-care, including but not limited to maintaining a healthy diet, adequate fluid intake, adequate sleep, and engaging in regular physical activity. Track headaches. ? For acute headache treatment: Discussed importance of taking acute medications at the first sign of headache, however stressed importance of avoiding acute medication overuse (especially with combined headache medications). Discontinue Rizatriptan 10mg tab- as patient has recently been diagnosed with hypertension with blood pressure as high as 150s/100s. Trial Rimegepant ODT (Nurtec ODT) 75mg, 1 tab at onset of headache.. Max of 1 tabs (75mg) per 24 hours. May adjunct with OTC Tylenol 650mg q 4 hours, Ibuprofen 600mg q 6 hours, or Naproxen 440mg q 12 hrs prn. Potential adverse effects, include but are not limited to fatigue, nausea, dry mouth, constipation. May use Benadryl 25-50mg or Amitriptyline 5-10mg as rescue prn. Hold Cyclobenzaprine 10mg prn muscle spasm. Previous acute migraine medication trials: Excedrin, Ibuprofen- ineffective. Sumatriptan 100mg- not effective Acute migraine medication contraindications: None at this time ? For headache prevention medication: Discontinue Aimovig 140mg- was denied by her insurance, and patient states her severe migraine attacks have improved. Continue losartan-HCTZ- ordered for HTN, however may help migraine as well. Previous migraine prevention medication trials: Depakote- made her headaches worse. Trileptal- for mood- made her headaches worse. Amitriptyline 10mg qhs- not tolerated well-enough to day daily.. Migraine prevention medication contraindications: BBs d/t asthma dx ? Pt to follow-up in 4-6 months or sooner prn. Orders: Orders Comprehensive Met. Panel Today D64.9 - Anemia, unspecified, I10 - Essential (primary) hypertension Complete Blood Count Auto Diff Today D64.9 - Anemia, unspecified, I10 - Essential (primary) hypertension Ferritin Today D64.9 - Anemia, unspecified, I10 - Essential (primary) hypertension IRON PROFILE Today D64.9 - Anemia, unspecified, I10 - Essential (primary) hypertension Medications: New rimegepant (Nurtec ODT) 75 mg PO ONCE 30 days PRN 16 tabs 3RF migraine headache MDD 1 tab Discontinued prednisone Discontinued Reason: Patient Completed Course 40 mg (2 x 20 mg) PO DAILY 10 tabs 0RF Coding Level of Care Code Tele Est Pt Level 4 (86858) Diagnoses Migraine without aura G43.009 Migraine with aura G43.109 Pituitary microadenoma D35.2 Restless leg syndrome G25.81
== END 2024-10-10 08:06 | disposition home or self-care (01) ==
LOC: HO.HSMS 07:33
PROVIDERS: PCP Internal Medicine; Visit Provider Nurse Practitioner Family
DX: G43.009 Migraine without aura, not intractable, without status migrainosus (principal); G43.109 Migraine with aura, not intractable, without status migrainosus; D35.2 Benign neoplasm of pituitary gland; G25.81 Restless legs syndrome
CPT/HCPCS: 99214

== ENCOUNTER → 2024-10-07 07:32 | Outpatient (BNVA) | payer OTHER, SELFPAY | PROVIDERS: PCP Internal Medicine; Visit Provider Nurse Practitioner Family ==

== ENCOUNTER 2024-10-18 12:39 | Outpatient (REF) | payer OTHER, SELFPAY ==
--- NOTE | 2024-10-18 12:45 | ECG_ITS ---
Test Reason : ck qt Blood Pressure : / mmHG Vent. Rate : 069 BPM Atrial Rate : 069 BPM P-R Int : 116 ms QRS Dur : 076 ms QT Int : 372 ms P-R-T Axes : 021 020 024 degrees QTc Int : 398 ms Normal sinus rhythm Normal ECG When compared with ECG of 09-JUL-2024 12:13, No significant change was found Referred By: Michaelle Orlando Electronically Signed By:AKBAR HOLT MD
[2024-10-18 13:02] LABS: MANUAL DIFF FLAG NO
[2024-10-18 13:40] LABS: Basophils Percent Auto 0.5 % (0-2); Eosinophils Absolute Auto 0.1 X10*3/uL (0.0-0.4); Hematocrit 35.5 % (37.0-47.0); Hemoglobin 11.2 g/dl (12.0-16.0); Imm Gran Abs Auto 0.02 X10*3/uL (0.00-0.03); Imm Gran Pct Auto 0.3 % (0.0-0.4); Lymphocytes Absolute Auto 1.6 X10*3/uL (1.2-4.9); Lymphocytes Percent Auto 27.3 % (20-40); Mean Corpuscular HGB Conc 31.5 g/dl (31.0-35.0); Mean Corpuscular Hemoglobin 26.3 pg (27.0-33.0); Mean Corpuscular Volume 83.3 fL (80.0-98.0); Mean Platelet Volume 10.6 fL (9.4-12.3); Monocytes Absolute Auto 0.5 X10*3/uL (0.1-1.2); Monocytes Percent Auto 9.2 % (2-11); Neutrophils Absolute Auto 3.6 x10*3/uL (2.0-8.3); Neutrophils Percent Auto 61.7 % (45-73); Platelet Count 309 X10*3/uL (160-400); Red Blood Count 4.26 X10*6/uL (4.20-5.50); Red Cell Distribution Width 15.7 % (11.0-16.0); White Blood Count 5.9 X10*3/uL (4.8-10.8)
[2024-10-18 14:01] LABS: Amphetamine Screen Urine Not Detected (Not Detect); Barbiturates, Urine Not Detected (Not Detect); Benzodiazepines Screen Urine Not Detected (Not Detect); Buprenorphine Scr Not Detected (Not Detect); Cannabinoid Screen Urine POSITIVE (Not Detect); Cocaine Screen Urine POSITIVE (Not Detect); Fentanyl, urine Not Detected (Not Detect); Methadone Screen, Urine Not Detected (Not Detect); Opiate Screen Urine Not Detected (Not Detect); Oxycodone Screen Urine Not Detected (Not Detect); Phencyclidine Screen Urine Not Detected (Not Detect)
[2024-10-18 14:17] LABS: Cholesterol 142 mg/dL (<200); HDL Cholesterol 62 mg/dL (>40); LDL Cholesterol Calculated 69 mg/dL (<100); Triglycerides 59 mg/dL (<150)
[2024-10-18 14:22] LABS: Alanine Aminotransferase 20 U/L (0-31); Albumin Level 4.3 g/dL (3.5-5.0); Alkaline Phosphatase 60 U/L (39-117); Anion Gap 9 (12-20); Aspartate Amino Transferase 20 U/L (5-31); Bilirubin Total 0.5 mg/dL (0.0-1.0); Blood Urea Nitrogen 12 mg/dL (9-16); Calcium 8.9 mg/dL (8.4-10.2); Carbon Dioxide 22 mmol/L (22-29); Chloride 111 mmol/L (96-108); Estimated Glomerular Filt Rate > 60; Glucose Random 88 mg/dL (60-115); Sodium 138 mmol/L (135-145); Total Protein 7.3 g/dL (6.5-8.0); Unsaturated Iron Binding 342 ug/dL
[2024-10-18 14:39] LABS: Vitamin D 25-OH Total 10.3 ng/mL (>30)
[2024-10-18 14:42] LABS: Ferritin 9 ng/mL (10-250)
[2024-10-18 15:13] LABS: Iron 28 mcg/dL (30-160); Percent Iron Saturation 8 % (15-50); Total Iron Binding Capacity 370 mcg/dL (228-428); Vitamin B12 696 pg/mL (200-900)
== END 2024-10-18 12:40 | disposition home or self-care (01) ==
LOC: HO.LAB 12:39
PROVIDERS: Absent Provider Nurse Practitioner Family; PCP Internal Medicine; Referring Provider Internal Medicine; Visit Provider Psychiatry & Neurology Psychiatry
DX: I10 Essential (primary) hypertension (principal); Z79.899 Other long term (current) drug therapy; D64.9 Anemia, unspecified
CPT/HCPCS: 36415; 80053; 80061; 80307; 82306; 82607; 82728; 83540; 84443; 85025; 93005

== ENCOUNTER → 2024-10-18 12:45 | Outpatient (BNV) | payer OTHER, SELFPAY | PROVIDERS: Absent Provider Nurse Practitioner Family; PCP Internal Medicine; Referring Provider Internal Medicine; Visit Provider Internal Medicine Cardiovascular Disease | DX: I10 Essential (primary) hypertension (principal) | CPT/HCPCS: 93010 ==

== ENCOUNTER 2024-12-11 13:07 | Outpatient (AMB) | payer OTHER, SELFPAY ==
--- NOTE | 2024-12-11 13:11 | A.OFFVIS_ITS ---
Intake Visit Reasons: New patient Dysmenorrhea Intake Note: Per patient last pap smear 1 year ago, normal hx of pap smears. Client Relationship Executive: Client Relationship Executive Present (Erica) Accompanied by: Self / Same As Patient Allergies No Known Allergies Allergy (Verified 12/11/24 13:14) HPI Comments Details: Presenting complaining of heavy menstrual cycles associated pelvic cramping and passage of blood clots Last co testing? No previous screening mammogram PFSH Medical History Migraines Asthma HESHAM (stress urinary incontinence, female) Cholecystectomy planned Appendicitis Surgical History Hx of cholecystectomy Hx of appendectomy S/P panniculectomy Gastric bypass status for obesity Tubal ligation status Family History Mother Prediabetes Rheumatoid arthritis Hypertension Father Medical history unknown Other Family history of multiple sclerosis Family history of rheumatoid arthritis Family history of systemic lupus erythematosus Social History Alcohol intake: current Alcohol intake frequency: holidays/special occasions only Patient Tobacco Use Status: Current someday Tobacco user Current occupational status: unemployed 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 Female Reproductive History Menstrual Duration of menses: 6-7 days Date of last menstrual period: 11/12/24 Total pregnancies: 3 Full term: 3 History of abnormal pap smear: No Review of Systems Const All systems reviewed & are unremarkable except as noted in HPI and below Card Reports as per HPI Resp Reports as per HPI GI Reports as per HPI and Reports no additional complaints Reports as per HPI Physical Exam Const General: cooperative, healthy appearing and comfortable Chest Chest palpation & inspection: normal inspection of the chest and normal palpation of entire chest wall Breast/axilla inspection: normal inspection of the breasts and normal inspection of the axillae Breast/axilla palpation: normal palpation of the breasts, normal palpation of the axillae and no axillary lymphadenopathy Resp Effort & Inspection: normal respiratory effort Auscultation: clear to auscultation bilaterally Percussion: percussion normal Cardio Palpation: normal PMI Rate: regular rate Rhythm: regular rhythm Heart sounds: no murmurs and no rubs Peripheral pulses: Peripheral pulses 2+ throughout GI Inspection: Yes normal to inspection Palpation (GI): Soft to palpation, nontender, no guarding, not rigid and No hepatosplenomegaly present Percussion: Yes normal to percussion Auscultation: normal bowel sounds Rectal Exam - Female: deferred General: Yes bladder normal to palpation External Female Exam: No lesion Speculum Exam - Vagina: normal appearance of the vagina, normal palpation, normal vaginal discharge and not erythematous Speculum Exam - Cervix: normal appearance of the cervix and normal palpation Bimanual exam- vagina & uterus: normal bimanual exam, normal palpation, uterine size normal, bladder normal to palpation, consistency normal and normal palpation Bimanual Exam- Adnexa, other: normal adnexae, no masses and no tenderness Assessment & Plan Assessment & Plan (1) Abnormal uterine bleeding (AUB): Code(s): N93.9 - Abnormal uterine and vaginal bleeding, unspecified Category: Medical Plan: Screening mammogram ordered. Co testing done, GC and chlamydia taken CBC, TSH, HCG, and pelvic ultrasound ordered. Discussed with the patient the different causes of abnormal bleeding including thyroid disorders, uterine and ovarian pathology, endometrial hyperplasia, carcinoma and other potential causes. Dis cussed with the patient the work up including CBC (to r/o anemia), TSH, pelvic Ultrasound, endometrial biopsy to r/o endometrial pathology. All questions answered and the patient verbalized understanding. Instructed the patient to schedule an appointment for an endometrial biopsy in 2 weeks. Orders: Orders Complete Blood Count no Diff Today N93.9 - Abnormal uterine and vaginal bleeding, unspecified TSH reflex Free T4 Today N93.9 - Abnormal uterine and vaginal bleeding, unspecified HCG Quantitative Today N93.9 - Abnormal uterine and vaginal bleeding, unspecified US pelvic and transvaginal Today N93.9 - Abnormal uterine and vaginal bleeding, unspecified MM screening mammo BI Today Z12.31 - Encounter for screening mammogram for malignant neoplasm of breast Coding Level of Care Code New Pt Level 3 (99034) Diagnoses Abnormal uterine bleeding (AUB) N93.9
--- OUTSIDE RECORDS SUMMARY | 2024-12-11 16:06 | XMS_ITS | Encounter Summary ---
Author Organization [facility] Address [address] [place] [address] Care Team Providers Care Book Sorter Name Role Phone Kerry Medina MD Primary Care Provider Gauri vailable Encounter Details Date Type Department Care Team Description 10/02/2014 [facility] Medical Records [address] [place] [id number] Marina Lemus MD Social History Tobacco Use Types Packs/Day Years Used Date Smoking Tobacco: Former Smokeless Tobacco: Never Alcohol Use Standard Drinks/Week Comments Yes 0 (1 standard drink = 0.6 oz pur e alcohol) social Sex Assigned at Date Recorded Not on file Job Start Date Occupation Industry Not on file Not on file Not on file documented as of this encounter Plan of Treatment Not on file documented as of this encounter Visit Diagnoses Not on filedocumented in this encounter Care Teams Book Sorter Relationship Specialty Start Date End Date Kerry Medina MD PCP - General Internal Medicine 01/15/18 documented as of this encounter
--- OUTSIDE RECORDS SUMMARY | 2024-12-11 16:06 | XMS_ITS | Encounter Summary ---
Author Organization [facility] Address [address] [place] [address] Care Team Providers Care Fruit Grower Name Role Phone Kerry Medina MD Primary Care Provider [phone] Reason for Visit * Reason Onset Date Comments Med Refill 11/12/2024 Zepbound Encounter Details Date Type Department Care Team (Late Contact Info) Description 11/12/2024 Telephone Bariatric Surgery [facility] [address] [id number] Gianfranco Gordon MD [address] [id number] Med Refill (Zepbound) Social History Tobacco Use Types Packs/Day Years Used Date Smoking Tobacco: Former Smokeless Tobacco: Never Alcohol Use Standard Drinks/Week Comments Yes 0 (1 standard drink = 0.6 oz pur e alcohol) Comments Unknown Sex and Gender Information Value Date Recorded Sex Assigned at Not on file Legal Sex Female 7:16 AM EST Gender Identity Not on file Sexual Orientation Not on file documented as of this encounter Progress Notes * Sophie Spencer - 11/12/2024 9:10 AM EST Patient did well on Zepbound 5 mgs and would like a refill with titration. If appropriate, please send script for Zepbound 7.5 mgs to their pharmacy. The patient does have a follow up in 01/02/2025 documented in this encounter Plan of Treatment Upcoming Encounters Date Type Department Care Team (Late Contact Info) Description 01/02/2025 8:45 AM EDT Office Visit Bariatric Surgery [address] [place] [address] Gianfranco Gordon MD 175 [facility] [address] [place] [address] documented as of this encounter Visit Diagnoses Not on filedocumented in this encounter Care Teams Fruit Grower Relationship Specialty Start Date End Date Kerry Medina MD [address] PCP - General Internal Medicine 01/15/18 documented as of this encounter
--- OUTSIDE RECORDS SUMMARY | 2024-12-11 16:06 | XMS_ITS | Encounter Summary ---
Author Organization [facility] Address [address] [place] [address] Care Team Providers Care General Duty Nurse Name Role Phone Kerry Medina MD Primary Care Provider Gauri vailable Encounter Details Date Type Department Care Team Description 03/07/2018 Release of Information Medical Records [address] [place] [id number] Abstract, Provider Social History Tobacco Use Types Packs/Day Years Used Date Smoking Tobacco: Former Smokeless Tobacco: Never Sex Assigned at Date Recorded Not on file Job Start Date Occupation Industry Not on file Not on file Not on file documented as of this encounter Plan of Treatment Not on file documented as of this encounter Visit Diagnoses Not on filedocumented in this encounter Care Teams General Duty Nurse Relationship Specialty Start Date End Date Kerry Medina MD PCP - General Internal Medicine 01/15/18 documented as of this encounter
--- OUTSIDE RECORDS SUMMARY | 2024-12-11 16:06 | XMS_ITS | Encounter Summary ---
Author Organization [facility] Address [address] [place] [address] Care Team Providers Care Call Center Professional Name Role Phone Kerry Medina MD Primary Care Provider Gauri vailable Encounter Details Date Type Department Care Team Description 10/02/2014 [facility] Medical Records [address] [place] [id number] Marina Lemus MD Social History Tobacco Use [...] on filedocumented in this encounter Care Teams Call Center Professional Relationship Specialty Start Date End Date Kerry Medina MD PCP - General Internal Medicine 01/15/18 documented as of this encounter
--- OUTSIDE RECORDS SUMMARY | 2024-12-11 16:06 | XMS_ITS | Clinical Summary ---
Author Organization [address] [place] [address] Address 175 [place] [address] Phone Care Team Providers Care Boarder Steam Name Role Phone Kerry Medina MD Primary Care Provider [phone] Allergies No known active allergies Medications buPROPion XL (WELLBUTRIN XL) 150 mg 24 hr tablet Take 1 tablet (150 mg total) by mouth 1 (one) time each day in the morning. 4 Active tirzepatide, weight loss, (Zepbound) 10 mg/0.5 mL injection Inject 0.5 mL (10 mg total) under the skin every 7 (seven) days for 28 days. 2 mL 5 01/02/20 25 Active tirzepatide, weight loss, (Zepbound) 5 mg/0.5 mL injection Inject 0.5 mL (5 mg total) under the skin every 7 (seven) days for 28 days. 2 mL 5 11/12/19 25 Discontinued tirzepatide, weight loss, (Zepbound) 7.5 mg/0.5 mL injection Inject 0.5 mL (7.5 mg total) under the skin every 7 (seven) days for 28 days. 2 mL 5 12/03/19 25 Discontinued Active Problems Problem Noted Date Diagnosed Date Asthma 03/13/2018 Bipolar disorder 03/13/2018 Encounters Date Type Department Care Team Description 12/03/2024 Telephone Bariatric Surgery [address] [address] Gianfranco [place] MD Med Refill 11/12/2024 Telephone Bariatric Surgery [address] [address] Gianfranco [place] MD Med Refill (Zepbound) 10/01/2024 1:30 PM EST Office Visit Bariatric Surgery - [address] [place] [address] Gianfranco [place] MD Obesity, Class II, BMI 35-39.9 (Primary Dx) from Last 3 Months Surgical History Surgery Date Site/Laterality Comments BARIATRIC SURGERY 10/02/2014 PROCEDURE: [place] LAPS GSTRC RSTRICTIV PX LONGITUDINAL GASTRECTOMY; COMMENT: Dr. Allan Osuna OTHER SURGICAL HISTORY 10/02/2014 PROCEDURE: [place] UNLISTED LAPS PX HRNAP HERNIORRHAPHY HERNIOTOMY; COMMENT: hiatal repair, at time of gastric sleeve CHOLECYSTECTOMY PROCEDURE: HISTORICAL CHOLECYSTECTOMY TUBAL LIGATION PROCEDURE: HISTORICAL TUBAL LIGATION OTHER SURGICAL HISTORY PROCEDURE: HISTORICAL PANNICULECTOMY OTHER SURGICAL HISTORY PROCEDURE: HISTORY OTHER; COMMENT: gastric sleeve Medical History Medical History Date Comments Bipolar disorder ([facility]/HCC) 03/13/2018 DX:Bi polar disorder ([facility]) Asthma 03/13/2018 DX:Asthma S/P laparoscopic sleeve gastrectomy 03/13/2018 DX:S/P laparoscopic sleeve gastrectomy; COMMENT: 10/02/2014 Dr. Georges Osuna Mild intermittent asthma, uncomplicated DX:Mild intermittent asthma, uncomplicated Fibromyalgia DX:Fibromyalgia Osteoarthritis DX:Osteoarthriti s Family History Medical History Relation Name Comments Cirrhosis Father at 39 Coronary artery disease Maternal Grandmother Diabetes Mother hypertension Relation Name Status Comments Father Maternal Grandmother Mother Social History Tobacco Use Types Packs/Day Years Used Date Smoking Tobacco: Former Smokeless Tobacco: Never Alcohol Use Standard Drinks/Week Comments Yes 0 (1 standard drink = 0.6 oz pur e alcohol) Comments Unknown Sex and Gender Information Value Date Recorded Sex Assigned at Not on file Legal Sex Female 7:16 AM EST Gender Identity Not on file Sexual Orientation Not on file Obstetrics History Last Filed Vital Signs Vital Sign Reading Time Taken Comments Blood Pressure 150/104 10/01/2024 1:39 PM EST Pulse 80 10/01/2024 1:39 PM EST Temperature 36.8 ??C (98.2 ??F) 10/01/2024 1:39 PM ES T Respiratory Rate - - Oxygen Saturation - - Inhaled Oxygen Concentration - - Weight 103 kg (227 lb) 10/01/2024 1:39 PM EST Height 170.2 cm (5' 7 ) 10/01/2024 1:39 PM EST Body Mass Index 35.55 10/01/2024 1:39 PM EST Plan of Treatment Upcoming Encounters Date Type Department Care Team (Late st Contact Info) Description 01/02/2025 8:45 AM EDT Office Visit Bariatric Surgery - [place] [address] [place] [address] Gianfranco [place] MD 175 [facility] [address] [place] [address] Health Maintenance Due Date Last Done Comments Breast Cancer Screening 1983 Hepatitis B Vaccines (1 of 3 - 19+ 3-dose series) 2002 Pneumococcal Vaccine: Pediatrics (0 to 5 Years) and At-Risk Patients (6 to 64 Years) (1 of 2 - PCV) 2002 Cervical Cancer Screening: P ap Smear 2004 Cholesterol Screening (Lipid Panel) 09/18/2022 Depression Screening 09/18/2022 HIV Screening 09/18/2022 Hepatitis C Screening 09/18/2022 Social Influencers of Health Screening 09/18/2022 COVID-19 Vaccine (1 - 2023-2 5 season) 2024 Influenza Vaccine (#1) 2024 0, 01/05/2010 DTaP,Tdap,and Td Vaccines (2 - Td or Tdap) 10/31/2027 10/31/2017 HIB Vaccines Aged Out No longer eligi ble based on patient's age to complete this topic HPV Vaccines Aged Out No longer eligi ble based on patient's age to complete this topic Hepatitis A Vaccines Aged Out No long er eligible based on patient's age to complete this topic IPV Vaccines Aged Out No longer eligi ble based on patient's age to complete this topic MMR Vaccines Aged Out No longer eligi ble based on patient's age to complete this topic Meningococcal ACWY Vaccine Aged Out N o longer eligible based on patient's age to complete this topic Meningococcal B Vacine Aged Out No lo nger eligible based on patient's age to complete this topic RSV Immunization Patients Under 20 months Aged Out No longer eligible b ased on patient's age to complete this topic Varicella Vaccines Aged Out No longer eligible based on patient's age to complete this topic Insurance [facility] Care Teams Boarder Steam Relationship Specialty Start Date End Date Kerry Medina MD [facility] [address] PCP - General Internal Medicine 01/15/18
--- OUTSIDE RECORDS SUMMARY | 2024-12-11 16:06 | XMS_ITS | Encounter Summary ---
Author Organization [facility] Address [address] [place] [address] Care Team Providers Care Infection Prevention Coordinator Name Role Phone Kerry Medina MD Primary Care Provider Gauri vailable Encounter Details Date Type Department Care Team Description 01/21/2016 [facility] Medical Records [address] [place] [address] Abner Monge DO Social History Tobacco Use Types Packs/Day Years [...] on filedocumented in this encounter Care Teams Infection Prevention Coordinator Relationship Specialty Start Date End Date Kerry Medina MD PCP - General Internal Medicine 01/15/18 documented as of this encounter
--- OUTSIDE RECORDS SUMMARY | 2024-12-11 16:06 | XMS_ITS | Encounter Summary ---
Author Organization [facility] Address [address] [place] [address] Care Team Providers Care Boot Lace Cutter Machine Name Role Phone Kerry Medina MD Primary Care Provider [phone] Reason for Visit * Reason Onset Date Comments Med Refill 12/03/2024 Encounter Details Date Type Department Care Team (Late Contact Info) Description 12/03/2024 Telephone Bariatric Surgery - [place] [address] [address] Gianfranco [place] MD [address] [address] Med Refill Social History Tobacco Use Types Packs/Day Years [...] as of this encounter Progress Notes * Dulce Michaels [place] - 12/03/2024 10:00 AM EST Patient did well on Zepbound 7.5 mgs and would like a refill with titration. If appropriate, please send script for Zepbound 10 mgs to their pharmacy. The patient does have a follow up in 01/02/2025 documented in this encounter Plan of Treatment Upcoming Encounters Date Type Department Care Team (Late Contact Info) Description 01/02/2025 8:45 AM EDT Office Visit Bariatric Surgery - [place] 175 [facility] [address] [place] [address] Gianfranco [place] MD [address] [facility] [address] [facility] [address] [place] [address] documented as of this encounter Visit Diagnoses Not on filedocumented in this encounter Care Teams Boot Lace Cutter Machine Relationship Specialty Start Date End Date Kerry Medina MD [address] [facility] [address] [place], [place] PCP - General Internal Medicine 01/15/18 documented as of this encounter
== END 2024-12-11 13:44 | disposition home or self-care (01) ==
PROVIDERS: PCP Internal Medicine; Visit Provider Obstetrics & Gynecology
DX: N93.9 Abnormal uterine and vaginal bleeding, unspecified (principal)
CPT/HCPCS: 99203

== ENCOUNTER 2024-12-11 13:07 | Outpatient (REF) | payer OTHER, SELFPAY ==
[2024-12-11 13:49] LABS: Hematocrit 34.6 % (37.0-47.0); Hemoglobin 10.9 g/dl (12.0-16.0); Mean Corpuscular HGB Conc 31.5 g/dl (31.0-35.0); Mean Corpuscular Hemoglobin 26.3 pg (27.0-33.0); Mean Corpuscular Volume 83.4 fL (80.0-98.0); Mean Platelet Volume 10.1 fL (9.4-12.3); Platelet Count 275 X10*3/uL (160-400); Red Blood Count 4.15 X10*6/uL (4.20-5.50); Red Cell Distribution Width 16.7 % (11.0-16.0); White Blood Count 5.7 X10*3/uL (4.8-10.8)
[2024-12-11 14:39] LABS: HCG Quantitative < 2 mIU/mL; TSH reflex Free T4 0.82 uIU/mL (0.32-4.0)
--- OUTSIDE RECORDS SUMMARY | 2024-12-11 16:40 | XMS_ITS | Clinical Summary ---
Author Organization [address] [place] [address] Address 175 [place] [address] Phone Care Team Providers Care Accounting Systems Manager Name Role Phone Kerry Medina MD Primary Care Provider [phone] Allergies No known active allergies Medications buPROPion [...] Care Team Description 12/03/2024 Telephone Bariatric Surgery [address] [address] Gianfranco [place] MD Med Refill 11/12/2024 Telephone Bariatric Surgery [address] [address] Gianfranco [place] MD Med Refill (Zepbound) 10/01/2024 1:30 PM EST Office Visit Bariatric Surgery - [address] [place] [address] Gianfranco [place] MD Obesity, Class II, BMI 35-39.9 (Primary Dx) from Last 3 Months Surgical History Surgery Date Site/Laterality Comments BARIATRIC SURGERY 10/02/2014 PROCEDURE: CT LAPS GSTRC RSTRICTIV PX LONGITUDINAL GASTRECTOMY; COMMENT: Dr. Allan Osuna OTHER SURGICAL HISTORY 10/02/2014 PROCEDURE: CT UNLISTED LAPS PX HRNAP HERNIORRHAPHY HERNIOTOMY; COMMENT: hiatal repair, at time of gastric sleeve CHOLECYSTECTOMY PROCEDURE: HISTORICAL CHOLECYSTECTOMY TUBAL LIGATION PROCEDURE: HISTORICAL TUBAL LIGATION OTHER SURGICAL HISTORY PROCEDURE: HISTORICAL PANNICULECTOMY OTHER SURGICAL HISTORY PROCEDURE: HISTORY OTHER; COMMENT: gastric sleeve Medical History Medical History Date Comments Bipolar disorder ([facility]/HCC) 03/13/2018 DX:Bi polar disorder ([facility]) Asthma 03/13/2018 DX:Asthma S/P laparoscopic sleeve gastrectomy [...] AM EDT Office Visit Bariatric Surgery - [place] [address] [facility] [address] [place] [address] Gianfranco [place] MD 175 [facility] [address] [place] [address] Health Maintenance Due Date Last Done Comments [...] patient's age to complete this topic Insurance [facility] PL[facility] Care Teams Accounting Systems Manager Relationship Specialty Start Date End Date Kerry Medina MD [facility] [address] PCP - General Internal Medicine 01/15/18
--- OUTSIDE RECORDS SUMMARY | 2024-12-11 16:40 | XMS_ITS | Encounter Summary ---
Author Organization [facility] Address [address] [place] [address] Care Team Providers Care Field Scout Name Role Phone Kerry Medina MD Primary Care Provider [phone] Reason for Visit * Reason Onset Date Comments Med Refill 12/03/2024 Encounter Details Date Type Department Care Team (Late Contact Info) Description 12/03/2024 Telephone Bariatric Surgery - [place] [address] [address] Gianfranco [place] MD [address] [address] Med Refill Social History Tobacco Use Types [...] AM EDT Office Visit Bariatric Surgery - [place] 175 [facility] 120 [place] [address] Gianfranco [place] MD [address] [facility] [address] [facility] [address] [place] [address] documented as of this encounter Visit Diagnoses Not on filedocumented in this encounter Care Teams Field Scout Relationship Specialty Start Date End Date Kerry Medina MD [address] [facility] [address] [place], [place] PCP - General Internal Medicine 01/15/18 documented as of this encounter
--- OUTSIDE RECORDS SUMMARY | 2024-12-11 16:40 | XMS_ITS | Encounter Summary ---
Author Organization [facility] Address [address] [place] [address] Care Team Providers Care Enforcement Safety Officer Name Role Phone Kerry Medina MD Primary Care Provider [phone] Reason for Visit * Reason Onset Date Comments Med Refill 11/12/2024 Zepbound Encounter Details Date Type Department Care Team (Late Contact Info) Description 11/12/2024 Telephone Bariatric Surgery [facility] [address] [address] Gianfranco [place] MD [address] [address] Med Refill (Zepbound) Social History Tobacco Use [...] AM EDT Office Visit Bariatric Surgery [address] [place] [address] Gianfranco [place] MD 175 [facility] 120 [place] [address] documented as of this encounter Visit Diagnoses Not on filedocumented in this encounter Care Teams Enforcement Safety Officer Relationship Specialty Start Date End Date Kerry Medina MD [address] PCP - General Internal Medicine 01/15/18 documented as of this encounter
[2024-12-12 09:34] LABS: CT PCR NOT DETECTED (Not Detect.); NG PCR NOT DETECTED (Not Detect.)
== END 2024-12-11 13:08 | disposition home or self-care (01) ==
LOC: HO.LAB 13:07
PROVIDERS: PCP Internal Medicine; Visit Provider Obstetrics & Gynecology
DX: N93.9 Abnormal uterine and vaginal bleeding, unspecified (principal)
CPT/HCPCS: 36415; 84443; 84702; 85027; 87491; 87591; 99202; 99459

== ENCOUNTER 2024-12-11 14:00 | Outpatient (REF) | payer OTHER, SELFPAY ==
--- OUTSIDE RECORDS SUMMARY | 2024-12-11 17:18 | XMS_ITS | Encounter Summary ---
Author Organization [facility] Address [address] [place] [address] Care Team Providers Care Termite Inspector Name Role Phone Kerry Medina MD Primary Care Provider [phone] Reason for Visit * Reason Onset Date Comments Med Refill 12/03/2024 Encounter Details Date Type Department Care Team (Late Contact Info) Description 12/03/2024 Telephone Bariatric Surgery - [place] [address] [address] Gianfranco [place] MD [address] [address] Med Refill Social History Tobacco Use Types [...] AM EDT Office Visit Bariatric Surgery - [place] 175 [facility] 120 [place] [address] Gianfranco [place] MD 175 [facility] [address] [place] [address] documented as of this encounter Visit Diagnoses Not on filedocumented in this encounter Care Teams Termite Inspector Relationship Specialty Start Date End Date Kerry Medina MD [address] [facility] [address] [place], [place] PCP - General Internal Medicine 01/15/18 documented as of this encounter
--- OUTSIDE RECORDS SUMMARY | 2024-12-11 17:18 | XMS_ITS | Clinical Summary ---
Author Organization [address] [place] [address] Address [address] [place] [address] Phone Care Team Providers Care Solutions Sales Executive Name Role Phone Kerry Medina MD Primary Care Provider [phone] Allergies No known active allergies Medications buPROPion [...] Care Team Description 12/03/2024 Telephone Bariatric Surgery [address] [address] Gianfranco [place] MD Med Refill 11/12/2024 Telephone Bariatric Surgery [address] [address] Gianfranco [place] MD Med Refill (Zepbound) 10/01/2024 1:30 PM EST Office Visit Bariatric Surgery - [address] [place] [address] Gianfranco [place] MD Obesity, Class II, BMI 35-39.9 (Primary Dx) from Last 3 Months Surgical History Surgery Date Site/Laterality Comments BARIATRIC SURGERY 10/02/2014 PROCEDURE: [place] LAPS GSTRC RSTRICTIV PX LONGITUDINAL GASTRECTOMY; COMMENT: Dr. Allan Osuna OTHER SURGICAL HISTORY 10/02/2014 PROCEDURE: [place] UNLISTED LAPS PX HRNAP HERNIORRHAPHY HERNIOTOMY; COMMENT: hiatal repair, at time of gastric sleeve CHOLECYSTECTOMY PROCEDURE: HISTORICAL CHOLECYSTECTOMY TUBAL LIGATION PROCEDURE: HISTORICAL TUBAL LIGATION OTHER SURGICAL HISTORY PROCEDURE: HISTORICAL PANNICULECTOMY OTHER SURGICAL HISTORY PROCEDURE: HISTORY OTHER; COMMENT: gastric sleeve Medical History Medical History Date Comments Bipolar disorder ([facility]/HCC) 03/13/2018 DX:Bi polar disorder ([facility]) Asthma 03/13/2018 DX:Asthma S/P laparoscopic sleeve gastrectomy [...] AM EDT Office Visit Bariatric Surgery - [place] [address] [facility] [address] [place] [address] Gianfranco [place] MD 175 [facility] [address] [place] [address] Health Maintenance Due Date Last Done Comments [...] patient's age to complete this topic Insurance [facility] [place] [address] Care Teams Solutions Sales Executive Relationship Specialty Start Date End Date Kerry Medina MD [facility] [address] PCP - General Internal Medicine 01/15/18
--- OUTSIDE RECORDS SUMMARY | 2024-12-11 17:18 | XMS_ITS | Encounter Summary ---
Author Organization [facility] Address [address] [place] [address] Care Team Providers Care Director Regulatory Agency Name Role Phone Kerry Mednia MD Primary Care Provider [phone] Reason for Visit * Reason Onset Date Comments Med Refill 11/12/2024 Zepbound Encounter Details Date Type Department Care Team (Late Contact Info) Description 11/12/2024 Telephone Bariatric Surgery [facility] [address] [address] Gianfranco [place] MD [address] [address] Med Refill (Zepbound) Social History Tobacco Use [...] 8:45 AM EDT Office Visit Bariatric Surgery [address] [place] [address] Gianfranco Gordon MD [address] [facility] [address] [place] [address] documented as of this encounter Visit Diagnoses Not on filedocumented in this encounter Care Teams Director Regulatory Agency Relationship Specialty Start Date End Date Kerry Medina MD [address] PCP - General Internal Medicine 01/15/18 documented as of this encounter
[2024-12-17 11:24] LABS: HPV Genotype 16 Negative (Negative); HPV Genotype 18 Negative (Negative); HPV High Risk Negative (Negative)
== END 2024-12-11 14:01 | disposition home or self-care (01) ==
LOC: HO.LNP 14:00
PROVIDERS: Visit Provider Obstetrics & Gynecology
DX: N93.9 Abnormal uterine and vaginal bleeding, unspecified (principal); Z12.4 Encounter for screening for malignant neoplasm of cervix; Z11.51 Encounter for screening for human papillomavirus (HPV)
CPT/HCPCS: 87626; 88175

== ENCOUNTER 2024-12-27 | Outpatient (REF) | payer OTHER, SELFPAY ==
--- OUTSIDE RECORDS SUMMARY | 2025-04-10 13:10 | XMS_ITS | Clinical Summary ---
Author Organization [address] [place] [address] Address [address] [place] [address] Phone Care Team Providers Care Gambling Broker Name Role Phone Kerry Medina MD Primary Care Provider [phone] Allergies No known active allergies Medications buPROPion XL (WELLBUTRIN XL) 150 mg 24 hr tablet Take 1 tablet (150 mg total) by mouth 1 (one) time each day in the morning. 4 Active tirzepatide, weight loss, (Zepbound) 15 mg/0.5 mL injectionIndicat ions:Class 1 obesity due to excess calories with body mass index (BMI) of 30.0 to 30.9 in adult, unspecified whether serious comorbidity present Inject 0.5 mL (15 mg total) under the skin every 7 (seven) days. 2 mL 2 5 06/25/20 25 Active tirzepatide, weight loss, (Zepbound) 15 mg/0.5 mL injection Inject 0.5 mL (15 mg total) under the skin every 7 (seven) days. 2 mL 5 03/31/20 25 Discontinu ed(Reorder ) Active Problems Problem Noted Date Diagnosed Date Class 1 obesity 04/02/2025 Pituitary microadenoma ([facility] V24, [facility] V28 ) 04/02/2025 Asthma 03/13/2018 Bipolar disorder (CMS/[facility] V24, CMS/[facility] V28) 02/14 Encounters Date Type Department Care Team Description 03/11/2025 Telephone Bariatric Surgery [facility] 175 [facility] [address] [place] [address] Gianfranco Gordon MD Med Refill (Zepbound) 02/18/2025 Telephone Bariatric Surgery - [place] 175 [facility] [address] [place] [address] Gianfranco Gordon MD Med Refill (zepbound) 01/21/2025 Telephone Bariatric Surgery - [place] 175 [facility] [address] [place] [address] Gianfranco Gordon MD Med Refill (Zepbound) from Last 3 Months Surgical History Surgery Date Site/Laterality Comments BARIATRIC SURGERY 10/02/2014 PROCEDURE: [place] LAPS GSTRC RSTRICTIV PX LONGITUDINAL GASTRECTOMY; COMMENT: Dr. Allan Osuna OTHER SURGICAL HISTORY 10/02/2014 PROCEDURE: [place] UNLISTED LAPS PX HRNAP HERNIORRHAPHY HERNIOTOMY; COMMENT: hiatal repair, at time of gastric sleeve CHOLECYSTECTOMY PROCEDURE: HISTORICAL CHOLECYSTECTOMY TUBAL LIGATION PROCEDURE: HISTORICAL TUBAL LIGATION OTHER SURGICAL HISTORY PROCEDURE: HISTORICAL PANNICULECTOMY OTHER SURGICAL HISTORY PROCEDURE: HISTORY OTHER; COMMENT: gastric sleeve Medical History Medical History Date Comments Bipolar disorder (CMS/HCC V2 4, CMS/HCC V28) 03/13/2018 DX:Bipolar disorder ([facility]) Asthma 03/13/2018 DX:Asthma S/P laparoscopic sleeve gastrectomy [...] AM EDT Office Visit Bariatric Surgery - [place] 175 [facility] [address] [place] [address] Gianfranco Gordon MD 175 [facility] 120 [place] [address] Health Maintenance Due Date Last Done Comments [...] patient's age to complete this topic Insurance [facility] Care Teams Gambling Broker Relationship Specialty Start Date End Date Kerry Medina MD [address] PCP - General Internal Medicine 01/15/18
== END 2024-12-27 00:01 | disposition home or self-care (01) ==
LOC: CF
PROVIDERS: PCP Internal Medicine; Visit Provider Physician Assistant
DX: M54.9 Dorsalgia, unspecified (principal)
CPT/HCPCS: 99202

== ENCOUNTER 2024-12-27 08:54 | Outpatient (AMB) | payer OTHER, SELFPAY ==
--- NOTE | 2024-12-27 09:01 | A.SPINEOV_ITS ---
Vital Signs 12/27/24 09:04 Height 5 ft 7 in Weight 194 lb BMI 30.4 Intake Visit Reasons: LBP Intake Note: Ms. Franklin is here today c/o low back pain that radiates down the legs. Odd Jobs Day Worker Required: No Allergies No Known Allergies Allergy (Verified 12/27/24 09:04) Physical Exam Vital Signs: BMI result Body Mass Index 30.4 Assessment & Plan Assessment & Plan (1) Back pain: Code(s): M54.9 - Dorsalgia, unspecified Category: Medical Plan Dear dr Medina, Thank you for referring Mrs Franklin to our office today. She is a very nice 39-year-old female presents for evaluation of chronic low back pain that is going on for very very long time, probably decades. It is in the middle of her low back, will radiate down her left leg and more recently down her right leg. She has gone through conservative management in the past including physical therapy, child care center assistant director and injections. She believes the injections were done possibly at [facility], and they would help for few days but nothing that really lasted. She takes naproxen, Flexeril, lidocaine patches etc.. The pain is aggravated with standing, walking but she also gets it sitting or lying down. PMH: History of bipolar disorder, ADHD, appendectomy, gastric sleeve surgery, tubal ligation, panniculectomy, cholecystectomy Social hx: She has not smoke, drink or use any recreational drugs Medications: Seroquel, Vyvanse, naproxen, Flexeril, [place] bound Allergies: None Physical exam: Awake alert oriented, gait normal, strength and reflexes normal in the lower extremities Imaging review: Lumbar MRI done at [facility] showing mild degenerative disc disease at L3-4, L4-5. There is some mild desiccation of the discs at these levels. There is a slight central bulge at L4-5 but no overt evidence of nerve compression. There is no disc herniation, spondylolisthesis fracture etc.. Impression: 39-year-old female presents with chronic low back pain, bilateral lower extremity pain left greater than right, who has just mild degenerative changes on her MRI. I do not see any evidence of nerve compression that would explain bilateral leg pain. I explained to her that back pain is very complicated and difficult to often establish the etiology. We also talked about the fact that degenerative discs can just be incidental findings that may have nothing to do with her back pain at all. She has no major misalignments, disc herniations, significant nerve compression etc. on her imaging. There is nothing that I see that would lend itself to surgery. I think she should follow up with her pain management team we will consideration of further options. Thank you for allowing us to care for your patient. The total time spent with this visit with this patient was 45 minutes reviewing history, physical exam, lumbar imaging review, and implementation of treatment plan or further diagnostic testing Brendon Carvalho MD,PhD [facility] Coding Level of Care Code New Pt Level 4 ([address]2215) Diagnoses Back pain M54.9
[2024-12-27 09:04] VITALS: BMI 30.4
--- OUTSIDE RECORDS SUMMARY | 2024-12-27 09:16 | XMS_ITS | Clinical Summary ---
Author Organization [address] [place] [address] Address [address] [place] [address] Phone Care Team Providers Care Small Order Cutter Name Role Phone Kerry Medina MD Primary Care Provider [phone] Allergies No known active allergies Medications buPROPion XL (WELLBUTRIN XL) 150 mg 24 hr tablet Take 1 tablet (150 mg total) by mouth 1 (one) time each day in the morning. 4 Active tirzepatide, weight loss, (Zepbound) 7.5 mg/0.5 mL injection Inject 0.5 mL (7.5 mg total) under the skin every 7 (seven) days for 28 days. 2 mL 5 12/03/19 25 Discontinued tirzepatide, weight loss, (Zepbound) 10 mg/0.5 mL injection Inject 0.5 mL (10 mg total) under the skin every 7 (seven) days for 28 days. 2 mL 5 12/26/19 25 Discontinued Active Problems Problem Noted Date Diagnosed Date Asthma 03/13/2018 Bipolar disorder 03/13/2018 Encounters Date Type Department Care Team Description 12/03/2024 Telephone Bariatric Surgery [address] [address] Gianfranco Godron MD Med Refill 11/12/2024 Telephone Bariatric [address] [address] Gianfranco [place] MD Med Refill (Zepbound) 10/01/2024 1:30 PM EST Office Visit Bariatric [address] [address] Gianfranco [place] MD Obesity, Class II, BMI 35-39.9 (Primary Dx) from Last 3 Months Surgical History Surgery Date Site/Laterality Comments BARIATRIC SURGERY 10/02/2014 PROCEDURE: [place] LAPS GSTRC RSTRICTIV PX LONGITUDINAL GASTRECTOMY; COMMENT: Dr. Allan Osuna OTHER SURGICAL HISTORY 10/02/2014 PROCEDURE: [place] UNLISTED LAPS PX HRNAP HERNIORRHAPHY HERNIOTOMY; COMMENT: hiatal repair, at time of gastric sleeve CHOLECYSTECTOMY PROCEDURE: HISTORICAL CHOLECYSTECTOMY TUBAL LIGATION PROCEDURE: HISTORICAL TUBAL LIGATION OTHER SURGICAL HISTORY PROCEDURE: HISTORICAL PANNICULECTOMY OTHER SURGICAL HISTORY PROCEDURE: HISTORY OTHER; COMMENT: gastric sleeve Medical History Medical History Date Comments Bipolar disorder (CMS/HCC) 03/13/2018 DX:Bi polar disorder (HCC) Asthma 03/13/2018 DX:Asthma S/P laparoscopic sleeve gastrectomy [...] AM EDT Office Visit Bariatric Surgery - [place] [address] [place] [address] Gianfranco [place] MD [address] [place] [address] Health Maintenance Due Date Last Done Comments [...] patient's age to complete this topic Insurance [facility] [address] Care Teams Small Order Cutter Relationship Specialty Start Date End Date Kerry Medina MD [facility] [address] PCP - General Internal Medicine 01/15/18
--- OUTSIDE RECORDS SUMMARY | 2024-12-27 09:16 | XMS_ITS | Encounter Summary ---
Author Organization [facility] Address [address] [place] [address] Care Team Providers Care Physical Security Specialist Name Role Phone Kerry Medina MD Primary Care Provider [phone] Reason for Visit * Reason Onset Date Comments Med Refill 11/12/2024 Zepbound Encounter Details Date Type Department Care Team (Late Contact Info) Description 11/12/2024 Telephone Bariatric Surgery [facility] [address] [address] Gianfranco [place] MD [address] [address] Med Refill (Zepbound) Social History Tobacco Use [...] 8:45 AM EDT Office Visit Bariatric Surgery [address] [place] [address] Gianfranco [place] MD [address] [facility] 120 [place] [address] documented as of this encounter Visit Diagnoses Not on filedocumented in this encounter Care Teams Physical Security Specialist Relationship Specialty Start Date End Date Kerry Medina MD [address] PCP - General Internal Medicine 01/15/18 documented as of this encounter
--- OUTSIDE RECORDS SUMMARY | 2024-12-27 09:16 | XMS_ITS | Encounter Summary ---
Author Organization [facility] Address [address] [place] [address] Care Team Providers Care Radiology Resident Name Role Phone Kerry Medina MD Primary Care Provider [phone] Reason for Visit * Reason Onset Date Comments Med Refill 12/03/2024 Encounter Details Date Type Department Care Team (Late Contact Info) Description 12/03/2024 Telephone Bariatric Surgery - [place] [address] [address] Gianfranco Gordon MD [address] [address] Med Refill Social History Tobacco Use Types [...] AM EDT Office Visit Bariatric Surgery - [place] 175 [facility] [address] [place] [address] Gianfranco Gordon MD [address] [facility] [address] [place] [address] documented as of this encounter Visit Diagnoses Not on filedocumented in this encounter Care Teams Radiology Resident Relationship Specialty Start Date End Date Kerry Medina MD [address] [facility] [address] [place], [place] PCP - General Internal Medicine 01/15/18 documented as of this encounter
== END 2024-12-27 09:25 | disposition home or self-care (01) ==
LOC: HO.HNS 08:55
PROVIDERS: PCP Internal Medicine; Referring Provider Internal Medicine; Visit Provider Physician Assistant
DX: M54.9 Dorsalgia, unspecified (principal)
CPT/HCPCS: 99204

== ENCOUNTER 2025-01-17 11:14 | Outpatient (REF) | payer OTHER, SELFPAY ==
--- NOTE | ~2025-01-17 | US_ITS ---
CLINICAL HISTORY: N93.9 - Abnormal uterine and vaginal bleeding, unspecified US pelvis transabdominal and transvaginal with color Doppler Comparison: US/SR - US PELVIC AND TRANSVAGINAL - 06/05/24 14:06 EDT Findings: Transabdominal scanning performed for overall anatomy. Transvaginal scanning performed for additional detail. LMP: 01/10/2025 Anteverted uterus, normal size and echotexture, measuring 8.9 x 4.6 x 5.2 cm. Well defined endometrium, measuring 7.0 mm in thickness. Incidental nabothian cysts. The right ovary measures, 3.0 x 2.0 x 2.1 cm volume 6.4 cc. Probable hemorrhagic cyst measuring 1.7 x 1.5 x 1.6 cm.Normal color Doppler. The left ovary measures, 3.9 x 1.8 x 3.0 cm volume 11 cc previous volume 24 cc. Cm. Normal sonographic appearance left ovary. Normal color Doppler No adnexal masses or fluid collections. No free fluid Impression: 1. Normal uterus. Normal thickness endometrium homogeneous and well-definedwith normal trilaminar appearance. 2. Hemorrhagic cyst right ovary. Normal sonographic appearance left ovary. 3. No adnexal masses or fluid collections. This document has been electronically signed by: Lan Almeida MD on 01/17/2025 15:05:55
--- OUTSIDE RECORDS SUMMARY | 2025-01-17 13:08 | XMS_ITS | Encounter Summary ---
Author Organization [facility] Address [address] [place] [address] Care Team Providers Care Assistant To The Dean Name Role Phone Kerry Medina MD Primary Care Provider Gauri vailable Reason for Visit * Reason Onset Date Comments Medication 02/12/2024 Encounter Details Date Type Department Care Team Description 02/12/2024 Telephone Bariatric Surgery - [place] 175 [facility] [address] [place] [address] Gianfranco Gordon MD [address] [place] [address] [address] [place] [address] Medication Social History Tobacco Use Types Packs/Day Years Used Date Smoking Tobacco: Former Smokeless Tobacco: Never Alcohol Use Standard Drinks/Week Comments Yes 0 (1 standard drink = 0.6 oz pur e alcohol) social Sex Assigned at Date Recorded Not on file Job Start Date Occupation Industry Not on file Not on file Not on file documented as of this encounter Miscellaneous Notes * Telephone Encounter - Loren Schultz - 02/12/2024 9:14 AM EDT Patient doing well on Wegovy 0.50 mgs. She is on her last pen this week and would like a refill sent to her pharmacy. documented in this encounter Plan of Treatment Not on file documented as of this encounter Visit Diagnoses Not on filedocumented in this encounter Care Teams Assistant To The Dean Relationship Specialty Start Date End Date Krery Medina MD PCP - General Internal Medicine 01/15/18 documented as of this encounter
--- OUTSIDE RECORDS SUMMARY | 2025-01-17 13:08 | XMS_ITS | Encounter Summary ---
Author Organization [facility] Address [address] [place] [address] Care Team Providers Care Aircraft Ordnance Systems Mechanic Name Role Phone Kerry Medina MD Primary Care Provider Gauri vailable Reason for Visit * Reason Comments E-prescribe Rx Request Encounter Details Date Type Department Care Team Description 04/08/2024 Refill Bariatric Surgery - [address] [place] [address] Gianfranco Gordon MD [address] [place] [address] [address] [place] [address] E-prescribe Rx Request Social History Tobacco Use Types Packs/Day Years [...] encounter Miscellaneous Notes * Telephone Encounter - Gianfranco Gordon MD - 04/13/2024 10:58 AM EDT Reminding the patient that she needs follow-up visit. documented in this encounter Plan of Treatment Not on file documented as of this encounter Visit Diagnoses Diagnosis Class 1 obesity due to excess calories without serious comorbidity with body mass index (BMI) of 34.0 to 34.9 in adult documented in this encounter Care Teams Aircraft Ordnance Systems Mechanic Relationship Specialty Start Date End Date Kerry Medina MD PCP - General Internal Medicine 01/15/18 documented as of this encounter
--- OUTSIDE RECORDS SUMMARY | 2025-01-17 13:08 | XMS_ITS | Clinical Summary ---
Author Organization [facility] Address [address] [place] [address] Care Team Providers Care Manufacturing Quality Engineer Name Role Phone Kerry Medina MD Primary Care Provider Gauri vailable Allergies No known active allergies Medications Medication Sig Dispensed Refills Start Date End Date Status phentermine 15 MG capsule Take 1 Capsule by mouth every morning for 30 days. 30 Capsule 0 10/10/2023 Active buPROPion (WELLBUTRIN XL) 150 MG 24 hr tabletIndications:Cla ss 1 obesity due to excess calories without serious comorbidity with body mass index (BMI) of 34.0 to 34.9 in adult TAKE 1 TABLET BY MOUTH EVERY MORNING 90 Tablet 1 04/13/2024 Active Active Problems Problem Noted Date Class 1 obesity due to exces s calories with body mass index (BMI) of 34.0 to 34.9 in adult 12/06/2023 Bipolar disorder 03/13/2018 Asthma 03/13/2018 S/P laparoscopic sleeve gastrectomy 02/14 Overview: 10/02/2014 Dr. Georges Osuna Family History Medical History Relation Name Comments Cirrhosis Father at 39 CAD Maternal Grandmother Diabetes Mother hypertension Relation Name Status Comments Father Maternal Grandmother Mother Social History Tobacco Use Types Packs/Day Years Used Date Smoking Tobacco: Former Smokeless Tobacco: Never Tobacco Cessation:Counseling Given: Not Answered Alcohol Use Standard Drinks/Week Comments Yes 0 (1 standard drink = 0.6 oz pur e alcohol) social Sex Assigned at Date Recorded Not on file Job Start Date Occupation Industry Not on file Not on file Not on file Last Filed Vital Signs Vital Sign Reading Time Taken Comments Blood Pressure 126/75 02/15/2024 1:43 PM EDT Pulse 97 02/15/2024 1:43 PM EDT Temperature 36.7 ??C (98 ??F) 03/02/2018 12:20 PM EDT Respiratory Rate 14 03/02/2018 12:20 PM EDT Oxygen Saturation - - Inhaled Oxygen Concentration - - Weight 96.3 kg (212 lb 6.4 oz) 02/15/2024 1:43 P M EDT Height 167.6 cm (5' 6 ) 02/15/2024 1:43 PM EDT Body Mass Index 34.28 02/15/2024 1:43 PM EDT Plan of Treatment Health Maintenance Due Date Last Done Comments Covid-19 Vaccine (#1) 02/11/1984 DTAP/TDAP/TD (1 - Tdap) 2002 PNEUMOCOCCAL VACCINE FOR HIG H RISK PATIENTS (#1) 2002 CHOLESTEROL SCREENING 2003 CERVICAL CANCER SCREENING 2004 BASELINE HEALTH EXAM 40-64 2023 MAMMOGRAM 2023 BMI CHECK/ADVISE 10/16/2024 02/15/2024, 11/2023, 12/19/2023, Additional history exists DEPRESSION SCREENING/FOLLOWUP 10/16/2024 04/08/2024, 01/16/2024 SOCIAL NEEDS SCREENING 10/16/2024 INFLUENZA (Season Ended) 2025 Care Teams Manufacturing Quality Engineer Relationship Specialty Start Date End Date Kerry Medina MD PCP - General Internal Medicine 01/15/18
--- OUTSIDE RECORDS SUMMARY | 2025-01-17 13:08 | XMS_ITS | Clinical Summary ---
Author Organization [address] [place] [address] Address 175 [place] [address] Phone Care Team Providers Care Trimmer Tailer Name Role Phone Kerry Medina MD Primary Care Provider [phone] Allergies No known active allergies Medications buPROPion XL (WELLBUTRIN XL) 150 mg 24 hr tablet Take 1 tablet (150 mg total) by mouth 1 (one) time each day in the morning. 4 Active tirzepatide, weight loss, (Zepbound) 12.5 mg/0.5 mL injection Inject 0.5 mL (12.5 mg total) under the skin every 7 (seven) days for 28 days. 2 mL 5 01/25/20 25 Active tirzepatide, weight loss, (Zepbound) 10 mg/0.5 mL injection Inject 0.5 mL (10 mg total) under the skin every 7 (seven) days for 28 days. 2 mL 5 12/26/19 25 Discontinued Active Problems Problem Noted Date Diagnosed Date Asthma 03/13/2018 Bipolar disorder 03/13/2018 Encounters Date Type Department Care Team Description 01/02/2025 8:45 AM EDT Office Visit Bariatric Surgery [address] [address] Gianfranco Gordon MD Class 1 obesity due to excess calories with body mass index (BMI) of 30.0 to 30.9 in adult, unspecified whether serious comorbidity present (Primary Dx) 12/03/[address] [facility] [address] [address] Gianfranco Gordon MD Med Refill 11/12/2024 Telephone Bariatric Surgery - [address] [place] [address] Gianfranco Gordon MD Med Refill (Zepbound) from Last 3 Months Surgical History Surgery Date Site/Laterality Comments BARIATRIC SURGERY 10/02/2014 PROCEDURE: ND LAPS GSTRC RSTRICTIV PX LONGITUDINAL GASTRECTOMY; COMMENT: Dr. Allan Osuna OTHER SURGICAL HISTORY 10/02/2014 PROCEDURE: ND UNLISTED LAPS PX HRNAP HERNIORRHAPHY HERNIOTOMY; COMMENT: hiatal repair, at time of gastric sleeve CHOLECYSTECTOMY PROCEDURE: HISTORICAL CHOLECYSTECTOMY TUBAL LIGATION PROCEDURE: HISTORICAL TUBAL LIGATION OTHER SURGICAL HISTORY PROCEDURE: HISTORICAL PANNICULECTOMY OTHER SURGICAL HISTORY PROCEDURE: HISTORY OTHER; COMMENT: gastric sleeve Medical History Medical History Date Comments Bipolar disorder 03/13/2018 DX:Bipolar diso rder (HCC) Asthma 03/13/2018 DX:Asthma S/P laparoscopic sleeve [...] Sign Reading Time Taken Comments Blood Pressure 132/92 01/02/2025 9:13 AM EDT Pulse 82 01/02/2025 9:13 AM EDT Temperature 36.6 ??C (97.8 ??F) 01/02/2025 9:13 AM ED T Respiratory Rate - - Oxygen Saturation - - Inhaled Oxygen Concentration - - Weight 88.9 kg (196 lb) 01/02/2025 9:13 AM EDT Height 170.2 cm (5' 7 ) 01/02/2025 9:13 AM EDT Body Mass Index 30.7 01/02/2025 9:13 AM EDT Plan of Treatment Upcoming Encounters Date Type Department Care Team (Late st Contact Info) Description 07/08/2025 9:00 AM EDT Office Visit Bariatric Surgery - [place] 175 [facility] [address] [place] [address] Gianfranco Gordon MD 175 [facility] 120 [place] [address] Health Maintenance Due Date Last Done Comments [...] patient's age to complete this topic Insurance [facility] [employer] Care Teams Trimmer Tailer Relationship Specialty Start Date End Date Kerry Medina MD [address] PCP - General Internal Medicine 01/15/18
--- OUTSIDE RECORDS SUMMARY | 2025-01-17 13:08 | XMS_ITS | Encounter Summary ---
Author Organization [facility] Address [address] [place] [address] Care Team Providers Care Lead Pressman Name Role Phone Kerry Medina MD Primary Care Provider Gauri vailable Encounter Details Date Type Department Care Team Description 10/02/2014 [facility] Medical Records [address] [place] [address] Marina Lemus MD Social History Tobacco Use [...] on filedocumented in this encounter Care Teams Lead Pressman Relationship Specialty Start Date End Date Kerry Medina MD PCP - General Internal Medicine 01/15/18 documented as of this encounter
--- OUTSIDE RECORDS SUMMARY | 2025-01-17 13:08 | XMS_ITS | Encounter Summary ---
Author Organization [facility] Address [address] [place] [address] Care Team Providers Care Skull Splitter Name Role Phone Kerry Medina MD Primary Care Provider Gauri vailable Encounter Details Date Type Department Care Team Description 10/02/2014 [facility] Medical Records [address] [place] [address] Marina Leums MD Social History Tobacco Use Types Packs/Day [...] on filedocumented in this encounter Care Teams Skull Splitter Relationship Specialty Start Date End Date Kerry Medina MD PCP - General Internal Medicine 01/15/18 documented as of this encounter
== END 2025-01-17 11:15 | disposition home or self-care (01) ==
LOC: HO.US 11:14
PROVIDERS: PCP Internal Medicine; Visit Provider Obstetrics & Gynecology
DX: N93.9 Abnormal uterine and vaginal bleeding, unspecified (principal)
CPT/HCPCS: 76830; 76856

== ENCOUNTER → 2025-01-17 11:15 | Outpatient (BNV) | payer OTHER, SELFPAY | PROVIDERS: PCP Internal Medicine; Visit Provider Radiology Diagnostic Radiology | DX: N93.9 Abnormal uterine and vaginal bleeding, unspecified (principal) | CPT/HCPCS: 76830; 76856 ==

== ENCOUNTER 2025-02-06 15:36 | Outpatient (REF) | payer OTHER, SELFPAY | END 2025-02-06 15:37 | disposition home or self-care (01) | LOC: HO.LNP 15:36 | PROVIDERS: PCP Internal Medicine; Visit Provider Obstetrics & Gynecology | DX: N93.9 Abnormal uterine and vaginal bleeding, unspecified (principal) | CPT/HCPCS: 58100; 88305 ==

== ENCOUNTER 2025-02-06 15:36 | Outpatient (AMB) | payer OTHER, SELFPAY ==
--- NOTE | 2025-02-06 15:37 | A.OFFVIS_ITS ---
Intake Visit Reasons: EMB/U/S F/u Corporate Human Resources Manager: Corporate Human Resources Manager Present (Erica) Accompanied by: Self / Same As Patient Allergies No Known Allergies Allergy (Verified 02/06/25 15:46) HPI Comments Details: Presenting for EMB [facility] Medical History Migraines Asthma HESHAM (stress urinary incontinence, female) Cholecystectomy planned Appendicitis Surgical History Hx of cholecystectomy Hx of appendectomy S/P panniculectomy Gastric bypass status for obesity Tubal ligation status Family History Mother Prediabetes Rheumatoid arthritis Hypertension Father Medical history unknown Other Family history of multiple sclerosis Family history of rheumatoid arthritis Family history of systemic lupus erythematosus Social History Alcohol intake: current Alcohol intake frequency: holidays/special occasions only Patient Tobacco Use Status: Current someday Tobacco user Current occupational status: unemployed 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 hysteroscopy D&C) & the risks were discussed with the patient including but not limited: pain, uterine perforation, bleeding, infection, possible injury to bladder, bowel, ureter, possible need for blood transfusion with all its possible risks. The patient verbalized understanding all questions answered and signed consent. Urine test done in the office was negative The patient was placed into the dorsal lithotomy position; a speculum was inserted in the vagina. Using aseptic technique for the procedure, the cervix was cleansed with Betadine. The anterior lip of the cervix was grasped with a single tooth tenaculum. The uterus was sounded to 7 cm with a 4 mm Pipelle was used. Tissues samples were obtained and placed in formalin, in a patient labeled container and sent to the pathology department. At the end of the procedure, there was minimal bleeding noted The patient tolerated the procedure well and was discharged in good condition with the following instructions: Nothing in the vagina until the bleeding stops. No sex until the bleeding stops, to call if any of the following occurs: fever (>100.4), flu-like symptoms, abdominal pain, heavy bleeding, four smelling vaginal discharge. The patient was instructed to schedule a Follow up appointment in 2 weeks to discuss pathology results of the biopsy and treatment options. This note was generated with a voice recognition program. Some errors may have been overlooked during the review of this note. Sometimes these errors may affect the content or meaning of a given sentence. [id number] Biopsy Assessment & Plan Assessment & Plan (1) Abnormal uterine bleeding (AUB): Code(s): N93.9 - Abnormal uterine and vaginal bleeding, unspecified Category: Medical Plan: EMB done, see procedure note Orders: Orders AMB Endometrial Biopsy Today N93.9 - Abnormal uterine and vaginal bleeding, unspecified Coding Level of Care Code Procedure Only Diagnoses Abnormal uterine bleeding (AUB) N93.9 CPT Codes Endometrial Biopsy - CPT: 71598-[id number] Biopsy ([id number])
--- OUTSIDE RECORDS SUMMARY | 2025-02-06 18:15 | XMS_ITS | Encounter Summary ---
Author Organization [facility] Address [address] [place] [address] Care Team Providers Care Medical Service Representative Name Role Phone Kerry Medina MD Primary Care Provider [phone] Reason for Visit * Reason Onset Date Comments Med Refill 01/21/2025 Zepbound Encounter Details Date Type Department Care Team (Late Contact Info) Description 01/21/2025 Telephone Bariatric Surgery [facility] [address] [address] Gianfranco Gordon MD [address] [address] Med Refill (Zepbound) Social History Tobacco Use [...] encounter Progress Notes * Sophie Spencer - 01/21/2025 8:34 AM EDT Patient did well on Zepbound 12.5 mgs and would like a refill with titration. If appropriate, please send script for Zepbound 12.5 mgs to their pharmacy. The patient does have a follow up in 07/08/2025 documented in this encounter Plan of Treatment Upcoming Encounters Date Type Department Care Team (Late Contact Info) Description 07/08/2025 9:00 AM EDT Office Visit Bariatric Surgery - [place] [address] [place] [address] Gianfranco Gordon MD [address] [facility] [address] [facility] [address] [place] [address] documented as of this encounter Visit Diagnoses Not on filedocumented in this encounter Care Teams Medical Service Representative Relationship Specialty Start Date End Date Kerry Medina MD [address] [place], [place] PCP - General Internal Medicine 01/15/18 documented as of this encounter
--- OUTSIDE RECORDS SUMMARY | 2025-02-06 18:15 | XMS_ITS | Encounter Summary ---
Author Organization [facility] Address [address] [place] [address] Care Team Providers Care Personnel Research Scientist Name Role Phone Kerry Medina MD Primary Care Provider Gauri vailable Encounter Details Date Type Department Care Team Description 03/07/2018 Release of Information Medical Records [address] [place] [address] Abstract, Provider Social History Tobacco Use Types [...] on filedocumented in this encounter Care Teams Personnel Research Scientist Relationship Specialty Start Date End Date Kerry Medina MD PCP - General Internal Medicine 01/15/18 documented as of this encounter
--- OUTSIDE RECORDS SUMMARY | 2025-02-06 18:15 | XMS_ITS | Encounter Summary ---
Author Organization [facility] Address [address] [place] [address] Care Team Providers Care Technology Project Manager Name Role Phone Kerry Medina MD Primary Care Provider Gauri vailable Encounter Details Date Type Department Care Team Description 10/02/2014 [facility] Medical Records [address] [place] [address] Marina Lemus MD Social History Tobacco Use [...] on filedocumented in this encounter Care Teams Technology Project Manager Relationship Specialty Start Date End Date Kerry Medina MD PCP - General Internal Medicine 01/15/18 documented as of this encounter
--- OUTSIDE RECORDS SUMMARY | 2025-02-06 18:15 | XMS_ITS | Encounter Summary ---
Author Organization [facility] Address [address] [place] [address] Care Team Providers Care Mattress Finisher Name Role Phone Kerry Medina MD Primary Care Provider Gauri vailable Reason for Visit * Reason Comments E-prescribe Rx Request Encounter Details Date Type Department Care Team Description 04/08/2024 Refill Bariatric Surgery - [address] [place] [address] Gianfranco Gordon MD [address] [place] [address] [address] [place] [address] E-prescribe Rx Request Social History Tobacco Use [...] adult documented in this encounter Care Teams Mattress Finisher Relationship Specialty Start Date End Date Kerry Medina MD PCP - General Internal Medicine 01/15/18 documented as of this encounter
--- OUTSIDE RECORDS SUMMARY | 2025-02-06 18:15 | XMS_ITS | Clinical Summary ---
Author Organization [address] [place] [address] Address [address] [place] [address] Phone Care Team Providers Care Saddle And Side Wire Stitcher Name Role Phone Kerry Medina MD Primary Care Provider [phone] Allergies No known active allergies Medications buPROPion XL (WELLBUTRIN XL) 150 mg 24 hr tablet Take 1 tablet (150 mg total) by mouth 1 (one) time each day in the morning. 4 Active tirzepatide, weight loss, (Zepbound) 12.5 mg/0.5 mL injection Inject 0.5 mL (12.5 mg total) under the skin every 7 (seven) days for 28 days. 2 mL 5 02/22/20 25 Active tirzepatide, weight loss, (Zepbound) 12.5 mg/0.5 mL injection Inject 0.5 mL (12.5 mg total) under the skin every 7 (seven) days for 28 days. 2 mL 5 01/22/20 25 Discontinued Active Problems Problem Noted Date Diagnosed Date Asthma 03/13/2018 Bipolar disorder ([facility] V24, [facility] V28) 02/14 Encounters Date Type Department Care Team Description 01/21/2025 Telephone Bariatric Surgery [address] [address] Gianfranco Gordon MD Med Refill (Zepbound) 01/02/2025 8:45 AM EDT Office Visit Bariatric Surgery [address] [address] Gianfranco Gordon MD Class 1 obesity due to excess calories with body mass index (BMI) of 30.0 to 30.9 in adult, unspecified whether serious comorbidity present (Primary Dx) 12/03/2024 Telephone Bariatric Surgery - [place] 175 [facility] [address] [place] [address] Gianfranco Gordon MD Med Refill 11/12/2024 Telephone Bariatric Surgery - [place] 175 [facility] 120 [place] [address] Gianfranco Gordon MD Med Refill (Zepbound) from Last 3 Months Surgical History Surgery Date Site/Laterality Comments BARIATRIC SURGERY 10/02/2014 PROCEDURE: DE LAPS GSTRC RSTRICTIV PX LONGITUDINAL GASTRECTOMY; COMMENT: Dr. Allan Osuna OTHER SURGICAL HISTORY 10/02/2014 PROCEDURE: DE UNLISTED LAPS PX HRNAP HERNIORRHAPHY HERNIOTOMY; COMMENT: hiatal repair, at time of gastric sleeve CHOLECYSTECTOMY PROCEDURE: HISTORICAL CHOLECYSTECTOMY TUBAL LIGATION PROCEDURE: HISTORICAL TUBAL LIGATION OTHER SURGICAL HISTORY PROCEDURE: HISTORICAL PANNICULECTOMY OTHER SURGICAL HISTORY PROCEDURE: HISTORY OTHER; COMMENT: gastric sleeve Medical History Medical History Date Comments Bipolar disorder (CMS/HCC V2 4, CMS/HCC V28) 03/13/2018 DX:Bipolar disorder (HCC) Asthma 03/13/2018 DX:Asthma S/P laparoscopic [...] AM EDT Office Visit Bariatric Surgery - [place] 175 [facility] [address] [place] [address] Gianfranco Gordon MD 175 [facility] [address] [place] [address] Health Maintenance Due Date Last Done Comments [...] Influencers of Health Screening 09/18/2022 COVID-19 Vaccine ( - 2023-2 5 season) 2024 Influenza Vaccine (Season Ended) 2025 10/07/2020, 01/05/2010 DTaP,Tdap,and Td Vaccines (2 - Td [...] age to complete this topic Meningococcal B Vaccine Aged Out No l onger eligible based on patient's age to complete this topic RSV Immunization Patients Under 20 months Aged Out No longer eligible b ased on patient's age to complete this topic Varicella Vaccines Aged Out No longer eligible based on patient's age to complete this topic Insurance [facility] [place] [address] Care Teams Saddle And Side Wire Stitcher Relationship Specialty Start Date End Date Kerry Medina MD [address] PCP - General Internal Medicine 01/15/18
== END 2025-02-06 15:57 | disposition home or self-care (01) ==
LOC: HO.HWS 15:36
PROVIDERS: PCP Internal Medicine; Visit Provider Obstetrics & Gynecology
DX: N93.9 Abnormal uterine and vaginal bleeding, unspecified (principal)
CPT/HCPCS: 58100

== ENCOUNTER 2025-02-14 07:30 | Outpatient (RCR) | payer OTHER, SELFPAY ==
[2025-01-10 07:28] VITALS: BP 142/70; PULSE 84; RESP 16; TEMP 36.3; O2SAT 99
[2025-01-10] MEDS: Iron Sucrose Complex 200 MG/10 ML VIAL IVPUSH (07:35)
--- NOTE | 2025-01-10 08:15 | HO.INF ---
pt c/o painful cramping at iv site and above iv site during venofer iv push. pharmacy made aware
[2025-01-17 07:31] VITALS: BP 129/92; PULSE 83; RESP 16; TEMP 36.3; O2SAT 97
[2025-01-17] MEDS: Iron Sucrose Complex 200 MG 440 MG IV (08:05)
[2025-01-24 07:21] VITALS: BP 130/90; PULSE 90; RESP 16; TEMP 36.1; O2SAT 99
[2025-01-24] MEDS: Iron Sucrose Complex 200 MG 440 MG IV (07:28)
[2025-01-31 08:06] VITALS: BP 120/84; PULSE 80; RESP 16; TEMP 36.7; O2SAT 98
[2025-01-31] MEDS: Iron Sucrose Complex 200 MG in 0.9 % Sodium Chloride 100 ML 440 MG IV (08:16)
[2025-02-07 07:33] VITALS: BP 125/93; PULSE 74; RESP 16; TEMP 36.1; O2SAT 99
[2025-02-07] MEDS: Iron Sucrose Complex 200 MG in 0.9 % Sodium Chloride 100 ML 440 MG IV (07:48)
[2025-02-14 07:37] VITALS: BP 117/87; PULSE 75; RESP 16; TEMP 36.3; O2SAT 99
[2025-02-14] MEDS: Iron Sucrose Complex 200 MG in 0.9 % Sodium Chloride 100 ML 440 MG IV (07:45)
== END 2025-02-14 08:05 | disposition home or self-care (01) ==
LOC: HO.INF 07:30
PROVIDERS: PCP Internal Medicine; Visit Provider Internal Medicine
DX: D50.8 Other iron deficiency anemias (principal); K91.89 Other postprocedural complications and disorders of digestive system
CPT/HCPCS: 96365; 96374; J1756

== ENCOUNTER 2025-02-25 12:43 | Outpatient (AMB) | payer OTHER, SELFPAY ==
--- NOTE | 2025-02-25 12:46 | MHC.OFFVIS ---
Intake Visit Reasons: Biospy Result Allergies No Known Allergies Allergy (Verified 02/06/25 15:46) HPI Comments Details: The patient is presenting for follow-up to discuss the results of her abnormal uterine bleeding workup and options of treatment. The following workup was done.: H&H= 10.9/34.6 TSH, hCG, GC and chlamydia were negative. Endometrial biopsy pathology showed the following: Inactive endometrium with lytic changes; no atypia or hyperplasia identified Co testing was done was negative. Mammogram ordered but not done yet Pelvic ultrasound showed the following: Anteverted uterus, normal size and echotexture, measuring 8.9 x 4.6 x 5.2 cm. Well defined endometrium, measuring 7.0 mm in thickness. Incidental nabothian cysts. The right ovary measures, 3.0 x 2.0 x 2.1 cm volume 6.4 cc. Probable hemorrhagic cyst measuring 1.7 x 1.5 x 1.6 cm.Normal color Doppler. The left ovary measures, 3.9 x 1.8 x 3.0 cm volume 11 cc previous volume 24 cc. Cm. Normal sonographic appearance left ovary. Normal color Doppler No adnexal masses or fluid collections. No free fluid PFSH Medical History Migraines Asthma HESHAM (stress urinary incontinence, female) Cholecystectomy planned Appendicitis Surgical History Hx of cholecystectomy Hx of appendectomy S/P panniculectomy Gastric bypass status for obesity Tubal ligation status Family History Mother Prediabetes Rheumatoid arthritis Hypertension Father Medical history unknown Other Family history of multiple sclerosis Family history of rheumatoid arthritis Family history of systemic lupus erythematosus Social History Alcohol intake: current Alcohol intake frequency: holidays/special occasions only Patient Tobacco Use Status: Current someday Tobacco user Current occupational status: unemployed 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 All pros, cons, risks and benefits if each option was discussed with the patient and the patient decided to go ahead with Lysteda , so a more detailed discussion re: Lysteda including mechanism of action, benefits, risks including but not limited to thrombosis and strokes, Instructions were given on how to use, 2 tablets p.o. 3 times a day day 1 up to 3-5 days of menses and to schedule a 3 months follow-up appointment. The patient verbalized understanding and agreed with the plan. (2) Complex ovarian cyst: Code(s): N83.299 - Other ovarian cyst, unspecified side Category: Medical Plan: Discussed with the patient the complex ovarian cyst by ultrasound. Discussed with the patient the Ultrasound findings, the main limitation of transvaginal ultrasonography alone as a diagnostic tool to distinguish benign from malignant masses relates to its lack of specificity and low positive predictive value for cancer. The differential diagnosis discussed with the patient includes the following but not limited to: benign and malignant gynecological and non-gynecological causes. Laboratory evaluation include UPT and GC/CT , serum tumor marker CA 125 . Discussed with the patient options of treatment including laparoscopy ovarian cystectomy/oophorectomy vs. expectant management with repeat US in repeating pelvic US in 6-12 weeks from previous US. If the ovarian complex cyst is persistent larger and / or more complex looking, will refer to gynecologic Oncology. All pros, cons, risks and benefits of each approach were discussed with the patient including but not limited to a delay in the diagnosis and treatment of ovarian cancer affecting the prognosis; The patient decided to go ahead with expectant management. Instructions given the patient to schedule a 3 months follow-up ultrasound appointment. All questions were answered & the patient verbalized understanding and agreed with the plan. Orders: Orders US pelvic and transvaginal 6 Weeks N83.299 - Other ovarian cyst, unspecified side Medications: New tranexamic acid Start 1st day of menses and take it up to 3-5 days of menses. 1,300 mg (2 x 650 mg) PO TID 5 days 30 tabs 2RF Coding Level of Care Code Est Pt Level 3 (23800) Diagnoses Abnormal uterine bleeding (AUB) N93.9 Complex ovarian cyst N83.299
--- OUTSIDE RECORDS SUMMARY | 2025-02-25 13:45 | XMS_ITS | Clinical Summary ---
Author Organization [facility] Address [address] [place] [address] Care Team Providers Care Enologist Name Role Phone Kerry Medina MD Primary [...] 10/16/2024 INFLUENZA (Season Ended) 2025 Care Teams Enologist Relationship Specialty Start Date End Date Kerry Medina MD PCP - General Internal Medicine 01/15/18
--- OUTSIDE RECORDS SUMMARY | 2025-02-25 13:45 | XMS_ITS | Encounter Summary ---
Author Organization [facility] Address [address] [place] [address] Care Team Providers Care Lead Military Analyst Name Role Phone Kerry Medina MD Primary Care Provider [phone] Reason for Visit * Reason Onset Date Comments Med Refill 01/21/2025 Zepbound Encounter Details Date Type Department Care Team (Late Contact Info) Description 01/21/2025 Telephone Bariatric Surgery [facility] [address] [address] Gianfranco Gordon MD [address] [address] Med Refill (Zepbound) Social History Tobacco Use [...] AM EDT Office Visit Bariatric Surgery - [employer] [address] [place] [address] Gianfranco Gordon MD [address] [facility] [address] [facility] [address] [place] [address] documented as of this encounter Visit Diagnoses Not on filedocumented in this encounter Care Teams Lead Military Analyst Relationship Specialty Start Date End Date Kerry Medina MD [address] [place], [place] PCP - General Internal Medicine 01/15/18 documented as of this encounter
--- OUTSIDE RECORDS SUMMARY | 2025-02-25 13:45 | XMS_ITS | Encounter Summary ---
Author Organization [facility] Address [address] [place] [address] Care Team Providers Care Tree Doctor Name Role Phone Kerry Medina MD Primary Care Provider Gauri vailable Encounter Details Date Type Department Care Team Description 10/02/2014 [facility] Medical Records [address] [place] [phone] Marina Lemus MD Social History Tobacco Use [...] on filedocumented in this encounter Care Teams Tree Doctor Relationship Specialty Start Date End Date Kerry Medina MD PCP - General Internal Medicine 01/15/18 documented as of this encounter
--- OUTSIDE RECORDS SUMMARY | 2025-02-25 13:45 | XMS_ITS | Encounter Summary ---
Author Organization [facility] Address [address] [place] [address] Care Team Providers Care Bottom Saw Operator Name Role Phone Kerry Medina MD Primary Care Provider Gauri vailable Encounter Details Date Type Department Care Team Description 10/02/2014 [facility] Medical Records [address] [place] [id number] Marina Lemus MD Social History Tobacco Use [...] on filedocumented in this encounter Care Teams Bottom Saw Operator Relationship Specialty Start Date End Date Kerry Medina MD PCP - General Internal Medicine 01/15/18 documented as of this encounter
--- OUTSIDE RECORDS SUMMARY | 2025-02-25 13:45 | XMS_ITS | Clinical Summary ---
Author Organization [address] [place] [address] Address [address] [place] [address] Phone Care Team Providers Care Tire Changer Name Role Phone Kerry Medina MD Primary Care Provider [phone] Allergies No known active allergies Medications buPROPion XL (WELLBUTRIN XL) 150 mg 24 hr tablet Take 1 tablet (150 mg total) by mouth 1 (one) time each day in the morning. 4 Active tirzepatide, weight loss, (Zepbound) 12.5 mg/0.5 mL injection Inject 0.5 mL (12.5 mg total) under the skin every 7 (seven) days for 28 days. 2 mL 5 03/18/20 25 Active tirzepatide, weight loss, (Zepbound) 12.5 mg/0.5 mL injection Inject 0.5 mL (12.5 mg total) under the skin every 7 (seven) days for 28 days. 2 mL 5 02/19/20 25 Discontinu ed(Reorder ) Active Problems Problem Noted Date Diagnosed Date Asthma 03/13/2018 Bipolar disorder (CMS/[facility] V24, CMS/[facility] V28) 02/14 Encounters Date Type Department Care Team Description 02/18/2025 Telephone Bariatric Surgery [address] [address] Gianfranco Gordon MD Med Refill (zepbound) 01/21/2025 Telephone Bariatric Surgery [address] [address] Gianfranco Gordon MD Med Refill (Zepbound) 01/02/2025 8:45 AM EDT Office Visit Bariatric Surgery - [place] [address] [facility] [address] [place] [address] Gianfranco Gordon MD Class 1 obesity due to excess calories with body mass index (BMI) of 30.0 to 30.9 in adult, unspecified whether serious comorbidity present (Primary Dx) 12/03/2024 Telephone Bariatric Surgery - [place] [address] [facility] [address] [place] [address] Gianfranco Gordon MD Med Refill from Last 3 Months Surgical History Surgery Date Site/Laterality Comments BARIATRIC SURGERY 10/02/2014 PROCEDURE: MD LAPS GSTRC RSTRICTIV PX LONGITUDINAL GASTRECTOMY; COMMENT: Dr. Allan Osuna OTHER SURGICAL HISTORY 10/02/2014 PROCEDURE: MD UNLISTED LAPS PX HRNAP HERNIORRHAPHY HERNIOTOMY; COMMENT: hiatal repair, at time of gastric sleeve CHOLECYSTECTOMY PROCEDURE: HISTORICAL CHOLECYSTECTOMY TUBAL LIGATION PROCEDURE: HISTORICAL TUBAL LIGATION OTHER SURGICAL HISTORY PROCEDURE: HISTORICAL PANNICULECTOMY OTHER SURGICAL HISTORY PROCEDURE: HISTORY OTHER; COMMENT: gastric sleeve Medical History Medical History Date Comments Bipolar disorder (CMS/HCC V2 4, CMS/HCC V28) 03/13/2018 DX:Bipolar disorder ([facility]) Asthma 03/13/2018 DX:Asthma S/P laparoscopic sleeve [...] AM EDT Office Visit Bariatric Surgery - [place] [address] [facility] [address] [place] [id number] Gianfranco Gordon MD 175 [facility] [address] [place] [address] Health Maintenance Due Date Last Done Comments [...] patient's age to complete this topic Insurance [facility] Care Teams Tire Changer Relationship Specialty Start Date End Date Kerry Medina MD [address] PCP - General Internal Medicine 01/15/18
--- OUTSIDE RECORDS SUMMARY | 2025-02-25 13:45 | XMS_ITS | Encounter Summary ---
Author Organization [facility] Address [address] [place] [address] Care Team Providers Care Family Service Center Director Name Role Phone Kerry Medina MD Primary Care Provider Gauri vailable Encounter Details Date Type Department Care Team Description 01/21/2016 [facility] Medical Records [address] [place] [phone] Abner Monge DO Social History Tobacco Use [...] on filedocumented in this encounter Care Teams Family Service Center Director Relationship Specialty Start Date End Date Kerry Medina MD PCP - General Internal Medicine 01/15/18 documented as of this encounter
== END 2025-02-25 13:12 | disposition home or self-care (01) ==
LOC: HO.HWS 12:43
PROVIDERS: PCP Internal Medicine; Visit Provider Obstetrics & Gynecology
DX: N93.9 Abnormal uterine and vaginal bleeding, unspecified (principal); N83.299 Other ovarian cyst, unspecified side
CPT/HCPCS: 99213

== ENCOUNTER → 2025-02-25 12:43 | Outpatient (BNVA) | payer OTHER, SELFPAY | PROVIDERS: PCP Internal Medicine; Visit Provider Obstetrics & Gynecology | DX: N93.9 Abnormal uterine and vaginal bleeding, unspecified (principal); N83.299 Other ovarian cyst, unspecified side | CPT/HCPCS: 99212 ==

== ENCOUNTER 2025-03-10 08:03 | Emergency (ER) | payer OTHER, SELFPAY ==
[2025-03-10 08:04] VITALS: BP 140/79; PULSE 88; RESP 19; TEMP 36.6; O2SAT 99; BMI 29.0
--- NOTE | 2025-03-10 08:29 | ED_ITS ---
HPI - Back Pain/Injury General Chief Complaint: Back Pain/Injury Stated Complaint: Sciatic Pain Time Seen by Provider: 03/10/25 08:20 Source: patient Mode of arrival: ambulatory Limitations: no limitations History of Present Illness ED Provider: DR. Doss HPI Narrative: A 39-year-old female with past medical history significant for sciatica, presented today with low back pain radiating to both legs for the past 4 days, no significant trauma or injury, patient thinks her sciatica is aggravated by being called for the past few days. No fall, no heavy lifting. Patient tried Naprosyn at home with no relief, no dysuria, no frequency urination, no hematuria, no stool or urine incontinence, no weakness, no numbness. Related Data Home Medications ?Medication ?Instructions ?Recorded ?Confirmed albuterol sulfate 90 mcg/actuation 2 puff inhalation QID 10/03/22 12/25/24 aerosol inhaler (ProAir HFA) Adderall 10 mg PO DAILY 11/14/23 12/25/24 multivitamin 1 tab PO DAILY 11/14/23 12/25/24 quetiapine 50 mg tablet,extended 50 mg PO BEDTIME 10/07/24 12/25/24 release 24 hr tirzepatide (weight loss) 2.5 2.5 mg subcut DIRECTED 10/07/24 12/25/24 mg/0.5 mL subcutaneous pen injector (Zepbound) Previous Rx's ?Medication ?Instructions ?Recorded albuterol sulfate 1.25 mg/3 mL 1.25 mg (3 mL) inhalation Q4-6H 03/01/22 solution for nebulization PRN shortness of breath or wheezing #90 mL COVID-19 antigen test (BinaxNOW #2 ea 12/22/23 COVID-19 Ag Self Test kit) guaifenesin 100 mg/5 mL oral 200 mg (10 mL) PO Q6H PRN cough 04/02/24 liquid (Cough Syrup) #120 mL ondansetron 4 mg disintegrating 4 mg PO Q8H PRN nausea and 04/17/24 tablet vomiting 4 days #10 tabs rizatriptan 10 mg tablet 5 - 10 mg (0.5 - 1 x 10 mg) PO Q2H 04/19/24 PRN migraine headache 21 days #12 tabs metoclopramide HCl 5 mg tablet 5 - 10 mg (1 - 2 x 5 mg) PO Q4-6H 06/01/24 PRN migraine headache 7 days #28 tabs acetaminophen 500 mg tablet 500 mg PO Q6H PRN fever or pain 07/09/24 (Tylenol Extra Strength) #14 tabs lidocaine 5 % topical patch 1 patch topical DAILY PRN pain #30 07/09/24 (Lidoderm) ea naproxen 500 mg tablet 500 mg PO BID PRN pain 10 days #20 07/09/24 tabs nitrofurantoin 100 mg PO Q12H 7 days #14 caps 07/09/24 monohydrate/macrocrystals 100 mg capsule (Macrobid) cyclobenzaprine 5 mg tablet 5 mg PO Q8H PRN muscle spasm 30 08/01/24 days #90 tabs rimegepant 75 mg disintegrating 75 mg PO ONCE PRN migraine 10/07/24 tablet (Nurtec ODT) headache 30 days #16 tabs rizatriptan 10 mg tablet 5 - 10 mg (0.5 - 1 x 10 mg) PO Q2H 10/17/24 PRN migraine headache 30 days #12 tabs tranexamic acid 650 mg tablet 1,300 mg (2 x 650 mg) PO TID 5 02/25/25 days #30 tabs cefuroxime axetil 250 mg tablet 250 mg PO BID 7 days #14 tabs 03/10/25 Allergies Allergy/AdvReac Type Severity Reaction Status Date / Time No Known Allergies Allergy Verified 03/10/25 08:06 Review of Systems Review of Systems: All other systems are reviewed and are negative Constitutional: Reports as per HPI and Reports no additional constitutional complaints Eyes: Reports as per HPI and Reports no additional eye complaints Reports system reviewed and no additional complaints, except as documented Cardiovascular: Reports as per HPI and Reports no additional cardiovascular complaints Respiratory: Reports as per HPI and Reports no additional respiratory complaints Gastrointestinal: Reports as per HPI and Reports no additional gastrointestinal complaints Genitourinary: Reports no additional female genitourinary complaints Musculoskeletal: Reports no additional musculoskeletal complaints Skin/Breast: Reports system reviewed and no additional complaints, except as docu Psychiatric: Reports no additional psychiatric complaints Endocrine: Reports no additional endocrine complaints Hematologic/Lymphatic: Reports no additional hematologic/lymphatic complaints Allergic/Immunologic: Reports no additional allergic/immunologic complaints Reports system reviewed and no additional complaints, except as documented and Reports Abnormal speech present [facility] Past Medical History Medical History Migraines Asthma HESHAM (stress urinary incontinence, female) Cholecystectomy planned Appendicitis Surgical History Hx of cholecystectomy Hx of appendectomy S/P panniculectomy Gastric bypass status for obesity Tubal ligation status Family History Family History Mother Prediabetes Rheumatoid arthritis Hypertension Father Medical history unknown Other Family history of multiple sclerosis Family history of rheumatoid arthritis Family history of systemic lupus erythematosus Social History Social History Alcohol intake: current Alcohol intake frequency: holidays/special occasions only Patient Tobacco Use Status: Current someday Tobacco user Advance Directives: No Advance Directives Information Provided: No Do you have a plan to hurt others: No Plan Current occupational status: unemployed 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 Blood pressure elevated. Heart rate normal. Respiratory rate normal. Temperature normal. Oxygen saturation normal. Appearance: Alert. Oriented X3. No acute distress. Head: Normal external exam. Normocephalic. Atraumatic. No Contreras signs noted. No raccoon eyes noted Eyes: PERRLA. EOMI. Conjunctiva and sclera normal. Eyelids normal. ENT: TM's Normal. Pharynx normal. Uvula midline. Moist mucous membranes. No trismus noted. No drooling noted. No muffled voice noted. Neck: Normal inspection. Neck supple. FROM. No adenopathy. Thyroid Normal. No meningeal signs. No neck mass noted. CVS: Normal heart rate and rhythm. Heart sound normal. No murmurs noted. Pulses normal throughout. Respiratory: No respiratory distress. Painless inspiration. Breath sounds hector l. No wheezes/rales/rhonchi noted. Chest nontender. No accessory muscle usage noted or decreased air movement noted. Abdomen: Soft and nontender. Bowel sounds normal in all 4 quadrants. No distention noted. No organomegaly noted. No visible injury noted. Back: No CVA tenderness. Full range of motion noted. Skin: Skin warm and dry. Normal skin color. Normal skin turgor. No rashes/lesions/lacerations noted. Extremities: No lower extremity edema. Extremities exhibit normal range of motion. Extremities nontender. Neuro: Mental status: Normal attention, orientation, memory, and affect. Cranial nerves: Pupils are equal, round and reactive to light, EOMI, visual hair are fall, face is symmetric, facial sensations are normal. Motor examination normal muscle tone, strength to 4 extremities. DTR are +2, planter's are flexor. Sensory exam; normal coordination, no ataxia, gait stable. Cerebellar exam: [id number] and [id number] is normal. Extrapyramidal system: No tremors, no rigidity with normal facial expressions. Pronator drift not present Course Reevaluation(s) Reevaluation #1: Feels better, able to ambulate with less pain. UTI, start on Ceftin x1 week and drink plenty of fluids. Instructed to take naproxen, rest, heating pad to the lower back, and follow-up with PCP. Patient instructed to seek immediate medical attention if any incontinence, weakness in her lower extremities. Time: 09:15 Medications Administered Discontinued Medications Generic Name Dose Route Start Last Admin Trade Name Duke PRN Reason Stop Dose Admin Ketorolac Tromethamine 15 mg 03/10/25 08:27 03/10/25 08:57 Ketorolac Tromethamine 15 Mg/Ml Vial IM 03/10/25 08:28 15 mg ONCE ONE Administration Morphine Sulfate 2 mg 03/10/25 08:27 03/10/25 08:57 Morphine Sulfate 2 Mg/Ml Cartridge IM 03/10/25 08:28 2 mg ONCE ONE Administration Protocol Medical Decision Making Differential Diagnosis Differential Diagnoses: The differential diagnosis associated with the presentation includes (Sciatica, pyelonephritis, UTI, muscular back pain.) Admission/Observation Consideration of admission/observation: Escalation of care including admission/observation considered Lab Data [facility] Lab Attestation statement: I reviewed the patient's lab results. Labs: Lab Results 03/10/25 Range/Units 09:21 Urine Color Yellow Urine Appearance Cloudy Urine pH 7.0 (5.0-9.0) Ur Specific Webster 1.025 (1.005-1.025) Urine Protein 30 (1+) H (Neg-Trace) mg/dL Urine Glucose (UA) Negative (Negative) mg/dL Urine Ketones Trace (Negative) mg/dL Urine Blood Negative (Negative) Urine Nitrite Negative (Negative) Ur Leukocyte Esterase Large (3+) H (Negative) Urine RBC 0-2 (0-2) /HPF Urine WBC >50 H (0-5) /HPF Ur Squamous Epith Cells 11-20 (0-2) /HPF Urine Bacteria 4+ (None Seen) Hyaline Casts 3-5 (0-2) /LPF Urine Test NEGATIVE (NEGATIVE) Discharge Plan Discharge Clinical Impression: Acute lumbar radiculopathy, UTI (urinary tract infection) Patient Disposition: Home, Self-Care Instructions: Urinary Tract Infection in Women (ED), Lumbar Radiculopathy (ED) Prescriptions: New cefuroxime axetil 250 mg tablet 250 mg PO BID 7 Days Qty: 14 0RF No Action metoclopramide HCl 5 mg tablet 5 - 10 mg PO Q4-6H PRN (Reason: migraine headache) 7 Days Qty: 28 0RF rizatriptan 10 mg tablet 5 - 10 mg PO Q2H PRN (Reason: migraine headache) 30 Days Qty: 12 6RF Rx Instructions: max 2 tabs per day or 4 tabs per week albuterol sulfate 1.25 mg/3 mL solution for nebulization 1.25 mg inhalation Q4-6H PRN (Reason: shortness of breath or wheezing) Qty: 90 0RF (DME) BinaxNOW COVID-19 Ag Self Test Kit See Rx Instructions .Route Qty: 2 0RF Rx Instructions: As directed ondansetron 4 mg tablet,disintegrating 4 mg PO Q8H PRN (Reason: nausea and vomiting) 4 Days Qty: 10 0RF acetaminophen [Tylenol Extra Strength] 500 mg tablet 500 mg PO Q6H PRN (Reason: fever or pain) Qty: 14 0RF lidocaine [Lidoderm] 5 % adhesive patch,medicated 1 patch topical DAILY MDD remove after 12 hours PRN (Reason: pain) Qty: 30 0RF Rx Instructions: leave on most painful area for up to 12 hrs naproxen 500 mg tablet 500 mg PO BID PRN (Reason: pain) 10 Days Qty: 20 0RF nitrofurantoin monohyd/m-cryst [Macrobid] 100 mg capsule 100 mg PO Q12H 7 Days Qty: 14 0RF Rx Instructions: must administer with a meal/food Adderall 10 mg 10 mg PO DAILY multivitamin [Multi-Day] Tablet 1 tab PO DAILY guaifenesin [Cough Syrup] 100 mg/5 mL liquid 200 mg PO Q6H PRN (Reason: cough) Qty: 120 0RF albuterol sulfate [ProAir HFA] 90 mcg/actuation HFA aerosol inhaler 2 puff inhalation QID rizatriptan 10 mg tablet 5 - 10 mg PO Q2H PRN (Reason: migraine headache) 21 Days Qty: 12 0RF Zepbound 2.5 mg/0.5 mL pen injector 2.5 mg subcut DIRECTED quetiapine 50 mg tablet extended release 24 hr 50 mg PO BEDTIME Nurtec ODT 75 mg tablet,disintegrating 75 mg PO ONCE MDD 1 tab PRN (Reason: migraine headache) 30 Days Qty: 16 3RF cyclobenzaprine 5 mg tablet 5 mg PO Q8H PRN (Reason: muscle spasm) 30 Days Qty: 90 0RF tranexamic acid 650 mg tablet 1,300 mg PO TID 5 Days Qty: 30 2RF Rx Instructions: Start 1st day of menses and take it up to 3-5 days of menses. Referrals: Kerry Medina MD [Primary Care Provider] - Print Language: Vietnamese
[2025-03-10] MEDS: Morphine Sulfate 2 MG/ML CARTRIDGE IM (08:57)
[2025-03-10] MEDS: Ketorolac Tromethamine 15 MG/ML VIAL IM (08:57)
[2025-03-10 09:28] LABS: Appearance Urine Cloudy; Color Urine Yellow; Glucose Urine UA Negative (Negative); Leukocyte Esterase Urine Large (3+) (Negative); Nitrite Urine Negative (Negative); Specific Gravity - Urine 1.025 (1.005-1.025); UMIC TRIGGER UACC YES; Urine Blood Negative (Negative); Urine Ketones Trace mg/dL (Negative); Urine Protein 30 (1+) mg/dL (Neg-Trace)
[2025-03-10 09:30] LABS: UPreg QC Valid YES; Urine Pregnancy NEGATIVE (NEGATIVE)
[2025-03-10 09:33] LABS: Bacteria Urine 4+ (None Seen); RBC Urine 0-2 /HPF (0-2); UACC Culture Trigger YES; WBC Urine >50 /HPF (0-5)
[2025-03-10 10:13] VITALS: BP 152/84; PULSE 82; RESP 16; TEMP 36.9; O2SAT 100
[2025-03-10] MEDS: cefuroxime axetiL 250 MG TABLET PO (10:13)
[2025-03-10 10:19] VITALS: BP 152/84; PULSE 82; RESP 16; TEMP 36.9; O2SAT 100
== END 2025-03-10 10:20 | disposition home or self-care (01) ==
PROVIDERS: Emergency Provider Emergency Medicine; PCP Internal Medicine
DX: N39.0 Urinary tract infection, site not specified (principal); M54.16 Radiculopathy, lumbar region; M54.50 Low back pain, unspecified
CPT/HCPCS: 81001; 81025; 87086; 96372; 99283; 99284; J1885; J2270

== ENCOUNTER 2025-03-31 10:56 | Outpatient (REF) | payer OTHER, SELFPAY ==
--- NOTE | ~2025-03-31 | XR_ITS ---
EXAMINATION: XR HIP, LEFT CLINICAL INFORMATION: OA HIPS COMPARISON: None available. TECHNIQUE: Two views of the left hip. FINDINGS: No acute cortical disruption or malalignment. Normal joint space. No lytic or blastic lesion. XR/XR hip LT min 2V IMPRESSION: Normal x-ray, left hip. Electronically signed by: Gian Woody MD 03/31/2025 11:26 AM EDT
--- NOTE | ~2025-03-31 | XR_ITS ---
EXAMINATION: XR HIP, RIGHT CLINICAL INFORMATION: OA COMPARISON: None available. TECHNIQUE: Two views of the right hip. FINDINGS: No acute cortical disruption or malalignment. Preservation of normal joint space. No lytic or blastic lesion. Metallic piercing overlapping the soft tissues below the symphysis pubis.. XR/XR hip RT min 2V IMPRESSION: No acute fracture or dislocation. Negative exam. Electronically signed by: Gian Woody MD 03/31/2025 11:27 AM EDT
--- OUTSIDE RECORDS SUMMARY | 2025-03-31 12:27 | XMS_ITS | Clinical Summary ---
Author Organization [address] [place] [address] Address [address] [place] [address] Phone Care Team Providers Care Investment Underwriter Name Role Phone Kerry Medina MD Primary Care Provider Allergies No known active allergies Medications buPROPion XL (WELLBUTRIN XL) 150 mg 24 hr tablet Take 1 tablet (150 mg total) by mouth 1 (one) time each day in the morning. 4 Active tirzepatide, weight loss, (Zepbound) 15 mg/0.5 mL injection Inject 0.5 mL (15 mg total) under the skin every 7 (seven) days. 2 mL 5 04/11/20 25 Active tirzepatide, weight loss, (Zepbound) 12.5 mg/0.5 mL injection Inject 0.5 mL (12.5 mg total) under the skin every 7 (seven) days for 28 days. 2 mL 5 03/11/20 25 Discontinued Active Problems Problem Noted Date Diagnosed Date Asthma 03/13/2018 Bipolar disorder ([facility] V24, [facility] V28) 02/14 Encounters Date Type Department Care Team Description 03/11/2025 Telephone Bariatric Surgery [address] [address] Gianfranco Gordon MD Med Refill (Zepbound) 02/18/2025 Telephone Bariatric Surgery [address] [address] Gianfranco Gordon MD Med Refill (zepbound) 01/21/2025 [place] [facility] - [address] [phone] Gianfranco Gordon MD Med Refill (Zepbound) 01/02/2025 8:45 AM EDT Office Visit Bariatric Surgery - [address] [phone] Gianfranco Gordon MD Class 1 obesity due to excess calories with body mass index (BMI) of 30.0 to 30.9 in adult, unspecified whether serious comorbidity present (Primary Dx) from Last 3 Months Surgical History Surgery Date Site/Laterality Comments BARIATRIC SURGERY 10/02/2014 PROCEDURE: LA LAPS GSTRC RSTRICTIV PX LONGITUDINAL GASTRECTOMY; COMMENT: Dr. Allan Osuna OTHER SURGICAL HISTORY 10/02/2014 PROCEDURE: [place] UNLISTED LAPS PX HRNAP HERNIORRHAPHY HERNIOTOMY; COMMENT: [...] AM EDT Office Visit Bariatric Surgery - [place] 175 [facility] [address] [place] [address] Gianfranco Gordon MD 175 [facility] [address] [place] [address] Health Maintenance Due Date Last Done Comments [...] patient's age to complete this topic Insurance [facility] Care Teams Investment Underwriter Relationship Specialty Start Date End Date Kerry Medina MD [address] PCP - General Internal Medicine 01/15/18
== END 2025-03-31 10:57 | disposition home or self-care (01) ==
LOC: HO.XRAY 10:56
PROVIDERS: PCP Internal Medicine; Visit Provider Internal Medicine
DX: M16.0 Bilateral primary osteoarthritis of hip (principal)
CPT/HCPCS: 73502

== ENCOUNTER → 2025-03-31 11:10 | Outpatient (BNV) | payer OTHER, SELFPAY | PROVIDERS: PCP Internal Medicine; Visit Provider Radiology Diagnostic Radiology | DX: M16.0 Bilateral primary osteoarthritis of hip (principal) | CPT/HCPCS: 73502 ==

== ENCOUNTER 2025-04-08 06:01 | Emergency (ER) | payer OTHER, SELFPAY ==
--- NOTE | ~2025-04-08 | US_ITS ---
EXAMINATION: US TRIPLEX LOWER EXTREMITY, RIGHT CLINICAL INFORMATION: Pain, right lower extremity COMPARISON: None available. TECHNIQUE: Color-flow triplex imaging with spectral analysis and compression Doppler were performed on the right lower extremity. FINDINGS: Respiratory variation, normal compression and augmented flow are present within the interrogated right common femoral vein, superficial femoral vein, profunda femoral vein, popliteal vein and midcalf peroneal and posterior tibial venous segments . There is no Eaton's cyst. There is a 3.9 cm irregular hypoechoic soft tissue lesion, right inguinal region with the color flow in the periphery. US/US venous duplex LE RT IMPRESSION: No acute deep venous thrombosis interrogated veins, right lower extremity. Negative for DVT. 4 cm lymphadenopathy versus mass, right inguinal region.. Electronically signed by: Gian Woody MD 04/08/2025 09:31 AM EDT
[2025-04-08 06:10] VITALS: BP 120/71; PULSE 100; RESP 18; TEMP 36.9; O2SAT 99; BMI 28.7
--- OUTSIDE RECORDS SUMMARY | 2025-04-08 06:43 | XMS_ITS | Clinical Summary ---
Author Organization [address] [place] [address] Address [address] [place] [address] Phone Care Team Providers Care Fruit Canner Name Role Phone Kerry Medina MD Primary Care Provider [phone] Allergies No known active allergies Medications buPROPion XL (WELLBUTRIN XL) 150 mg 24 hr tablet Take 1 tablet (150 mg total) by mouth 1 (one) time each day in the morning. 04/13/20 24 Active tirzepatide, weight loss, (Zepbound) 15 mg/0.5 mL injectionIndica tions:Class 1 obesity due to excess calories with body mass index (BMI) of 30.0 to 30.9 in adult, unspecified whether serious comorbidity present Inject 0.5 mL (15 mg total) under the skin every 7 (seven) days. 2 mL 2 04/02/20 25 025 Active tirzepatide, weight loss, (Zepbound) 12.5 mg/0.5 mL injection Inject 0.5 mL (12.5 mg total) under the skin every 7 (seven) days for 28 days. 2 mL 02/19/20 25 025 Discontinued tirzepatide, weight loss, (Zepbound) 15 mg/0.5 mL injection Inject 0.5 mL (15 mg total) under the skin every 7 (seven) days. 2 mL 03/12/20 25 025 Discontinued(Re order) Active Problems Problem Noted Date Diagnosed Date Class 1 obesity 04/02/2025 Pituitary microadenoma ([facility] V24, [facility] V28 ) 04/02/2025 Asthma 03/13/2018 Bipolar disorder ([facility] V24, [facility] V28) 02/14 Encounters Date Type Department Care Team Description 03/11/2025 Telephone Bariatric Surgery - [address] [phone] Gianfranco Gordon MD Med Refill (Zepbound) 02/18/2025 Telephone Bariatric Surgery - [address] [phone] Gianfranco Gordon MD Med Refill (zepbound) 01/21/2025 Telephone Bariatric Surgery - [address] [phone] Gianfranco Gordon MD Med Refill (Zepbound) from Last 3 Months Surgical History Surgery Date Site/Laterality Comments BARIATRIC SURGERY 10/02/2014 PROCEDURE: [place] LAPS GSTRC RSTRICTIV PX LONGITUDINAL GASTRECTOMY; COMMENT: Dr. Allan Osuna OTHER SURGICAL HISTORY 10/02/2014 PROCEDURE: VA UNLISTED LAPS PX HRNAP HERNIORRHAPHY HERNIOTOMY; COMMENT: hiatal repair, at time of gastric sleeve CHOLECYSTECTOMY PROCEDURE: HISTORICAL CHOLECYSTECTOMY TUBAL LIGATION PROCEDURE: HISTORICAL TUBAL LIGATION OTHER SURGICAL HISTORY PROCEDURE: HISTORICAL PANNICULECTOMY OTHER SURGICAL HISTORY PROCEDURE: HISTORY OTHER; COMMENT: gastric sleeve Medical History Medical History Date Comments Bipolar disorder ([facility] V2 4, [facility] V28) 03/13/2018 DX:Bipolar disorder ([facility]) Asthma 03/13/2018 DX:Asthma S/P laparoscopic sleeve gastrectomy [...] 82 01/02/2025 9:13 AM EDT Temperature 36.6 C (97.8 F) 01/02/2025 9:13 AM EDT Respiratory Rate - - Oxygen Saturation - [...] AM EDT Office Visit Bariatric Surgery - [place] [address] [phone] Gianfranco Gordon MD [address] [address] Health Maintenance Due Date Last Done Comments [...] patient's age to complete this topic Insurance [facility] PL[facility] Care Teams Fruit Canner Relationship Specialty Start Date End Date Kerry Medina MD [facility] [address] PCP - General Internal Medicine 01/15/18
[2025-04-08 07:07] VITALS: BP 142/75; PULSE 72; RESP 16; TEMP 37.1; O2SAT 98
--- NOTE | 2025-04-08 07:08 | PC.NURSE ---
Patient A&O x 3. Patient presents to ED c/o right hip/groin pain rated 9/10. Patient noted a lump in area. Hard mass can be felt, no redness or warmth noted. +CMS +ROM to right leg, no edema noted. VSS and up to date. Plan of care on going.
--- NOTE | 2025-04-08 07:13 | ED_ITS ---
HPI - General Adult General Chief complaint: Extremity Problem Stated complaint: right hip pain Time Seen by Provider: 04/08/25 07:13 History of Present Illness ED Provider: Indu HUSSEIN narrative: The patient is a 39-year-old female who says that she has been having pain in the region of her right groin for over 2 months. She was in contact with her primary care doctor and had an outpatient x-ray of her right hip 8 days ago. This was an unremarkable study. Pain is worse over the last couple of days and she has noticed that she has a groin just below the right inguinal fold at the anterior proximal thigh. She can feel a mass which she says is tender and painful. She says she has been unable to sleep because of the pain. She has not had any fevers. Related Data Home Medications ?Medication ?Instructions ?Recorded ?Confirmed albuterol sulfate 90 mcg/actuation 2 puff inhalation Q ID 10/03/22 12/25/24 aerosol inhaler (ProAir HFA) Adderall 10 mg PO DAILY 11/14/2312/14 multivitamin 1 tab PO DAILY 11/14/2312/14 quetiapine 50 mg tablet,extended 50 mg PO BEDTIME 09/1612/25/24 release 24 hr tirzepatide (weight loss) 2.5 2.5 mg subcut DIRECTE D 10/07/24 12/25/24 mg/0.5 mL subcutaneous pen injector (Zepbound) Previous Rx's ?Medication ?Instructions ?Recorded albuterol sulfate 1.25 mg/3 mL 1.25 mg (3 mL) inhalati on Q4-6H 03/01/22 solution for nebulization PRN shortness of breath or wheezing #90 mL COVID-19 antigen test (BinaxNOW #2 ea 12/22/23 COVID-19 Ag Self Test kit) guaifenesin 100 mg/5 mL oral 200 mg (10 mL) PO Q6H PRN cough 04/02/24 liquid (Cough Syrup) #120 mL ondansetron 4 mg disintegrating 4 mg PO Q8H PRN nausea and 04/17/24 tablet vomiting 4 days #10 tabs rizatriptan 10 mg tablet 5 - 10 mg (0.5 - 1 x 10 mg) PO Q2H 04/19/24 PRN migraine headache 21 days #12 tabs metoclopramide HCl 5 mg tablet 5 - 10 mg (1 - 2 x 5 mg ) PO Q4-6H 06/01/24 PRN migraine headache 7 days #28 tabs acetaminophen 500 mg tablet 500 mg PO Q6H PRN fever or pain 07/09/24 (Tylenol Extra Strength) #14 tabs lidocaine 5 % topical patch 1 patch topical DAILY PRN pain #30 07/09/24 (Lidoderm) ea naproxen 500 mg tablet 500 mg PO BID PRN pain 10 da ys #20 07/09/24 tabs nitrofurantoin 100 mg PO Q12H 7 days #14 ca ps 07/09/24 monohydrate/macrocrystals 100 mg capsule (Macrobid) cyclobenzaprine 5 mg tablet 5 mg PO Q8H PRN muscle spa sm 30 08/01/24 days #90 tabs rizatriptan 10 mg tablet 5 - 10 mg (0.5 - 1 x 10 mg) PO Q2H 10/17/24 PRN migraine headache 30 days #12 tabs tranexamic acid 650 mg tablet 1,300 mg (2 x 650 mg) PO TID 5 02/25/25 days #30 tabs cefuroxime axetil 250 mg tablet 250 mg PO BID 7 days # 14 tabs 03/10/25 rimegepant 75 mg disintegrating 75 mg PO ONCE PRN migr janiya 03/24/25 tablet (Nurtec ODT) headache 30 days #16 tabs acetaminophen 500 mg capsule 1,000 mg (2 x 500 mg) PO Q8H PRN 04/08/25 fever or pain #20 caps tramadol 50 mg tablet 50 mg PO Q6H PRN pain #14 ta bs 04/08/25 Allergies Allergy/AdvReac Type Severity Reaction Status Date / Time No Known Allergies Allergy Verified 04/08/25 06:12 Review of Systems 2 Review of Systems: Yes all other systems are reviewed and are negative PMFSH Past Medical History Medical History Migraines Asthma HESHAM (stress urinary incontinence, female) Cholecystectomy planned Appendicitis Surgical History Hx of cholecystectomy Hx of appendectomy S/P panniculectomy Gastric bypass status for obesity Tubal ligation status Family History Family History Mother Prediabetes Rheumatoid arthritis Hypertension Father Medical history unknown Other Family history of multiple sclerosis Family history of rheumatoid arthritis Family history of systemic lupus erythematosus Social History Social History Alcohol intake: current Alcohol intake frequency: holidays/special occasions only Alcohol type: hard liquor Patient Tobacco Use Status: Current someday Tobacco user Current occupational status: unemployed 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 She was pleasant and cooperative. She did not appear in distress or ill at rest although she seemed to have some discomfort moving around. HENMT Other: The face is symmetrical. ?Mucous membranes moist. Eyes Other: Pupils are round equal, conjunctivae are clear, extraocular movements intact Neck Neck: Yes normal visual inspection and Yes full ROM Resp Effort & Inspection: normal respiratory effort Auscultation: clear to auscultation bilaterally Cardio Rate: regular rate Rhythm: regular rhythm Heart sounds: S1 normal heart sound present and S2 normal heart sound present GI Other: The abdomen is soft and nontender Skin Other: Skin is dry and unremarkable. Neuro Other: The patient is awake and alert with a normal mental status. Cranial nerves are grossly intact. She has normal strength and sensation in her extremities. Extrem Other: The patient has a palpable mass in the right anterior proximal thigh just below the inguinal crease. The mass is about 3 cm across and is fairly boggy and slightly irregular to palpation. It is somewhat tender. The patient has some pain with manipulation of the right hip. There is no lower leg swelling or edema. Medical Decision Making Medical Decision Making MDM Narrative: The patient is a 39-year-old female who has been having problems with the pain in the region of her right hip for over 2 months. She had an outpatient x-ray a couple of days ago because of this pain. The x-ray was negative. Over the past 2 days she has noticed a lump on the anterior proximal thigh which she says is tender. I am not convinced that the tenderness of the this mass is definitely associated with the patient's right hip pain which she feels is interfering with her ambulation. We did an ultrasound of her right leg. There was no DVT. The palpable mass was seen on ultrasound and was characterized has a 4 cm mass which was described as lymphadenopathy versus mass. The patient has a unremarkable labs including an unremarkable CBC. CRP is normal. White count and differential are normal. He remains unclear if this mass which may be a lymph node is definitely related to the patient's right hip pain. My suspicion is that the 2 things her separate. I suspect that her right hip pain is musculoskeletal pain. I suspect that the mass is an incidental finding. The patient says that she has been using cyclobenzaprine already for the pain. Also ibuprofen and acetaminophen. She says that she can not sleep because of the pain. She will therefore be given a prescription for tramadol. She was also given a prescription for acetaminophen. She should follow up soon with her PCP to discuss this pain and this mass further for further evaluation. I did not have a high suspicion that the mass might represent some sort of infected lymph node. Lab Data 04/08/25 07:35 04/08/25 07:35 Labs: Lab Results 04/08/25 Range/Units 07:35 WBC 6.2 (4.8-10.8) X10*3/uL RBC 3.79 L (4.20-5.50) X10*6/uL Hgb 11.6 L (12.0-16.0) g/dl Hct 34.1 L (37.0-47.0) % MCV 90.0 (80.0-98.0) fL MCH 30.6 (27.0-33.0) pg MCHC 34.0 (31.0-35.0) g/dl RDW 14.9 (11.0-16.0) % Plt Count 221 (160-400) X10*3/uL MPV 9.6 (9.4-12.3) fL Immature Gran % (Auto) 0.3 (0.0-0.4) % Neut % (Auto) 58.5 (45-73) % Lymph % (Auto) 29.5 (20-40) % Glascock % (Auto) 9.6 (2-11) % Eos % (Auto) 1.6 (0-4) % Baso % (Auto) 0.5 (0-2) % Lymph # (Auto) 1.8 (1.2-4.9) X10*3/uL Glascock # (Auto) 0.6 (0.1-1.2) X10*3/uL Eos # (Auto) 0.1 (0.0-0.4) X10*3/uL Baso # (Auto) 0.0 (0.0-0.2) X10*3/uL Abs Immat Gran (auto) 0.02 (0.00-0.03) X10*3/uL Absolute Neuts (auto) 3.6 (2.0-8.3) x10*3/uL Absolute Nucleated RBC 0.000 (0.0-0.012) X10*3/uL Nucleated RBC % (auto) 0.0 (0.0-0.2) /100WBC Sodium 141 (135-145) mmol/L Potassium 3.5 (3.3-5.1) mmol/L Chloride 110 H (96-108) mmol/L Carbon Dioxide 25 (22-29) mmol/L Anion Gap 10 L (12-20) BUN 14 (9-16) mg/dL Creatinine 0.66 (0.5-1.4) mg/dL Estim Creat Clear Calc 124.2 Estimated GFR > 60 Random Glucose 83 (60-115) mg/dL Calcium 9.3 (8.4-10.2) mg/dL Total Bilirubin 0.4 (0.0-1.0) mg/dL Direct Bilirubin 0.2 (0.0-0.5) mg/dL AST 15 (5-31) U/L ALT 16 (0-31) U/L Alkaline Phosphatase 52 (39-117) U/L C-Reactive Protein 0.11 (< or = 0.50) mg/dL Total Protein 6.3 L (6.5-8.0) g/dL Albumin 4.0 (3.5-5.0) g/dL Beta HCG, Quant < 2 mIU/mL Discharge Plan Discharge Clinical Impression: Right groin pain, Inguinal lymphadenopathy Patient Disposition: Home, Self-Care Additional Instructions: The ultrasound of your leg today suggest that you might have lymph node in your right groin. I am not convinced this swelling is related to your pain however. Your pain may be a musculoskeletal pain related to recent weight loss. For acetaminophen I have sent a prescription for acetaminophen which you may use for pain. You may continue the naproxen or ibuprofen that you have at home for pain. I have also sent a prescription for a stronger pain medication, tramadol, which you may use at night to see if this allows you to get some rest. Please contact your regular doctor's office today to arrange a follow up appointment to discuss this pain further. Your pain may be musculoskeletal in nature in which case physical therapy might be the best approach. Your blood testing today suggest that antibiotics probably would not be helpful. Therefore please try to follow up soon with your regular doctor for a second opinion and additional thoughts on this problem. Return to the emergency room if significantly worse. Prescriptions: New tramadol 50 mg tablet 50 mg PO Q6H PRN (Reason: pain) Qty: 14 0RF acetaminophen 500 mg capsule 1,000 mg PO Q8H PRN (Reason: fever or pain) Qty: 20 0RF No Action metoclopramide HCl 5 mg tablet 5 - 10 mg PO Q4-6H PRN (Reason: migraine headache) 7 Days Qty: 28 0RF rizatriptan 10 mg tablet 5 - 10 mg PO Q2H PRN (Reason: migraine headache) 30 Days Qty: 12 6RF Rx Instructions: max 2 tabs per day or 4 tabs per week Nurtec ODT 75 mg tablet,disintegrating 75 mg PO ONCE MDD 1 tab PRN (Reason: migraine headache) 30 Days Qty: 16 3RF Rx Instructions: [place] APPROVED 03/24/25-03/24/26 albuterol sulfate 1.25 mg/3 mL solution for nebulization 1.25 mg inhalation Q4-6H PRN (Reason: shortness of breath or wheezing) Qty: 90 0RF (DME) BinaxNOW COVID-19 Ag Self Test Kit See Rx Instructions .Route Qty: 2 0RF Rx Instructions: As directed ondansetron 4 mg tablet,disintegrating 4 mg PO Q8H PRN (Reason: nausea and vomiting) 4 Days Qty: 10 0RF acetaminophen [Tylenol Extra Strength] 500 mg tablet 500 mg PO Q6H PRN (Reason: fever or pain) Qty: 14 0RF lidocaine [Lidoderm] 5 % adhesive patch,medicated 1 patch topical DAILY MDD remove after 12 hours PRN (Reason: pain) Qty: 30 0RF Rx Instructions: leave on most painful area for up to 12 hrs naproxen 500 mg tablet 500 mg PO BID PRN (Reason: pain) 10 Days Qty: 20 0RF nitrofurantoin monohyd/m-cryst [Macrobid] 100 mg capsule 100 mg PO Q12H 7 Days Qty: 14 0RF Rx Instructions: must administer with a meal/food cefuroxime axetil 250 mg tablet 250 mg PO BID 7 Days Qty: 14 0RF Adderall 10 mg 10 mg PO DAILY multivitamin [Multi-Day] Tablet 1 tab PO DAILY guaifenesin [Cough Syrup] 100 mg/5 mL liquid 200 mg PO Q6H PRN (Reason: cough) Qty: 120 0RF albuterol sulfate [ProAir HFA] 90 mcg/actuation HFA aerosol inhaler 2 puff inhalation QID rizatriptan 10 mg tablet 5 - 10 mg PO Q2H PRN (Reason: migraine headache) 21 Days Qty: 12 0RF Zepbound 2.5 mg/0.5 mL pen injector 2.5 mg subcut DIRECTED quetiapine 50 mg tablet extended release 24 hr 50 mg PO BEDTIME cyclobenzaprine 5 mg tablet 5 mg PO Q8H PRN (Reason: muscle spasm) 30 Days Qty: 90 0RF tranexamic acid 650 mg tablet 1,300 mg PO TID 5 Days Qty: 30 2RF Rx Instructions: Start 1st day of menses and take it up to 3-5 days of menses. Referrals: Kerry Medina MD [Primary Care Provider, Internal Medicine] Referral Note: right groin pain Interventions: ED Discharge Assessment Last Done: 04/08/25 12:26 Discharge Date/Time: 04/08/25 12:36 Print Language: Italian
[2025-04-08 07:40] LABS: Basophils Percent Auto 0.5 % (0-2); Eosinophils Absolute Auto 0.1 X10*3/uL (0.0-0.4); Eosinophils Percent Auto 1.6 % (0-4); Hematocrit 34.1 % (37.0-47.0); Hemoglobin 11.6 g/dl (12.0-16.0); Imm Gran Abs Auto 0.02 X10*3/uL (0.00-0.03); Imm Gran Pct Auto 0.3 % (0.0-0.4); Lymphocytes Absolute Auto 1.8 X10*3/uL (1.2-4.9); Lymphocytes Percent Auto 29.5 % (20-40); MANUAL DIFF FLAG NO; Mean Corpuscular Hemoglobin 30.6 pg (27.0-33.0); Mean Platelet Volume 9.6 fL (9.4-12.3); Monocytes Absolute Auto 0.6 X10*3/uL (0.1-1.2); Monocytes Percent Auto 9.6 % (2-11); Neutrophils Absolute Auto 3.6 x10*3/uL (2.0-8.3); Neutrophils Percent Auto 58.5 % (45-73); Platelet Count 221 X10*3/uL (160-400); Red Blood Count 3.79 X10*6/uL (4.20-5.50); Red Cell Distribution Width 14.9 % (11.0-16.0); White Blood Count 6.2 X10*3/uL (4.8-10.8)
[2025-04-08 08:04] LABS: Alanine Aminotransferase 16 U/L (0-31); Alkaline Phosphatase 52 U/L (39-117); Anion Gap 10 (12-20); Aspartate Amino Transferase 15 U/L (5-31); Bilirubin Direct 0.2 mg/dL (0.0-0.5); Bilirubin Total 0.4 mg/dL (0.0-1.0); Blood Urea Nitrogen 14 mg/dL (9-16); Calcium 9.3 mg/dL (8.4-10.2); Carbon Dioxide 25 mmol/L (22-29); Chloride 110 mmol/L (96-108); Creatinine Clr Calc Pharmacy 124.2; Estimated Glomerular Filt Rate > 60; Glucose Random 83 mg/dL (60-115); HCG Quantitative < 2 mIU/mL; Potassium 3.5 mmol/L (3.3-5.1); Sodium 141 mmol/L (135-145); Total Protein 6.3 g/dL (6.5-8.0)
[2025-04-08 11:08] VITALS: BP 134/99; PULSE 89; RESP 16; TEMP 36.2; O2SAT 100
[2025-04-08 12:20] LABS: C Reactive Protein 0.11 mg/dL (< or = 0.50)
[2025-04-08 12:26] VITALS: BP 134/99; PULSE 89; RESP 16; TEMP 36.2; O2SAT 100
== END 2025-04-08 12:36 | disposition home or self-care (01) ==
PROVIDERS: Emergency Provider Emergency Medicine; PCP Internal Medicine
DX: R10.31 Right lower quadrant pain (principal); R59.1 Generalized enlarged lymph nodes; Z90.3 Acquired absence of stomach [part of]; I10 Essential (primary) hypertension; Z79.899 Other long term (current) drug therapy
CPT/HCPCS: 36415; 80048; 80076; 84702; 85025; 86140; 93971; 99284

== ENCOUNTER → 2025-04-08 07:47 | Outpatient (BNV) | payer OTHER, SELFPAY | PROVIDERS: Emergency Provider Emergency Medicine; PCP Internal Medicine; Visit Provider Radiology Diagnostic Radiology | DX: M79.604 Pain in right leg (principal) | CPT/HCPCS: 93971 ==

== ENCOUNTER 2025-04-30 10:16 | Outpatient (AMB) | payer OTHER, SELFPAY ==
--- NOTE | 2025-04-30 10:31 | MHC.OFFVIS ---
Vital Signs 04/30/25 10:40 Height 5 ft 7 in Weight 180 lb BMI 28.2 BP 121/79 Blood Pressure Location Lt brachial Position Sitting Pulse 98 Intake Visit Reasons: RIGHT INGUINAL LYMPHNODE 4X 4 CM. NEEDS BX Intake Note: Patient is seen in office for evaluation of a right inguinal lymphnode, possible biopsy. Pt c/o: notice a mass on her right groin about 3 wks ago, painful at all times, worse when walking, went to ED and had imaging done, denies n/v/d/c School Psychologist Required: No Accompanied by: Self / Same As Patient Allergies No Known Allergies Allergy (Verified 04/30/25 10:37) Medication List - Last Reconciled 04/30/25 by Harlan Orta MD acetaminophen (Tylenol Extra Strength) 500 mg PO Q6H PRN acetaminophen 1,000 mg (2 x 500 mg) PO Q8H PRN [Adderall 12.5 mg PO DAILY] albuterol sulfate 1.25 mg (3 mL) inhalation Q4-6H PRN albuterol sulfate 90 mcg/actuation (ProAir HFA) 2 puffs inhalation QID cefuroxime axetil 250 mg PO BID 7 days COVID-19 antigen test (BinaxNOW COVID-19 Ag Self Test kit) As directed cyclobenzaprine 5 mg PO Q8H PRN 30 days lidocaine 5% (Lidoderm) 1 patch topical DAILY PRN MDD remove after 12 hours metoclopramide HCl 5 - 10 mg (1 - 2 x 5 mg) PO Q4-6H PRN 7 days naproxen 500 mg PO BID PRN 10 days nitrofurantoin monohyd/m-cryst 100 mg (Macrobid) 100 mg PO Q12H 7 days quetiapine ER 50 mg PO BEDTIME rimegepant (Nurtec ODT) 75 mg PO ONCE PRN 30 days MDD 1 tab rizatriptan 5 - 10 mg (0.5 - 1 x 10 mg) PO Q2H PRN 30 days tirzepatide (weight loss) (Zepbound) 2.5 mg subcut DIRECTED tramadol 50 mg PO Q6H PRN tranexamic acid 1,300 mg (2 x 650 mg) PO TID 5 days HPI Comments Details: 39-year-old female presenting with a palpable lump in the right inguinal region associated with right hip pain. The lump was 1st noted approximately 3 weeks ago but may have been present for a longer period. She has been reporting hip pain for several months which is severe enough to impair her walking and driving. An x-ray of the hip revealed no abnormality. Subsequent Doppler ultrasound revealed a 4 cm solid mass with vascularity suggestive of an abnormal enlarged lymph node. She denies any previous trauma or surgery in this location. She does have a history of herniated lumbar disc at L3/L4/L5 and S1 with sciatica and avoids all lifting. [facility] Medical History Migraines Asthma HESHAM (stress urinary incontinence, female) Cholecystectomy planned Appendicitis Surgical History (Reviewed 03/10/25 @ : by Bernabe Doss MD) Hx of cholecystectomy Hx of appendectomy S/P panniculectomy Gastric bypass status for obesity Tubal ligation status Family History Mother Prediabetes Rheumatoid arthritis Hypertension Father Medical history unknown Other Family history of multiple sclerosis Family history of rheumatoid arthritis Family history of systemic lupus erythematosus Social History Alcohol intake: current Alcohol intake frequency: holidays/special occasions only Alcohol type: hard liquor Patient Tobacco Use Status: Current someday Tobacco user Current occupational status: unemployed 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 Review of Systems Const All systems reviewed & are unremarkable except as noted in HPI and below GI Reports nausea (Possibly due to Zepbound) and Denies vomiting Physical Exam Const General: cooperative and no acute distress Nutritional Appearance: well nourished Orientation/consciousness: patient oriented x3 Limitations: no limitations HEENT Head: Yes normocephalic and Yes atraumatic Ears: hearing grossly normal bilaterally Resp Effort & Inspection: normal respiratory effort, no audible wheezes, no cough and no respiratory distress Cardio Jugular venous distension: no JVD GI Inspection: Yes normal to inspection Palpation (GI): Soft to palpation, nontender, no guarding, not rigid and No hepatosplenomegaly present Abdomen image:  1. Palpable mass located in the left groin, no overlying skin change noted, non fluctuant, tender to palpation. Slight change noted with Valsalva maneuvers possibly an enlarged lymph node verses incarcerated femoral hernia Skin Other: Warm, dry, no rash Neuro General: patient oriented x3 Extrem General: Yes no clubbing, cyanosis or edema Assessment & Plan Assessment & Plan (1) Mass of right inguinal region: Code(s): R19.09 - Other intra-abdominal and pelvic swelling, mass and lump Category: Medical Plan 39-year-old female patient presenting with a solid mass located in the right groin of several months duration causing pain in the right groin and hip. Patient denies any other symptoms including fever, chills or bowel changes. Workup with ultrasound reveals a 4 cm solid mass possibly lymph node. I recommended excision of this large mass of the right groin and after discussion of the procedure, risks and alternatives, she consents to the surgery. Coding Level of Care Code New Pt Level 4 (00908) Diagnoses Mass of right inguinal region R19.09
[2025-04-30 10:40] VITALS: BP 121/79; PULSE 98; BMI 28.2
--- OUTSIDE RECORDS SUMMARY | 2025-04-30 10:49 | XMS_ITS | Clinical Summary ---
Author Organization [address] [place] [address] Address [address] [place] [address] Phone Care Team Providers Care Marine Cargo Surveyor Name Role Phone Kerry Medina MD Primary Care Provider [phone] Allergies No known active allergies Medications buPROPion XL (WELLBUTRIN XL) 150 mg 24 hr tablet Take 1 tablet (150 mg total) by mouth 1 (one) time each day in the morning. 04/13/2024 Active tirzepatide, weight loss, (Zepbound) 15 mg/0.5 mL injectionIndicat ions:Class 1 obesity due to excess calories with body mass index (BMI) of 30.0 to 30.9 in adult, unspecified whether serious comorbidity present Inject 0.5 mL (15 mg total) under the skin every 7 (seven) days. 2 mL 2 04/02/2025 Active Active Problems Problem Noted Date Diagnosed Date Class 1 obesity 04/02/2025 Pituitary microadenoma ([facility] V24, [facility] V28 ) 04/02/2025 Asthma 03/13/2018 Bipolar disorder ([facility] V24, [facility] V28) 02/14 Encounters Date Type Department Care Team Description 03/11/2025 Telephone Bariatric Surgery [address] [address] Gianfranco Gordon MD Med Refill (Zepbound) 02/18/2025 Telephone Bariatric Surgery [address] [address] Gianfranco Gordon MD Med Refill (zepbound) from Last 3 Months Surgical History Surgery Date Site/Laterality Comments BARIATRIC SURGERY 10/02/2014 PROCEDURE: SD LAPS GSTRC RSTRICTIV PX LONGITUDINAL GASTRECTOMY; COMMENT: Dr. Allan Osuna OTHER SURGICAL HISTORY 10/02/2014 PROCEDURE: SD UNLISTED LAPS PX HRNAP HERNIORRHAPHY HERNIOTOMY; COMMENT: hiatal repair, at time of gastric sleeve CHOLECYSTECTOMY PROCEDURE: HISTORICAL CHOLECYSTECTOMY TUBAL LIGATION PROCEDURE: HISTORICAL TUBAL LIGATION OTHER SURGICAL HISTORY PROCEDURE: HISTORICAL PANNICULECTOMY OTHER SURGICAL HISTORY PROCEDURE: HISTORY OTHER; COMMENT: gastric sleeve Medical History Medical History Date Comments Bipolar disorder (CMS/HCC V2 4, CMS/HCC V28) 03/13/2018 DX:Bipolar disorder ([facility]) Asthma 03/13/2018 DX:Asthma S/P laparoscopic sleeve [...] AM EDT Office Visit Bariatric Surgery - [place] [address] [facility] [address] [place] [address] Gianfranco Gordon MD [address] [facility] [address] [place] [address] Health Maintenance Due Date Last Done Comments Breast Cancer Screening 1983 Hepatitis B Vaccines (1 of 3 - 19+ 3-dose series) 2002 Pneumococcal Vaccine: Pediatrics (0 to 5 Years) and At-Risk Patients (6 to 49 Years) (1 of 2 - PCV) 2002 Cervical Cancer Screening: P ap Smear 2004 Cholesterol Screening (Lipid Panel) 09/18/2022 Depression Screening 09/18/2022 HIV Screening 09/18/2022 Hepatitis C Screening 09/18/2022 Social Influencers of Health Screening 09/18/2022 COVID-19 Vaccine (1 - 2023-2 5 season) 2024 Influenza Vaccine (#1) 2025 0, 01/05/2010 DTaP,Tdap,and Td Vaccines (2 - [...] patient's age to complete this topic Insurance [employer] Care Teams Marine Cargo Surveyor Relationship Specialty Start Date End Date Kerry Medina MD [address] [facility] [address] [place], [place] PCP - General Internal Medicine 01/15/18
== END 2025-04-30 11:16 | disposition home or self-care (01) ==
LOC: HO.HGS 10:17
PROVIDERS: PCP Internal Medicine; Visit Provider Surgery
DX: R19.09 Other intra-abdominal and pelvic swelling, mass and lump (principal)
CPT/HCPCS: 99204

== ENCOUNTER → 2025-04-30 10:16 | Outpatient (BNVA) | payer OTHER, SELFPAY | PROVIDERS: PCP Internal Medicine; Visit Provider Surgery | DX: R19.09 Other intra-abdominal and pelvic swelling, mass and lump (principal) | CPT/HCPCS: 99202 ==

== ENCOUNTER 2025-05-07 14:51 | Outpatient (REF) | payer OTHER, SELFPAY ==
--- NOTE | ~2025-05-07 | US_ITS ---
CLINICAL HISTORY: N83.299 - Other ovarian cyst, unspecified side US female pelvis LMP: Two weeks ago. Technique: Ultrasound examination of the pelvis was performed with transabdominal and transvaginal technique for better visualization of the ovaries. Images include: Color Doppler. Comparison: US/AK - US PELVIC AND TRANSVAGINAL - 01/17/25 11:46 EDT US/SR - US PELVIC AND TRANSVAGINAL - 06/05/24 14:06 EDT Findings: Anteverted uterus measuring 8.5 x 4.2 x 5.2 cm with an intramural fibroid in the right posterior body measuring 1.3 x 1.1 x 1.2 cm. Normal endometrial thickness of 1.1 cm. The right ovary is normal in size, measuring 3.3 x 2.1 x 1.2cm, volume of 4.2 mL. There is normal echogenicity and vascularity. No lesions. The left ovary is normal in size, measuring 2.5 x 2.5 x 1.8cm, volume of 5.8 mL. There is normal echogenicity and vascularity. No lesions. There is a trace amount of fluid in the cul-de-sac, which is likely physiologic. Impression: 1.3 cm uterine fibroid, not visualized on the prior studies. No ovarian cysts. This document has been electronically signed by: Halie Edwards MD on 05/08/2025 16:11:22
== END 2025-05-07 14:52 | disposition home or self-care (01) ==
LOC: HO.US 14:51
PROVIDERS: PCP Internal Medicine; Visit Provider Obstetrics & Gynecology
DX: N83.299 Other ovarian cyst, unspecified side (principal)
CPT/HCPCS: 76830; 76856

== ENCOUNTER → 2025-05-07 14:54 | Outpatient (BNV) | payer OTHER, SELFPAY | PROVIDERS: PCP Internal Medicine; Visit Provider Radiology Diagnostic Radiology | DX: D25.9 Leiomyoma of uterus, unspecified (principal) | CPT/HCPCS: 76830; 76856 ==

== ENCOUNTER 2025-05-13 11:04 | Outpatient (AMB) | payer OTHER, SELFPAY ==
[2025-05-13 11:06] VITALS: BP 125/89; RESP 16; BMI 28.2
--- NOTE | 2025-05-13 11:06 | A.OFFVIS_ITS ---
Vital Signs 05/13/25 11:06 Height 5 ft 7 in Weight 180 lb BMI 28.2 BP 125/89 Blood Pressure Location Rt brachial Position Sitting Respiration 16 Comment Unable to collect P and O2 due to long nails Intake Visit Reasons: Lumbar radiculopathy Adult Services Librarian Required: No Accompanied by: Self / Same As Patient Allergies No Known Allergies Allergy (Verified 05/13/25 11:10) HPI Comments Details: The patient is a 39-year-old female presenting with chronic low back pain and right hip pain. She reports experiencing back pain for approximately 20 years, with an MRI in October showing small disc bulges and arthritis but no nerve compression. The patient experiences sciatic pain bilaterally, which was initially only on the left side, and has had previous cortisone injections with minimal relief. In the past three months, the patient has experienced severe right hip pain, which she describes as unbearable. An x-ray of the hips showed no abnormalities, but she discovered a mass in her groin, leading to a scheduled surgery to determine if it is a hernia. The pain worsens at night, particularly when sleeping on her side, and no interventions have provided significant relief. The patient has a history of osteoarthritis and spondylosis, with previous episodes of severe pain leading to a diagnosis of osteoarthritis. She has a ttempted weight loss, losing 50 pounds, but reports no significant improvement in pain levels. The patient has been prescribed muscle relaxants and naproxen, which have not alleviated her symptoms. 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 - Aberrant Drug Related Behaviors: None reported [facility] Medical History Migraines Asthma HESHAM (stress urinary incontinence, female) Cholecystectomy planned Appendicitis Surgical History Hx of cholecystectomy Hx of appendectomy S/P panniculectomy Gastric bypass status for obesity Tubal ligation status Family History Mother Prediabetes Rheumatoid arthritis Hypertension Father Medical history unknown Other Family history of multiple sclerosis Family history of rheumatoid arthritis Family history of systemic lupus erythematosus Social History Alcohol intake: current Alcohol intake frequency: holidays/special occasions only Alcohol type: hard liquor Patient Tobacco Use Status: Current someday Tobacco user Current occupational status: unemployed 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 Answers questions appropriately. Fully engaged in examination. Skin: warm, dry, intact HEENT: Normocephalic. Hearing intact. Cardiac: External chest normal in appearance. Respiratory: No cough, audible wheezing or stridor. Abdomen: without gross distension. MS: No obvious swelling or deformities. Able to transition from sit to stand unassisted. Ambulates with bilaterally normal heel strike and toe off SLR negative bilaterally Facet loading positive bilaterally Bilateral lower extremity strength 5/5 Negative footdrop, negative clonus Right SI: Tenderness over right PSIS, thigh thrust positive, Gaenslen positive, SI compression positive Tenderness over midline lumbar vertebrae and lumbar paraspinal muscles Neurological: Oriented to person, place, time and situation. Thought process intact. No gait abnormalities appreciated. Psychiatric: Appropriate mood and affect. Good judgment and insight. Vital Signs: Last Vital Signs Resp 16 05/13/25 11:06 BP 125/89 05/13/25 11:06 BMI result Body Mass Index 28.2 Results Reviewed Results Reviewed: 10/2024 MRI lumbar spine without contrast FINDINGS: There is normal alignment of lumbar vertebral bodies. The vertebral bodies are of normal height and signal intensity. There is mild loss of intervertebral disc space height and loss of normal T2 hyperintensity of the L3-L4 and, to a sligh tly greater extent L4-L5 and L5-S1. The remaining intervertebral disc spaces are maintained. Lower lumbar facet arthrosis. No acute process of the posterior elements is identified. Conus and cauda equina of normal appearance. Conus tip T12-L1. No acute paraspinal abnormality identified. Examination through the L1-L2 and L2-L3 intervertebral levels without central stenosis or foraminal narrowing. Examination through the L3-L4 intervertebral level revealing a small central disc protrusion. The disc material measuring approximately 3 mm in its greatest anterior posterior dimension and 12 mm transversely. There is no significant associated central stenosis. Mild bilateral lateral recess encroachment. No significant foraminal narrowing. Examination through the L4-L5 intervertebral level revealing mild facet arthrosis. There is a central disc protrusion with the disc material measuring approximately 6 mm in its greatest anterior posterior dimension and approximately 20 mm transversely. There is no significant associated central stenosis. There is bilateral lateral recess encroachment. No significant RIGHT foraminal narrowing. Mild LEFT foraminal narrowing. Examination through the L5-S1 intervertebral level revealing facet arthrosis. There is a small posterior disc osteophyte without central stenosis. No significant RIGHT foraminal narrowing. Mild LEFT foraminal narrowing. IMPRESSION: Spondylotic changes and facet arthrosis. No findings of fracture or listhesis. L3-L4 small central disc protrusion. The disc material measuring approximately 3 mm in its greatest anterior posterior dimension and 12 mm transversely. There is no significant associated central stenosis. Mild bilateral lateral recess encroachment. No significant foraminal narrowing. L4-L5 mild facet arthrosis. There is a central disc protrusion with the disc material measuring approximately 6 mm in its greatest anterior posterior dimension and approximately 20 mm transversely. There is no significant associated central stenosis. There is bilateral lateral recess encroachment. No significant RIGHT foraminal narrowing. Mild LEFT foraminal narrowing. L5-S1 facet arthrosis. There is a small posterior disc osteophyte without central stenosis. No significant RIGHT foraminal narrowing. Mild LEFT foraminal narrowing. 07/09/24 LS FINDINGS: There is mild facet degenerative change at the lumbosacral junction. No fracture or destructive process. Mild disc space narrowing L5-S1. Anterior spondylitic changes lower thoracic spine. SI joints symmetric. There are surgical clips seen in the right mid abdomen. IMPRESSION: Degenerative change in the lower lumbar spine. No acute findings. 08/25/22 CT/CT lumbar spine wo IV con FINDINGS: Normal anatomic alignment. No evidence of acute fracture or traumatic subluxation. The vertebral body heights are maintained. The intervertebral disc spaces are maintained. No suspicious lytic or sclerotic osseous lesions. Mild broad-based disc bulge at L4-L5 and L5-S1 which results in mild canal stenosis. Mild multilevel facet arthropathy. No significant neural foraminal narrowing. Transitional lumbosacral anatomy with a broad-based left L5 transverse process pseudoarticulating with the sacrum which can be a source of pain. Mild degenerative changes of the bilateral sacroiliac joints. No significant abnormalities of the paraspinal musculature. Limited evaluation of the intra-abdominal structures without significant abnormalities. The abdominal aorta is of normal contour and caliber. IMPRESSION: 1. No acute fracture or traumatic subluxation. 2. Mild broad-based disc bulge at L4-L5 and L5-S1 which results in mild canal stenosis. No significant neural foraminal narrowing. 3. Transitional lumbosacral anatomy with a broad-based left L5 transverse process pseudoarticulating with the sacrum which can be a source of pain. Assessment & Plan Assessment & Plan (1) Chronic back pain: Code(s): M54.9 - Dorsalgia, unspecified; G89.29 - Other chronic pain Category: Medical (2) Lumbar spondylosis: Code(s): M47.816 - Spondylosis without myelopathy or radiculopathy, lumbar region Category: Medical (3) Sacroiliac joint dysfunction of right side: Code(s): M53.3 - Sacrococcygeal disorders, not elsewhere classified Category: Medical Plan The patient is suffering from axial lower back pain consistent with lumbar spondylosis. The plan includes performing fluoroscopy guided diagnostic L3-L4 DR L5 medial branch blocks to confirm the source of the patient's arthritis pain in the lower back. If these injections provide relief, further interventions such as a temporary stimulator device or radiofrequency ablation may be considered. The patient is scheduled for surgery to evaluate and potentially repair a suspected hernia, which may be contributing to her hip pain. If, improvement in her right groin pain after hernia repair surgery will plan for right diagnostic sacroiliac joint injection with local anesthetic. In the interim, the patient is advised to maintain her current medication regimen and monitor her pain levels. Follow-up will be necessary to evaluate the effectiveness of the diagnostic injections and to discuss further treatment options based on the surgical findings. During the consultation, I discussed with the patient the potential causes of her pain, including arthritis and sacroiliac joint dysfunction. We reviewed the plan for diagnostic injections to determine the source of her pain and discussed possible subsequent treatments such as a stimulator device or radiofrequency ablation if the injections are successful. I explained the upcoming surgery to evaluate the suspected hernia and its potential impact on her hip pain. The patient was informed about the importance of maintaining her current medication regimen and monitoring her symptoms. Patient was informed and verbally consented to the use of an ambient scribe for clinic note documentation during this visit. Patient Instructions: - Continue taking prescribed medications as directed. - Monitor pain levels and report any significant changes. - Prepare for upcoming surgery and follow pre-operative instructions. - Follow up after diagnostic injections to discuss results and further treatment options. Coding Level of Care Code Est Pt Level 3 (28444) Complex EM visit Add On G2211 Diagnoses Chronic back pain M54.9; G89.29 Lumbar spondylosis M47.816 Sacroiliac joint dysfunction of right side M53.3
--- OUTSIDE RECORDS SUMMARY | 2025-05-13 12:20 | XMS_ITS | Encounter Summary ---
Author Organization [facility] Address [address] [place] [address] Care Team Providers Care Employment Programs Analyst Name Role Phone Kerry Medina MD Primary Care Provider Gauri vailable Reason for Visit * Reason Onset Date Comments Medication 02/12/2024 Encounter Details Date Type Department Care Team Description 02/12/2024 Telephone Bariatric Surgery - [place] [address] [place] [address] Gianfranco Gordon MD [address] [place] [address] [address] [place] [address] Medication Social History Tobacco Use Types Packs/Day [...] on filedocumented in this encounter Care Teams Employment Programs Analyst Relationship Specialty Start Date End Date Kerry Medina MD PCP - General Internal Medicine 01/15/18 documented as of this encounter
--- OUTSIDE RECORDS SUMMARY | 2025-05-13 12:20 | XMS_ITS | Clinical Summary ---
Author Organization [address] [place] [address] Address [address] [place] [address] Phone Care Team Providers Care Children'S Entertainer Name Role Phone Kerry Medina MD Primary Care Provider [phone] Allergies No known active allergies Medications buPROPion [...] Date Class 1 obesity 04/02/2025 Pituitary microadenoma ([facility] V24, [facility] V28 ) 04/02/2025 Asthma 03/13/2018 Bipolar disorder ([facility] V24, [facility] V28) 02/14 Encounters Date Type Department Care Team Description 03/11/2025 Telephone Bariatric Surgery [address] [address] Gianfranco Gordon MD Med Refill (Zepbound) 02/18/2025 Telephone Bariatric Surgery [address] [address] Gianfranco Gordon MD Med Refill (zepbound) from Last 3 Months Surgical History Surgery Date Site/Laterality Comments BARIATRIC SURGERY 10/02/2014 PROCEDURE: NC LAPS GSTRC RSTRICTIV PX LONGITUDINAL GASTRECTOMY; COMMENT: Dr. Allan Osuna OTHER SURGICAL HISTORY 10/02/2014 PROCEDURE: NC UNLISTED LAPS PX HRNAP HERNIORRHAPHY HERNIOTOMY; COMMENT: hiatal repair, at time of gastric sleeve CHOLECYSTECTOMY PROCEDURE: HISTORICAL CHOLECYSTECTOMY TUBAL LIGATION PROCEDURE: HISTORICAL TUBAL LIGATION OTHER SURGICAL HISTORY PROCEDURE: HISTORICAL PANNICULECTOMY OTHER SURGICAL HISTORY PROCEDURE: HISTORY OTHER; COMMENT: gastric sleeve Medical History Medical History Date Comments Bipolar disorder (CMS/HCC V2 4, CMS/HCC V28) 03/13/2018 DX:Bipolar disorder ([facility]) Asthma 03/13/2018 DX:Asthma S/P laparoscopic sleeve gastrectomy [...] AM EDT Office Visit Bariatric Surgery - [place] [address] [facility] [address] [place] [address] Gianfranco Gordon MD [address] [facility] [address] [place] [address] Health Maintenance Due Date Last Done Comments [...] patient's age to complete this topic Insurance [facility] Care Teams Children'S Entertainer Relationship Specialty Start Date End Date Kerry Medina MD [address] [facility] [address] [place], [place] PCP - General Internal Medicine 01/15/18
== END 2025-05-13 11:43 | disposition home or self-care (01) ==
LOC: HO.PMC 11:05
PROVIDERS: PCP Internal Medicine; Visit Provider Registered Nurse Emergency
DX: M54.9 Dorsalgia, unspecified (principal); G89.29 Other chronic pain; M47.816 Spondylosis without myelopathy or radiculopathy, lumbar region; M53.3 Sacrococcygeal disorders, not elsewhere classified
CPT/HCPCS: 99213; G2211

== ENCOUNTER → 2025-05-13 11:04 | Outpatient (BNVA) | payer OTHER, SELFPAY | PROVIDERS: PCP Internal Medicine; Visit Provider Registered Nurse Emergency | DX: M53.3 Sacrococcygeal disorders, not elsewhere classified (principal); M54.9 Dorsalgia, unspecified; M47.816 Spondylosis without myelopathy or radiculopathy, lumbar region; G89.29 Other chronic pain | CPT/HCPCS: 99212 ==

== ENCOUNTER 2025-05-27 10:50 | Outpatient (AMB) | payer OTHER, SELFPAY ==
--- NOTE | 2025-05-27 10:52 | MHC.OFFVIS ---
Vital Signs 05/27/25 10:56 Height 5 ft 7 in Weight 180 lb BMI 28.2 BP 116/80 Intake Visit Reasons: med f/u U/S f/u Auto Damage Trainee Required: No Information Interpreted: non-clinical & clinical Accompanied by: Self / Same As Patient Allergies No Known Allergies Allergy (Verified 05/27/25 10:56) Is last menstrual period known: Yes Last menstrual period: 05/19/25 HPI Comments Details: Presenting for follow-up ultrasound regarding complex ovarian cyst previously seen on ultrasound. Repeat ultrasound done recently showed the following: Anteverted uterus measuring 8.5 x 4.2 x 5.2 cm with an intramural fibroid in the right posterior body measuring 1.3 x 1.1 x 1.2 cm. Normal endometrial thickness of 1.1 cm. The right ovary is normal in size, measuring 3.3 x 2.1 x 1.2cm, volume of 4.2 mL. There is normal echogenicity and vascularity. No lesions. The left ovary is normal in size, measuring 2.5 x 2.5 x 1.8cm, volume of 5.8 mL. There is normal echogenicity and vascularity. No lesions. There is a trace amount of fluid in the cul-de-sac, which is likely physiologic. Impression: 1.3 cm uterine fibroid, not visualized on the prior studies. No ovarian cysts. The patient has been using tranexamic S [facility] Medical History Pituitary microadenoma Fibromyalgia Osteoarthritis Back pain Anemia Migraines Asthma HESHAM (stress urinary incontinence, female) Cholecystectomy planned Appendicitis Surgical History (Updated 05/26/25 @ 11:43 by Juana Lucas RN) Hx of bariatric surgery (2013) Hx of cholecystectomy Hx of appendectomy S/P panniculectomy Gastric bypass status for obesity Tubal ligation status Family History Mother Prediabetes Rheumatoid arthritis Hypertension Father Medical history unknown Other Family history of multiple sclerosis Family history of rheumatoid arthritis Family history of systemic lupus erythematosus Social History Household Members: Family Housing: House Are you a primary healthcare account manager to a significant other at home: No Do you presently have visiting nurse or other home services: No 75 years or older and lives alone: No Alcohol intake: current Alcohol intake frequency: holidays/special occasions only Alcohol type: hard liquor Patient Tobacco Use Status: Former Tobacco user Tobacco use type: Cigarette Use of substances other than those prescribed or required for medical reasons: No Current occupational status: unemployed 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 Female Reproductive History Menstrual Date of last menstrual period: 05/19/25 Review of Systems Const All systems reviewed & are unremarkable except as noted in HPI and below Reports as per HPI and Reports no additional complaints GI Reports no additional complaints Reports no additional complaints Physical Exam Vital Signs: Last Vital Signs BP 116/80 05/27/25 10:56 BMI result Body Mass Index 28.2 Assessment & Plan Assessment & Plan (1) Complex ovarian cyst: Code(s): N83.299 - Other ovarian cyst, unspecified side Category: Medical Plan: Discussed with the patient ultrasound findings showing the previously identified complex cyst has resolved. The patient was instructed to call if symptoms recur. All questions were answered the patient verbalized understanding. (2) Abnormal uterine bleeding (AUB): Code(s): N93.9 - Abnormal uterine and vaginal bleeding, unspecified Category: Medical Plan: Discussed with the patient the results of the work up done and options of treatment including Lysteda, BCP's, Mirena IUD, endometrial ablation and hysterectomy. All pros, cons, risks and benefits if each option was discussed with the patient and the patient decided to go ahead with Lysteda , so a more detailed discussion re: Lysteda including mechanism of action, benefits, risks including but not limited to thrombosis and strokes, Instructions were given on how to use, 2 tablets p.o. 3 times a day day 1 up to 3-5 days of menses and to schedule a 3 months follow-up appointment. The patient verbalized understanding and agreed with the plan. (3) Uterine myoma: Code(s): D25.9 - Leiomyoma of uterus, unspecified Category: Medical Plan: Discussed with the patient the findings on pelvic ultrasound & the risk of myosarcoma; in addition reviewed with the patient that malignancy and pre malignancy cannot be ruled out without hysterectomy for pathological evaluation ; furthermore, explained to the patient the limitation of pelvic ultrasound and endometrial biopsy in the setting. Discussed with the patient the options of treatment including expectant management versus hysterectomy; the pros and cons, risks benefits of each approach were discussed with the patient including the fact that in cases of myosarcoma, surgical treatment can lead to early diagnosis and positively affects the prognosis; after further discussion, the patient decided to proceed with expectant management. Will repeat pelvic ultrasound periodically. Instructions given to patient to call in case any of the following occurs: pressure symptoms, abnormal uterine bleeding, pelvic pain; and to schedule a six-months pelvic ultrasound (order placed) and a follow-up appointment . All questions answered, the patient verbalized understanding and agreed with the plan . Orders: Orders US pelvic and transvaginal 6 Months D25.9 - Leiomyoma of uterus, unspecified Coding Level of Care Code Est Pt Level 3 (27822) Diagnoses Complex ovarian cyst N83.299 Abnormal uterine bleeding (AUB) N93.9 Uterine myoma D25.9
[2025-05-27 10:56] VITALS: BP 116/80; BMI 28.2
--- OUTSIDE RECORDS SUMMARY | 2025-05-27 11:58 | XMS_ITS | Clinical Summary ---
Author Organization [address] [place] [address] Address [address] [place] [address] Phone Care Team Providers Care Coconut Jelly Roller Name Role Phone Kerry Medina MD Primary Care Provider [phone] Allergies No known active allergies Medications buPROPion [...] Date Class 1 obesity 04/02/2025 Pituitary microadenoma ([facility] V24, [facility] V28 ) 04/02/2025 Asthma 03/13/2018 Bipolar disorder ([facility] V24, [facility] V28) 02/14 Encounters Date Type Department Care Team Description 03/11/2025 Telephone Bariatric Surgery - [place] 175 [facility] [address] [place] [phone] Gianfranco Gordon MD Med Refill (Zepbound) [...] AM EDT Office Visit Bariatric Surgery - [place] 175 [facility] [address] [place] [address] Gianfranco Gordon MD 175 [facility] [address] [place] [address] Health Maintenance Due Date Last Done Comments [...] patient's age to complete this topic Insurance [facility] [employer] Care Teams Coconut Jelly Roller Relationship Specialty Start Date End Date Kerry Medina MD [address] [facility] [address] [place] PCP - General Internal Medicine 01/15/18
== END 2025-05-27 11:09 | disposition home or self-care (01) ==
LOC: HO.HWS 10:51
PROVIDERS: PCP Internal Medicine; Visit Provider Obstetrics & Gynecology
DX: N83.299 Other ovarian cyst, unspecified side (principal); N93.9 Abnormal uterine and vaginal bleeding, unspecified; D25.9 Leiomyoma of uterus, unspecified
CPT/HCPCS: 99213

== ENCOUNTER → 2025-05-27 10:50 | Outpatient (BNVA) | payer OTHER, SELFPAY | PROVIDERS: PCP Internal Medicine; Visit Provider Obstetrics & Gynecology | DX: Z71.2 Person consulting for explanation of examination or test findings (principal); N93.9 Abnormal uterine and vaginal bleeding, unspecified; N83.299 Other ovarian cyst, unspecified side; D25.9 Leiomyoma of uterus, unspecified | CPT/HCPCS: 99212 ==

== ENCOUNTER 2025-05-28 06:49 | Day surgery (SDC) | payer OTHER, SELFPAY ==
--- OUTSIDE RECORDS SUMMARY | 2025-05-07 13:31 | XMS_ITS | Clinical Summary ---
Author Organization [address] [place] [address] Address [address] [place] [address] Phone Care Team Providers Care Cop Examiner Name Role Phone Kerry Medina MD Primary Care Provider [phone] Allergies No known active allergies Medications buPROPion [...] Date Class 1 obesity 04/02/2025 Pituitary microadenoma ([facility] V24, [facility] V28 ) 04/02/2025 Asthma 03/13/2018 Bipolar disorder ([facility] V24, [facility] V28) 02/14 Encounters Date Type Department Care Team Description 03/11/2025 Telephone Bariatric Surgery [address] [phone] Gianfranco Gordon MD Med Refill (Zepbound) 02/18/2025 Telephone Bariatric Surgery [address] [address] Gianfranco Gordon MD Med Refill (zepbound) from Last 3 Months Surgical History Surgery Date Site/Laterality Comments BARIATRIC SURGERY 10/02/2014 PROCEDURE: [place] LAPS GSTRC RSTRICTIV PX LONGITUDINAL GASTRECTOMY; COMMENT: Dr. Allan Osuna OTHER SURGICAL HISTORY 10/02/2014 PROCEDURE: [place] UNLISTED LAPS PX HRNAP HERNIORRHAPHY HERNIOTOMY; COMMENT: hiatal repair, at time of gastric sleeve CHOLECYSTECTOMY PROCEDURE: HISTORICAL CHOLECYSTECTOMY TUBAL LIGATION PROCEDURE: HISTORICAL TUBAL LIGATION OTHER SURGICAL HISTORY PROCEDURE: HISTORICAL PANNICULECTOMY OTHER SURGICAL HISTORY PROCEDURE: HISTORY OTHER; COMMENT: gastric sleeve Medical History Medical History Date Comments Bipolar disorder (CMS/HCC V2 4, CMS/HCC V28) 03/13/2018 DX:Bipolar disorder ([facility]) Asthma 03/13/2018 DX:Asthma S/P laparoscopic [...] AM EDT Office Visit Bariatric Surgery - [place] [address] [facility] [address] [place] [address] Gianfranco Gordon MD [address] [facility] [address] [place] [address] Health Maintenance Due Date Last Done Comments Breast Cancer Screening 1983 Hepatitis B Vaccines (1 of 3 - 19+ 3-dose series) 2002 Pneumococcal Vaccine: Pediatrics (0 to 5 Years) and At-Risk Patients (6 to 49 Years) (1 of 2 - PCV) 2002 Cervical Cancer Screening: P ap Smear 2004 Cholesterol Screening (Lipid Panel) 09/18/2022 HIV Screening 09/18/2022 Hepatitis C Screening 09/18/2022 Social Influencers of Health Screening 09/18/2022 COVID-19 Vaccine (1 - 2023-2 5 season) 2024 Depression Screening 10/16/2024 Influenza Vaccine (#1) 2025 0, 01/05/2010 DTaP,Tdap,and [...] patient's age to complete this topic Insurance [facility] [employer] Care Teams Cop Examiner Relationship Specialty Start Date End Date Kerry Medina MD [address] [facility] [address] [place], [place] PCP - General Internal Medicine 01/15/18
--- OUTSIDE RECORDS SUMMARY | 2025-05-07 13:31 | XMS_ITS | Encounter Summary ---
Author Organization [facility] Address [address] [place] [address] Care Team Providers Care Reservations Sales Agent Name Role Phone Kerry Medina MD Primary Care Provider Gauri vailable Reason for Visit * Reason Onset Date Comments Medication 02/12/2024 Encounter Details Date Type Department Care Team Description 02/12/2024 Telephone Bariatric Surgery - [place] [address] [facility] [address] [place] [address] Gianfranco Gordon MD [address] [place] [address] [address] [place] [address] Medication Social History Tobacco Use Types Packs/Day [...] on filedocumented in this encounter Care Teams Reservations Sales Agent Relationship Specialty Start Date End Date Kerry Medina MD PCP - General Internal Medicine 01/15/18 documented as of this encounter
[2025-05-26 11:34] VITALS: BMI 28.9
--- NOTE | 2025-05-27 09:11 | P.CONAN_ITS ---
Documented by User: Dulce Slaughter NP 05/27/25 09:13 HPI - Anesthesia Eval Consult details Narrative: 39yo F for Right Excision Mass on Groin Anesthesia Pre-Procedure Meds Is the patient on any of the following meds?: GLP1/DPP4 PMFSH Active Problems Active Problems: All Active Problems Sacroiliac joint dysfunction of right side (Acute) Mass of right inguinal region (Acute) Complex ovarian cyst (Acute) Back pain (Acute) Abnormal uterine bleeding (AUB) (Acute) HTN (hypertension) (Acute) Lumbar spondylosis (Acute) Chronic back pain (Acute) Migraine without aura (Acute) Migraine with aura (Acute) Pituitary microadenoma (Acute) Restless leg syndrome (Acute) SOBOE (shortness of breath on exertion) (Acute) Chronic anemia (Acute) Sleep difficulties (Acute) Snoring (Acute) Excessive daytime sleepiness (Acute) Cold intolerance (Acute) Diplopia (Acute) Hot flashes (Acute) Worsening headaches (Acute) COVID-19 (Acute) COVID-19 (Acute) Iron deficiency anemia after gastrectomy (Acute) Fibromyalgia (Acute) Anemia (Chronic) Anxiety (Acute) Osteoarthritis of lumbar spine (Acute) History of migraine (Acute) Fatigue (Acute) History of sleeve gastrectomy (Acute) Microscopic hematuria (Acute) Fecal urgency (Acute) Abdominal pain (Acute) Pelvic floor weakness in female (Acute) Urinary urgency (Acute) HESHAM (stress urinary incontinence, female) (Acute) Past Medical History Medical History Pituitary microadenoma Fibromyalgia Osteoarthritis Back pain Anemia Migraines Asthma HESHAM (stress urinary incontinence, female) Cholecystectomy planned Appendicitis Family History Family History Mother Prediabetes Rheumatoid arthritis Hypertension Father Medical history unknown Other Family history of multiple sclerosis Family history of rheumatoid arthritis Family history of systemic lupus erythematosus Surgical History Surgical History Hx of bariatric surgery (2013) Hx of cholecystectomy Hx of appendectomy S/P panniculectomy Gastric bypass status for obesity Tubal ligation status Social History Social History Household Members: Family Housing: House Are you a primary palliative care physician to a significant other at home: No Do you presently have visiting nurse or other home services: No Alcohol intake: current Alcohol intake frequency: holidays/special occasions only Alcohol type: hard liquor Patient Tobacco Use Status: Former Tobacco user Tobacco use type: Cigarette Smoked in Last 30 Days: No Use of substances other than those prescribed or required for medical reasons: No Have you been hit, kicked, punched, or otherwise hurt by someone within the past year? 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 Meds Allergies Allergy/AdvReac Type Severity Reaction Status Date / Time No Known Allergies Allergy Verified 05/27/25 10:56 Home Medications ?Medication ?Instructions ?Recorded ?Confirmed ?Last Taken ?Type albuterol sulfate 90 mcg/actuation 2 puff inhalation Q ID 10/03/22 05/26/25 Unknown History aerosol inhaler (ProAir HFA) quetiapine 50 mg tablet,extended 50 mg PO BEDTIME 09/1605/26/25 Unknown History release 24 hr tirzepatide (weight loss) 2.5 2.5 mg subcut DIRECTE D 10/07/24 05/26/25 05/18/25 History mg/0.5 mL subcutaneous pen injector (Zepbound) Exam Height,Weight and Vital Signs: Height 5 ft 7 in Weight 83.6 kg Pertinent Lab Results Pertinent Lab Results: Laboratory Tests 04/08/25 07:35 WBC 6.2 Hgb 11.6 L Hct 34.1 L Plt Count 221 Sodium 141 Potassium 3.5 Chloride 110 H Carbon Dioxide 25 BUN 14 Creatinine 0.66 Narrative Narrative: EKG 10/2024 Vent. Rate : 069 BPM Atrial Rate : 069 BPM P-R Int : 116 ms QRS Dur : 076 ms QT Int : 372 ms P-R-T Axes : 021 020 024 degrees QTc Int : 398 ms Normal sinus rhythm Normal ECG When compared with ECG of 09-JUL-2024 12:13, No significant change was found Assessment and Plan Assessment Anesthesia Assessment: Chart Reviewed Documented by User: Ron Harp MD 05/28/25 08:56 PMFSH Past Medical History Medical History Pituitary microadenoma Fibromyalgia Osteoarthritis Back pain Anemia Migraines Asthma HESHAM (stress urinary incontinence, female) Cholecystectomy planned Appendicitis Functional capacity: independent ambulation Family History Family History Mother Prediabetes Rheumatoid arthritis Hypertension Father Medical history unknown Other Family history of multiple sclerosis Family history of rheumatoid arthritis Family history of systemic lupus erythematosus Family history of problems with anesthesia: No Surgical History Surgical History Hx of bariatric surgery (2013) Hx of cholecystectomy Hx of appendectomy S/P panniculectomy Gastric bypass status for obesity Tubal ligation status History of Problems with Anesthesia: No Social History Social History Household Members: Family Housing: House Are you a primary palliative care physician to a significant other at home: No Do you presently have visiting nurse or other home services: No Alcohol intake: current Alcohol intake frequency: holidays/special occasions only Alcohol type: hard liquor Patient Tobacco Use Status: Former Tobacco user Tobacco use type: Cigarette Smoked in Last 30 Days: No Use of substances other than those prescribed or required for medical reasons: No Have you been hit, kicked, punched, or otherwise hurt by someone within the past year? 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 Meds Allergies Allergy/AdvReac Type Severity Reaction Status Date / Time No Known Allergies Allergy Verified 05/27/25 10:56 Home Medications ?Medication ?Instructions ?Recorded ?Confirmed ?Last Taken ?Type albuterol sulfate 90 mcg/actuation 2 puff inhalation Q ID 10/03/22 05/26/25 Unknown History aerosol inhaler (ProAir HFA) quetiapine 50 mg tablet,extended 50 mg PO BEDTIME 09/1605/26/25 Unknown History release 24 hr tirzepatide (weight loss) 2.5 2.5 mg subcut DIRECTE D 10/07/24 05/26/25 05/18/25 History mg/0.5 mL subcutaneous pen injector (Zepbound) Exam Exam Date and Time: 05/28/2025 Airway Mallampati Class: II TM Dist: >3cm Neck ROM: Full Loose/Missing/Broken Teeth: No Heart: rrr Lungs: cts Assessment and Plan Final Anesthetic Review Family History of Problems with Anesthesia: No History of Problems with Anesthesia: No NPO: Yes ASA Class: II Final Preanesthetic Review: No Changes in Pt Med Stat, Meds/Allgs Chart Reviewed, Consent Obtained/Reviewed and Anes Risks/Benef Reviewed Patient Risk: Low Procedure Risk: Low Anesthetic Plan Anesthetic Plan: GA Disposition: Standard PACU and Extended PACU
[2025-05-28] VITALS (7 sets, daily range): BP systolic 118–133; BP diastolic 63–89; PULSE 60–81; RESP 14–18; TEMP 36.1–36.4; O2SAT 98–100; BMI 28.3
--- NOTE | 2025-05-28 08:31 | MHC.SHP ---
Pre-Procedural Eval Section A - 24 Hr Update-Section A only Date of Service: 05/28/25 The patient is an INPATIENT: No Changes since office visit: Yes Patient answered all questions; No Cold of Flu in the past 2 weeks, No New Medical Problems and No Changes in Medication The patient has been examined within 24 hours of the surgical procedure. The History & Physical has been completed within 30 days and I have reviewed it.: Yes Section B - Complete if H&P > 30 days Chief Complaint: Other intra-abdominal and pelvic swelling, mass Allergies: Allergies Allergy/AdvReac Type Severity Reaction Status Date / Time No Known Allergies Allergy Verified 05/27/25 10:56 Plan Diagnosis/Plan: Unchanged I have reviewed the history and physical and performed a pertinent physical examination on my patient. No changes have occurred unless specified. Time Spent With Patient Time: Total time managing care of this patient today ____ minutes.
[2025-05-28] MEDS: Lactated Ringers 1,000 ML 100 ML IVCONT (09:19)
--- NOTE | 2025-05-28 09:59 | P.OP_ITS ---
Operative Note Operative Note Date of Service: 05/28/25 Narrative: Preoperative diagnosis: Mass right groin Postoperative diagnosis: Enlarged lymph node right groin Procedure: Excision right inguinal lymph node Surgeon: Harlan Orta MD Film Inspector: Joao Lamb PA-C, Rena Domingo, MS-3 Anesthesia: General LMA Indications for procedure: 39-year-old female patient presenting with a painless in large mass in the right groin. Ultrasound revealed a mass suggestive of a lymph node measuring approximately 4 cm in diameter. Operative findings: 4 cm enlarged lymph node right inguinal region Specimen: Left inguinal lymph node Estimated blood loss: Less than 2 mL Complications: None Procedure details: Patient was brought to the OR and placed in a supine position. After administering general anesthesia the patient's right groin and upper right leg were prepped with ChloraPrep and draped in a sterile fashion. A surgical time-out was called the consent confirmed. Patient received preoperative antibiotics and Venodyne boots were in place. Local anesthesia consisting of 0.5% Sensorcaine was infiltrated over the palpable mass in an oblique fashion measuring the inguinal ligament. Incision was made approximately 2 cm below the inguinal ligament and carried out through subcutaneous tissue, past Jonny's fascia and passed muscle fascia. Palpable node was identified and dissection continued around the enlarged lymph node. Combination of blunt and sharp dissection was used to dissect the lymph node from the surrounding muscular tissue. Hemostasis was assured using free ties of 3-0 Polysorb. The lesion was completely excised and sent to pathology for further examination. Wounds were then irrigated with saline solution and suctioned dry. Muscle fascia was then reapproximated using interrupted 3-0 Polysorb sutures. Jonny's fascia was reapproximated using interrupted 3-0 Polysorb sutures. Dermis was reapproximated using interrupted 3-0 Polysorb sutures. Skin was closed using a running subcuticular 4-0 Polysorb suture. Sterile dressings consisting of Steri-Strips, 4 x 4 gauze and Tegaderm were then applied. The patient tolerated the procedure well. Sponge, instrument, and needle counts were reported as correct. The patient was transferred to PACU in stable condition.
== END 2025-05-28 11:25 | disposition home or self-care (01) ==
PROVIDERS: Pathology Anatomic Pathology & Clinical Pathology; PCP Internal Medicine; Visit Provider Surgery
PROC: (CPT 38531; principal; 2025-05-28 09:30)
DX: C49.21 Malignant neoplasm of connective and soft tissue of right lower limb, including hip (principal); M25.551 Pain in right hip; G43.909 Migraine, unspecified, not intractable, without status migrainosus; N39.3 Stress incontinence (female) (male); J45.909 Unspecified asthma, uncomplicated; Z79.1 Long term (current) use of non-steroidal anti-inflammatories (NSAID); Z79.899 Other long term (current) drug therapy; Z79.85 Long-term (current) use of injectable non-insulin antidiabetic drugs; Z98.84 Bariatric surgery status; Z90.49 Acquired absence of other specified parts of digestive tract; Z98.51 Tubal ligation status; F17.210 Nicotine dependence, cigarettes, uncomplicated; Z56.0 Unemployment, unspecified
CPT/HCPCS: 38531; 88304; 88307; 88341; 88342; 88360; 88377; J0690; J1100; J1630; J1885; J2003; J2405; J2704; J3010

== ENCOUNTER → 2025-05-28 06:49 | Outpatient (BNV) | payer OTHER, SELFPAY | PROVIDERS: PCP Internal Medicine; Visit Provider Surgery | DX: R59.0 Localized enlarged lymph nodes (principal) | CPT/HCPCS: 38525 ==

== ENCOUNTER → 2025-06-02 14:16 | Outpatient (BNVA) | payer OTHER, SELFPAY | PROVIDERS: PCP Internal Medicine; Visit Provider Surgery | DX: Z48.817 Encounter for surgical aftercare following surgery on the skin and subcutaneous tissue (principal) | CPT/HCPCS: 99211 ==

== ENCOUNTER 2025-06-06 11:22 | Outpatient (AMB) | payer OTHER, SELFPAY ==
--- NOTE | 2025-06-06 11:25 | MHC.OFFVIS ---
Vital Signs 06/06/25 11:32 Weight 186 lb BP 130/88 Blood Pressure Location Rt brachial Position Sitting Pulse 85 Intake Visit Reasons: s/p excision mass rt groin Intake Note: Patient here s/p Rt groin excision. Patient c/o: incision site tender to touch. Skin feels tight when bending. Denies oozing. Steri strips removed without incident. WLE: 05-28-2025 School Coordinator Required: No Accompanied by: best friend Sara Allergies No Known Allergies Allergy (Verified 06/06/25 11:33) Medication List - Last Reconciled 06/06/25 by Harlan Orta MD acetaminophen 1,000 mg (2 x 500 mg) PO Q8H PRN albuterol sulfate 1.25 mg (3 mL) inhalation Q4-6H PRN albuterol sulfate 90 mcg/actuation (ProAir HFA) 2 puffs inhalation QID COVID-19 antigen test (BinaxNOW COVID-19 Ag Self Test kit) As directed cyclobenzaprine 5 mg PO Q8H PRN 30 days metoclopramide HCl 5 - 10 mg (1 - 2 x 5 mg) PO Q4-6H PRN 7 days naproxen 500 mg PO BID PRN 10 days quetiapine ER 50 mg PO BEDTIME rimegepant (Nurtec ODT) 75 mg PO ONCE PRN 30 days MDD 1 tab rizatriptan 5 - 10 mg (0.5 - 1 x 10 mg) PO Q2H PRN 30 days tirzepatide (weight loss) (Zepbound) 2.5 mg subcut DIRECTED HPI Comments Details: 39-year-old female presenting with a palpable lump in the right inguinal region associated with right hip pain. The lump was 1st noted approximately in March 2025 but may have been present for a longer period. She has been reporting hip pain for several months which is severe enough to impair her walking and driving. An x-ray of the hip revealed no abnormality. Subsequent Doppler ultrasound revealed a 4 cm solid mass with vascularity suggestive of an abnormal enlarged lymph node. She denies any previous trauma or surgery in this location. She does have a history of herniated lumbar disc at L3/L4/L5 and S1 with sciatica and avoids all lifting. She subsequently underwent excision of this palpable mass, presumed lymph node on 05/28/2025. Subsequent pathology however revealed: ?Soft tissue, right groin mass, excision: Myxoid/round cell liposarcoma (see comment). COMMENT: Results from fluorescence in situ hybridization (FISH) testing are positive for a DDIT3 (CHOP) gene rearrangement, supporting the diagnosis. The tumor extends to the inked margins. No overt areas of a high grade component are seen in this excision.? Patient was informed of the pathology results and provided a copy of the report. She reports some numbness extending down the leg below the incision but also has pain at the incision with some swelling. She denies any bleeding or discharge from the incision. [facility] Medical History Liposarcoma of right lower extremity Pituitary microadenoma Fibromyalgia Osteoarthritis Back pain Anemia Migraines Asthma HESHAM (stress urinary incontinence, female) Cholecystectomy planned Appendicitis Surgical History Hx of bariatric surgery (2013) Hx of cholecystectomy Hx of appendectomy S/P panniculectomy Gastric bypass status for obesity Tubal ligation status Family History Mother Prediabetes Rheumatoid arthritis Hypertension Father Medical history unknown Other Family history of multiple sclerosis Family history of rheumatoid arthritis Family history of systemic lupus erythematosus Social History Household Members: Family Housing: House Are you a primary rn patient care to a significant other at home: No Do you presently have visiting nurse or other home services: No 75 years or older and lives alone: No Alcohol intake: current Alcohol intake frequency: holidays/special occasions only Alcohol type: hard liquor Patient Tobacco Use Status: Former Tobacco user Tobacco use type: Cigarette Current occupational status: unemployed 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 Physical Exam Vital Signs: Last Vital Signs Pulse 85 06/06/25 11:32 BP 130/88 06/06/25 11:32 Const General: cooperative and no acute distress Nutritional Appearance: well nourished Orientation/consciousness: patient oriented x3 Limitations: no limitations HEENT Head: Yes normocephalic and Yes atraumatic Ears: hearing grossly normal bilaterally Resp Effort & Inspection: normal respiratory effort, no audible wheezes, no cough and no respiratory distress Cardio Jugular venous distension: no JVD GI Palpation (GI): Soft to palpation, nontender, no guarding and not rigid Skin Other: Warm, dry, no rash Neuro General: patient oriented x3 Extrem Other: Right groin wound is clean, dry, and intact without redness or discharge. There is some slight fullness suggestive of a deep seroma. No evidence of infection. General: Yes no clubbing, cyanosis or edema Upper/lower leg/hip images:  1. Incision right groin Assessment & Plan Assessment & Plan (1) Liposarcoma of right lower extremity: Code(s): C49.21 - Malignant neoplasm of connective and soft tissue of right lower limb, including hip Category: Medical Plan 39-year-old female patient presenting with a newly diagnosed liposarcoma of the right groin. Pathology results were discussed with the patient and a copy of the report provided. I recommended evaluation by the sarcoma team at [facility]. The patient expressed understanding and agrees with the plan. She is welcome to call for any new concerns or questions. Orders: Referrals Hematology & Oncology Referral C49.21 - Malignant neoplasm of connective and soft tissue of right lower limb, including hip Coding Level of Care Code Global (53375) Diagnoses Liposarcoma of right lower extremity C49.21
--- OUTSIDE RECORDS SUMMARY | 2025-06-06 11:26 | XMS_ITS | Clinical Summary ---
Author Organization [address] [place] [address] Address [address] [place] [address] Phone Care Team Providers Care Citrix Engineer Name Role Phone Kerry Medina MD [...] Date Class 1 obesity 04/02/2025 Pituitary microadenoma ([facility] V24, [facility] V28 ) 04/02/2025 Asthma 03/13/2018 Bipolar disorder ([facility] V24, [facility] V28) 02/14 Encounters Date Type Department Care Team Description 03/11/2025 Telephone Bariatric Surgery - [place] 175 [facility] [address] [place] [phone] Gianfranco Gordon MD Med Refill (Zepbound) [...] AM EDT Office Visit Bariatric Surgery - [place] 175 [facility] [address] [place] [address] Gianfranco Gordon MD 175 [facility] [address] [place] [address] Health Maintenance Due Date Last Done Comments [...] complete this topic Insurance [facility] [employer] Care Teams Citrix Engineer Relationship Specialty Start Date End Date Kerry Medina MD [address] [facility] [address] [place] PCP - General Internal Medicine 01/15/18
[2025-06-06 11:32] VITALS: BP 130/88; PULSE 85
== END 2025-06-06 11:38 | disposition home or self-care (01) ==
LOC: HO.HGS 11:23
PROVIDERS: PCP Internal Medicine; Visit Provider Surgery
DX: C49.21 Malignant neoplasm of connective and soft tissue of right lower limb, including hip (principal)
CPT/HCPCS: 99024

== ENCOUNTER → 2025-06-06 11:22 | Outpatient (BNVA) | payer OTHER, SELFPAY | PROVIDERS: PCP Internal Medicine; Visit Provider Surgery | DX: Z71.2 Person consulting for explanation of examination or test findings (principal); C49.21 Malignant neoplasm of connective and soft tissue of right lower limb, including hip | CPT/HCPCS: 99212 ==

== ENCOUNTER 2025-06-12 10:40 | Outpatient (REF) | payer OTHER, SELFPAY ==
--- NOTE | ~2025-06-12 | CT_ITS ---
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 COMPARISON: Comparison is made with the prior unenhanced CT of the abdomen and pelvis dated 03/04/2022. Correlation is also made with an ultrasound of the right groin dated 04/08/2025. TECHNIQUE: CT scan of the chest, abdomen and pelvis was performed following administration of 85 mL Omnipaque 350 using standard departmental protocol. Coronal and sagittal reformatted images were generated and reviewed. Oral contrast material was not administered at the request of the referring physician. This CT exam was performed with one or more of the following dose reduction techniques: automated exposure control, adjustment of the mA and/or kV according to patient size, use of iterative reconstruction technique. DLP: 898 mGy-cm CHEST: THYROID: The thyroid is unremarkable. LUNGS: The lungs are clear. MEDIASTINUM: There is no mediastinal lymphadenopathy. ARSH: There is no hilar lymphadenopathy. CARDIOVASCULATURE: The heart is normal in size. There is no pericardial effusion. The thoracic aorta is normal in caliber. DEGREE OF CORONARY CALCIFICATION: none PLEURA: There is no pleural effusion. No pneumothorax. MAIN AIRWAYS: The mainstem bronchi and proximal branches are patent. AXILLA: There is no axillary lymphadenopathy. SOFT TISSUES: There is a small hiatal hernia. BONES: The bones are intact. ABDOMEN: LIVER: The liver is normal in size and contour. No liver mass is identified. The hepatic and portal veins are patent. GALLBLADDER / BILE DUCTS: The gallbladder is unremarkable. There is no intra or extrahepatic biliary ductal dilatation. SPLEEN: The spleen is normal in size. No focal splenic lesion is identified. PANCREAS: The pancreas is unremarkable in appearance. ADRENAL GLANDS: Within normal limits. KIDNEYS/RETROPERITONEUM: No renal calculi are identified. There is no hydronephrosis. No renal masses are identified. LYMPH NODES: No abdominal or pelvic lymphadenopathy. VASCULATURE: The abdominal aorta is normal in caliber. MESENTERY/PERITONEUM: No free fluid. No masses. There is no free intraperitoneal gas. STOMACH: There are postsurgical changes involving the stomach. SMALL BOWEL: The small bowel is normal in caliber. COLON: The colon is unremarkable. APPENDIX: The appendix is surgically absent. URINARY BLADDER/PELVIC ORGANS: The urinary bladder is collapsed, limiting detailed evaluation. The uterus and ovaries are unremarkable. BONES / SOFT TISSUES: There is a soft tissue mass in the right inguinal region extending to the labia measuring 7.3 x 2.8 x 6.2 cm. The bones are intact. CT/CT abdomen pelvis w IV con IMPRESSION: 7.3 x 2.8 x 6.2 cm soft tissue mass in the right inguinal region extending to the labia compatible with the patient's known liposarcoma. No evidence of metastatic disease. Electronically signed by: Ramiro Gerardo MD 06/12/2025 12:04 PM EDT
--- OUTSIDE RECORDS SUMMARY | 2025-06-12 12:06 | XMS_ITS | Encounter Summary ---
Author Organization [facility] Address [address] [place] [address] [place] [phone] Phone Care Team Providers Care Design Engineer Products Name Role Phone Kerry Medina MD Primary Care Provider Harlan Orta MD Unavailable [phone] Encounter Details Date Type Department Care Team (Late st Contact Info) Description 06/10/2025 Ancillary Orders DF IMG OUTSIDE IMG [address] [place] [address] Luz Maria Chung MD [address] [place] [address] [email or web address] Social History Tobacco Use Types Packs/Day Years Used Date Smoking Tobacco: Never Assessed Education Answer Date Recorded Are you interested in more education? Not on dayanara e 11/01/2023 Are you concerned about learning? Not on file 11/01/2023 No 11/01/2023 No 11/01/2023 Digital Access Answer Date Recorded No 11/01/2023 No 11/01/2023 Reliable internet access at home? Not on file 11/01/2023 Device with a working camera? Not on file Comments Unknown Sex and Gender Information Value Date Recorded Sex Assigned at Female 06/09/2025 2:35 PM EDT Legal Sex Female 9:57 AM EST Gender Identity Female 06/09/2025 2:35 PM EDT Sexual Orientation Straight 06/09/2025 2: 35 PM EDT documented as of this encounter Plan of Treatment Upcoming Encounters Date Type Department Care Team (Late st Contact Info) Description 06/25/2025 10:15 AM EDT Administrative Encounter Central Registration, [address] [place] [address] Shelbie Yepez MD, PhD [address] [place] [address] [place] [address] [email or web address] BEDS AT [facility] 06/25/2025 11:00 AM EDT Office Visit [facility], [address] [place] [address] Kulwinder Blair MD [address] [place] [address] Department [place] [address] [email or web address] 06/25/2025 11:00 AM EDT Office Visit [facility], [address] [place] [address] Karen Main MD, ADRIAN [address] [place] [address] [email or web address] 06/25/2025 11:00 AM EDT Office Visit [facility], [address] [place] [address] Shelbie Yepez MD, PhD [address] [place] [address] [place] [address] [email or web address] BEDS AT [facility] documented as of this encounter Results * XR Pelvis Outside (No Interpretation) (03/31/2025 12:00 AM EDT) Other Narrative LAKESHA - 06/10/2025 1:28 PM EDT This study is for PACS storage only and not for interpretation. us Luz Maria Chung MD IMG OUTSIDE IMAGING W/OUT INTERPRETATION Final Result [email or web address] documented in this encounter Visit Diagnoses Not on filedocumented in this encounter Care Teams Design Engineer Products Relationship Specialty Start Date End Date Kerry Medina MD [address] [place] [address] [place] [phone] PCP - General Internal Medicine 11/01/23 Harlan Orta MD [address] [place] [address] [place] [address] Referring Physician General Surgery 06/09/25 documented as of this encounter Additional Source Comments The information contained in this document represents components of the legal health record. It is not the complete legal health record.[facility]
--- OUTSIDE RECORDS SUMMARY | 2025-06-12 12:06 | XMS_ITS | Clinical Summary ---
Author Organization [facility] Address [address] [place] [address] Phone Care Team Providers Care Security Operations Center Operator Name Role Phone Kerry Medina MD Primary Care Provider Harlan Orta MD Unavailable [phone] Encounters Date Type Department Care Team Description 06/10/2025 Ancillary Orders DF IMG OUTSIDE IMG [address] [place] [address] Luz Maria Chung MD 06/10/2025 Ancillary Orders DF IMG OUTSIDE IMG [address] [place] [address] Luz Maria Chung MD 06/10/2025 Ancillary Orders DF IMG OUTSIDE IMG [address] [place] [address] Luz Maria Chung MD 06/10/2025 Ancillary Orders DF IMG OUTSIDE IMG [address] [place] [address] Luz Maria Chung MD 06/10/2025 Orders Only [facility], [facility] [address] [facility], 6th [place] [address] Luz Maria Chung MD 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 Ancillary Procedure DF IMG OUTSIDE IMG [address] [place] [address] Luz Maria Chung MD 04/08/2025 Ancillary Procedure DF IMG OUTSIDE IMG [address] [place] [address] Luz Maria Chung MD 03/31/2025 12:05 AM EDT Ancillary Procedure DF IMG OUTSIDE IMG [address] [place] [address] Luz Maria Chung MD 03/31/2025 Ancillary Procedure DF IMG OUTSIDE IMG [address] [place] [address] Luz Maria Chung MD from Last 3 Months Social History Tobacco Use Types Packs/Day Years Used Date Smoking Tobacco: Never Assessed Education Answer Date Recorded Are you interested in more education? Not on daynaara e 11/01/2023 Are you concerned about learning? [...] Orientation Straight 06/09/2025 2: 35 PM EDT Plan of Treatment Upcoming Encounters Date Type Department Care Team (Late st Contact Info) Description 06/25/2025 10:15 AM EDT Administrative Encounter Central Registration, [address], 2nd [place] [address] Shelbie Yepez MD, PhD [address] [place] [address] [place] [address] [email or web address] 06/25/2025 11:00 AM EDT Office Visit [facility], [address], 6th [place] [address] Kulwinder Blair MD [address] [place] [address] Department [place] [address] [email or web address] 06/25/2025 11:00 AM EDT Office Visit [facility], [address], [address] [place] [address] Karen Main MD, ADRIAN [address] [place] [address] [email or web address] 06/25/2025 11:00 AM EDT Office Visit [facility], [address], [address] [place] [address] Shelbie Yepez MD, PhD [address] [place] [address] [place] [address] [email or web address] Health Maintenance Due Date Last Done Comments DEPRESSION SCREENING 1995 SMOKING Hx and SMOKELESS TOB ACCO SCREENING 1996 HEPATITIS C SCREENING 2001 HIV ONE-TIME SCREENING (18-6 5 YEARS) 2001 PAP SMEAR 2004 MAMMOGRAM 2023 COVID-19 VACCINE ( - 2023-2 5 season) 2024 INFLUENZA VACCINE (#1) 2025 10/07/2020 Adult Td,Tdap Booster 10/31/2027 10/31/2017 HEPATITIS A VACCINES Aged Out No long er eligible based on patient's age to complete this topic HIB VACCINES Aged Out No longer eligi ble based on patient's age to complete this topic MENINGOCOCCAL VACCINES (ACWY) Aged Out No longer eligible based on patient's age to complete this topic MENINGOCOCCAL VACCINES (B) Aged Out N o longer eligible based on patient's age to complete this topic PNEUMOCOCCAL VACCINES (0-49 years) Aged Out No longer eligible based on patient's age to complete this topic Medical Devices Not on file Procedures Procedure Name Priority Date/Time Associated Diagnosis Comments OUTSIDE PATHOLOGY 05/28/2025 OUTSIDE PATHOLOGY 05/28/2025 OUTSIDE LAB 05/28/2025 OUTSIDE PROCEDURE 05/28/2025 OUTSIDE IMAGING 05/07/2025 US PELVIS OUTSIDE (NO INTERPRETATION) Routine 05/07/2025 12:00 AM EDT US VASCULAR OUTSIDE (NO INTERPRETATION) Routine 04/08/2025 12:00 AM EDT OUTSIDE IMAGING 04/08/2025 XR PELVIS OUTSIDE (NO INTERPRETATION) Routine 03/31/2025 12:05 AM EDT OUTSIDE IMAGING 03/31/2025 XR PELVIS OUTSIDE (NO INTERPRETATION) Routine 03/31/2025 12:00 AM EDT from Last 3 Months Results * Outside Procedure (05/28/2025) us Scanning Interface Provider PROCEDURE/MINOR SURG ICAL PERFORMABLES Final Result * Outside Lab (05/28/2025) us Scanning Interface Provider LAB BLOOD ORDERABLES Final Result * Outside Pathology (05/28/2025) Only the most recent of2 resultswithin the time period is included. us Scanning Interface Provider PATHOLOGY ORDERABLES Final Result * Outside Imaging Report Only (05/07/2025) us Scanning Interface Provider IMG XR CHEST Nicolette l Result * US Pelvis Outside (No Interpretation) (05/07/2025 12:00 AM EDT) Other Narrative JAYLENEH - 06/10/2025 1:28 PM EDT This study is for PACS storage only and not for interpretation. us Luz Maria Chung MD IMG OUTSIDE IMAGING W/OUT INTERPRETATION Final Result Performing Organization Address [facility] Co de Phone Number [facility] * Outside Imaging Report Only (04/08/2025) us Scanning Interface Provider IMG XR CHEST Nicolette l Result * US Vascular Outside (No Interpretation) (04/08/2025 12:00 AM EDT) Other Narrative SYSTEMGENERATED, DOCUMENTATION - 06/10/2025 1:28 PM EDT This study is for PACS storage only and not for interpretation. us Luz Maria Chung MD CV US VASCULAR Final Res ult * XR Pelvis Outside (No Interpretation) (03/31/2025 12:05 AM EDT) Other Narrative [facility] - 06/10/2025 1:29 PM EDT This study is for PACS storage only and not for interpretation. us Luz Maria Chung MD IMG OUTSIDE IMAGING W/OUT INTERPRETATION Final Result Performing Organization Address [facility] de Phone Number [facility] * Outside Imaging Report Only (03/31/2025) us Scanning Interface Provider IMG XR CHEST Nicolette l Result * XR Pelvis Outside (No Interpretation) (03/31/2025 12:00 AM EDT) Other Narrative [facility] - 06/10/2025 1:28 PM EDT This study is for PACS storage only and not for interpretation. us Luz Maria Chung MD IMG OUTSIDE IMAGING W/OUT INTERPRETATION Final Result Performing Organization Address [facility] Co de Phone Number [facility] from Last [address] [place], [place] [address] [place] [address] Zmanda [facility] Zmanda [facility] Zmanda [facility] Zmanda [facility] Care Teams Security Operations Center Operator Relationship Specialty Start Date End Date Kerry Medina MD [address] [place] [address] [place] [phone] PCP - General Internal Medicine 11/01/23 Harlan Orta MD [address] [place] [address] [place] [address] Referring Physician General Surgery 06/09/25 Additional Source Comments The information contained in this document represents components of the legal health record. It is not the complete legal health record.[facility]
--- OUTSIDE RECORDS SUMMARY | 2025-06-12 12:06 | XMS_ITS | Encounter Summary ---
Author Organization [facility] Address [address] [place] [address] [place] [address] Phone Care Team Providers Care Deburr Technician Name Role Phone Kerry Medina MD Primary Care Provider Harlan Orta MD Unavailable [phone] Encounter Details Date Type Department Care Team (Late st Contact Info) Description 06/10/2025 Ancillary Orders DF IMG OUTSIDE IMG [address] [place] [address] Luz Maria Chung MD [address] [place] [address] [email or web address] Social History Tobacco Use Types Packs/Day Years [...] 10:15 AM EDT Administrative Encounter Central Registration, [address], 2nd [place] [address] Shelbie Yepez MD, PhD [address] [place] [address] [place] [address] [email or web address]@[facility] 06/25/2025 11:00 AM EDT Office Visit [facility], [address], [address] [place] [address] Kulwinder Blair MD [address] [place] [address] Department [place] [address] [email or web address] 06/25/2025 11:00 AM EDT Office Visit [facility], [address], [address] [place] [address] Karen Main MD, ADRIAN [address] [place] [address] [email or web address] 06/25/2025 11:00 AM EDT Office Visit [facility], [address], [address] [place] [address] Shelbie Yepez MD, PhD [address] [place] [address] [place] [address] [email or web address]@[facility] documented as of this encounter Results * XR Pelvis Outside (No Interpretation) (03/31/2025 12:05 AM EDT) Other Narrative LAKESHA - 06/10/2025 1:29 PM EDT This study is for PACS storage only and not for interpretation. us Luz Maria Chung MD IMG OUTSIDE IMAGING W/OUT INTERPRETATION Final Result [email or web address] documented in this encounter Visit Diagnoses Not on filedocumented in this encounter Care Teams Deburr Technician Relationship Specialty Start Date End Date Kerry Medina MD [address] [place] [address] [place] [phone] PCP - General Internal Medicine 11/01/23 Harlan Orta MD [address] [place] [address] [place] [address] Referring Physician General Surgery 06/09/25 documented as of this encounter Additional Source Comments The information contained in this document represents components of the legal health record. It is not the complete legal health record.[facility]
--- OUTSIDE RECORDS SUMMARY | 2025-06-12 12:06 | XMS_ITS | Encounter Summary ---
Author Organization [facility] Address [address] [place] [address] Phone Care Team Providers Care Insurance Application Investigator Name Role Phone Kerry Medina MD Primary Care Provider Harlan Orta MD Unavailable [phone] Encounter Details Date Type Department Care Team (Late st Contact Info) Description 06/10/2025 Orders Only [facility], [facility] [address] [facility], 6th [place] [address] Luz Maria Chung MD [address] [place] [address] [email or web address] Sarcoma (Primary Dx) Social History Tobacco Use Types Packs/Day Years [...] 10:15 AM EDT Administrative Encounter Central Registration, [address] [place] [address] Shelbie Yepez MD, PhD [address] [place] [address] [place] [address] [email or web address] 06/25/2025 11:00 AM EDT Office Visit [facility], [address], [address] [place] [address] Kulwinder Blair MD [address] [place] [address] Department of Orthopedic Surgery [place] [id number] [email or web address] 06/25/2025 11:00 AM EDT Office Visit [facility], [address], [address] [place] [address] Karen Main MD, ADRIAN [address] [place] [address] [email or web address] 06/25/2025 11:00 AM EDT Office Visit [facility], [address], [address] [place] [address] Shelbie Yepez MD, PhD [address] [place] [address] [place] [address] [email or web address] Scheduled Orders Name Type Priority Associated Diagnoses Orde r Schedule Outside Pathology Review Pathology and Cytology Routine Sarcoma Expected: 06/10/2025, Expires: 06/10/2026 documented as of this encounter Visit Diagnoses Diagnosis 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 It is not the complete legal health record.[facility]
--- OUTSIDE RECORDS SUMMARY | 2025-06-12 12:06 | XMS_ITS | Clinical Summary ---
Author Organization [address] [place] [address] Address [address] [place] [address] Phone Care Team Providers Care Public Works Inspector Name Role Phone Kerry Medina MD Primary Care Provider [phone] Allergies No known active allergies Medications buPROPion [...] Date Class 1 obesity 04/02/2025 Pituitary microadenoma ([facility] V24, [facility] V28 ) 04/02/2025 Asthma 03/13/2018 Bipolar disorder ([facility] V24, [facility] V28) 02/14 Surgical History Surgery Date Site/Laterality Comments BARIATRIC SURGERY 10/02/2014 PROCEDURE: DC LAPS GSTRC RSTRICTIV PX LONGITUDINAL GASTRECTOMY; COMMENT: Dr. Allan Osuna OTHER SURGICAL HISTORY 10/02/2014 PROCEDURE: DC UNLISTED LAPS PX HRNAP HERNIORRHAPHY HERNIOTOMY; COMMENT: [...] AM EDT Office Visit Bariatric Surgery - [address] [place] [address] Gianfranco Gordon MD [address] [place] [phone] Health Maintenance Due Date Last Done Comments [...] patient's age to complete this topic Insurance [facility] Care Teams Public Works Inspector Relationship Specialty Start Date End Date Kerry Medina MD [address] [facility] [address] [place], [place] PCP - General Internal Medicine 01/15/18
--- OUTSIDE RECORDS SUMMARY | 2025-06-12 12:06 | XMS_ITS | Encounter Summary ---
Author Organization [facility] Address [address] [place] [address] [place] [address] Phone Care Team Providers Care Compress Engineer Name Role Phone Kerry Medina MD Primary Care Provider Harlan Orta MD Unavailable [phone] Encounter Details Date Type Department Care Team (Late st Contact Info) Description 06/10/2025 Ancillary Orders DF IMG OUTSIDE IMG [address] [place] [address] Luz Maria Chung MD [address] [place] [address] [email or web address] Social History Tobacco Use Types Packs/Day Years [...] 10:15 AM EDT Administrative Encounter Central Registration, [address], 2nd [place] [address] Shelbie Yepez MD, PhD [address] [facility] [place] [address] Shantelle@[facility] 06/25/2025 11:00 AM EDT Office Visit [facility], [address], [address] [place] [address] Kulwinder Blair MD [address] [place] [address] Department of [place]opedic [place] [address] [email or web address] 06/25/2025 11:00 AM EDT Office Visit [facility], [address], [address] [place] [address] Karen Main MD, ADRIAN [address] [place] [address] [email or web address] 06/25/2025 11:00 AM EDT Office Visit [facility], [address], [address] [place] [address] Shelbie Yepez MD, PhD [address] [place] [address] [place] [address] [email or web address]@[facility] documented as of this encounter Results * US Vascular Outside (No Interpretation) (04/08/2025 12:00 AM EDT) Other Narrative SYSTEMGENERATED, DOCUMENTATION - 06/10/2025 1:28 PM EDT This study is for PACS storage only and not for interpretation. us Luz Maria Chung MD CV US VASCULAR Final Res ult documented in this encounter Visit Diagnoses Not on filedocumented in this encounter Care Teams Compress Engineer Relationship Specialty Start Date End Date Kerry Medina MD [address] [place] [address] [place] [phone] PCP - General Internal Medicine 11/01/23 Harlan Orta MD [address] [place] [address] [place] [address] Referring Physician General Surgery 06/09/25 documented as of this encounter Additional Source Comments The information contained in this document represents components of the legal health record. It is not the complete legal health record.[facility]
--- OUTSIDE RECORDS SUMMARY | 2025-06-12 12:06 | XMS_ITS | Encounter Summary ---
Author Organization [facility] Address [address] [place] [address] [place] [address] Phone Care Team Providers Care Mobile Marketing Manager Name Role Phone Kerry Medina MD Primary Care Provider Harlan Orta MD Unavailable [phone] Encounter Details Date Type Department Care Team (Late st Contact Info) Description 06/10/2025 Ancillary Orders DF IMG OUTSIDE IMG [address] [place] [address] Luz Maria Chung MD [address] [place] [address] [email or web address] .[facility] Social History Tobacco Use Types Packs/Day Years [...] 10:15 AM EDT Administrative Encounter Central Registration, [address], 2nd [place] [address] Shelbie Yepez MD, PhD [address] [place] [address] [place] [address] [email or web address]@[email or web address] 06/25/2025 11:00 AM EDT Office Visit [facility], [address], [address] [place] [address] Kulwinder Blair MD [address] [place] [address] Department [place] [address] [email or web address] 06/25/2025 11:00 AM EDT Office Visit [facility], [address], [address] [place] [address] Karen Main MD, ADRIAN [address] [place] [address] [email or web address] 06/25/2025 11:00 AM EDT Office Visit [facility], [address], [address] [place] [address] Shelbie Yepez MD, PhD [address] [place] [address] [place] [address] [email or web address] documented as of this encounter Results * US Pelvis Outside (No Interpretation) (05/07/2025 12:00 AM EDT) Other Narrative LAKESHA - 06/10/2025 1:28 PM EDT This study is for PACS storage only and not for interpretation. us Luz Maria Chung MD IMG OUTSIDE IMAGING W/OUT INTERPRETATION Final Result [facility] documented in this encounter Visit Diagnoses Not on filedocumented in this encounter Care Teams Mobile Marketing Manager Relationship Specialty Start Date End Date Kerry Medina MD [address] [place] [address] [place] [phone] PCP - General Internal Medicine 11/01/23 Harlan Orta MD [address] [place] [address] [place] [address] Referring Physician General Surgery 06/09/25 documented as of this encounter Additional Source Comments The information contained in this document represents components of the legal health record. It is not the complete legal health record.[facility]
== END 2025-06-12 10:41 | disposition home or self-care (01) ==
LOC: HO.CT 10:40
PROVIDERS: PCP Internal Medicine; Visit Provider Surgery
DX: C49.21 Malignant neoplasm of connective and soft tissue of right lower limb, including hip (principal)
CPT/HCPCS: 71260; 74177

== ENCOUNTER → 2025-06-12 10:52 | Outpatient (BNV) | payer OTHER, SELFPAY | PROVIDERS: PCP Internal Medicine; Visit Provider Radiology Diagnostic Radiology | DX: C49.21 Malignant neoplasm of connective and soft tissue of right lower limb, including hip (principal); R19.09 Other intra-abdominal and pelvic swelling, mass and lump | CPT/HCPCS: 71260; 74177 ==

== ENCOUNTER 2025-07-01 09:06 | Outpatient (AMB) | payer OTHER, SELFPAY ==
--- NOTE | 2025-07-01 09:07 | A.OFFVIS_ITS ---
Vital Signs 07/01/25 09:13 Weight 185 lb BP 140/90 H Blood Pressure Location Rt brachial Position Sitting Pulse 86 Pulse Source Pulse Oximeter Pulse Oximetry (%) 99 Oxygen Delivery Method Room Air Intake Visit Reasons: Follow up Intake Note: Patient here s/p Rt groin excision. Patient c/o: incision site tender to touch. Skin feels tight when bending. Denies oozing. Steri strips removed without incident. WLE: 05-28-2025 Lead Coater Required: No Accompanied by: Self / Same As Patient Allergies No Known Allergies Allergy (Verified 06/06/25 11:33) Medication List - Last Reconciled 07/01/25 by JOYCE Herring acetaminophen 1,000 mg (2 x 500 mg) PO Q8H PRN albuterol sulfate 1.25 mg (3 mL) inhalation Q4-6H PRN albuterol sulfate 90 mcg/actuation (ProAir HFA) 2 puffs inhalation QID COVID-19 antigen test (BinaxNOW COVID-19 Ag Self Test kit) As directed cyclobenzaprine 5 mg PO Q8H PRN 30 days metoclopramide HCl 5 - 10 mg (1 - 2 x 5 mg) PO Q4-6H PRN 7 days naproxen 500 mg PO BID PRN 10 days quetiapine ER 50 mg PO BEDTIME rimegepant (Nurtec ODT) 75 mg PO ONCE PRN 30 days MDD 1 tab rizatriptan 5 - 10 mg (0.5 - 1 x 10 mg) PO Q2H PRN 30 days tirzepatide (weight loss) (Zepbound) 2.5 mg subcut DIRECTED HPI Comments Details: 39-yr-old female presents for follow-up of [facility]. Pt reports 4 weeks ago, she was diagnosed w/ liposarcoma following work-up for right groin and labia- +DDT3 rearranged myxoid liposarcoma, and is seeing [facility]. She has been advised to undergo f/u MRI, and Radiation tx. Since the lipoma excision, she she has had RLE pain, numbness, and more difficulty sleeping. She is worried about the transportation to and from [place]. She states her migraines were better, but then came back again, now almost daily, about 4 weeks ago. She stopped the amitriptyline due to the side effects. States the only thing that helps is the Rizatriptan. Sometimes will have diplopia when reading with her glasses on. She denies peripheral vision changes, nipple discharge. Baseline headache characteristics: Aura: Rarely- can see colorful spots/splotches- unsure if before or during the headache. Severe, starts as throbbing and pressure bifrontal, bitemporal, and retroorbital, which moves into bilateral occipital regions as a tight/pressure pain a/w photophobia, phonophobia, sometimes osmophobia, nausea, brain fog, fatigue, wants to lay down- but can make headache worse- has difficulty finding a comfortable position. Sometimes needs to pace or restless in bed. Forehead feels warm, feels nasal/maxillary and frontal sinus pressure/congestion. Her carpal tunnel symptoms are worse. [facility] Medical History (Updated 07/01/25 @ 10:04 by JOYCE Herring) Liposarcoma of right lower extremity Pituitary microadenoma Fibromyalgia Osteoarthritis Back pain Anemia Migraines Asthma HESHAM (stress urinary incontinence, female) Cholecystectomy planned Appendicitis Surgical History (Updated 07/01/25 @ 09:14 by Sara Anderson [facility]) H/O excision of mass Hx of bariatric surgery (2013) Hx of cholecystectomy Hx of appendectomy S/P panniculectomy Gastric bypass status for obesity Tubal ligation status Family History Mother Prediabetes Rheumatoid arthritis Hypertension Father Medical history unknown Other Family history of multiple sclerosis Family history of rheumatoid arthritis Family history of systemic lupus erythematosus Social History Household Members: Family Housing: House Are you a primary rn homecare to a significant other at home: No Do you presently have visiting nurse or other home services: No 75 years or older and lives alone: No Alcohol intake: current Alcohol intake frequency: holidays/special occasions only Alcohol type: hard liquor Patient Tobacco Use Status: Former Tobacco user Tobacco use type: Cigarette Current occupational status: unemployed 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 Physical Exam Vital Signs: Last Vital Signs Pulse 86 07/01/25 09:13 BP 140/90 H 07/01/25 09:13 Pulse Ox 99 07/01/25 09:13 Oxygen Delivery Method Room Air 07/01/25 09:13 Const General: cooperative and no acute distress Nutritional Appearance: well nourished Orientation/consciousness: patient oriented x3 Limitations: no limitations HEENT Head: Yes normocephalic and Yes atraumatic Ears: hearing grossly normal bilaterally Resp Effort & Inspection: normal respiratory effort, no audible wheezes, no cough and no respiratory distress GI Palpation (GI): Soft to palpation, nontender, no guarding and not rigid Neuro Other: RLE discomfort and weakness, affecting her gait General: patient oriented x3 Cognition (Neuro): normal cognition Psych Appearance: grossly normal Mental Status: mental status grossly normal Speech and movement: Normal speech and movement present Affect: normal affect Attitude: cooperative Telehealth Telehealth Telehealth Platform: Telephone Location of provider rendering services: practice address Location of patient: address on file Patient Identification confirmed using: Name, : Yes Telehealth method: video Patient verbally consented to treatment: Yes Patient verbally consented to billing insurance company: Yes Patient informed of any privacy concerns related to visit: Yes Minutes spent on Phone/Video with Pt.: 24 Assessment & Plan Assessment & Plan (1) Migraine without aura: Code(s): G43.009 - Migraine without aura, not intractable, without status migrainosus Category: Medical (2) Migraine with aura: Code(s): G43.109 - Migraine with aura, not intractable, without status migrainosus Category: Medical Qualifiers: Status migrainosus presence: without status migrainosus Intractability: not intractable Qualified Code(s): G43.109 - Migraine with aura, not intractable, without status migrainosus (3) Liposarcoma of right lower extremity: Code(s): C49.21 - Malignant neoplasm of connective and soft tissue of right lower limb, including hip Category: Medical (4) Pituitary microadenoma: Code(s): D35.2 - Benign neoplasm of pituitary gland Category: Medical (5) Restless leg syndrome: Code(s): G25.81 - Restless legs syndrome Category: Medical (6) Worsening headaches: Code(s): R51.9 - Headache, unspecified Category: Medical Plan Will refer to community navigation and general surgery r/t pt's concerns she can not do radiation tx in [place]. For worsening headaches in setting of known pituitary microadenoma and recent Right groin/labia liposarcoma dx- Will order follow-up brain MRI w/wo 11/28/23, Brain MRI w/wo- right anterior pituitary lobe 5.4 x 2.2 mm focus of hypoenhancement and a left anterior pituitary lobe 4.5 x 1.4 mm focus of hypoenhancement. 05/2024- Pituitary MRI- pituitary adenoma was measured to be 7 mm TI-RADS 4 mm with slight leftward deviation of the infundibulum, no suprasellar or cavernous sinus mass present and optic chiasm and nerve tract appeared to be normal in signal and contour. F/u Pituitary MRI in December 2024 F/u w/ [facility] endocrinology- patient to call to confirm appointment time. ? For sleep and RLS: HST- AHI 2.8/hr w/ O2 slim 88%. December 2023- Ferritin 150 NL. Continue quetiapine per Psychiatry. For overall headache management: Optimize good self-care, including but not limited to maintaining a healthy diet, adequate fluid intake, adequate sleep, and engaging in regular physical activity. Track headaches. ? For acute headache treatment: Discussed importance of taking acute medications at the first sign of headache, however stressed importance of avoiding acute medication overuse (especially with combined headache medications). Continue Rizatriptan 10mg tab- at onset of migarine, may repeat in 2 hrs, max 3 tabs per day Pt stopped Rimegepant ODT (Nurtec ODT) 75mg- ineffective May use Benadryl 25-50mg or Amitriptyline 5-10mg as rescue prn. Previous acute migraine medication trials: Excedrin, Ibuprofen- ineffective. Sumatriptan 100mg- not effective Nurtec- ineffective Acute migraine medication contraindications: None at this time ? For headache prevention medication: Start Riboflavin 400mg qam Start co-q 10 400mg qam - take w/ higher fat food Start Mag 400mg qhs Consider retrying amitriptyline. Previous migraine prevention medication trials: Depakote- made her headaches worse. Trileptal- for mood- made her headaches worse. Amitriptyline 10mg qhs- no t tolerated well-enough to day daily.. Migraine prevention medication contraindications: BBs d/t asthma dx ? Pt to follow-up in 4-6 months or sooner prn. Orders: Orders MR head/brain wo/w con Today C49.21 - Malignant neoplasm of connective and soft tissue of right lower limb, including hip, D35.2 - Benign neoplasm of pituitary gland, R51.9 - Headache, unspecified Referrals Nurse Navigator Referral C49.21 - Malignant neoplasm of connective and soft tissue of right lower limb, including hip Medications: New riboflavin (vitamin B2) 400 mg PO DAILY 90 tabs 3RF 90 days coenzyme Q10 Daily in a.m.. Take with higher fat food 400 mg PO DAILY 90 caps 3RF 90 days magnesium oxide may hold for loose stools 400 mg PO BEDTIME 90 tabs 3RF 90 days Changed From rizatriptan max 2 tabs per day or 4 tabs per week 5 - 10 mg (0.5 - 1 x 10 mg) PO Q2H 30 days PRN 12 tabs 6RF migraine headache To rizatriptan max 3 tabs per day or 6 tabs per week 5 - 10 mg (0.5 - 1 x 10 mg) PO Q2H PRN 18 tabs 6RF migraine headache 21 days Discontinued rimegepant ([facility] ODT) PA APPROVED 03/24/25-03/24/26 Discontinued Reason: Doctor's Order 75 mg PO ONCE 30 days PRN 16 tabs 3RF migraine headache MDD 1 tab Coding Level of Care Code Est Pt Level 4 (99933) Complex EM visit Add On G2211 Diagnoses Migraine without aura G43.009 Migraine with aura and without status migrainosus, not intractable G43.109 Status migrainosus presence: without status migrainosus Intractability: not intractable Liposarcoma of right lower extremity C49.21 Pituitary microadenoma D35.2 Restless leg syndrome G25.81 Worsening headaches R51.9
[2025-07-01 09:13] VITALS: BP 140/90; PULSE 86; O2SAT 99
--- OUTSIDE RECORDS SUMMARY | 2025-07-01 11:26 | XMS_ITS | Clinical Summary ---
Author Organization [facility] Address [address] [place] [address] Phone Care Team Providers Care Escalator Installer Name Role Phone Kerry Medina MD Primary Care Provider Harlan Orta MD Unavailable [phone] Allergies No known active allergies Medications QUEtiapine (SEROQUEL XR) 50 mg Tb24 Take 50 mg by mouth nightly at bedtime. 5 Active QUEtiapine (SEROQUEL) 25 MG tablet Take 1 tablet by mouth every morning. 5 Active tirzepatide, weight loss, (ZEPBOUND) 12.5 mg/0.5 mL subcutaneous pen Inject 15 mg under the skin once a week. Did not take this weeks injection 5 Active valACYclovir (VALTREX) 1000 MG tablet Take 1,000 mg by mouth 3 (three) times a day. 5 Active cyclobenzaprine (FLEXERIL) 5 MG tablet Take 5 mg by mouth 3 (three) times a day as needed for muscle spasms. Havent taken in about a month - PRN Active naproxen (EC NAPROSYN) 375 mg TbEC Take 375 mg by mouth 2 (two) times a day with meals. Active oxyCODONE 5 MG immediate release tablet Take 5 mg by mouth every 4 (four) hours as needed for pain (specific location in comments). Active Active Problems Problem Noted Date Diagnosed Date Class 1 obesity 04/02/2025 Pituitary microadenoma 04/02/2025 Asthma 03/13/2018 Bipolar disorder 03/13/2018 S/P laparoscopic sleeve gastrectomy 03/13/2018 Overview (06/23/2025): 10/02/2014 Dr. Georges Osuna Encounters Date Type Department Care Team Description 06/30/2025 Ancillary Orders DF IMG OUTSIDE IMG [address] [place] [address] Luz Maria Li MD 06/25/2025 11:00 AM EDT [facility] Visit [facility], [address] [place] [address] Shelbie Yepez MD, PhD Myxoid liposarcoma (Primary Dx) 06/25/2025 11:00 AM EDT Office Visit [facility], [address], [address] [place] [id number] Karen Main MD, ADRIAN Sarcoma (Primary Dx) 06/24/2025 Patient Outreach [facility], [address] [place] [address] Kaci Batista, SARAH 06/24/2025 Patient Outreach [facility], [address] [place] [address] Kaci Batista, SARAH 06/13/2025 2:02 PM EDT - 06/13/2025 11:59 PM EDT Hospital Encounter [facility], [address] [address] Discharge Disposition: Home or Self Care 06/12/2025 12:35 PM EDT Ancillary Procedure DF IMG OUTSIDE IMG [address] [place] [address] Luz Maria Li MD 06/12/2025 12:30 PM EDT Ancillary Procedure DF IMG OUTSIDE IMG [address] [place] [address] Luz Maria Li MD 06/12/2025 Ancillary Orders DF IMG OUTSIDE IMG [address] [place] [address] Luz Maria Li MD 06/12/2025 Ancillary Orders DF IMG OUTSIDE IMG [address] [place] [address] Luz Maria Li MD 06/10/2025 Ancillary Orders DF IMG OUTSIDE IMG [address] [place] [address] Luz Maria Li MD 06/10/2025 Ancillary Orders DF IMG OUTSIDE IMG [address] [place] [address] Luz Maria Li MD 06/10/2025 Ancillary Orders DF IMG OUTSIDE IMG [address] [place] [address] Luz Maria Li MD 06/10/2025 Ancillary Orders DF IMG OUTSIDE IMG [address] [place] [address] Luz Maria Li MD 06/10/2025 Orders Only [facility], [facility] [place] [address] [place] [address], [address] [place] [address] Luz Maria Li MD 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 Ancillary Procedure DF IMG OUTSIDE IMG [address] [place] [address] Luz Maria Li MD 04/08/2025 Ancillary Procedure DF IMG OUTSIDE IMG [address] [place] [address] Luz Maria Li MD 03/31/2025 12:05 AM EDT Ancillary Procedure DF IMG OUTSIDE IMG [address] [place] [address] Luz Maria Li MD 03/31/2025 Ancillary Procedure DF IMG OUTSIDE IMG [address] [place] [address] Luz Maria Li MD from Last 3 Months Immunizations Immunization Administration Dates Next Due [id number] FORMULATION 01/05/2010 Influenza Quadrivalent Preservative Free IM 09/16 Td (adult),2 Lf Tetanus Toxoid, PF, Adsorbed Family History Medical History Relation Comments Lymphoma Maternal Grandmother Cancer Paternal Uncle Relation Status Comments Maternal Grandmother Paternal Uncle Alive Social History Tobacco Use Types Packs/Day Years Used Date Smoking Tobacco: Former Cigarettes 1 5 2 005 - 2009 Smokeless Tobacco: Never Tobacco Cessation:Counseling Given: Not Answered Alcohol Use Standard Drinks/Week Comments Yes 0 (1 standard drink = 0.6 oz pur e alcohol) Social special holidays Child or Family Care Answer Date Record ed Do you have problems with on e of the following making it difficult for you to work, study, or receive health care? No 06/20/2025 Education Answer Date Recorded Are you interested in help w ith more adult education (for example, completing high school, GED, job training, learning the [place] language, technical skills, or developing parenting skills)? No 06/20/2025 Are you concerned about learning? Not on file 06/20/2025 No 06/20/2025 Yes 06/20/2025 Food Answer Date Recorded Within the past 6 months we worried whether our food would run out before we got money to buy more. Never True 06/20/2025 Within the past 6 months the food we bought just didn't last and we didn't have enough money to get more. Never True Residential Stability Answer Date Recor ded What is your housing situation today? I have emerita sing 06/20/2025 How many times have you move d in the past 12 months? Zero (I did not move) 06/20/2025 Paying for Meds Answer Date Recorded Do you have trouble paying for medicines? No 06/20/2025 Paying Utility Bills Answer Date Record ed Do you have trouble paying your heating or elect ricity bill? No 06/20/2025 Transportation Answer Date Recorded Has the lack of transportati on kept you from medical appointments or from getting medications? No 06/20/2025 Unemployment Answer Date Recorded Are you currently unemployed or working on a part-time or temporary basis, and looking for work? No 06/20/2025 Digital Access Answer Date Recorded No 11/01/2023 [...] Orientation Straight 06/09/2025 2: 35 PM EDT Last Filed Vital Signs Vital Sign Reading Time Taken Comments Blood Pressure 144/86 06/25/2025 10:19 AM EDT Pulse 80 06/25/2025 10:19 AM EDT Temperature 36.4 C (97.6 F) 06/25/2025 10:19 AM EDT Respiratory Rate 18 06/25/2025 10:1 9 AM EDT Oxygen Saturation 99% 06/25/2025 10: 19 AM EDT Inhaled Oxygen Concentration - - Weight 83.4 kg (183 lb 13.8 oz) 025 10:19 AM EDT Height 169.8 cm (5' 6.85 ) 06/25/2025 1 0:19 AM EDT Body Mass Index 28.93 06/25/2025 10:19 AM EDT Plan of Treatment Upcoming Encounters Date Type Department Care Team (Late st Contact Info) Description 06/25/2025 Procedure Pass [facility], [address] [place] [address] 07/02/2025 9:20 AM EDT Hospital Encounter [facility], [address] [place] [address] Shelbie Yepez MD, PhD [address] [place] [address] [facility] [place] [facility] [place] [address] [email or web address] 07/02/2025 11:00 AM EDT Office Visit [facility] [address] [place] [address] Kulwinder Blair MD [address] [place] [address] Department [place] [address] [email or web address] Health Maintenance Due Date Last Done Comments DEPRESSION SCREENING 1995 HEPATITIS C SCREENING 2001 HIV ONE-TIME SCREENING (18-6 5 YEARS) 2001 PNEUMOCOCCAL VACCINES (0-49 years) (1 of 2 - PCV) 2002 PAP SMEAR 2004 SCREENING FOR DIABETES 2018 MAMMOGRAM 2023 INFLUENZA VACCINE (#1) 2025 , 01/05/2010 COVID-19 VACCINE (2023-2 5 season) 2025 Adult Td,Tdap Booster 10/31/2027 10/31/2017 SMOKING STATUS SCREENING (On ce After 26 Yrs) Completed 06/24/2025 HEPATITIS A VACCINES Aged Out No long [...] Procedure Name Priority Date/Time Associated Diagnosis Comments CT ABDOMEN/PELVIS OUTSIDE (NO INTERPRETATION) Routine 06/12/2025 12:[address] CHEST OUTSIDE (NO INTERPRETATION) Routine 06/12/2025 12:28 PM EDT OUTSIDE IMAGING 06/12/2025 OUTSIDE PATHOLOGY REVIEW Routine 05/28/2025 12:00 AM EDT OUTSIDE PATHOLOGY 05/28/2025 OUTSIDE PATHOLOGY 05/28/2025 OUTSIDE [...] EDT from Last 3 Months Results * CT Abdomen/Pelvis Outside (No Interpretation) (06/12/2025 12:29 PM EDT) Other Narrative [facility] - 06/12/2025 12:29 PM EDT This study is for PACS storage only and not for interpretation. us Luz Maria Li MD IMG OUTSIDE IMAGING W/OUT INTERPRETATION Final Result Performing Organization Address [facility] Co de Phone Number [email or web address] * CT Chest Outside (No Interpretation) (06/12/2025 12:28 PM EDT) Other Narrative [facility] - 06/12/2025 12:28 PM EDT This study is for PACS storage only and not for interpretation. us Luz Maria Li MD IMG OUTSIDE IMAGING W/OUT INTERPRETATION Final Result [facility] * Outside Imaging Report Only (06/12/2025) us Scanning Interface Provider IMG XR CHEST Nicolette l Result * Outside Procedure (05/28/2025) us Scanning Interface Provider PROCEDURE/MINOR SURG ICAL PERFORMABLES Final Result * Outside Lab (05/28/2025) us Scanning Interface Provider LAB BLOOD ORDERABLES Final Result * Outside Pathology (05/28/2025) Only the most recent of2 resultswithin the time period is included. us Scanning Interface Provider PATHOLOGY ORDERABLES Final Result * Outside Pathology Review (05/28/2025 12:00 AM EDT) 05/28/2025 06/13/2025 [facility] - 06/19/2025 11:24 AM EDT CASE: [id number] PATIENT: KATARINA WILL Date: 1985 Sex: Female [facility] Department of Pathology [address] [place], [place] [address]IA License No.: [id number] [employer] Engine Ii Pipe Fitter: Dr. Michael Mortensen MD, PhD Physician: LUZ MARIA LI MD Resident: Christopher Rahman M.D., Ph.D. PATHOLOGIC DIAGNOSIS: CONSULT SLIDES FROM [facility]; [place], [place] SOFT TISSUE, RIGHT GROIN MASS, EXCISION ([id number]; 05/28/2025): MYXOID LIPOSARCOMA, INTERMEDIATE TO FOCALLY HIGH GRADE. Per report, the tumor extends to the inked margins. Per report, FISH analysis performed at the outside institution was POSITIVE for DDIT3 rearrangement. CLINICAL DATA: History: None given. Clinical Diagnosis: Myxoid/round cell liposarcoma. TISSUE SUBMITTED: Consult slides. GROSS DESCRIPTION: Received from [facility], [address] [place] [address], [place], [address], are seventeen glass slides. Seventeen stained slides are labeled [id number] and sublabeled A1 , ACTIN , CD34 , CD4K , DESMI , ER PI , ERG , Ki67 , MDM2 , WU , TN PI , S100 , SOX11 , VIMEN , A2 , A3 and A5 which correspond to a soft tissue, right groin mass, excision obtained on 05/28/2025, according to the accompanying pathology report bearing the patient's name and date of . By his/her signature below, the senior physician certifies that he/she personally conducted a microscopic examination ( gross only exam if so stated) of the described specimen(s) and rendered or confirmed the diagnosis(es) related thereto. Final Diagnosis by Merrill Garland M.D., Electronically signed on June at 11:23:03AM us Luz Maria A Juliet MD PATHOLOGY ORDERABLES Nicolette l Result [facility] [address] [place] [id number] * Outside Imaging Report Only (05/07/2025) us Scanning Interface Provider IMG XR CHEST Nicolette l Result * US Pelvis Outside (No Interpretation) (05/07/2025 12:00 AM EDT) Other Narrative [facility] - 06/10/2025 1:28 PM EDT This study is for PACS storage only and not for interpretation. us Luz Maria Li MD IMG OUTSIDE IMAGING W/OUT INTERPRETATION Final Result Performing Organization Address [facility] Co de Phone Number [facility] * Outside Imaging Report Only (04/08/2025) us Scanning Interface Provider IMG XR CHEST Nicolette l Result * US Vascular Outside (No Interpretation) (04/08/2025 12:00 AM EDT) Other Narrative [facility], DOCUMENTATION - 06/10/2025 1:28 PM EDT This study is for PACS storage only and not for interpretation. us Luz Maria Li MD CV US VASCULAR Final Res ult * XR Pelvis Outside (No Interpretation) (03/31/2025 12:05 AM EDT) Other Narrative [facility] - 06/10/2025 1:29 PM EDT This study is for PACS storage only and not for interpretation. us Luz Maria Li MD IMG OUTSIDE IMAGING W/OUT INTERPRETATION Final Result Performing Organization Address City/[facility]/ZIP Co de Phone Number [facility] * Outside Imaging Report Only (03/31/2025) us Scanning Interface Provider IMG XR CHEST Nicolette l Result * XR Pelvis Outside (No Interpretation) (03/31/2025 12:00 AM EDT) Other Narrative [facility] - 06/10/2025 1:28 PM EDT This study is for PACS storage only and not for interpretation. us Luz Maria Li MD IMG OUTSIDE IMAGING W/OUT INTERPRETATION Final Result [facility] from Last [address] [place], [place] [address] [place] [place] [address] [employer] YALEInstallMonetizerJOHN R. OISHEI CHILDREN'S HOSPITALO YALEInstallMonetizerJOHN R. OISHEI CHILDREN'S HOSPITALO [employer] CorpJOHN R. OISHEI CHILDREN'S HOSPITALO Care Teams Escalator Installer Relationship Specialty Start Date End Date Kerry Medina MD [address] [place] [address] [place] [phone] PCP - General Internal Medicine 11/01/23 Harlan Orta MD [address] [place] [address] [place] [address] Referring Physician General Surgery 06/09/25 Additional Source Comments The information contained in this document represents components of the legal health record. It is not the complete legal health record.[facility]
--- OUTSIDE RECORDS SUMMARY | 2025-07-01 11:26 | XMS_ITS | Clinical Summary ---
Author Organization [address] [place] [address] Address [address] [place] [address] Phone Care Team Providers Care Systems Analyst Developer Name Role Phone Kerry Medina MD Primary Care Provider [phone] Allergies No known active allergies Medications buPROPion [...] 7 (seven) days. 2 mL 2 04/02/2025 06/25/20 25 Active Problems Problem Noted Date Diagnosed Date Class 1 obesity 04/02/2025 Pituitary microadenoma ([facility] V24, [facility] V28 ) 04/02/2025 Asthma 03/13/2018 Bipolar disorder ([facility] V24, [facility] V28) 02/14 Encounters Date Type Department Care Team Description 06/30/2025 Telephone Bariatric Surgery - [place] [facility] [address] [place] [phone] Gianfranco Gordon MD from Last 3 Months Surgical History Surgery [...] AM EDT Office Visit Bariatric Surgery - [address] [place] [address] Gianfranco Gordon MD [address] [place] [phone] Health Maintenance Due Date Last Done Comments [...] 09/18/2022 Social Influencers of Health Screening 09/18/2022 Depression Screening 10/16/2024 COVID-19 Vaccine (1 - 2023-2 5 season) 2025 Influenza Vaccine (#1) 2025 0, 01/05/2010 DTaP,Tdap,and [...] patient's age to complete this topic Insurance [facility] Care Teams Systems Analyst Developer Relationship Specialty Start Date End Date Kerry Medina MD [address] [facility] [address] [place], [place] PCP - General Internal Medicine 01/15/18
--- OUTSIDE RECORDS SUMMARY | 2025-07-01 11:26 | XMS_ITS | Encounter Summary ---
Author Organization [facility] Address [address] [place] [phone] Care Team Providers Care Global Marketing Intern Name Role Phone Kerry Medina MD Primary Care Provider [phone] Reason for Visit * Reason Onset Date Comments Med Refill 06/30/2025 Zepbound Encounter Details Date Type Department Care Team (Late Contact Info) Description 06/30/2025 Telephone Bariatric Surgery [address] [address] Gianfranco Gordon MD [address] [place] [phone] Social History Tobacco Use Types Packs/Day Years [...] as of this encounter Progress Notes * Alysa Villafuerte - 06/30/2025 8:36 AM EDT Patient did well on Zepbound 15 mgs and would like a refill. If appropriate, please send script for Zepbound 15 mgs to their pharmacy. The patient does have a follow up in 07/08/2025 documented in this encounter Plan of Treatment Upcoming Encounters Date Type Department Care Team (Late Contact Info) Description 07/08/2025 9:00 AM EDT Office Visit Bariatric Surgery [address] [place] [address] Gianfranco Gordon MD [address] [place] [phone] documented as of this encounter Visit Diagnoses Not on filedocumented in this encounter Care Teams Global Marketing Intern Relationship Specialty Start Date End Date Kerry Medina MD 12[address] [facility] [address] [place], [place] PCP - General Internal Medicine 01/15/18 documented as of this encounter
--- OUTSIDE RECORDS SUMMARY | 2025-07-01 11:26 | XMS_ITS | Encounter Summary ---
Author Organization [facility] Address [address] [place] [address] [place] [phone] Phone Care Team Providers Care Electrical Sign Wirer Name Role Phone Kerry Medina MD Primary Care Provider Harlan Orta MD Unavailable [phone] Encounter Details Date Type Department Care Team (Late st Contact Info) Description 06/30/2025 Ancillary Orders DF IMG OUTSIDE IMG [address] [place] [address] Luz Maria Chung MD [address] [place] [address] [email or web address] Social History Tobacco Use Types Packs/Day Years Used Date Smoking Tobacco: Former Cigarettes 1 5 2 - 2009 Smokeless Tobacco: Never Alcohol Use Standard Drinks/Week [...] high school, GED, job training, learning the Malay language, technical skills, or developing parenting skills)? [...] st Contact Info) Description 06/25/2025 Procedure Pass [facility], [place] [address] [place] [address] 07/02/2025 9:20 AM EDT Hospital Encounter [facility], [place] [address] [place] [address] Shelbie Yepez MD, PhD [address] [place] [address] [facility] [place] [address] [email or web address] 07/02/2025 11:00 AM EDT Office Visit [facility] Department of Orthopaedics [address] [place] [address] Kulwinder Blair MD [address] [place] [address] Department [place] [address] [email or web address] documented as of this encounter Results * CT Abdomen/Pelvis Outside (No Interpretation) (03/04/2022 12:00 AM EDT) Other Narrative [facility] - 06/30/2025 12:18 PM EDT This study is for PACS storage only and not for interpretation. us Luz Maria Chung MD IMG OUTSIDE IMAGING W/OUT INTERPRETATION Final Result [facility] documented in this encounter Visit Diagnoses Not on filedocumented in this encounter Care Teams Electrical Sign Wirer Relationship Specialty Start Date End Date Kerry Medina MD [address] [place] [address] [place] [phone] PCP - General Internal Medicine 11/01/23 Harlan Orta MD [address] [place] [address] [place] [address] Referring Physician General Surgery 06/09/25 documented as of this encounter Additional Source Comments The information contained in this document represents components of the legal health record. It is not the complete legal health record.[facility]
== END 2025-07-01 10:03 | disposition home or self-care (01) ==
LOC: HO.HSMS 09:07
PROVIDERS: PCP Internal Medicine; Visit Provider Nurse Practitioner Family
DX: G43.009 Migraine without aura, not intractable, without status migrainosus (principal); G43.109 Migraine with aura, not intractable, without status migrainosus; C49.21 Malignant neoplasm of connective and soft tissue of right lower limb, including hip; D35.2 Benign neoplasm of pituitary gland; G25.81 Restless legs syndrome; R51.9 Headache, unspecified
CPT/HCPCS: 99214

== ENCOUNTER → 2025-07-01 09:06 | Outpatient (BNVA) | payer OTHER, SELFPAY | PROVIDERS: PCP Internal Medicine; Visit Provider Nurse Practitioner Family | DX: G43.109 Migraine with aura, not intractable, without status migrainosus (principal); C49.21 Malignant neoplasm of connective and soft tissue of right lower limb, including hip; D35.2 Benign neoplasm of pituitary gland; G25.81 Restless legs syndrome | CPT/HCPCS: 99212 ==

== ENCOUNTER 2025-07-08 06:17 | Outpatient (REF) | payer OTHER, SELFPAY ==
--- OUTSIDE RECORDS SUMMARY | 2025-07-02 08:23 | XMS_ITS | Encounter Summary ---
Author Organization [facility] Address [address] [place] [address] Phone Care Team Providers Care Elevator Runner Name Role Phone Kerry Medina MD Primary Care Provider Harlan Orta MD Unavailable [phone] Reason for Referral * MRI/CAT Scan - Closed Specialty Diagnoses / Procedures Referred By Contac t Referred To Contact Radiology Diagnoses Myxoid liposarcoma Procedures MRI Femur (Right) CHG MRI, LOWER EXTR, W/O CONTRAST F/U BY CONTRAST Shelbie Yepez MD, PhD [address] [place] [address] [place] [address] Phone: tel: fax: mailto:[email or web address] Referral ID Status Reason Start Date Expiration Date Visits Re quested Visits Authorized [id number] Closed 06/25/2025 08/24/2025 1 1 Reason for Visit * MRI/CAT Scan - Closed Specialty Diagnoses / Procedures Referred By Contac t Referred To Contact Radiology Diagnoses Myxoid liposarcoma Procedures MRI Femur (Right) CHG MRI, LOWER EXTR, W/O CONTRAST F/U BY CONTRAST Shelbie Yepez MD, PhD [address] [place] [address] [place] [address] Phone: tel: fax: mailto:[email or web address] Referral ID Status Reason Start Date Expiration Date Visits Re quested Visits Authorized [id number] Closed 06/25/2025 08/24/2025 1 1 Encounter Details Date Type Department Care Team (Latoya st Contact Info) Description 07/02/2025 8:23 AM EDT - 07/02/2025 11:59 PM EDT Hospital Encounter [facility], [place] [address] [place] [address] Shelbie Yepez MD, PhD [address] [place] [address] [facility] [place] [address] [email or web address] Discharge Disposition: Home or Self Care Social History Tobacco Use Types Packs/Day Years Used Date Smoking Tobacco: Former Cigarettes 1 5 2 2009 Smokeless Tobacco: Never Alcohol Use Standard [...] high school, GED, job training, learning the Yoruba language, technical skills, or developing parenting skills)? [...] PM EDT documented as of this encounter Medications at Time of Discharge cyclobenzaprine (FLEXERIL) 5 MG tablet Take 5 mg by mouth 3 (three) times a day as needed for muscle spasms. Havent taken in about a month - PRN naproxen (EC NAPROSYN) 375 mg TbEC Take 375 mg by mouth 2 (two) times a day with meals. oxyCODONE 5 MG immediate release tablet Take 5 mg by mouth every 4 (four) hours as needed for pain (specific location in comments). QUEtiapine (SEROQUEL XR) 50 mg Tb24 Take 50 mg by mouth nightly at bedtime. 06/10/2025 QUEtiapine (SEROQUEL) 25 MG tablet Take 1 tablet by mouth every morning. 05/06/2025 tirzepatide, weight loss, (ZEPBOUND) 12.5 mg/0.5 mL subcutaneous pen Inject 15 mg under the skin once a week. Did not take this weeks injection 02/10/2025 valACYclovir (VALTREX) 1000 MG tablet Take 1,000 mg by mouth 3 (three) times a day. 03/21/2025 documented as of this encounter Plan of Treatment Upcoming Encounters Date Type Department Care Team (Late st Contact Info) Description 07/10/2025 11:00 AM EDT [facility] [address] [place] [address], 6[address] [place] [address] Karen Main MD, ADRIAN [address] [place] [address] [email or web address] documented as of this encounter Procedures Procedure Name Priority Date/Time Associated Diagnosis Comments MRI FEMUR WITH AND WITHOUT CONTRAST (RIGHT) Routine 07/02/2025 9:20 AM EDT Myxoid liposarcoma documented in this encounter Results * MRI FEMUR WITH AND WITHOUT CONTRAST (RIGHT) (07/02/2025 9:20 AM EDT) Anatomical Region Laterality Modality Thigh Right Magnetic Resonan ce 07/02/2025 10:4 9 AM EDT Impressions 07/02/2025 11:00 PM EDT 1. Within the proximal medial thigh resection bed, 2.7 x 1.0 cm non-mass enhancement anterior to the femoral neurovascular bundle, indeterminate, may reflect residual disease versus postsurgical changes. 2. Decreased size of postoperative seroma. ATTESTATION: Keeley Christian, as teaching physician have reviewed the images, if any, for this patient's exam, and if necessary, have edited the report originally created by Paul Kohler. 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 COMPARISON: CT ABDOMEN/PELVIS OUTSIDE (NO INTERPRETATION) FINDINGS Bone: No bone marrow edema, fracture, osteonecrosis, or focal lesion. Soft Tissues: Proximal medial thigh resection bed with subcutaneous foci of susceptibility. Within the tumor resection bed, there is 2.7 x 1.0 cm (TRV by AP) region of non-mass enhancement and STIR hyperintensity anterior to the neurovascular bundle and along the medial margin of the proximal vastus medialis (axial slice on series 17:22). This measures approximately 4.5 cm caudal (18:34). This is indeterminate and may reflect postsurgical change versus residual disease given the positive margins of the resection. There is a 5.5 x 1.1 cm linear fluid collection likely reflecting seroma which is decreased in size from prior CT dated 06/04/2025. Within the anterior thigh soft tissues there is wispy soft tissue enhancement with scattered foci of susceptibility which likely reflects postsurgical changes. Subcentimeter rounded enhancing right inguinal lymph nodes without definite fatty durga, indeterminate. Right knee: Joint spaces are preserved. Mildly increased intrasubstance signal of the posterior horn of the medial meniscus. Miscellaneous: 1.1 cm minimally-enhancing rounded STIR-hypointense lesion of the posterior uterine wall, likely subserosal/intramural fibroid. Multiple cysts within the lower uterine segment/cervix without abnormal pattern of postcontrast enhancement, likely reflecting nabothian cysts (14:6-7, 18:16-20). Procedure Note Keeley Cruz MD - 07/02/2025 MRI FEMUR WITH AND WITHOUT CONTRAST (RIGHT) Referring clinician's provided indication for this examination in Epic:Sarcoma re-evaluation; patient with partially resected myxoid liposarcomaof right groin/upper thigh, imaging for surgical evaluation TECHNIQUE: Multi-sequence, multi-planar MRI of the femur with and withoutintravenous contrast. COMPARISON: CT ABDOMEN/PELVIS OUTSIDE (NO INTERPRETATION) FINDINGS Bone: No bone marrow edema, fracture, osteonecrosis, or focal lesion. Soft Tissues: Proximal medial thigh resection bed with subcutaneous fociof susceptibility. Within the tumor resection bed, there is 2.7 x 1.0 cm(TRV by AP) region of non-mass enhancement and STIR hyperintensityanterior to the neurovascular bundle and along the medial margin of theproximal vastus medialis (axial slice on series 17:22). This measuresapproximately 4.5 cm caudal (18:34). This is indeterminate and may reflectpostsurgical change versus residual disease given the positive margins ofthe resection. There is a 5.5 x 1.1 cm linear fluid collection likelyreflecting seroma which is decreased in size from prior CT dated06/04/2025. Within the anterior thigh soft tissues there is wispy softtissue enhancement with scattered foci of susceptibility which likelyreflects postsurgical changes. Subcentimeter rounded enhancing rightinguinal lymph nodes without definite fatty durga, indeterminate. Right knee: Joint spaces are preserved. Mildly increased intrasubstancesignal of the posterior horn of the medial meniscus. Miscellaneous: 1.1 cm minimally-enhancing rounded STIR-hypointense lesionof the posterior uterine wall, likely subserosal/intramural fibroid.Multiple cysts within the lower uterine segment/cervix without abnormalpattern of postcontrast enhancement, likely reflecting nabothian cysts(14:6-7, 18:16-20). IMPRESSION: 1. Within the proximal medial thigh resection bed, 2.7 x 1.0 cm non- massenhancement anterior to the femoral neurovascular bundle, indeterminate,may reflect residual disease versus postsurgical changes. 2. Decreased size of postoperative seroma. ATTESTATION: Keeley Christian, as teaching physician havereviewed the images, if any, for this patient's exam, and if necessary,have edited the report originally created by Paul Kohler. 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, site unspecified documented in this encounter Administered Medications Inactive Administered Medications - up to 3 most recent administrations Medication Order MAR Action Action Date Dose Rate Site gadobutrol (GADAVIST) 1 mmol/mL injection 8.4 mL 8.4 mL (rounded from 8.34 mL = 0.1 mmol/kg 83.4 kg), Intravenous, Once as needed, pre procedure/treatment, Starting on Mon07/02/25 at 0844, For 1 dose, Procedural Contrast/Med Active Now Given 07/02/2025 8:44 AM EDT 8.4 mL documented in this encounter Care Teams Elevator Runner Relationship Specialty Start Date End Date Kerry Medina MD [address] [place] [address] [place] [address] PCP - General Internal Medicine 11/01/23 Harlan Orta MD [address] [place] [address] [place] [address] Referring Physician General Surgery 06/09/25 documented as of this encounter Additional Source Comments The information contained in this document represents components of the legal health record. It is not the complete legal health record.[facility]
--- OUTSIDE RECORDS SUMMARY | 2025-07-08 06:19 | XMS_ITS | Encounter Summary ---
Author Organization [facility] Address [address] [place] [phone] Care Team Providers Care Computer Recycling Worker Name Role Phone Kerry Medina MD Primary Care Provider [phone] Reason for Visit * Reason Onset Date Comments Med Refill 06/30/2025 Zepbound Encounter Details Date Type Department Care Team (Late Contact Info) Description 06/30/2025 Telephone Bariatric Surgery [address] [address] Gianfranco Gordon MD [address] [place] [phone] Social History Tobacco Use Types Packs/Day [...] 9:00 AM EDT Office Visit Bariatric Surgery [address] [place] [address] Gianfranco Gordon MD [address] [place] [phone] documented as of this encounter Visit Diagnoses Not on filedocumented in this encounter Care Teams Computer Recycling Worker Relationship Specialty Start Date End Date Kerry Medina MD 12[address] [facility] [address] [place], [place] PCP - General Internal Medicine 01/15/18 documented as of this encounter
--- OUTSIDE RECORDS SUMMARY | 2025-07-08 06:19 | XMS_ITS | Clinical Summary ---
Author Organization [facility] Address [address] [place] [address] Phone Care Team Providers Care Cheesemaker Name Role Phone Kerry Medina MD Primary Care Provider Harlan Orta MD Unavailable [phone] Allergies No known active allergies Medications [...] Encounters Date Type Department Care Team Description 07/02/2025 11:00 AM EDT Office Visit [facility] Department of Orthopaedics [address] [place] [address] Kulwinder Blair MD Greater trochanteric bursitis, unspecified laterality (Primary Dx); Myxoid liposarcoma 07/02/2025 8:23 AM EDT - 07/02/2025 11:59 PM EDT Hospital Encounter [facility], [place] [address] [place] [address] Shelbie Yepez MD, PhD Discharge Disposition: Home or Self Care 06/30/2025 Ancillary Orders DF IMG OUTSIDE IMG [address] [place] [address] Luz Maria Chung MD 06/25/2025 11:00 AM EDT Office Visit [facility], [facility] [address], [address] [place] [address] Shelbie Yepez MD, PhD Myxoid liposarcoma (Primary Dx) 06/25/2025 11:00 AM EDT Office Visit [facility], [facility] [address] [facility], [address] [place] [address] Karen Main MD, ADRIAN Sarcoma (Primary Dx) 06/25/2025 11:00 AM EDT Office Visit [facility], [facility] [address] [facility], [address] [place] [address] Kulwinder Blair MD Myxoid liposarcoma (Primary Dx) 06/25/2025 Procedure Pass [facility] MR Imaging, [place] [address] [place] [address] 06/24/2025 Patient Outreach [facility], [address], [address]th [place] [address] Kaci Batista, SARAH 06/24/2025 Patient Outreach [facility], [address], [address]th [place] [address] Kaci Batista RN 06/13/2025 2:02 PM EDT - 06/13/2025 11:59 PM EDT Hospital Encounter [facility], [address] [address] Discharge Disposition: Home or Self Care 06/12/2025 12:35 PM EDT Ancillary Procedure DF IMG OUTSIDE IMG [address] [place] [address] Luz Maria Chung MD 06/12/2025 12:30 PM EDT Ancillary Procedure [facility] IMG OUTSIDE IMG [address] [place] [address] Luz Maria Chung MD 06/12/2025 Ancillary Orders [facility] IMG OUTSIDE IMG [address] [place] [address] Luz Maria Chung MD 06/12/2025 Ancillary Orders [facility] OUTSIDE IMG [address] [place] [address] Luz Maria Chung MD 06/10/2025 Ancillary Orders [facility] OUTSIDE IMG [address] [place] [address] Luz Maria Chung MD 06/10/2025 Ancillary Orders [facility] IMG OUTSIDE IMG [address] [place] [address] Luz Maria Chung MD 06/10/2025 Ancillary Orders [facility] OUTSIDE IMG [address] [place] [address] Luz Maria Chung MD 06/10/2025 Ancillary Orders [facility] IMG OUTSIDE IMG [address] [place] [address] Luz Maria Chung MD 06/10/2025 Orders Only [facility], [facility] [address] [facility], [address]th [place] [address] Luz Maria Chung MD 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 Ancillary Procedure DF IMG OUTSIDE IMG [address] [place] [address] Luz Maria Chung MD 04/08/2025 Ancillary Procedure DF IMG OUTSIDE IMG [address] [place] [address] Luz Maria Chung MD from Last 3 Months Immunizations Immunization Administration Dates Next Due [id number] FORMULATION 01/05/2010 Influenza Quadrivalent Preservative Free IM [...] high school, GED, job training, learning the [place] language, technical skills, or developing parenting skills)? [...] your housing situation today? I have emerita camacho 06/20/2025 How many times have you move [...] 10:19 AM EDT Respiratory Rate 18 06/25/2025 10:19 AM EDT Oxygen Saturation 99% 06/25/2025 10:19 AM EDT Inhaled Oxygen Concentration - - Weight 83.5 kg (184 lb) 07/02/2025 11:16 AM EDT Height 168.5 cm (5' 6.34 ) 07/02/2025 11:16 AM E DT Body Mass Index 29.4 07/02/2025 11:16 AM EDT Plan of Treatment Upcoming Encounters Date Type Department Care Team (Late st Contact Info) Description 07/10/2025 11:00 AM EDT Telemedicine [facility], [facility] [address] [place] [address], [address]th [place] [address] Karen Main MD, ADRIAN [address] [place] [phone] [email or web address] Health Maintenance Due Date Last Done Comments DEPRESSION SCREENING 1995 HEPATITIS C SCREENING 2001 HIV ONE-TIME SCREENING (18-6 5 YEARS) 2001 PNEUMOCOCCAL VACCINES (0-49 years) (1 of 2 - PCV) 2002 PAP SMEAR 2004 SCREENING FOR DIABETES 2018 MAMMOGRAM 2023 INFLUENZA VACCINE (#1) 2025 , 01/05/2010 COVID-19 VACCINE ( - 2023-2 5 season) 2025 Adult Td,Tdap Booster 10/31/2027 [...] Routine 07/02/2025 9:20 AM EDT Myxoid liposarcoma CT ABDOMEN/PELVIS OUTSIDE (NO INTERPRETATION) Routine 06/12/2025 [...] 04/08/2025 12:00 AM EDT OUTSIDE IMAGING 04/08/2025 from Last 3 Months Results * MRI FEMUR WITH AND WITHOUT [...] the report originally created by Paul Kohler. us Shelbie Yepez MD, PhD IMG MR EXTREMITY Fin al Result * CT Abdomen/Pelvis Outside (No Interpretation) (06/12/2025 12:29 PM EDT) Other Narrative [facility] - 06/12/2025 12:29 PM EDT This study is for PACS storage only and not for interpretation. us Luz Maria Chung MD IMG OUTSIDE IMAGING W/OUT INTERPRETATION Final Result Performing Organization Address [facility] Co de Phone Number [facility] * CT Chest Outside (No Interpretation) (06/12/2025 12:28 PM EDT) Other Narrative [facility] - 06/12/2025 12:28 PM EDT This study is for PACS storage only and not for interpretation. us Luz Maria Chung MD IMG OUTSIDE IMAGING W/OUT INTERPRETATION Final Result Performing Organization Address City/[facility] Co de Phone Number [facility] * Outside Imaging Report Only (06/12/2025) [...] Review (05/28/2025 12:00 AM EDT) 05/28/2025 06/13/2025 Narrative [facility] - 06/19/2025 11:24 AM EDT CASE: [id number] PATIENT: KATARINA WILL Date: 1985 Sex: Female [facility] [place] [employer] [facility] Department of Pathology [address] [place] [address] License No.: [id number] Whizzer Hand: Dr. Michael Mortensen MD, PhD Physician: LUZ MARIA CHUNG MD Resident: Christopher Rahman M.D., Ph.D. 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 Per report, the tumor extends to the inked margins. Per report, FISH analysis performed at the outside institution was POSITIVE for DDIT3 rearrangement. CLINICAL DATA: History: None given. Clinical Diagnosis: Myxoid/round cell liposarcoma. TISSUE SUBMITTED: Consult slides. GROSS DESCRIPTION: Received from [facility], [address] [place] [address], [place], [address], are seventeen glass slides. Seventeen stained slides are labeled [id number] and sublabeled A1 , ACTIN , CD34 , CD4K , DESMI , ER PI , ERG , Ki67 , MDM2 , WU , VT PI , S100 , SOX11 , VIMEN [...] on June at 11:23:03AM us Luz Maria Chung MD PATHOLOGY ORDERABLES Nicolette l Result Performing Organization Address [facility] Co de Phone Number [facility] [address] [place] [address] * Outside Imaging Report Only (05/07/2025) us Scanning Interface Provider IMG XR CHEST Nicolette l Result * US Pelvis Outside (No Interpretation) (05/07/2025 12:00 AM EDT) Other Narrative [facility] - 06/10/2025 1:28 PM EDT This study is for PACS storage only and not for interpretation. us Luz Maria Chung MD IMG OUTSIDE IMAGING W/OUT INTERPRETATION Final Result Performing Organization Address [facility] de Phone Number [facility] * Outside Imaging Report Only (04/08/2025) us Scanning Interface Provider IMG XR CHEST Nicolette l Result * US Vascular Outside (No Interpretation) (04/08/2025 12:00 AM EDT) Other Narrative SYSTEMGENERATED, DOCUMENTATION - 06/10/2025 1:28 PM EDT This study is for PACS storage only and not for interpretation. us Luz Maria Chung MD CV US VASCULAR Final Res ult from Last 3 Months Insurance [facility] [employer] [facility] [employer] [facility] [place] [address] [place] [address] [facility] Care Teams Cheesemaker Relationship Specialty Start Date End Date Kerry Medina MD [address] [place] [address] [place] [address] PCP - General Internal Medicine 11/01/23 Harlan Orta MD [address] [place] [address] [place] [address] Referring Physician General Surgery 06/09/25 Additional Source Comments The information contained in this document represents components of the legal health record. It is not the complete legal health record.[facility]
--- OUTSIDE RECORDS SUMMARY | 2025-07-08 06:19 | XMS_ITS | Clinical Summary ---
Author Organization [address] [place] [address] Address [address] [place] [address] Phone Care Team Providers Care Steel Buffer Name Role Phone Kerry Medina MD Primary Care Provider [phone] Allergies No known active allergies Medications buPROPion [...] 7 (seven) days. 2 mL 2 5 09/24/20 25 Active tirzepatide, weight loss, (Zepbound) 15 mg/0.5 mL injectionIndicat ions:Class 1 obesity due to excess calories with body mass index (BMI) of 30.0 to 30.9 in adult, unspecified whether serious comorbidity present Inject 0.5 mL (15 mg total) under the skin every 7 (seven) days. 2 mL 2 5 06/30/20 25 Discontinu ed(Reorder ) Active Problems Problem Noted Date Diagnosed Date Class 1 obesity 04/02/2025 Pituitary microadenoma ([facility] V24, [facility] V28 ) 04/02/2025 Asthma 03/13/2018 Bipolar disorder (CMS/HCC V24, CMS/[facility] V28) 02/14 Encounters Date Type Department Care Team Description 06/30/2025 Telephone Bariatric Surgery - [address] [place] [address] Gianfranco Gordon MD from Last 3 Months Surgical History Surgery Date Site/Laterality Comments BARIATRIC SURGERY 10/02/2014 PROCEDURE: SC LAPS GSTRC RSTRICTIV PX LONGITUDINAL GASTRECTOMY; COMMENT: Dr. Allan Osuna OTHER SURGICAL HISTORY 10/02/2014 PROCEDURE: SC UNLISTED LAPS PX HRNAP HERNIORRHAPHY HERNIOTOMY; COMMENT: [...] AM EDT Office Visit Bariatric Surgery - [place] [address] [facility] [address] [place] [address] Gianfranco Gordon MD [facility] [place] [address] Health Maintenance Due Date Last Done [...] (2 - Td or Tdap) 10/31/2027 10/31/2017 RSV Immunization Adult Patients (1 - 1-dose 75+ series) 2058 HIB Vaccines Aged Out No longer eligi [...] patient's age to complete this topic Insurance [facility] [id number] Care Teams Steel Buffer Relationship Specialty Start Date End Date Kerry Medina MD [address] PCP - General Internal Medicine 01/15/18
--- OUTSIDE RECORDS SUMMARY | 2025-07-08 06:19 | XMS_ITS | Encounter Summary ---
Author Organization [facility] Address [address] [place] [address] Phone Care Team Providers Care Circulation Representative Name Role Phone Kerry Medina MD Primary Care Provider Harlan Orta MD Unavailable [phone] Encounter Details Date Type Department Care Team (Late st Contact Info) Description 06/25/2025 Procedure Pass [facility] MR Imaging, [place] [address] [place] [address] Social History Tobacco Use Types Packs/Day Years Used Date Smoking Tobacco: Former Cigarettes 1 5 2 005 - 2009 Smokeless Tobacco: Never Alcohol Use [...] high school, GED, job training, learning the [place] language, technical skills, or developing parenting skills)? [...] Telemedicine [facility], [facility] [place] [address] [place] [address], [address] [place] [address] Karen Main MD, ADRIAN [address] [place] [phone] [email or web address] documented as of this encounter Visit Diagnoses Not on filedocumented in this encounter Care Teams Circulation Representative Relationship Specialty Start Date End Date Kerry Medina MD [address] [place] [address] [place] [address] PCP - General Internal Medicine 11/01/23 Harlan Orta MD [address] [place] [address] [place] [address] Referring Physician General Surgery 06/09/25 documented as of this encounter Additional Source Comments The information contained in this document represents components of the legal health record. It is not the complete legal health record.[facility]
== END 2025-07-08 06:18 | disposition home or self-care (01) ==
LOC: CF 06:17
PROVIDERS: Visit Provider Anesthesiology
DX: Z13.89 Encounter for screening for other disorder (principal)

== ENCOUNTER → 2025-07-14 09:06 | Outpatient (BNV) | payer OTHER, SELFPAY | PROVIDERS: PCP Internal Medicine; Visit Provider Radiology Diagnostic Radiology | DX: R51.9 Headache, unspecified (principal) | CPT/HCPCS: 70553 ==

== ENCOUNTER 2025-07-14 09:25 | Outpatient (REF) | payer OTHER, SELFPAY ==
--- OUTSIDE RECORDS SUMMARY | 2025-07-10 11:00 | XMS_ITS | Encounter Summary ---
Author Organization [facility] Address [address] [place] [address] [place] [address] Phone Care Team Providers Care Storm Door Maker Name Role Phone Kerry Medina MD Primary Care Provider Harlan Orta MD Unavailable [phone] Reason for Visit * Reason Comments Follow-up Encounter Details Date Type Department Care Team (Late st Contact Info) Description 07/10/2025 11:00 AM EDT Telemedicine Center for Sarcoma and Bone Oncology, [facility] [place] [address] [place] [address], 6th [place] [address] Karen Main MD, ADRIAN [address] [place] [phone] [email or web address] Myxoid liposarcoma (Primary Dx); Sarcoma Social History Tobacco Use Types Packs/Day Years [...] high school, GED, job training, learning the Uzbek language, technical skills, or developing parenting skills)? [...] PM EDT documented as of this encounter Progress Notes * Karen Main MD, ADRIAN - 07/10/2025 11:00 AM EDT Images from the original note were not included. Radiation Oncology Consultation Note ? 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 This is a 39 y.o. 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 ?? History of Present Illness:? Katarina Franklin is a 39 y.o. female with an oncology history which I have personally reviewed and confirmed as outlined below: 04/08/25: She presented to the ER for ongoing pain in her R hip associated with a R groin mass. - US R Lower Extremity ([facility]): 3.9 cm irregular hypoechoic soft tissue lesion in the R inguinal region 04/30/25: Consult with [facility] Dr. Harlan Orta. On exam, he noted a palpable mass in the [right] groin and suspected an enlarged LN, recommending excision. 05/28/25: R groin mass excisional biopsy (General Surgeon Dr. Orta, [facility]) - Op Note Excerpt: ...Incision was made approximately 2 cm below the inguinal ligament and carried out through subcutaneous tissue, past Jonny's fascia and [past] muscle fascia. Palpable nodule was identified and dissection continued around the enlarged lymph node. Combination of blunt and sharp dissection was used to dissect the lymph node from the surrounding tissue. - [facility] [corrected]: myxoid/round cell liposarcoma; DDIT3 (CHOP) rearrangement positiveon FISH. The specimen was 6.0 x 5.2 x 4.0 cm; positive margins. No overt areas of high grade seen on excision. - [facility] Pathology Review: myxoid liposarcoma, intermediate to focally high grade. Per report, FISH showed +DDIT3 rearrangement and tumor extended to the inked margins. 06/06/25: Follow up with Dr. Orta, who recommended evaluation by [facility] Sarcoma team. 06/12/25: CT Abd/Pelvis ([facility]): 7.3 x 2.8 x 6.2 cm soft tissue mass in the R inguinalregion extending to the labia compatible with the patient's known liposarcoma. No evidence of metastatic disease. - After reviewing the imaging with our radiologists, we believe it is more likely that this is seroma rather than regrowth or 7 cm of gross residual disease. 07/02/25: MRI Femur: 2.7 x 1.0 cm non-mass enhancement anterior to the femoral neurovascular bundle within the proximal medial thigh resection bed, indeterminate, may reflect residual disease versus postsurgical changes. Decreased size of postoperative seroma. I personally reviewed the relevant radiology scans and medical records. Current symptoms: - The pain prior to surgery was achy and worse at night. She states that it now feels more like nerve pain in the R leg with dysesthesia ever since her surgery. She continues to have hip pain as wellwhich is worse at night. She takes oxycodone very rarely for the pain. - She initially self-palpated the mass on 04/08 before going to the ER and notes that it seemed to grow between its discovery and surgery. Review of Systems Systems were reviewed today and are documented below. Constitutional: Negative for fever, chills, weight loss. Respiratory: Negative for cough, hemoptysis, and shortness of breath. Cardiovascular: Negative for chest pain and palpitations. Gastrointestinal: Negative for nausea, vomiting, abdominal pain, diarrhea and constipation. Genitourinary: Negative for dysuria and frequency. Neurological: Negative for dizziness and headaches. All other systems were reviewed and are negative. Relevant Radiology Images 06/12/25 CT A/P MRI Femur 07/02/2025 Radiation Risk Factors: Electronic Devices: None Prior radiation to same or adjacent site: No Past History: Patient Active Problem List Diagnosis Asthma Bipolar disorder Class 1 obesity Pituitary microadenoma S/P laparoscopic sleeve gastrectomy Past Medical History: Diagnosis Date Anemia Arthritis Asthma Depressive disorder Fibromyalgia Lumbar herniated disc Past Surgical History: Procedure Laterality Date APPENDECTOMY 2004 BACK SURGERY 2015 CHOLECYSTECTOMY 2004 PANNICULECTOMY 2015 SOFT TISSUE MASS EXCISION 05/28/2025 STOMACH SURGERY 2014 Sleeve gastrectomy TUBAL LIGATION 2009 Medications: Current Outpatient Medications Ordered in [facility] Medication Sig cyclobenzaprine (FLEXERIL) 5 MG tablet Take 5 [...] 50 mg by mouth nightly at bedtime. QUEtiapine (SEROQUEL) 25 MG tablet Take 1 tablet by mouth every morning. tirzepatide, weight loss, (ZEPBOUND) 12.5 mg/0.5 mL subcutaneous pen Inject 15 mg under the skin once a week. Did not take this weeks injection valACYclovir (VALTREX) 1000 MG tablet Take 1,000 mg by mouth 3 (three) times a day. Allergies: No Known Allergies Social History Drug Use: Substance and Sexual Activity Drug Use Never Alcohol Use: Substance and Sexual Activity Alcohol Use Yes Comment: Social special holidays Tobacco Use: Tobacco Use Smoking Status Former Current packs/day: 0.00 Average packs/day: 1 pack/day for 5.0 years (5.0 ttl pk-yrs) Types: Cigarettes Start date: 2004 Quit date: 2009 Years since quittin.7 Smokeless Tobacco Never Social Narrative: Social History Narrative Not on file Family History Family History Problem Relation Age of Onset Cancer Paternal Uncle Lymphoma Maternal Grandmother Vital: Wt Readings from Last 1 Encounters: 07/02/25 83.5 kg (184 lb) Temp Readings from Last 1 Encounters: 06/25/25 36.4 ??C (97.6 ??F) (Oral) BP Readings from Last 1 Encounters: 06/25/25 (!) 144/86 Pulse Readings from Last 1 Encounters: 06/25/25 80 Performance Status: 1- Restricted in physically strenuous activity but ambulatory and able to carryout work of a light or sedentary nature, e.g., light house work, office work Physical Examination Physical Exam was deferred due to virtual visit and to focus on discussion of management options. Impression: ??Katarina Stack? is a 39 y.o. 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 Recommendation: I reviewed the available imaging with [facility] radiology and discussed the case at our multimodality tumor board. The case was also discussed with Dr. Blair and Dr. Yepez. She presents today after completion of MRI (07/02/25) which showed a 2.7 x 1.0 cm non-mass enhancement anterior to the femoral neurovascular bundle which may reflect residual disease versus postsurgical changes. Unfortunately, it was felt that further surgery would be very morbid and was not recommended at this time. The multidisciplinary recommendation was for postoperative RT alone for positive margins. I would recommend 66 Gy in 2 Gy fractions over 6.5-7 weeks of daily RT. The logistics, details and side effects of radiation therapy were reviewed with the patient. Her questions were answered. We discussed that any treatment may include side effects as well as the risk of more serious complications and that each patient reacts differently to the treatment. I highlighted that the patient may experience none, some, or all of these reactions, and the reactions may be more or less severe. I also explained that there is a possibility of experiencing other reactions that we did not discuss. We discussed the typical specific reactions potentially including: Immediate Reactions Common: Tiredness Skin reddening and/or darkening & irritation Temporary hair loss in the treated area Temporary swelling of tumor Uncommon: Muscle aches Delayed wound healing Blistering of the skin Pain flare (transient worsening of pain) Rare: Fever and chills (transient, within the first few hours of RT.) For high doses per fraction only. Long-Term Reactions Common: Permanent tanning of the skin Permanent hair loss in the treated area Uncommon: Swelling of the leg Thickening of the skin Inflammation of the muscle with muscle aches Bone fractures Rare: Scarring of muscles with limitation of strength and motion Extremely Rare: Sterility Cancers caused by radiation She expressed understanding. She would like to receive RT closer to home as the daily trip and to [place] for radiation would be too difficult for her. She would like a referral to [facility] for her radiation oncology needs. I do not believe that [facility] has radiation oncology but I am aware of radiation oncology at [facility]. I will ask my office to send a referral. She would like to have long-term follow-up after her radiation treatment with Dr. Leonel pinto. Katarina Franklin has our contact information and was urged to contact our office if she has any questions or concerns. I personally spent a total of 30 minutes on care for this patient on the date of the encounter. This includes [id number] time during the visit as well as non bkfn-jf-[id number] time spent on chart review, documentation, and care coordination. Karen Main MD [facility] [place] Department of Radiation Oncology [phone] (p) [phone] (f) documented in this encounter Plan of Treatment Not on file documented as of this encounter Visit Diagnoses Diagnosis Myxoid liposarcoma- Primary Malignant neoplasm of connective and other soft tissue, site unspecified Sarcoma Malignant neoplasm of connective and other soft tissue, site unspecified documented in this encounter Care Teams Storm Door Maker Relationship Specialty Start Date End Date Kerry Medina MD [address] [place] [address] [place] [phone] PCP - General Internal Medicine 11/01/23 Harlan Orta MD [address] [place] [address] [place] [address] Referring Physician General Surgery 06/09/25 documented as of this encounter Additional Source Comments The information contained in this document represents components of the legal health record. It is not the complete legal health record.[facility]
--- NOTE | ~2025-07-14 | MR_ITS ---
EXAMINATION: MR BRAIN PITUITARY GLAND WITHOUT AND WITH CONTRAST CLINICAL INFORMATION: History of liposarcoma right lower extremity. Questionable 5.4 mm microadenoma, thoracic . COMPARISON: November 28, 2023. TECHNIQUE: Multiplanar, multisequence MRI of the brain pituitary gland protocol was obtained before and after the intravenous administration of 5.0 mL gadolinium based (Gadavist) without reported immediate complications.. FINDINGS: The patient started gland demonstrates normal superior concave morphology and enhancement pattern without enlargement or focal delayed enhancing lesion. Pituitary stalk is midline and measures 2 mm in maximal thickness. The optic chiasm is intact with normal signal. Flow-void signal within the cavernous supracavernous segments of the ICAs is normal. No enhancing mass in the cavernous sinuses. No restricted diffusion. No acute intracranial hemorrhage, mass effect, midline shift, hydrocephalus or herniation. Roberts-white matter differentiation is normal. Flow-void signal within the main cerebral vessels is normal. Craniocervical junction demonstrates normal position of the cerebellar tonsils. No gross abnormal enhancement within the intra-axial or the extra-axial compartment of the cranium. There is a 7 mm polypoid lesion in the medial wall right maxillary sinus. There is an intrinsic 6 mm hyperintense T1 signal in the left ethmoid air cells. MR/MR head/brain wo/w con IMPRESSION: No enhancing mass. No pituitary microadenoma. No acute brain abnormality. Electronically signed by: Gian Woody MD 07/14/2025 10:33 AM EDT
--- OUTSIDE RECORDS SUMMARY | 2025-07-14 10:12 | XMS_ITS | Encounter Summary ---
Author Organization [facility] Address [address] [place] [phone] Care Team Providers Care Lining Scrubber Name Role Phone Kerry Medina MD Primary Care Provider [phone] Reason for Visit * Reason Onset Date Comments Med Refill 06/30/2025 Zepbound Encounter Details Date Type Department Care Team (Late Contact Info) Description 06/30/2025 Telephone Bariatric Surgery [address] [phone] Gianfranco Gordon MD [address] [place] [phone] Social History Tobacco Use Types Packs/Day [...] Department Care Team (Late Contact Info) Description 12/25/2025 9:45 AM EDT Office Visit Bariatric Surgery [address] [place] [address] Gianfranco Gordon MD [address] [place] [phone] documented as of this encounter Visit Diagnoses Not on filedocumented in this encounter Care Teams Lining Scrubber Relationship Specialty Start Date End Date Kerry Medina MD [address] [facility] [address] [place], [place] PCP - General Internal Medicine 01/15/18 documented as of this encounter
--- OUTSIDE RECORDS SUMMARY | 2025-07-14 10:12 | XMS_ITS | Clinical Summary ---
Author Organization [facility] Address [address] [place] [phone] Phone Care Team Providers Care Industrial Sales Manager Name Role Phone Kerry Medina MD Primary Care Provider Harlan Orta MD Unavailable Allergies No known active allergies Medications QUEtiapine [...] Encounters Date Type Department Care Team Description 07/10/2025 11:00 AM EDT Telemedicine Center for Sarcoma and Bone Oncology, [facility] [place] [address] [facility], [address] [place] [address] Karen Main MD, ADRIAN Myxoid liposarcoma (Primary Dx); Sarcoma 07/02/2025 11:00 AM EDT Office Visit [facility] [address] [place] [address] Kulwinder Blair MD Greater trochanteric bursitis, unspecified laterality (Primary Dx); Myxoid liposarcoma 07/02/2025 8:23 AM EDT - 07/02/2025 11:59 PM EDT Hospital Encounter [facility] MR Imaging, [place] [address] [place] [address] Shelbie Yepez MD, PhD Discharge Disposition: Home or Self Care 06/30/2025 Ancillary Orders DF IMG OUTSIDE IMG [address] [place] [address] Luz Maria Chung MD 06/25/2025 11:00 AM EDT Office Visit [facility] Oncology, [facility] [address], [address] [place] [address] Shelbie Yepez MD, PhD Myxoid liposarcoma (Primary Dx) 06/25/2025 11:00 AM EDT Office Visit [facility], [facility] [place] [address] [facility], [address] [place] [address] Karen Main MD, ADRIAN Sarcoma (Primary Dx) 06/25/2025 11:00 AM EDT Office Visit [facility], [facility] [address], [address] [place] [phone] Kulwinder Blair MD Myxoid liposarcoma (Primary Dx) 06/25/2025 Procedure Pass [facility] MR Imaging, [place] [address] 06/24/2025 Patient Outreach Center for [facility]coma and Bone Oncology, [facility] [address] [facility], [address]th [place] [address] Kaci Batista, SARAH 06/24/2025 Patient Outreach [facility] Bone Oncology, [facility] [address] [facility], [address]th [place] [address] Kaci Batista, SARAH 06/13/2025 2:02 PM EDT - 06/13/2025 11:59 PM EDT Hospital Encounter [facility], [address] [address] Discharge Disposition: Home or Self Care 06/12/2025 12:35 PM EDT Ancillary Procedure DF IMG OUTSIDE IMG [address] [place] [address] Luz Maria Chung MD 06/12/2025 12:30 PM EDT Ancillary Procedure DF IMG OUTSIDE IMG [address] [place] [address] Luz Maria Chung MD 06/12/2025 Ancillary Orders DF IMG OUTSIDE IMG [address] [place] [address] Luz Maria Chung MD 06/12/2025 Ancillary Orders DF IMG OUTSIDE IMG [address] [place] [address] Luz Maria Chung MD 06/10/2025 Ancillary Orders DF IMG OUTSIDE IMG [address] [place] [address] Luz Maria Chung MD 06/10/2025 Ancillary Orders DF IMG OUTSIDE IMG [address] [place] [address] Luz Maria Chung MD 06/10/2025 Ancillary Orders DF IMG OUTSIDE IMG [address] [place] [address] Luz Maria Chung MD 06/10/2025 Ancillary Orders DF IMG OUTSIDE IMG [address] [place] [address] Luz Maria Chung MD 06/10/2025 Orders Only Center for [facility] Bone Oncology, [facility] [place] [address] [facility], [address]th [place] [address] Luz Maria Chung MD 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 Ancillary Procedure DF IMG OUTSIDE IMG [address] [place] [address] Luz Maria Chung MD from Last 3 Months Immunizations Immunization Administration Dates Next Due [id number] FORMULATION 01/05/2010 Influenza Quadrivalent Preservative Free IM 09/16 Td (adult),2 Lf Tetanus Toxoid, PF, Adsorbed Family History Medical History Relation Comments Lymphoma Maternal Grandmother Cancer Paternal Uncle Relation Status Comments Maternal Grandmother Paternal Uncle Alive Social History Tobacco Use Types Packs/Day Years Used Date Smoking Tobacco: Former Cigarettes 1 5 2 - 2009 Smokeless Tobacco: Never Tobacco Cessation:Counseling [...] high school, GED, job training, learning the [place] Leonean language, technical skills, or developing parenting skills)? [...] 07/02/2025 11:16 AM EDT Plan of Treatment Health Maintenance Due Date Last Done Comments DEPRESSION SCREENING 1995 HEPATITIS C SCREENING 2001 HIV ONE-TIME SCREENING (18-6 5 YEARS) 2001 PNEUMOCOCCAL VACCINES (0-49 years) (1 of 2 - PCV) 2002 PAP SMEAR 2004 SCREENING FOR DIABETES 2018 MAMMOGRAM 2023 INFLUENZA VACCINE (#1) 2025 0, 01/05/2010 COVID-19 VACCINE (1 - 2023-2 5 season) 2025 Adult Td,Tdap [...] (NO INTERPRETATION) Routine 05/07/2025 12:00 AM EDT from Last 3 Months Results * MRI [...] 2. Decreased size of postoperative seroma. ATTESTATION: I, Keeley Cruz, as teaching physician havereviewed the images, if [...] W/OUT INTERPRETATION Final Result Performing Organization Address [facility] Co de Phone Number [email or web address] * CT Chest Outside (No Interpretation) (06/12/2025 12:28 PM EDT) Other Narrative PERCIPIO_BW - 06/12/2025 12:28 PM EDT This study is for PACS storage only and not for interpretation. us Luz Maria Chung MD IMG OUTSIDE IMAGING W/OUT INTERPRETATION Final Result Performing Organization Address City/State/[facility] Co de Phone Number [email or web address] * Outside [...] Review (05/28/2025 12:00 AM EDT) 05/28/2025 06/13/2025 [facility] - 06/19/2025 11:24 AM EDT CASE: [id number] PATIENT: KATARINA WILL Date: 1985 Sex: Female [facility] Department of Pathology [address] [place], [place] [address]IA License No.: [id number] Double End Tenoner Operator: Dr. Michael Mortensen MD, PhD Physician: LUZ MARIA CHUNG MD Resident: Christopher Rahman M.D., Ph.D. PATHOLOGIC DIAGNOSIS: CONSULT SLIDES FROM [facility]; [place], [place] SOFT TISSUE, RIGHT GROIN MASS, EXCISION ([id number]; 05/28/2025): MYXOID LIPOSARCOMA, INTERMEDIATE TO FOCALLY HIGH GRADE. Per report, the tumor extends to the inked margins. Per report, FISH analysis performed at the outside institution was POSITIVE for DDIT3 rearrangement. CLINICAL DATA: History: None given. Clinical Diagnosis: Myxoid/round cell liposarcoma. TISSUE SUBMITTED: Consult slides. GROSS DESCRIPTION: Received from [facility], [address] [place] [address], [place], [address], are seventeen glass slides. Seventeen stained slides are labeled [id number] and sublabeled A1 , ACTIN , CD34 , CD4K , DESMI , ER PI , ERG , Ki67 , MDM2 , WU , MA PI , S100 , SOX11 , VIMEN [...] Chung MD PATHOLOGY ORDERABLES Nicolette l Result [facility] [address] [place] [address] * Outside Imaging Report Only (05/07/2025) us Scanning Interface Provider IMG XR CHEST Nicolette l Result * US Pelvis Outside (No Interpretation) (05/07/2025 12:00 AM EDT) Other Narrative [facility] - 06/10/2025 1:28 PM EDT This study is for PACS storage only and not for interpretation. us Luz Maria Chung MD IMG OUTSIDE IMAGING W/OUT INTERPRETATION Final Result [facility] from Last [address] [place], [place] [address]Bill Me Later [facility] orangutrans O [facility]ERS[facility]ill Me Later [facility] [place] Me Later [facility] Care Teams Industrial Sales Manager Relationship Specialty Start Date End Date Kerry Medina MD [address] [place] [address] [place] [phone] PCP - General Internal Medicine 11/01/23 Harlan Orta MD [address] [place] [address] [place] [address] Referring Physician General Surgery 06/09/25 Additional Source Comments The information contained in this document represents components of the legal health record. It is not the complete legal health record.[facility]
--- OUTSIDE RECORDS SUMMARY | 2025-07-14 10:12 | XMS_ITS | Clinical Summary ---
Author Organization [address] [place] [address] Address [address] [place] [address] Phone Care Team Providers Care Tooth Inspector Name Role Phone Kerry Medina MD Primary Care Provider [phone] Allergies No known active allergies Medications buPROPion [...] Class 1 obesity 04/02/2025 Pituitary microadenoma ([facility] V24, [facility] V28 ) 04/02/2025 Asthma 03/13/2018 Bipolar disorder ([facility] V24, [facility] V28) 02/14 Encounters Date Type Department Care Team Description 07/08/2025 9:00 AM EDT Office Visit Bariatric Surgery - [place] [address] [facility] [address] [place] [address] Gianfranco Gordon MD Over weight (Primary Dx) 06/30/2025 Telephone Bariatric Surgery [facility] [address] [facility] [address] [place] [address] Gianfranco Gordon MD from Last 3 Months Surgical History Surgery Date Site/Laterality Comments BARIATRIC SURGERY 10/02/2014 PROCEDURE: UT LAPS GSTRC RSTRICTIV PX LONGITUDINAL GASTRECTOMY; COMMENT: Dr. Allan Osuna OTHER SURGICAL HISTORY 10/02/2014 PROCEDURE: UT UNLISTED LAPS PX HRNAP HERNIORRHAPHY HERNIOTOMY; COMMENT: hiatal repair, at time of gastric sleeve CHOLECYSTECTOMY PROCEDURE: HISTORICAL CHOLECYSTECTOMY TUBAL LIGATION PROCEDURE: HISTORICAL TUBAL LIGATION OTHER SURGICAL HISTORY PROCEDURE: HISTORICAL PANNICULECTOMY OTHER SURGICAL HISTORY PROCEDURE: HISTORY OTHER; COMMENT: gastric sleeve Medical History Medical History Date Comments Bipolar disorder ([facility]/HCC V2 4, [facility]/H[facility] V28) 03/13/2018 DX:Bipolar disorder ([facility]) Asthma 03/13/2018 DX:Asthma S/P laparoscopic sleeve [...] Sign Reading Time Taken Comments Blood Pressure 154/110 07/08/2025 9:18 AM EDT Pulse 103 07/08/2025 9:18 AM EDT Temperature 36.6 C (97.8 F) 07/08/2025 9:18 AM EDT Respiratory Rate - - Oxygen Saturation - - Inhaled Oxygen Concentration - - Weight 82.6 kg (182 lb) 07/08/2025 9:18 AM EDT Height 170.2 cm (5' 7 ) 07/08/2025 9:18 AM EDT Body Mass Index 28.51 07/08/2025 9:18 AM EDT Plan of Treatment Upcoming Encounters Date Type Department Care Team (Late st Contact Info) Description 12/25/2025 9:45 AM EDT Office Visit Bariatric Surgery - [place] [address] [facility] [address] [place] [address] Gianfranco Gordon MD [address] [place] [phone] Health Maintenance Due Date Last Done [...] Screening 09/18/2022 Depression Screening 10/16/2024 COVID-19 Vaccine ( - 2023-2 5 season) 2025 Influenza Vaccine (#1) 2025 0, 01/05/2010, 01/05/2010 DTaP,Tdap,and Td Vaccines (2 - Td [...] patient's age to complete this topic Insurance [facility] Care Teams Tooth Inspector Relationship Specialty Start Date End Date Kerry Medina MD [address] PCP - General Internal Medicine 01/15/18
--- OUTSIDE RECORDS SUMMARY | 2025-07-14 10:12 | XMS_ITS | Encounter Summary ---
Author Organization [facility] Address [address] [place] [address] Phone Care Team Providers Care Dish Maker Name Role Phone Kerry Medina MD Primary Care Provider Harlan Orta MD Unavailable [phone] Encounter Details Date Type Department Care Team (Late st Contact Info) Description 06/25/2025 Procedure Pass [facility] MR Imaging, [place] [address] [place] [address] Social History Tobacco Use Types Packs/Day Years [...] high school, GED, job training, learning the Burundian language, technical skills, or developing parenting skills)? [...] on filedocumented in this encounter Care Teams Dish Maker Relationship Specialty Start Date End Date Kerry Medina MD [address] [place] [address] [place] [address] PCP - General Internal Medicine 11/01/23 Harlan Orta MD [address] [place] [address] [place] [address] Referring Physician General Surgery 06/09/25 documented as of this encounter Additional Source Comments The information contained in this document represents components of the legal health record. It is not the complete legal health record.[facility]
== END 2025-07-14 09:26 | disposition home or self-care (01) ==
LOC: HO.MRI 09:25
PROVIDERS: PCP Internal Medicine; Visit Provider Nurse Practitioner Family
DX: R51.9 Headache, unspecified (principal); C49.21 Malignant neoplasm of connective and soft tissue of right lower limb, including hip; D35.2 Benign neoplasm of pituitary gland
CPT/HCPCS: 70553; A9585

== ENCOUNTER 2025-09-17 13:53 | Outpatient (AMB) | payer OTHER, SELFPAY ==
--- NOTE | 2025-09-17 14:03 | MHC.OFFVIS ---
Vital Signs 09/17/25 14:04 Height 5 ft 7 in Weight 181 lb BMI 28.3 BP 132/84 Intake Visit Reasons: vaginal itching Supervisor Prop Making Required: No Information Interpreted: non-clinical & clinical Unit Secretary: Unit Secretary Present (Makayla BULLOCK) Accompanied by: Self / Same As Patient Allergies No Known Allergies Allergy (Verified 09/17/25 14:08) HPI Comments Details: Presenting complaining of vulvovaginal itching no associated vaginal odor. The patient took vaginal Monistat dyoa-vyb-ocjftki yesterday. The patient is having radiation to the perineal thigh area for lipoma sarcoma [facility] Medical History (Updated 09/17/25 @ 14:15 by Dexter Stewart MD) Liposarcoma of right lower extremity Pituitary microadenoma Fibromyalgia Osteoarthritis Back pain Anemia Migraines Asthma HESHAM (stress urinary incontinence, female) Cholecystectomy planned Appendicitis Surgical History (Updated 07/30/25 @ 11:43 by Mily Irizarry MD) H/O excision of mass Hx of bariatric surgery (2013) Hx of cholecystectomy Hx of appendectomy S/P panniculectomy Gastric bypass status for obesity Tubal ligation status Family History Mother Prediabetes Rheumatoid arthritis Hypertension Father Medical history unknown Other Family history of multiple sclerosis Family history of rheumatoid arthritis Family history of systemic lupus erythematosus Social History Household Members: Family Housing: House Are you a primary workforce investment act career manager to a significant other at home: No Do you presently have visiting nurse or other home services: No 75 years or older and lives alone: No Alcohol intake: current Alcohol intake frequency: holidays/special occasions only Alcohol type: hard liquor Patient Tobacco Use Status: Former Tobacco user Tobacco use type: Cigarette Current occupational status: unemployed 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 Will check the results and treat accordingly. All questions answered, the patient verbalized understanding Coding Level of Care Code Est Pt Level 3 (06244) Diagnoses Vulvovaginitis N76.0
[2025-09-17 14:04] VITALS: BP 132/84; BMI 28.3
--- OUTSIDE RECORDS SUMMARY | 2025-09-17 16:40 | XMS_ITS | Clinical Summary ---
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 Georges Osuna Encounters Date Type Department Care Team Description 09/16/2025 Telephone [facility], [address], [address] [place] [address] Kaci Batista, SARAH 08/21/2025 Ancillary Orders DF IMG OUTSIDE IMG [address] [place] [address] Luz Maria Chung MD 07/16/2025 9:00 AM EDT Telemedicine [facility], [address], [address] [place] [address] Shelbie Yepez MD, PhD 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 Ancillary Procedure DF IMG OUTSIDE IMG [address] [place] [address] Luz Maria Chung MD 07/10/2025 11:00 AM EDT [facility], [address], [address] [place] [address] Karen Main MD, ADRIAN Myxoid liposarcoma (Primary Dx); Sarcoma 07/02/2025 11:00 AM EDT [facility] Visit [facility] [address] [place] [address] Kulwinder Blair MD Greater trochanteric bursitis, unspecified laterality (Primary Dx); Myxoid liposarcoma 07/02/2025 8:23 AM EDT - 07/02/2025 11:59 PM EDT Hospital Encounter [facility] MR Imaging, [place] [address] [place] [address] Shelbie Yepez MD, PhD Discharge Disposition: Home or Self Care 06/30/2025 Ancillary Orders DF IMG OUTSIDE IMG [address] [place] [address] Luz Maria Chung MD 06/25/2025 11:00 AM EDT Office Visit [facility], [address], [address] [place] [address] Shelbie Yepez MD, PhD Myxoid liposarcoma (Primary Dx) 06/25/2025 11:00 AM EDT Office Visit [facility], [address], [address] [place] [address] Karen Main MD, ADRIAN Sarcoma (Primary Dx) 06/25/2025 11:00 AM EDT Office Visit [facility], [address], [address] [place] [address] Kulwinder Blair MD Myxoid liposarcoma (Primary Dx) 06/25/2025 Procedure Pass [facility] MR Imaging, [place] [address] [place] [address] 06/24/2025 Patient Outreach [facility], [address], [address] [place] [address] Kaci Batista, SARAH 06/24/2025 Patient Outreach [facility], [address], [address] [place] [address] Kaci Batista, RN from Last 3 Months Immunizations Immunization Administration Dates Next Due [id number] FORMULATION 01/05/2010 Influenza Quadrivalent Preservative Free IM [...] high school, GED, job training, learning the Thai language, technical skills, or developing parenting skills)? [...] Care Team (Late st Contact Info) Description 07/16/[address] [facility], [employer], MRI [address] [place] [address] 07/16/[address] [facility], [employer], MRI [address], [address] [place] [address] 07/16/[address] [facility], [employer], [place] [address], [address] [place] [address] 10/25/2025 11:[address] [facility], [employer], MRI [address], [address] [place] [address] Shelbie Yepez MD, PhD [address] [facility] [place] [place] [address] [email or web address] 10/25/2025 1:[address] [facility] Imaging [facility], [employer], MRI [address], [address] [place] [address] Shelbie Yepez MD, PhD [address] [facility] [place] [place] [address] [email or web address] 10/25/2025 2:20 PM EST Appointment [facility] Imaging Department, [employer], [place] [address], [address] [place] [address] Shelbie Yepez MD, PhD [address] [facility] [place] [address] [email or web address] 10/29/2025 10:30 AM EST Office Visit [facility], [employer] [address] [facility], 6th [place] [address] Shelbie Yepez MD, PhD [address] [facility] [place] [address] [email or web address] Health Maintenance Due Date Last Done Comments DEPRESSION SCREENING 1995 HEPATITIS C SCREENING 2001 HIV ONE-TIME SCREENING (18-6 5 YEARS) 2001 PNEUMOCOCCAL VACCINES (0-49 years) (1 of 2 - PCV) 2002 PAP SMEAR 2004 SCREENING FOR DIABETES 2018 MAMMOGRAM 2023 INFLUENZA VACCINE (#1) 2025 0, 01/05/2010 COVID-19 VACCINE ( - 2024-2 6 season) 2025 Adult Td,Tdap Booster 10/31/2027 10/31/2017 [...] Name Priority Date/Time Associated Diagnosis Comments MRI BRAIN OUTSIDE (NO INTERPRETATION) Routine 07/14/2025 12:00 AM EDT MRI FEMUR WITH AND WITHOUT CONTRAST (RIGHT) Routine 07/02/2025 9:20 AM EDT Myxoid liposarcoma from Last 3 Months Results * MRI Brain Outside (No Interpretation) (07/14/2025 12:00 AM EDT) Narrative [facility] - 08/21/2025 12:48 PM EST This study is for PACS storage only and not for interpretation. Luz Maria Chung MD IMG OUTSIDE IMAGING W/OUT INTERPRETATION Final Result [facility] * MRI FEMUR WITH AND WITHOUT CONTRAST [...] PhD IMG MR EXTREMITY Fin al Result from Last 3 Months Insurance [facility] [address] [place] [address] [facility] Datanomic [facility] Dat[facility]omic [facility] Care Teams Antenna Design Engineer Relationship Specialty Start Date End Date Kerry Medina MD [address] [place] [address] [place] [address] PCP - General Internal Medicine 11/01/23 Harlan Orta MD [address] [place] [address] [place] [address] Referring Physician General Surgery 06/09/25 Additional Source Comments The information contained in this document represents components of the legal health record. It is not the complete legal health record.[facility]
--- OUTSIDE RECORDS SUMMARY | 2025-09-17 16:40 | XMS_ITS | Encounter Summary ---
Author Organization [facility] Address [address] [place] [address] Phone Care Team Providers Care Extractions Technician Name Role Phone Kerry Medina MD Primary Care Provider Harlan Orta MD Unavailable [phone] Encounter Details Date Type Department Care Team (Late st Contact Info) Description 06/25/2025 Procedure Pass [facility] MR Imaging, [place] [address] [place] [address] Social History Tobacco Use Types Packs/Day Years [...] high school, GED, job training, learning the Portuguese language, technical skills, or developing parenting skills)? [...] st Contact Info) Description 07/16/2025 Procedure Pass [facility] Imaging Department, [facility], MRI [address] [facility], [address] [place] [address] 07/16/2025 Procedure Pass [facility] Imaging Department, [facility], MRI [address] [facility], [address] [place] [address] 07/16/2025 Procedure Pass [facility] Imaging Department, [facility], [place] [address] [facility], [address] [place] [address] 10/25/2025 11:30 AM EST Appointment [facility] Imaging Department, [facility], MRI [address] [facility], [address] [place] [address] Shelbie Correa MD, PhD [address] [facility] [place] [address] [email or web address] 10/25/2025 1:00 PM EST Appointment [facility] Imaging Department, [facility], MRI [address] [facility], [address] [place] [address] Shelbie Yepez MD, PhD [address] [facility] [place] [address] [email or web address] 10/25/2025 2:20 PM EST Appointment [facility] Imaging Department, [facility], [place] [address] [facility], [address] [place] [address] Shelbie Yepez MD, PhD [address] [facility] [place] [address] [email or web address] 10/29/2025 10:30 AM EST Office Visit [facility], [address], [address]th [place] [address] Shelbie Yepez MD, PhD [address] [facility] [place] [address] [email or web address] documented as of this encounter Visit Diagnoses Not on filedocumented in this encounter Care Teams Extractions Technician Relationship Specialty Start Date End Date Kerry Medina MD [address] [place] [address] [place] [address] PCP - General Internal Medicine 11/01/23 Harlan Orta MD [address] [place] [address] [place] [address] Referring Physician General Surgery 06/09/25 documented as of this encounter Additional Source Comments The information contained in this document represents components of the legal health record. It is not the complete legal health record.[facility]
--- OUTSIDE RECORDS SUMMARY | 2025-09-17 16:40 | XMS_ITS | Encounter Summary ---
Author Organization [facility] Address [address] [facility] [address] [place] [address] Phone Care Team Providers Care Cdl Company Driver Name Role Phone Kerry Medina MD Primary Care Provider Harlan Orta MD Unavailable [phone] Encounter Details Date Type Department Care Team (Late st Contact Info) Description 09/16/2025 Telephone [facility], [facility] [address] [place] [address], 6th [place] [address] Kaci Batista, RN [address] [place] [address] [email or web address] Social History Tobacco Use Types Packs/Day Years [...] high school, GED, job training, learning the Djiboutian language, technical skills, or developing parenting skills)? [...] as of this encounter Progress Notes * Kaci Batista RN - 09/16/2025 3:09 PM EST I called Katarina and she advised that her RT started approx 08/22 and her last treatment is on 10/07. I advised that Dr Yepez wanted imaging 2-3 months after RT so that I would relay this information toher and see if she wants to adjust the imaging here (now planned for 10/25) and MD appt on 10/29. Katarina was also asking for VV- I advised I would relay that over to the team as well. SUSANNA Manzo, RN Sarcoma Nurse Navigator [facility] [phone] documented in this encounter Plan of Treatment Upcoming Encounters Date Type Department Care Team (Late st Contact Info) Description 07/16/2025 Procedure Pass [facility] Imaging Department, [facility], MRI [address] [facility], [address] [place] [address] 07/16/2025 Procedure Pass [facility] Imaging Department, [facility], MRI [address] [facility], [address] [place] [address] 07/16/2025 Procedure Pass [facility] Imaging Department, [facility], [place] [address] [facility], [address] [place] [address] 10/25/2025 11:30 AM EST Appointment [facility] Imaging Department, [facility], MRI [address] [facility], [address] [place] [address] Shelbie Yepez MD, PhD [address] [place] [address] [place] [address] [email or web address] 10/25/2025 1:00 PM EST Appointment [facility] Imaging Department, [facility], MRI [address] [facility], [address] [place] [address] Shelbie Yepez MD, PhD [address] [place] [address] [place] [address] [email or web address]@[email or web address] 10/25/2025 2:20 PM EST Appointment [facility] Imaging Department, [facility], [place] [address] [facility], [address] [place] [address] Shelbie Yepez MD, PhD [address] [facility] [place] [place] [address] [email or web address] 10/29/2025 10:30 AM EST Office Visit [facility], [facility] [address] [facility], 6th [place] [address] Shelbie Yepez MD, PhD [address] [facility] [place] [address] [email or web address] documented as of this encounter Visit Diagnoses Not on filedocumented in this encounter Care Teams Cdl Company Driver Relationship Specialty Start Date End Date Kerry Medina MD [address] [place] [address] [place] [address] PCP - General Internal Medicine 11/01/23 Harlan Orta MD [address] [place] [address] [place] [address] Referring Physician General Surgery 06/09/25 documented as of this encounter Additional Source Comments The information contained in this document represents components of the legal health record. It is not the complete legal health record.[facility]
--- OUTSIDE RECORDS SUMMARY | 2025-09-17 16:41 | XMS_ITS | Clinical Summary ---
Author Organization [address] [place] [address] Address [address] [place] [address] Phone Care Team Providers Care Photo Specialist Name Role Phone Kerry Medina MD Primary Care Provider [phone] Allergies No known active allergies Medications buPROPion [...] 7 (seven) days. 2 mL 2 5 11/28/19 26 Active tirzepatide, weight loss, (Zepbound) 15 mg/0.5 mL injectionIndicat ions:Class 1 obesity due to excess calories with body mass index (BMI) of 30.0 to 30.9 in adult, unspecified whether serious comorbidity present Inject 0.5 mL (15 mg total) under the skin every 7 (seven) days. 2 mL 2 5 09/04/20 25 Discontinu ed(Reorder ) Active Problems Problem Noted Date Diagnosed Date Class 1 obesity 04/02/2025 Pituitary microadenoma ([facility] V24, [facility] V28 ) 04/02/2025 Asthma 03/13/2018 Bipolar disorder ([facility] V24, [facility] V28) 02/14 Encounters Date Type Department Care Team Description 07/29/2025 Telephone Bariatric Surgery - [address] [phone] Gianfranco Gordon MD 07/08/2025 9:00 AM EDT Office Visit Bariatric Surgery [address] [address] Gianfranco Gordon MD Over weight (Primary Dx) 06/30/2025 Telephone Bariatric Surgery [address] [address] Gianfranco Gordon MD from Last 3 Months Surgical History Surgery Date Site/Laterality Comments BARIATRIC SURGERY 10/02/2014 PROCEDURE: [place] LAPS GSTRC RSTRICTIV PX LONGITUDINAL GASTRECTOMY; COMMENT: Dr. Allan Osuna OTHER SURGICAL HISTORY 10/02/2014 PROCEDURE: [place] UNLISTED LAPS PX HRNAP HERNIORRHAPHY HERNIOTOMY; COMMENT: hiatal repair, at time of gastric sleeve CHOLECYSTECTOMY PROCEDURE: HISTORICAL CHOLECYSTECTOMY TUBAL LIGATION PROCEDURE: HISTORICAL TUBAL LIGATION OTHER SURGICAL HISTORY PROCEDURE: HISTORICAL PANNICULECTOMY OTHER SURGICAL HISTORY PROCEDURE: HISTORY OTHER; COMMENT: gastric sleeve Medical History Medical History Date Comments Bipolar disorder (CMS/HCC V2 4, CMS/HCC V28) 03/13/2018 DX:Bipolar disorder ([facility]) Asthma 03/13/2018 DX:Asthma S/P laparoscopic [...] AM EDT Office Visit Bariatric Surgery - [address] [place] [address] Gianfranco Gordon MD [address] [place] [phone] Health Maintenance Due Date Last Done Comments Breast Cancer Screening 1983 Hepatitis B Vaccines (1 of 3 - 19+ 3-dose series) 2002 Pneumococcal Vaccine: Pediatrics (0 to 5 Years) and At-Risk Patients (6 to 49 Years) (1 of 2 - PCV) 2002 Cervical Cancer Screening: P ap Smear 2004 HPV Vaccines (1 - 3-dose SCD M series) 2010 Cholesterol Screening (Lipid Panel) 09/18/2022 HIV Screening 09/18/2022 Hepatitis C Screening 09/18/2022 Social Influencers of Health Screening 09/18/2022 Depression Screening 10/16/2024 COVID-19 Vaccine (1 - 2024-2 6 season) 2025 Influenza Vaccine (#1) 2025 0, [...] patient's age to complete this topic Insurance [facility] Care Teams Photo Specialist Relationship Specialty Start Date End Date Kerry Medina MD [facility] [address] PCP - General Internal Medicine 01/15/18
== END 2025-09-17 14:16 | disposition home or self-care (01) ==
LOC: HO.HWS 13:54
PROVIDERS: PCP Internal Medicine; Visit Provider Obstetrics & Gynecology
DX: N76.0 Acute vaginitis (principal)
CPT/HCPCS: 99213

== ENCOUNTER 2025-09-17 13:53 | Outpatient (REF) | payer OTHER, SELFPAY ==
[2025-09-17 22:42] LABS: Bacterial Vaginosis PCR POSITIVE (Negative); Candida Group PCR DETECTED (Not Detect); Candida glab krusei PCR NOT DETECTED (Not Detect); Trichomonas vaginalis PCR NOT DETECTED (Not Detect)
[2025-09-17 23:31] LABS: CT PCR NOT DETECTED (Not Detect.); NG PCR NOT DETECTED (Not Detect.)
== END 2025-09-17 13:54 | disposition home or self-care (01) ==
LOC: HO.LNP 13:53
PROVIDERS: PCP Internal Medicine; Visit Provider Obstetrics & Gynecology
DX: N76.0 Acute vaginitis (principal); Z20.2 Contact with and (suspected) exposure to infections with a predominantly sexual mode of transmission
CPT/HCPCS: 81515; 87491; 87591; 99212

== ENCOUNTER 2025-09-18 09:22 | Emergency (ER) | payer OTHER, SELFPAY ==
[2025-09-18 09:27] VITALS: PULSE 107; RESP 18; TEMP 36.5; O2SAT 100; BMI 27.9
[2025-09-18 10:25] VITALS: BP 130/91; PULSE 95; RESP 18; TEMP 36.7; O2SAT 99
--- NOTE | 2025-09-18 10:42 | ED_ITS ---
HPI - General Adult General Chief complaint: General Medical Stated complaint: rectal issues Time Seen by Provider: 09/18/25 09:38 Source: patient Mode of arrival: ambulatory Limitations: no limitations History of Present Illness HPI narrative: This is 40 years old female presented to the ED complaining of rectal pain, she has a history of liposarcoma of the right groin she is receiving radiation therapy of the area she had radiotherapy today now she comes in complaining of rectal pain she stated that she has a hemorrhoid. Onset (ago): day(s) Location: buttocks Radiation: non-radiation Severity: moderate Quality: burning Pain Consistency: constant Relieving factors: none Exacerbating factors: none Associated symptoms: denies other symptoms Related Data Home Medications ?Medication ?Instructions ?Recorded ?Confirmed albuterol sulfate 90 mcg/actuation 2 puff inhalation Q ID 10/03/22 07/30/25 aerosol inhaler (ProAir HFA) quetiapine 50 mg tablet,extended 50 mg PO BEDTIME 09/1607/30/25 release 24 hr tirzepatide (weight loss) 2.5 2.5 mg subcut DIRECTE D 10/07/24 07/30/25 mg/0.5 mL subcutaneous pen injector (Zepbound) Previous Rx's ?Medication ?Instructions ?Recorded albuterol sulfate 1.25 mg/3 mL 1.25 mg (3 mL) inhalati on Q4-6H 03/01/22 solution for nebulization PRN shortness of breath or wheezing #90 mL COVID-19 antigen test (BinaxNOW #2 ea 12/22/23 COVID-19 Ag Self Test kit) metoclopramide HCl 5 mg tablet 5 - 10 mg (1 - 2 x 5 mg ) PO Q4-6H 06/01/24 PRN migraine headache 7 days #28 tabs naproxen 500 mg tablet 500 mg PO BID PRN pain 10 da ys #20 07/09/24 tabs cyclobenzaprine 5 mg tablet 5 mg PO Q8H PRN muscle spa sm 30 08/01/24 days #90 tabs acetaminophen 500 mg capsule 1,000 mg (2 x 500 mg) PO Q8H PRN 04/08/25 fever or pain #20 caps coenzyme Q10 400 mg capsule 400 mg PO DAILY 90 days #9 0 caps 07/01/25 magnesium oxide 400 mg (241.3 mg 400 mg PO BEDTIME 90 days #90 tabs 07/01/25 magnesium) tablet riboflavin (vitamin B2) 400 mg 400 mg PO DAILY 90 days #90 tabs 07/01/25 tablet rizatriptan 10 mg tablet 5 - 10 mg (0.5 - 1 x 10 mg) PO Q2H 07/01/25 PRN migraine headache 21 days #18 tabs oxycodone 5 mg tablet 5 mg PO BID PRN pain #20 tab s 07/24/25 lidocaine HCl 2 % mucosal solution 1 appl mucous membr ane DAILY apply 09/18/25 (Lidocaine Viscous) rectal area as needed #100 m L metronidazole 500 mg tablet 500 mg PO BID 7 days #14 t abs 09/18/25 oxycodone 5 mg tablet 5 mg PO Q6H PRN pain #15 tab s 09/18/25 polyethylene glycol 3350 17 gram 17 g PO DAILY #14 ea 09/18/25 oral powder packet (Miralax) pregabalin 50 mg capsule (Lyrica) 50 mg PO BID #60 cap s 09/19/25 Allergies Allergy/AdvReac Type Severity Reaction Status Date / Time No Known Allergies Allergy Verified 09/19/25 10:50 Review of Systems Constitutional: Constitutional: Reports no additional constitutional complaints ENT: Reports system reviewed and no additional complaints, except as documented Gastrointestinal: Gastrointestinal: Reports no additional gastrointestinal complaints PMFSH Past Medical History Medical History Liposarcoma of right lower extremity Pituitary microadenoma Fibromyalgia Osteoarthritis Back pain Anemia Migraines Asthma HESHAM (stress urinary incontinence, female) Cholecystectomy planned Appendicitis Surgical History H/O excision of mass Hx of bariatric surgery (2013) Hx of cholecystectomy Hx of appendectomy S/P panniculectomy Gastric bypass status for obesity Tubal ligation status Family History Family History Mother Prediabetes Rheumatoid arthritis Hypertension Father Medical history unknown Other Family history of multiple sclerosis Family history of rheumatoid arthritis Family history of systemic lupus erythematosus Social History Social History Household Members: Family Housing: House Are you a primary transitional care nurse to a significant other at home: No Do you presently have visiting nurse or other home services: No 75 years or older and lives alone: No Alcohol intake: current Alcohol intake frequency: holidays/special occasions only Alcohol type: hard liquor Patient Tobacco Use Status: Former Tobacco user Tobacco use type: Cigarette Current occupational status: unemployed 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 Physical Exam ED Exam Exam: She looks well no distress comfortable in the stretcher stable vital signs Vital Signs: Vital Signs - 24 hr 09/18/25 09:27 09/18/25 10:25 Temperature 97.7 F 98.1 F Pulse Rate 107 H 95 Respiratory Rate 18 18 Blood Pressure 130/91 H Pulse Oximetry 100 99 Oxygen Delivery Method Room Air Room Air BMI result Body Mass Index 27.9 Const General: cooperative Nutritional Appearance: average body habitus Orientation/consciousness: patient oriented x3 Limitations: no limitations HENMT Head: Yes normal to inspection Ears: hearing grossly normal bilaterally General nose exam: Normal external nose present Face and sinus: Yes normal facial exam Neck Neck: Yes normal visual inspection Chest Chest palpation & inspection: normal inspection of the chest Resp Effort & Inspection: normal respiratory effort Cardio Jugular venous distension: no JVD Rate: regular rate Rhythm: regular rhythm GI Inspection: Yes normal to inspection Palpation (GI): Soft to palpation, not firm and nontender Rectal Exam - Female: other (Rectal exam done with finance lecturer of female geodetic surveyor technologist small hemorrhoid noted) Skin General skin exam: no rashes or lesions noted and elasticity normal Neuro General: patient oriented x3 Cranial nerves: Yes CN's II-XII intact bilaterally Extrem General: Yes normal to inspection and Yes full ROM Medications Administered Discontinued Medications Generic Name Dose Route Start Last Admin Trade Name Edgarq PRN Reason Stop Dose Admin Lidocaine HCl 15 ml 09/18/25 10:19 09/18/25 11:16 Lidocaine Hcl Viscous 2 % 15 Ml Solution MUCOUS MEM 09/18/25 10:20 15 ml ONCE ONE Administration Medical Decision Making Medical Decision Making [facility] Narrative: Patient presented with rectal pain she has small hemorrhoid I am not sure if the pain is due to the hemorrhoid versus perhaps the radiation therapy to the area. We will give some pain medicine and discharged with follow-up with surgery Differential Diagnosis Differential Diagnoses: The differential diagnosis associated with the presentation includes Thrombosed hemorrhoid/proctitis Lab Data [facility] Lab Attestation statement: I reviewed the patient's lab results. Discharge Plan Discharge Clinical Impression: Pain, rectal, Hemorrhoid Patient Disposition: Home, Self-Care Instructions: Sitz Bath (DC), Rectal Pain (ED) Additional Instructions: Take pain medicines in as directed sitz bath return to emergency room if worse follow-up with Dr. Bran Prescriptions: New polyethylene glycol 3350 [Miralax] 17 gram powder in packet 17 g PO DAILY Qty: 14 0RF oxycodone 5 mg tablet 5 mg PO Q6H PRN (Reason: pain) Qty: 15 0RF Rx Instructions: partial filing upon pt request; Partial Fill upon patient request. lidocaine HCl [Lidocaine Viscous] 2 % solution 1 appl mucous membrane DAILY Qty: 100 0RF No Action metoclopramide HCl 5 mg tablet 5 - 10 mg PO Q4-6H PRN (Reason: migraine headache) 7 Days Qty: 28 0RF oxycodone 5 mg tablet 5 mg PO BID PRN (Reason: pain) Qty: 20 0RF Rx Instructions: Partial Fill upon patient request. metronidazole 500 mg tablet 500 mg PO BID 7 Days Qty: 14 0RF albuterol sulfate 1.25 mg/3 mL solution for nebulization 1.25 mg inhalation Q4-6H PRN (Reason: shortness of breath or wheezing) Qty: 90 0RF (DME) BinaxNOW COVID-19 Ag Self Test Kit See Rx Instructions .Route Qty: 2 0RF Rx Instructions: As directed naproxen 500 mg tablet 500 mg PO BID PRN (Reason: pain) 10 Days Qty: 20 0RF acetaminophen 500 mg capsule 1,000 mg PO Q8H PRN (Reason: fever or pain) Qty: 20 0RF albuterol sulfate [ProAir HFA] 90 mcg/actuation HFA aerosol inhaler 2 puff inhalation QID Zepbound 2.5 mg/0.5 mL pen injector 2.5 mg subcut DIRECTED quetiapine 50 mg tablet extended release 24 hr 50 mg PO BEDTIME cyclobenzaprine 5 mg tablet 5 mg PO Q8H PRN (Reason: muscle spasm) 30 Days Qty: 90 0RF magnesium oxide 400 mg (241.3 mg magnesium) tablet 400 mg PO BEDTIME 90 Days Qty: 90 3RF Rx Instructions: may hold for loose stools coenzyme Q10 400 mg capsule 400 mg PO DAILY 90 Days Qty: 90 3RF Rx Instructions: Daily in a.m.. Take with higher fat food riboflavin (vitamin B2) 400 mg tablet 400 mg PO DAILY 90 Days Qty: 90 3RF rizatriptan 10 mg tablet 5 - 10 mg PO Q2H PRN (Reason: migraine headache) 21 Days Qty: 18 6RF Rx Instructions: max 3 tabs per day or 6 tabs per week pregabalin [Lyrica] 50 mg capsule 50 mg PO BID Qty: 60 3RF Referrals: Giovani Bran MD [Physician, General Surgery] - 09/22/25 Interventions: ED Discharge Assessment Last Done: 09/18/25 11:20 Discharge Date/Time: 09/18/25 11:33 Print Language: St Helenian
--- OUTSIDE RECORDS SUMMARY | 2025-09-18 10:58 | XMS_ITS | Clinical Summary ---
Author Organization [address] [place] [address] Address [address] [place] [address] Phone Care Team Providers Care Baked Goods Stock Clerk Name Role Phone Kerry Medina MD Primary Care Provider [phone] Allergies No known active allergies Medications buPROPion [...] Date Class 1 obesity 04/02/2025 Pituitary microadenoma ([facility] V24, [facility] V28 ) 04/02/2025 Asthma 03/13/2018 Bipolar disorder ([facility] V24, [facility] V28) 02/14 Encounters Date Type Department Care Team Description 07/29/2025 Telephone Bariatric Surgery - [address] [phone] Gianfranco Gordon MD 07/08/2025 9:00 AM EDT Office Visit Bariatric Surgery [address] [phone] Gianfranco Gordon MD Over weight (Primary Dx) 06/30/2025 Telephone Bariatric Surgery [address] [phone] Gianfranco Gordon MD from Last 3 Months Surgical History Surgery Date Site/Laterality Comments BARIATRIC SURGERY 10/02/2014 PROCEDURE: [place] LAPS GSTRC RSTRICTIV PX LONGITUDINAL GASTRECTOMY; COMMENT: Dr. Allan Osuna OTHER SURGICAL HISTORY 10/02/2014 PROCEDURE: [place] UNLISTED LAPS PX HRNAP HERNIORRHAPHY HERNIOTOMY; COMMENT: hiatal repair, at time of gastric sleeve CHOLECYSTECTOMY PROCEDURE: HISTORICAL CHOLECYSTECTOMY TUBAL LIGATION PROCEDURE: HISTORICAL TUBAL LIGATION OTHER SURGICAL HISTORY PROCEDURE: HISTORICAL PANNICULECTOMY OTHER SURGICAL HISTORY PROCEDURE: HISTORY OTHER; COMMENT: gastric sleeve Medical History Medical History Date Comments Bipolar disorder (CMS/HCC V2 4, CMS/HCC V28) 03/13/2018 DX:Bipolar disorder ([facility]) Asthma 03/13/2018 DX:Asthma S/P laparoscopic [...] EDT Office Visit Bariatric Surgery - [address] [place] [address] Gianfranco Gordon MD [address] [place] [phone] Health Maintenance Due Date Last Done [...] patient's age to complete this topic Insurance [facility] [employer] Care Teams Baked Goods Stock Clerk Relationship Specialty Start Date End Date Kerry Medina MD [facility] [address] PCP - General Internal Medicine 01/15/18
--- OUTSIDE RECORDS SUMMARY | 2025-09-18 10:58 | XMS_ITS | Encounter Summary ---
Author Organization [facility] Address [address] [place] [address] Phone Care Team Providers Care Hair Stylist Name Role Phone Kerry Medina MD Primary Care Provider Harlan Orta MD Unavailable [phone] Encounter Details Date Type Department Care Team (Late st Contact Info) Description 06/25/2025 Procedure Pass [facility] MR Imaging, [place] [address] [place] [address] Social History Tobacco Use Types Packs/Day Years [...] high school, GED, job training, learning the Spanish language, technical skills, or developing parenting skills)? [...] st Contact Info) Description 07/16/2025 Procedure Pass [facility] Imaging Department, [facility], MRI [address] [facility], Floor [address] [place] [address] 07/16/2025 Procedure Pass [facility] Imaging Department, [facility], MRI [address] [facility], [address] [place] [address] 07/16/2025 Procedure Pass [facility] Imaging Department, [facility], [place] [address] [facility], [address] [place] [address] 10/25/2025 11:30 AM EST Appointment [facility] Imaging Department, [facility], MRI [address] [facility], [address] [place] [address] Shelbie Correa MD, PhD [address] [facility] [place] [address] [email or web address] [facility] BEDS AT THE [facility] 10/25/2025 1:00 PM EST Appointment [facility] Imaging Department, [facility], MRI [address] [facility], [address] [place] [address] Shelbie Yepez MD, PhD [address] [facility] [place] [address] [email or web address] 234 BEDS AT THE [facility] 10/25/2025 2:20 PM EST Appointment [facility] Imaging Department, [facility], [place] [address] [facility], [address] [place] [address] Shelbie Yepez MD, PhD [address] [facility] [place] [address] [email or web address] 234 BEDS AT THE [facility] 10/29/2025 10:30 AM EST Office Visit [facility], [address], [address] [place] [address] Shelbie Yepez MD, PhD [address] [facility] [place] [address] [email or web address] 234 BEDS AT THE [facility] documented as of this encounter Visit Diagnoses Not on filedocumented in this encounter Care Teams Hair Stylist Relationship Specialty Start Date End Date Kerry Medina MD [address] [place] [address] [place] [phone] PCP - General Internal Medicine 11/01/23 Harlan Orta MD [address] [place] [address] [place] [address] Referring Physician General Surgery 06/09/25 documented as of this encounter Additional Source Comments The information contained in this document represents components of the legal health record. It is not the complete legal health record.[facility]
--- OUTSIDE RECORDS SUMMARY | 2025-09-18 10:58 | XMS_ITS | Clinical Summary ---
Author Organization [facility] Address [address] [place] [phone] Phone Care Team Providers Care Non Profit Financial Controller Name Role Phone Kerry Medina MD Primary Care Provider Harlan Orta MD Unavailable [phone] Allergies No known active allergies Medications [...] Telephone [facility], [address] [place] [address] Kaci Batista, SARAH 08/21/2025 Ancillary Orders DF IMG OUTSIDE IMG [address] [place] [address] uLz Maria Chung MD 07/16/2025 9:00 AM EDT Telemedicine [facility], [address] [place] [address] Shelbie Yepez MD, PhD 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 Ancillary Procedure DF IMG OUTSIDE IMG [address] [place] [phone] Luz Maria Chung MD 07/10/2025 11:00 AM EDT Telemedicine [facility], [address], [address] [place] [phone] Karen Main MD, ADRIAN Myxoid liposarcoma (Primary Dx); Sarcoma 07/02/2025 11:00 AM EDT [facility] Visit [facility] [address] [place] [address] Kulwinder Blair MD Greater trochanteric bursitis, unspecified laterality (Primary Dx); Myxoid liposarcoma 07/02/2025 8:23 AM EDT - 07/02/2025 11:59 PM EDT Hospital Encounter [facility] MR Imaging, [address] [place] [address] Shelbie Yepez MD, PhD Discharge Disposition: Home or Self Care 06/30/2025 Ancillary Orders DF IMG OUTSIDE IMG [address] [place] [phone] Luz Maria Chung MD 06/25/2025 11:00 AM EDT Office Visit [facility], [address], [address] [place] [address] Shelbie Yepez MD, PhD Myxoid liposarcoma (Primary Dx) 06/25/2025 11:00 AM EDT Office Visit [facility], [address], [address] [place] [address] Karen Main MD, ADRIAN Sarcoma (Primary Dx) 06/25/2025 11:00 AM EDT Office Visit [facility], [address], [address] [place] [address] Kulwinder Blair MD Myxoid liposarcoma (Primary Dx) 06/25/2025 Procedure Pass [facility] MR Imaging, [address] [place] [address] 06/24/2025 Patient Outreach [facility], [address], [address] [place] [address] Kaci Batista, SARAH 06/24/2025 Patient Outreach [facility], [address], [address] [place] [address] Kaci Batista, RN from Last 3 Months Immunizations Immunization Administration Dates Next Due [id number] FORMULATION 01/05/2010 Influenza Quadrivalent Preservative Free IM [...] high school, GED, job training, learning the Micronesian language, technical skills, or developing parenting skills)? [...] st Contact Info) Description 07/16/2025 Procedure Pass [facility] Imaging Department, [facility], MRI [address] [facility], [address] [place] [address] 07/16/2025 Procedure Pass [facility] Imaging Department, [facility], MRI [address] [facility], [address] [place] [address] 07/16/2025 Procedure Pass [facility] Imaging Department, [facility], [place] [address] [facility], [address] [place] [address] 10/25/2025 11:30 AM EST Appointment [facility] Imaging Department, [facility], MRI [address] [facility], [address] [place] [address] Shelbie Yepez MD, PhD [address] [facility] [place] [place] [address] [email or web address] 10/25/2025 1:00 PM EST Appointment [facility] Imaging Department, [facility], MRI [address] [facility], [address] [place] [address] Shelbie Yepez MD, PhD [address] [facility] [place] [address] [email or web address] 10/25/2025 2:20 PM EST Appointment [facility] Imaging Department, [facility] [place] [address] [facility], [address] [place] [address] Shelbie Yepez MD, PhD [address] [facility] [place] [address] [email or web address] 10/29/2025 10:30 AM EST Office Visit [facility], [facility] [address] [facility], 6th [place] [address] Shelbie Yepez MD, PhD [address] [facility] [place] [address] [email or web address] Health Maintenance Due Date Last Done Comments [...] al Result from Last 3 Months [facility] [address] [address] [facility] [employer] [facility] [employer] [facility] Care Teams Non Profit Financial Controller Relationship Specialty Start Date End Date Kerry Medina MD [address] [place] [address] [place] [address] PCP - General Internal Medicine 11/01/23 Harlan Orta MD [address] [place] [address] [place] [address] Referring Physician General Surgery 06/09/25 Additional Source Comments The information contained in this document represents components of the legal health record. It is not the complete legal health record.[facility]
--- OUTSIDE RECORDS SUMMARY | 2025-09-18 10:58 | XMS_ITS | Encounter Summary ---
Author Organization [facility] Address [address] [facility] [address] [place] [address] Phone Care Team Providers Care Game Manager Name Role Phone Kerry Medina MD Primary Care Provider Harlan Orta MD Unavailable Encounter Details Date Type Department Care Team (Late st Contact Info) Description 09/16/2025 Telephone [facility], [facility] [place] [address] [place] [address], 6th [place] [address] Kaci Batista, RN [address] [place] [id number] [email or web address] Social History Tobacco Use Types Packs/Day Years [...] high school, GED, job training, learning the Andorran language, technical skills, or developing parenting skills)? [...] well. SUSANNA Manzo, RN Sarcoma Nurse Navigator [facility] [place] [phone] documented in this encounter Plan of Treatment Upcoming Encounters Date Type Department Care Team (Late st Contact Info) Description 07/16/2025 Procedure Pass [facility] Imaging Department, [facility], MRI [address] [facility], [address] [place] [address] 07/16/2025 Procedure Pass [facility] Imaging Department, [facility], MRI [address] [facility], [place] [address] [place] [address] 07/16/2025 Procedure Pass [facility] Imaging Department, [facility], [place] [address] [facility], [place] [address] [place] [address] 10/25/2025 11:30 AM EST Appointment [facility] Imaging Department, [facility], MRI [address] [facility], [place] [address] [place] [address] Shelbie Yepez MD, PhD [address] [place] [address] [place] [address] [email or web address] 10/25/2025 1:00 PM EST Appointment [facility] Imaging Department, [facility], MRI [address] [facility], [address] [place] [address] Shelbie Yepez MD, PhD [address] [place] [address] [place] [address] [email or web address] 10/25/2025 2:20 PM EST Appointment [facility] Imaging Department, [facility], [place] [address] [facility], [address] [place] [address] Shelbie Yepez MD, PhD [address] [facility] [place] [address] [email or web address] 10/29/2025 10:30 AM EST Office Visit [facility], [facility] [address] [facility], 6th [place] [address] Shelbie Yepez MD, PhD [address] [facility] [place] [address] [email or web address] documented as of this encounter Visit Diagnoses Not on filedocumented in this encounter Care Teams Game Manager Relationship Specialty Start Date End Date Kerry Medina MD [address] [place] [address] [place] [phone] PCP - General Internal Medicine 11/01/23 Harlan Orta MD [address] [place] [address] [place] [address] Referring Physician General Surgery 06/09/25 documented as of this encounter Additional Source Comments The information contained in this document represents components of the legal health record. It is not the complete legal health record.[facility]
[2025-09-18] MEDS: Lidocaine HCl Viscous 2 % 15 ML SOLUTION MUCOUS MEM (11:16)
[2025-09-18 11:20] VITALS: BP 130/91; PULSE 95; RESP 18; TEMP 36.7; O2SAT 99
== END 2025-09-18 11:33 | disposition home or self-care (01) ==
PROVIDERS: Emergency Provider Emergency Medicine; PCP Internal Medicine
DX: K62.89 Other specified diseases of anus and rectum (principal); K64.9 Unspecified hemorrhoids; C76.51 Malignant neoplasm of right lower limb; M79.7 Fibromyalgia; M54.9 Dorsalgia, unspecified; D64.9 Anemia, unspecified; G43.909 Migraine, unspecified, not intractable, without status migrainosus; J45.909 Unspecified asthma, uncomplicated; Z87.891 Personal history of nicotine dependence; Z92.3 Personal history of irradiation
CPT/HCPCS: 99283

== ENCOUNTER 2025-09-19 10:44 | Outpatient (AMB) | payer OTHER, SELFPAY ==
[2025-09-19 10:50] VITALS: BP 136/90; PULSE 85; RESP 16; O2SAT 100; BMI 28.0
--- NOTE | 2025-09-19 10:50 | MHC.OFFVIS ---
Vital Signs 09/19/25 10:50 Height 5 ft 7 in Weight 179 lb BMI 28.0 BP 136/90 H Blood Pressure Location Rt brachial Position Sitting Respiration 16 Pulse 85 Pulse Source Pulse Oximeter Pulse Oximetry (%) 100 Oxygen Delivery Method Room Air Intake Visit Reasons: RIGHT LEG PAIN Census Clerk Required: No Accompanied by: Self / Same As Patient Allergies No Known Allergies Allergy (Verified 09/19/25 10:50) HPI Comments Details: The patient is a 40-year-old female presenting for management of chronic right leg and hip pain. She was recently diagnosed with cancer after what was thought to be a lymph node was surgically removed and biopsied. 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 She is currently undergoing a 33-day course of radiation therapy at [facility], which will continue until October 07. Following the surgery, she developed nerve damage with numbness from the hip down and shooting nerve pain in the same leg. She has also had persistent hip pain since before the mass was discovered, which has worsened, especially at night, and now affects her ability to drive and walk. Previous treatments for her pain included gabapentin (up to 300 mg), naproxen, and Flexeril, none of which provided relief. She is no longer taking gabapentin. The patient had previously been scheduled for diagnostic injections for back pain but cancelled the appointment after her cancer diagnosis. - Location: The patient experiences pain in her hip and shooting nerve pain down her leg. - Quality: The leg pain is described as shooting. - Severity/Impact: The pain is described as a lot and is painful with driving and walking. - Exacerbating Factors: Hip pain is worse at night during sleep. - Associated symptoms: Numbness is present from the hip down where surgery occurred. - Analgesia: The patient reports no relief from previous trials of gabapentin, naproxen, and Flexeril. - Activities of Daily Living: Pain interferes with driving, walking, and sleeping. - Adverse Effects: The patient reports burning skin and pain from ongoing radiation therapy. - Affect: The patient expressed that the cancer diagnosis was a shocker. - Aberrant Drug Related Behaviors: None discussed. Prior: The patient is a 39-year-old female presenting with chronic low back pain and right hip pain. She reports experiencing back pain for approximately 20 years, with an MRI in October showing small disc bulges and arthritis but no nerve compression. The patient experiences sciatic pain bilaterally, which was initially only on the left side, and has had previous cortisone injections with minimal relief. In the past three months, the patient has experienced severe right hip pain, which she describes as unbearable. An x-ray of the hips showed no abnormalities, but she discovered a mass in her groin, leading to a scheduled surgery to determine if it is a hernia. The pain worsens at night, particularly when sleeping on her side, and no interventions have provided significant relief. The patient has a history of osteoarthritis and spondylosis, with previous episodes of severe pain leading to a diagnosis of osteoarthritis. She has attempted weight loss, losing 50 pounds, but reports no significant improvement in pain levels. The patient has been prescribed muscle relaxants and naproxen, which have not alleviated her symptoms. 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 - Aberrant Drug Related Behaviors: None reported PFS Medical History Liposarcoma of right lower extremity Pituitary microadenoma Fibromyalgia Osteoarthritis Back pain Anemia Migraines Asthma HESHAM (stress urinary incontinence, female) Cholecystectomy planned Appendicitis Surgical History H/O excision of mass Hx of bariatric surgery (2013) Hx of cholecystectomy Hx of appendectomy S/P panniculectomy Gastric bypass status for obesity Tubal ligation status Family History Mother Prediabetes Rheumatoid arthritis Hypertension Father Medical history unknown Other Family history of multiple sclerosis Family history of rheumatoid arthritis Family history of systemic lupus erythematosus Social History Household Members: Family Housing: House Are you a primary farm or ranch animal caretaker to a significant other at home: No Do you presently have visiting nurse or other home services: No 75 years or older and lives alone: No Alcohol intake: current Alcohol intake frequency: holidays/special occasions only Alcohol type: hard liquor Patient Tobacco Use Status: Former Tobacco user Tobacco use type: Cigarette Current occupational status: unemployed 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 - Musculoskeletal: Reports worsening hip pain, especially at night. - Integumentary: Reports skin burning as a side effect of radiation. - All other systems were reviewed and are negative. Physical Exam Exam Exam: General: awake, alert, oriented. Answers questions appropriately. Fully engaged in examination. Skin: warm, dry, intact HEENT: Normocephalic. Hearing intact. Cardiac: External chest normal in appearance. Respiratory: No cough, audible wheezing or stridor. Abdomen: without gross distension. MS: No obvious swelling or deformities. Neurological: Oriented to person, place, time and situation. Thought process intact. No gait abnormalities appreciated. Psychiatric: Appropriate mood and affect. Good judgment and insight. Vital Signs: Last Vital Signs Pulse 85 09/19/25 10:50 Resp 16 09/19/25 10:50 BP 136/90 H 09/19/25 10:50 Pulse Ox 100 09/19/25 10:50 Oxygen Delivery Method Room Air 09/19/25 10:50 BMI result Body Mass Index 28.0 Results Reviewed Results Reviewed: 10/2024 MRI lumbar spine without contrast FINDINGS: There is normal alignment of lumbar vertebral bodies. The vertebral bodies are of normal height and signal intensity. There is mild loss of intervertebral disc space height and loss of normal T2 hyperintensity of the L3-L4 and, to a slightly greater extent L4-L5 and L5-S1. The remaining intervertebral disc spaces are maintained. Lower lumbar facet arthrosis. No acute process of the posterior elements is identified. Conus and cauda equina of normal appearance. Conus tip T12-L1. No acute paraspinal abnormality identified. Examination through the L1-L2 and L2-L3 intervertebral levels without central stenosis or foraminal narrowing. Examination through the L3-L4 intervertebral level revealing a small central disc protrusion. The disc material measuring approximately 3 mm in its greatest anterior posterior dimension and 12 mm transversely. There is no significant associated central stenosis. Mild bilateral lateral recess encroachment. No significant foraminal narrowing. Examination through the L4-L5 intervertebral level revealing mild facet arthrosis. There is a central disc protrusion with the disc material measuring approximately 6 mm in its greatest anterior posterior dimension and approximately 20 mm transversely. There is no significant associated central stenosis. There is bilateral lateral recess encroachment. No significant RIGHT foraminal narrowing. Mild LEFT foraminal narrowing. Examination through the L5-S1 intervertebral level revealing facet arthrosis. There is a small posterior disc osteophyte without central stenosis. No significant RIGHT foraminal narrowing. Mild LEFT foraminal narrowing. IMPRESSION: Spondylotic changes and facet arthrosis. No findings of fracture or listhesis. L3-L4 small central disc protrusion. The disc material measuring approximately 3 mm in its greatest anterior posterior dimension and 12 mm transversely. There is no significant associated central stenosis. Mild bilateral lateral recess encroachment. No significant foraminal narrowing. L4-L5 mild facet arthrosis. There is a central disc protrusion with the disc material measuring approximately 6 mm in its greatest anterior posterior dimension and approximately 20 mm transversely. There is no significant associated central stenosis. There is bilateral lateral recess encroachment. No significant RIGHT foraminal narrowing. Mild LEFT foraminal narrowing. L5-S1 facet arthrosis. There is a small posterior disc osteophyte without central stenosis. No significant RIGHT foraminal narrowing. Mild LEFT foraminal narrowing. 07/09/24 LS FINDINGS: There is mild facet degenerative change at the lumbosacral junction. No fracture or destructive process. Mild disc space narrowing L5-S1. Anterior spondylitic changes lower thoracic spine. SI joints symmetric. There are surgical clips seen in the right mid abdomen. IMPRESSION: Degenerative change in the lower lumbar spine. No acute findings. 08/25/22 CT/CT lumbar spine wo IV con FINDINGS: Normal anatomic alignment. No evidence of acute fracture or traumatic subluxation. The vertebral body heights are maintained. The intervertebral disc spaces are maintained. No suspicious lytic or sclerotic osseous lesions. Mild broad-based disc bulge at L4-L5 and L5-S1 which results in mild canal stenosis. Mild multilevel facet arthropathy. No significant neural foraminal narrowing. Transitional lumbosacral anatomy with a broad-based left L5 transverse process pseudoarticulating with the sacrum which can be a source of pain. Mild degenerative changes of the bilateral sacroiliac joints. No significant abnormalities of the paraspinal musculature. Limited evaluation of the intra-abdominal structures without significant abnormalities. The abdominal aorta is of normal contour and caliber. IMPRESSION: 1. No acute fracture or traumatic subluxation. 2. Mild broad-based disc bulge at L4-L5 and L5-S1 which results in mild canal stenosis. No significant neural foraminal narrowing. 3. Transitional lumbosacral anatomy with a broad-based left L5 transverse process pseudoarticulating with the sacrum which can be a source of pain. Assessment & Plan Assessment & Plan (1) Chronic back pain: Code(s): M54.9 - Dorsalgia, unspecified; G89.29 - Other chronic pain Category: Medical (2) Lumbar spondylosis: Code(s): M47.816 - Spondylosis without myelopathy or radiculopathy, lumbar region Category: Medical (3) Sacroiliac joint dysfunction of right side: Code(s): M53.3 - Sacrococcygeal disorders, not elsewhere classified Category: Medical (4) Radiation-induced lumbosacral plexopathy: Code(s): G54.1 - Lumbosacral plexus disorders Category: Medical Plan The patient will be transitioned from gabapentin, which was ineffective, to Lyrica for neuropathic pain. A prescription for Lyrica 50 mg will be sent to [facility], to be taken twice daily. The patient was advised to start with one dose at bedtime to assess tolerance before increasing to twice daily, with the option to increase the dose in the future by sending a message. A submission will be made to her insurance for approval of a right lumbar sympathetic block. This procedure is intended to treat her radiation-induced plexopathy and nerve pain in the leg. Once insurance authorization is obtained, the patient will be contacted to schedule the injection. Follow-up will be scheduled after the injection, unless she needs to be seen sooner for any issues. Patient was informed and verbally consented to the use of an ambient scribe for clinic note documentation during this visit. Medications: New pregabalin (Lyrica) 50 mg PO BID 60 caps 3RF Patient Instructions: - You can stop taking the gabapentin medication, as it does not seem to be helping your pain. - You will start a new medication called Lyrica for your nerve pain. Take 50 mg twice a day. You can start with one pill at bedtime to make sure you tolerate it well. - Please give the Lyrica a few weeks to see if it helps. If you have any problems or feel you might need a higher dose after a couple of weeks, please send a message to our office. - We are going to request approval from your insurance for a special type of injection called a lumbar sympathetic block to help with the pain in your leg. - Our office will call you to schedule this injection once it is approved by your insurance. - Your next follow-up appointment will be after the injection is completed, but please call us if you have any issues before then. Coding Level of Care Code Est Pt Level 3 (19095) Complex visit Add On G2211 Diagnoses Chronic back pain M54.9; G89.29 Lumbar spondylosis M47.816 Sacroiliac joint dysfunction of right side M53.3 Radiation-induced lumbosacral plexopathy G54.1
--- OUTSIDE RECORDS SUMMARY | 2025-09-19 12:55 | XMS_ITS | Clinical Summary ---
Author Organization [address] [place] [address] Address [address] [place] [address] Phone Care Team Providers Care Silver Miner Name Role Phone Kerry Medina MD Primary Care Provider [phone] Allergies No known active allergies Medications buPROPion [...] Date Class 1 obesity 04/02/2025 Pituitary microadenoma ([facility] V24, [facility] V28 ) 04/02/2025 Asthma 03/13/2018 Bipolar disorder (CMS/[facility] V24, CMS/[facility] V28) 02/14 Encounters Date Type Department Care Team Description 07/29/2025 Telephone Bariatric Surgery - [address] [phone] Gianfranco Gordon MD 07/08/2025 9:00 AM EDT Office Visit Bariatric Surgery [address] [address] Gianfranco Gordon MD Over weight (Primary Dx) 06/30/2025 Telephone Bariatric Surgery [address] [address] Gianfranco Gordon MD from Last 3 Months Surgical History Surgery Date Site/Laterality Comments BARIATRIC SURGERY 10/02/2014 PROCEDURE: CA LAPS GSTRC RSTRICTIV PX LONGITUDINAL GASTRECTOMY; COMMENT: Dr. Allan Osuna OTHER SURGICAL HISTORY 10/02/2014 PROCEDURE: CA UNLISTED LAPS PX HRNAP HERNIORRHAPHY HERNIOTOMY; COMMENT: hiatal repair, at time of gastric sleeve CHOLECYSTECTOMY PROCEDURE: HISTORICAL CHOLECYSTECTOMY TUBAL LIGATION PROCEDURE: HISTORICAL TUBAL LIGATION OTHER SURGICAL HISTORY PROCEDURE: HISTORICAL PANNICULECTOMY OTHER SURGICAL HISTORY PROCEDURE: HISTORY OTHER; COMMENT: gastric sleeve Medical History Medical History Date Comments Bipolar disorder (CMS/HCC V2 4, CMS/HCC V28) 03/13/2018 DX:Bipolar disorder ([facility]) Asthma 03/13/2018 DX:Asthma S/P laparoscopic sleeve gastrectomy 03/13/2018 DX:S/P laparoscopic sleeve gastrectomy; COMMENT: 10/02/2014 Dr. Geroges Osuna Mild intermittent asthma, uncomplicated DX:Mild intermittent [...] AM EDT Office Visit Bariatric Surgery - [address] [place] [address] Gianfranco Gordon MD [address] [place] [phone] Health Maintenance Due Date Last Done [...] patient's age to complete this topic Insurance [facility] Care Teams Silver Miner Relationship Specialty Start Date End Date Kerry Medina MD [facility] [address] PCP - General Internal Medicine 01/15/18
--- OUTSIDE RECORDS SUMMARY | 2025-09-19 12:55 | XMS_ITS | Encounter Summary ---
Author Organization [facility] Address [address] [place] [address] Phone Care Team Providers Care Manufacturer Representative Name Role Phone Kerry Medina MD Primary Care Provider Harlan Orta MD Unavailable [phone] Encounter Details Date Type Department Care Team (Late st Contact Info) Description 06/25/2025 Procedure Pass [facility] MR Imaging, [place] [address] [place] [address] Social History Tobacco Use Types Packs/Day Years [...] high school, GED, job training, learning the Danish language, technical skills, or developing parenting skills)? [...] Contact Info) Description 07/16/2025 Procedure Pass [facility] Imaging Department, [facility], MRI [address] [facility], Floor [address] [place] [address] 07/16/2025 Procedure Pass [facility] Imaging Department, [facility], MRI [address] [facility], [address] [place] [address] 07/16/2025 Procedure Pass [facility] Imaging Department, [facility], [place] [address] [facility], [address] [place] [address] 10/25/2025 11:30 AM EST Appointment [facility] Imaging Department, [facility], MRI [address] [facility], [address] [place] [address] Shelbie Correa MD, PhD [address] [facility] [place] [address] [email or web address] 10/25/2025 1:00 PM EST Appointment [facility] Imaging Department, [facility], MRI [address] [facility], [address] [place] [address] Shelbie Yepez MD, PhD [address] [facility] [place] [address] [email or web address] 10/25/2025 2:20 PM EST Appointment [facility] Imaging Department, [facility], [place] [address] [facility], [address] [place] [address] Shelbie Yepez MD, PhD [address] [facility] [place] [address] [email or web address] 10/29/2025 10:30 AM EST Office Visit [facility], [address], 6[address] [place] [address] Shelbie Yepez MD, PhD [address] [facility] [place] [address] [email or web address] documented as of this encounter Visit Diagnoses Not on filedocumented in this encounter Care Teams Manufacturer Representative Relationship Specialty Start Date End Date Kerry Medina MD [address] [place] [address] [place] [phone] PCP - General Internal Medicine 11/01/23 Harlan Orta MD [address] [place] [address] [place] [address] Referring Physician General Surgery 06/09/25 documented as of this encounter Additional Source Comments The information contained in this document represents components of the legal health record. It is not the complete legal health record.[facility]
--- OUTSIDE RECORDS SUMMARY | 2025-09-19 12:55 | XMS_ITS | Clinical Summary ---
Author Organization [facility] Address [address] [place] [address] Phone Care Team Providers Care Big Data Admin Name Role Phone Kerry Medina MD Primary Care Provider Harlan Orta MD Unavailable [phone] Allergies No known active allergies Medications [...] Telephone [facility], [address] [place] [address] Kaci Batista, SARAH 08/21/2025 Ancillary Orders DF IMG OUTSIDE IMG [address] [place] [phone] Luz Maria Chung MD 07/16/2025 9:00 AM EDT Telemedicine [facility], [address], [address] [place] [address] Shelbie Yepez MD, PhD 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 Ancillary Procedure DF IMG OUTSIDE IMG [address] [place] [phone] Luz Maria Chung MD 07/10/2025 11:00 AM EDT Telemedicine [facility], [address], [address] [place] [id number] Karen Main MD, ADRIAN Myxoid liposarcoma (Primary Dx); Sarcoma 07/02/2025 11:00 AM EDT [facility] Visit [facility] [address] [place] [address] Kulwinder Blair MD Greater trochanteric bursitis, unspecified laterality (Primary Dx); Myxoid liposarcoma 07/02/2025 8:23 AM EDT - 07/02/2025 11:59 PM EDT Hospital Encounter [facility] MR Imaging, [address] [place] [address] Shelbie Yepez MD, PhD Discharge Disposition: Home or Self Care 06/30/2025 Ancillary Orders DF IMG OUTSIDE IMG [address] [place] [address] Luz Maria Chung MD 06/25/2025 11:00 AM EDT Office Visit [facility], [address], [address] [place] [address] Shelbie Yepez MD, PhD Myxoid liposarcoma (Primary Dx) 06/25/2025 11:00 AM EDT Office Visit [facility], [address], [address] [place] [address] Karen Main MD, ADRIAN Sarcoma (Primary Dx) 06/25/2025 11:00 AM EDT Office Visit [facility], [address], [address] [place] [address] Kulwinder Blair MD Myxoid liposarcoma (Primary Dx) 06/25/2025 Procedure Pass [facility] MR Imaging, [place] [address] [place] [address] 06/24/2025 Patient Outreach [facility], [address], [address] [place] [address] Kaci Batista, SARAH 06/24/2025 Patient Outreach [facility], [address], [address] [place] [address] Kaci Batista, RN from Last 3 Months Immunizations Immunization Administration Dates Next Due [id number] FORMULATION 01/05/2010 Influenza Quadrivalent Preservative Free IM [...] high school, GED, job training, learning the Yemeni language, technical skills, or developing parenting skills)? [...] st Contact Info) Description 07/16/2025 Procedure Pass [facility] Imaging Department, [facility], MRI [address] [facility], [address] [place] [address] 07/16/2025 Procedure Pass [facility] Imaging Department, [facility], MRI [address] [facility], [address] [place] [address] 07/16/2025 Procedure Pass [facility] Imaging Department, [facility], [place] [address] [facility], [address] [place] [address] 10/25/2025 11:30 AM EST Appointment [facility] Imaging Department, [facility], MRI [address] [facility], [address] [place] [address] Shelbie Yepez MD, PhD [address] [facility] [place] [place] [address] [email or web address] 10/25/2025 1:00 PM EST Appointment [facility] Imaging Department, [facility], MRI [address] [facility], [address] [place] [address] Shlebie Yepez MD, PhD [address] [facility] [place] [place] [address] [email or web address] 10/25/2025 2:20 PM EST Appointment [facility] Imaging Department, [facility], [place] [address] [facility], [address] [place] [address] Shelbie Yepez MD, PhD [address] [facility] [place] [address] [email or web address] 10/29/2025 10:30 AM EST Office Visit [facility], [facility] [address] [facility], 6th [place] [address] Shelbie Yepez MD, PhD [address] [facility] [place] [address] [email or web address] Health Maintenance Due Date Last Done [...] al Result from Last 3 Months [facility] [place] [address] [facility] [employer] Care Teams Big Data Admin Relationship Specialty Start Date End Date Kerry Medina MD [address] [place] [address] [place] [phone] PCP - General Internal Medicine 11/01/23 Harlan Orta MD [address] [place] [address] [place] [id number] Referring Physician General Surgery 06/09/25 Additional Source Comments The information contained in this document represents components of the legal health record. It is not the complete legal health record.[facility]
--- OUTSIDE RECORDS SUMMARY | 2025-09-19 12:55 | XMS_ITS | Encounter Summary ---
Author Organization [facility] Address [email or web address] [facility] [address] [place] [address] Phone Care Team Providers Care Junior Bookkeeper Name Role Phone Kerry Medina MD Primary Care Provider Harlan Orta MD Unavailable [phone] Encounter Details Date Type Department Care Team (Late st Contact Info) Description 09/16/2025 Telephone [facility], [facility] [place] [address] [place] [address], [address] [place] [address] Kaci Batista, RN [address] [place] [address] [email or web address] Social History Tobacco Use Types [...] high school, GED, job training, learning the [place] language, technical skills, or developing parenting skills)? [...] well. SUSANNA Manzo, RN Sarcoma Nurse Navigator [facility] [place] [phone] documented in this encounter Plan of Treatment Upcoming Encounters Date Type Department Care Team (Late st Contact Info) Description 07/16/2025 Procedure Pass [facility] Imaging Department, [facility], MRI [address] [facility], [address] [place] [address] 07/16/2025 Procedure Pass [facility] Imaging Department, [facility], MRI [address] [facility], [address] [place] [address] 07/16/2025 Procedure Pass [facility] Imaging Department, [facility], [place] [address] [facility], [address] [place] [address] 10/25/2025 11:30 AM EST Appointment [facility] Imaging Department, [facility], MRI [address] [facility], [address] [place] [address] Shelbie Yepez MD, PhD [address] [place] [address] [place] [address] [email or web address] 10/25/2025 1:00 PM EST Appointment [facility] Imaging Department, [facility], MRI [address] [facility], [address] [place] [address] Shelbie Yepez MD, PhD [address] [place] [address] [place] [address] [email or web address] 10/25/2025 2:20 PM EST Appointment [facility] Imaging Department, [facility], [place] [address] [facility], [address] [place] [address] Shelbie Yepez MD, PhD [address] [facility] [place] [place] [address] [email or web address] 10/29/2025 10:30 AM EST Office Visit [facility], [facility] [address] [facility], 6th [place] [address] Shelbie Yepez MD, PhD [address] [facility] [place] [address] [email or web address] documented as of this encounter Visit Diagnoses Not on filedocumented in this encounter Care Teams Junior Bookkeeper Relationship Specialty Start Date End Date Kerry Medina MD [address] [place] [address] [place] [phone] PCP - General Internal Medicine 11/01/23 Harlan Orta MD [address] [place] [address] [place] [address] Referring Physician General Surgery 06/09/25 documented as of this encounter Additional Source Comments The information contained in this document represents components of the legal health record. It is not the complete legal health record.[facility]
== END 2025-09-19 11:21 | disposition home or self-care (01) ==
LOC: HO.PMC 10:45
PROVIDERS: PCP Internal Medicine; Visit Provider Registered Nurse Emergency
DX: M54.9 Dorsalgia, unspecified (principal); G89.29 Other chronic pain; M47.816 Spondylosis without myelopathy or radiculopathy, lumbar region; M53.3 Sacrococcygeal disorders, not elsewhere classified; G54.1 Lumbosacral plexus disorders
CPT/HCPCS: 99213

== ENCOUNTER → 2025-09-19 10:44 | Outpatient (BNVA) | payer OTHER, SELFPAY | PROVIDERS: PCP Internal Medicine; Visit Provider Registered Nurse Emergency | DX: G89.29 Other chronic pain (principal); M47.816 Spondylosis without myelopathy or radiculopathy, lumbar region; M53.3 Sacrococcygeal disorders, not elsewhere classified | CPT/HCPCS: 99212 ==